=== PATIENT | female | born 1960 | race African-American/Black ===

== ENCOUNTER 2018-08-13 01:58 | Inpatient (IN) | payer MEDICAID ==
[~2018-08-13] VITALS: Ht 177.8 cm; Wt 85.4 kg
[2018-08-13 02:21] VITALS: BP 164/84
[2018-08-13] MEDS ORDERED: Acetaminophen 500mg (ES) tab ORAL ONE (02:30)
[2018-08-13] MEDS ORDERED: Solu-MEDROL 125mg Inj IVP ONE (02:30)
[2018-08-13] MEDS ORDERED: Albuterol ud Inhalation HHN ONE (02:30)
[2018-08-13] MEDS ORDERED: Ipratropium 0.02% Inh Soln 2.5ml UD HHN ONE (02:30)
--- NOTE | 2018-08-13 02:30 | NUR ---
ED Nurse Note: Pt's friend report Pt having bad flu and seems like PNA now. Pt been sick for 1 week, pt took OTC meds but didn't work. Pt temp 101.9F, Pt is coughing with thick mucos. pt presents with unknown rashes on arms. pt states shes incontinent. pt is able to respond to commands. pupiles are round and reactive to light and accomodate. pt is able to ambulate but with assistance.
[2018-08-13] MEDS ORDERED: Levalbuterol Inh UD 1.25mg/0.5ml HHN ONE (02:45)
[2018-08-13] MEDS: Ipratropium 0.02% Inh Soln 2.5ml UD HHN SCH ×4 (03:48→04:25)
[2018-08-13] MEDS: Levalbuterol Inh UD 1.25mg/0.5ml HHN SCH ×4 (03:48→04:25)
[2018-08-13] MEDS ORDERED: Morphine Sulfate 4mg/ml Inj (IV/IM USE ONLY) IVP ONE ×2 (04:00→07:00)
[2018-08-13 04:42] LABS: BASOPHILS % (AUTO) 0.6 % (0.0-2.0); HEMATOCRIT 45.3 % (37.0-47.0); HEMOGLOBIN 14.5 G/DL (12.0-16.0); LYMPHOCYTES % (AUTO) 9.7 % (20.0-45.0); MEAN CORPUSCULAR VOLUME 93 FL (80-99); NEUTROPHILS % (AUTO) 82.7 % (45.0-75.0); PLATELET COUNT 121 K/UL (150-450); RED BLOOD COUNT 4.85 M/UL (4.20-5.40); RED CELL DISTRIBUTION WIDTH 13.1 % (11.6-14.8); WHITE BLOOD COUNT 14.4 K/UL (4.8-10.8)
[2018-08-13 04:44] VITALS: BP 149/82
[2018-08-13 04:57] LABS: ANION GAP 10 mmol/L (5-15); BLOOD UREA NITROGEN 13 mg/dL (7-18); CALCIUM 9.3 MG/DL (8.5-10.1); CARBON DIOXIDE 26 MMOL/L (21-32); CHLORIDE 95 MMOL/L (98-107); CREATININE 0.9 MG/DL (0.55-1.30); POTASSIUM 3.6 MMOL/L (3.5-5.1); SODIUM 131 MMOL/L (136-145)
--- NOTE | 2018-08-13 05:11 | NUR ---
ED Nurse Note: Jacob (family member) [phone]
[2018-08-13 05:12] LABS: ALANINE AMINOTRANSFERASE 53 U/L (12-78); ALBUMIN 2.7 G/DL (3.4-5.0); ALBUMIN/GLOBULIN RATIO 0.4 (1.0-2.7); ALKALINE PHOSPHATASE 102 U/L (46-116); ASPARTATE AMINO TRANSFERASE 95 U/L (15-37); BILIRUBIN,TOTAL 1.8 MG/DL (0.2-1.0)
[2018-08-13 05:18] LABS: BILIRUBIN,DIRECT 0.9 MG/DL (0.0-0.3)
--- NOTE | 2018-08-13 05:41 | Emergency Room Report ---
History of Present Illness General Chief Complaint: Fever Source: Patient Present Illness HPI 58-year-old female presents ED for evaluation. Brought in by friend for evaluation of fever, cough, congestion. History of COPD. Febrile in triage. Notes cough with phlegm. Denies chest pain. Denies recent travel. No other aggravating relieving factors. Denies any other associated symptoms Allergies: Uncoded Allergies: SULFA MEDS (Allergy, Unknown, 08/13/18) Patient History Past Medical History: DM, HTN, COPD Pertinent Family History: none Social History: Denies: smoking, alcohol use, drug use Now: No Immunizations: UTD Reviewed Nursing Documentation: PMH: Agreed; PSxH: Agreed Nursing Documentation-PMH Hx Hypertension: Yes Hx COPD: Yes Hx Diabetes: Yes Review of Systems All Other Systems: negative except mentioned in HPI Physical Exam Vital Signs Date Time Temp Pulse Resp B/P (MAP) Pulse Ox O2 Delivery O2 Flow Rate FiO2 08/13/18 02:13 101.8 125 22 164/84 96 Room Air 08/13/18 02:21 99 Sp02 EP Interpretation: reviewed, normal General Appearance: alert, GCS 15, non-toxic, mild distress Head: normocephalic, atraumatic Eyes: bilateral eye normal inspection, bilateral eye PERRL ENT: hearing grossly normal, normal pharynx, no angioedema, normal voice Neck: full range of motion, supple/symm/no masses Respiratory: chest non-tender, crackles, speaking full sentences, wheezing Cardiovascular #1: no edema, tachycardia Cardiovascular #2: 2+ carotid (R), 2+ carotid (L), 2+ radial (R), 2+ radial (L) , 2+ dorsalis pedis (R), 2+ dorsalis pedis (L) Gastrointestinal: normal bowel sounds, non tender, soft, non-distended, no guarding, no rebound Rectal: deferred Genitourinary: normal inspection, no CVA tenderness Musculoskeletal: back normal, gait/station normal, normal range of motion, non- tender Neurologic: alert, oriented x3, responsive, motor strength/tone normal, sensory intact, speech normal Psychiatric: judgement/insight normal, memory normal, mood/affect normal, no suicidal/homicidal ideation Reflexes: 3+ bicep (R), 3+ bicep (L), 3+ tricep (R), 3+ tricep (L), 3+ knee (R) , 3+ knee (L) Skin: normal color, no rash, warm/dry, well hydrated Lymphatic: no adenopathy Medical Decision Making Diagnostic Impression: Primary Impression: COPD (chronic obstructive pulmonary disease) Qualified Codes: J44.9 - Chronic obstructive pulmonary disease, unspecified Additional Impressions: Pneumonia Qualified Codes: J18.1 - Lobar pneumonia, unspecified organism Sepsis Qualified Codes: A41.9 - Sepsis, unspecified organism Opioid dependence Qualified Codes: F11.29 - Opioid dependence with unspecified opioid-induced disorder ER Course Hospital Course 58-year-old F presenting to ED with SOB. h/o COPD. + fever Differential diagnoses include: Pneumonia, CHF exacerbation, pneumothorax, fluid overload Clinical course Patient placed on stretcher. On alarm security or surveillance monitor with stable vitals. After initial history and physical, I ordered nebulizer treatments, solumedrol. I ordered labs, IV fluids, EKG, chest x-ray, blood cultures, UA. Labs - noted leukocytosis noted, hemoglobin/hematocrit stable, electrolytes okay, lactate 2.9, EKG - sinus tachycardia, no acute ischemic changes interpreted by me CXR - R sided infiltrate Patient given multiple breathing treatments. Given magnesium. Given antibiotics. Given IV fluids 30 mL per KG Patient asking for pain medications for her back pain. Patient later admits to methadone use 80 mg a day Case discussed with Dr. Bella and he agreed to the patient to his service for further care and support I feel this is a highly complex case requiring extensive working including EKG/ Rhythm strip, Xray/CT/US, Blood/urine lab work, repeat exams while in ED, and administration of strong opiates/narcotics for pain control, admission to hospital or close patient follow up. Diagnosis - COPD exacerbation, pneumonia, sepsis, opioid dependence Patient admitted to telemetry in serious condition Labs Test 08/13/18 04:20 White Blood Count 14.4 K/UL (4.8-10.8) Red Blood Count 4.85 M/UL (4.20-5.40) Hemoglobin 14.5 G/DL (12.0-16.0) Hematocrit 45.3 % (37.0-47.0) Mean Corpuscular Volume 93 FL (80-99) Mean Corpuscular Hemoglobin 29.8 PG (27.0-31.0) Mean Corpuscular Hemoglobin Concent 31.9 G/DL (32.0-36.0) Red Cell Distribution Width 13.1 % (11.6-14.8) Platelet Count 121 K/UL (150-450) Mean Platelet Volume 11.7 FL (6.5-10.1) Neutrophils (%) (Auto) 82.7 % (45.0-75.0) Lymphocytes (%) (Auto) 9.7 % (20.0-45.0) Monocytes (%) (Auto) 7.0 % (1.0-10.0) Eosinophils (%) (Auto) 0.0 % (0.0-3.0) Basophils (%) (Auto) 0.6 % (0.0-2.0) Sodium Level 131 MMOL/L (136-145) Potassium Level 3.6 MMOL/L (3.5-5.1) Chloride Level 95 MMOL/L (98-107) Carbon Dioxide Level 26 MMOL/L (21-32) Anion Gap 10 mmol/L (5-15) Blood Urea Nitrogen 13 mg/dL (7-18) Creatinine 0.9 MG/DL (0.55-1.30) Estimat Glomerular Filtration Rate > 60 mL/min (>60) Glucose Level 205 MG/DL (74-106) Lactic Acid Level 2.90 mmol/L (0.4-2.0) Calcium Level 9.3 MG/DL (8.5-10.1) Total Bilirubin 1.8 MG/DL (0.2-1.0) Direct Bilirubin 0.9 MG/DL (0.0-0.3) Aspartate Amino Transf (AST/SGOT) 95 U/L (15-37) Alanine Aminotransferase (ALT/SGPT) 53 U/L (12-78) Alkaline Phosphatase 102 U/L (46-116) Total Protein 9.2 G/DL (6.4-8.2) Albumin 2.7 G/DL (3.4-5.0) Globulin 6.5 g/dL Albumin/Globulin Ratio 0.4 (1.0-2.7) EKG Diagnostic Results Rate: tachycardiac Rhythm: NSR ST Segments: no acute changes ASA given to the pt in ED: No Rhythm Strip Diag. Results EP Interpretation: yes Rhythm: NSR, no PVC's, no ectopy Chest X-Ray Diagnostic Results Chest X-Ray Diagnostic Results : Chest X-Ray Ordered: Yes # of Views/Limited/Complete: 1 View Indication: Shortness of Breath EP Interpretation: Yes Interpretation: no pneumothorax, other - R sided infiltrate Impression: Other - PNA Electronically Signed by: Electronically signed by Tye Greer MD Last Vital Signs Date Time Temp Pulse Resp B/P (MAP) Pulse Ox O2 Delivery O2 Flow Rate FiO2 08/13/18 04:44 101.8 100 20 149/82 96 Room Air 08/13/18 04:25 21 Status: improved Disposition: ADMITTED INPATIENT Condition: Serious Referrals: [facility],REFERRING (PCP) Tye Gerer MD Aug 13, 2018 05:41
[2018-08-13 06:05] LABS: APPEARANCE,URINE CLEAR; BILIRUBIN, URINE 1+ (NEGATIVE); GLUCOSE, URINE (UA) NEGATIVE (NEGATIVE); KETONES,URINE 2+ (NEGATIVE); LEUKOCYTE ESTERASE ,URINE 1+ (NEGATIVE); NITRITE,URINE NEGATIVE (NEGATIVE); PH,URINE 6 (4.5-8.0); PROTEIN,URINE 3+ (NEGATIVE); UROBILINOGEN,URINE 8 MG/DL (0.0-1.0)
[2018-08-13 06:18] LABS: COLOR,URINE YELLOW
--- NOTE | 2018-08-13 06:40 | NUR ---
ED Nurse Note: PT report and all inportant information was reported to AMIE NELSON.
[2018-08-13 06:41] VITALS: BP 132/81
--- NOTE | 2018-08-13 07:28 | NUR ---
ED Nurse Note: pt is transfered to TELE with DANIEL GARCIA. pt status vital signs, status and condition has been reported to ERMD and receving RN. pt is stable for transfer.
--- NOTE | 2018-08-13 07:30 | NUR ---
NURSE NOTES: Received report from DANIEL White. Patient transferred from ER via gurney. Patient was able to roll over to the bed. Endorsed 1 mg of magnesium given at the time of arrival. VS at the time of arrival T 98.7, HR 106, RR 24 O2 sat 95%, BP 151/86. Patient on oxygen 2L via NC. 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 Belonging list checked, no active s/s cardiac, respiratory distress noticed at this time. Patient stated pain 5/10 on her back and legs. Bed in lowest position, side rails up x3, call light within reach, bed side commode at the bed side. Will continue to monitor.
--- NOTE | 2018-08-13 08:00 | NUR ---
NURSE NOTES: Patient verbally gave a list of home medication, methadone 80 mg daily, oxycodone 30mg TID, gabapentin 800 mg q6h, metformin [address] Montero, not going to continue metformin and need clarify with clinic for dosage of methadone. Order noted, entered, carried out. Dr. Montero made aware patient c/o back and legs pain. Per Dr. Montero, will enter order after assessment. Will continue to monitor.
[2018-08-13] MEDS ORDERED: METFORMIN HCL500 M1 ORAL (09:54)
[2018-08-13] MEDS ORDERED: GABAPENTIN800 MG ORAL (09:54)
[2018-08-13] MEDS ORDERED: ROXICODONE15 MG ORAL (09:54)
[2018-08-13] MEDS ORDERED: METHADONE HCL10 MG PO (09:54)
--- NOTE | 2018-08-13 10:00 | NUR ---
NURSE NOTES: Patient gage consent for releasing information about methadone from clinic. Patient stated she has been picking up medication from [facility] which is located at [facility] [place]. Pharmacist made aware. Will continue to monitor.
--- NOTE | 2018-08-13 11:01 | Diagnostic Imaging Report ---
Indication: Cough Comparison: 01/30/2000 A single view chest radiograph was obtained. Findings: Patchy infiltrates are present bilaterally. Correlate clinically for pneumonia. Differential includes a mild CHF. Heart is mildly enlarged. IMPRESSION: Mild patchy infiltrate versus interstitial edema. Correlate clinically
[2018-08-13] MEDS ORDERED: Miralax 17gm pkt ORAL PRN (11:30)
[2018-08-13] MEDS ORDERED: Albuterol/Ipratropium 3ml neb ONE (11:39)
[2018-08-13] MEDS: Albuterol/Ipratropium 3ml neb HHN SCH ×3 (11:46→23:00)
[2018-08-13] MEDS ORDERED: oxyCODONE 15mg IR tab ORAL SCH ×2 (13:00→17:00)
[2018-08-13] MEDS ORDERED: ALBUTEROL SULF8.5 GM INH (13:21)
[2018-08-13] MEDS ORDERED: ASPIRIN81 MG ORAL (13:21)
[2018-08-13] MEDS ORDERED: LEVAQUIN750 MG ORAL (13:21)
[2018-08-13] MEDS ORDERED: NOVOLIN R100 UNIT/1 SUBQ (13:21)
[2018-08-13] MEDS ORDERED: LISINOPRIL20 MG ORAL (13:21)
[2018-08-13] MEDS ORDERED: LANTUS SOL100 UNIT/1 SUBQ (13:21)
[2018-08-13] MEDS ORDERED: PREDNISONE20 MG ORAL (13:21)
[2018-08-13] MEDS: Solu-MEDROL 125mg Inj IVP SCH ×2 (13:37→17:14)
[2018-08-13] MEDS: Azithromycin 500 MG in D5W 275 ML IV SCH (14:36)
--- NOTE | 2018-08-13 14:54 | History and Physical ---
History of Present Illness General Date patient seen: Aug 13, 2018 Time patient seen: 11:45 Reason for Hospitalization: Sepsis Present Illness HPI 58 year old woman with history of COPD, HTN, DM type 2, chronic pain, opiate dependance on methadone who presents with 3 days of cough, chest congestion, fevers and chills. Cough is productive of green sputum. Multiple sick contacts with similar complaints. In ED she was found to have fever 102, leukocytosis and infiltrate on CXR. Treated with Levaquin and referred for admission. Social Hx: Tobacco use Family Hx: No premature CAD Allergies: Coded Allergies: SULFA (SULFONAMIDE ANTIBIOTICS) (Unverified Allergy, Unknown, 08/13/18) Uncoded Allergies: SULFA MEDS (Allergy, Unknown, 08/13/18) Medication History Scheduled Albuterol Sulfate* (Albuterol Sulfate Mdi*), 2 PUFF INH Q6H, (Reported) Aspirin* (Aspirin*), 81 MG ORAL DAILY, (Reported) Gabapentin* (Gabapentin*), 800 MG ORAL FOUR TIMES A DAY, (Reported) Insulin Glargine (Lantus), 0 SUBQ BEDTIME, (Reported) Insulin Regular, Human* (Novolin R*), 0 SUBQ .SLIDING SCALE, (Reported) Levofloxacin* (Levaquin*), 750 MG ORAL DAILY, (Reported) Lisinopril (Lisinopril*), 20 MG ORAL DAILY, (Reported) Metformin Hcl* (Metformin Hcl*), 500 MG ORAL THREE TIMES A DAY, (Reported) Methadone Hcl* (Methadone*), 80 MG PO DAILY, (Reported) OXYCODONE HCl* (Roxicodone*), 30 MG ORAL TID, (Reported) Prednisone* (Prednisone*), 20 MG ORAL DAILY, (Reported) Patient History Healthcare decision maker Yesica Ac Resuscitation status Full Code Advanced Directive on File Review of Systems Constitutional: Reports: chills, fever Eye: Denies: eye pain ENT: Denies: ear pain Respiratory: Reports: cough, shortness of breath, wheezing Cardiovascular: Denies: chest pain, palpitations Gastrointestinal: Denies: abdominal pain, constipation Genitourinary: Denies: dysuria Musculoskeletal: Denies: back pain Skin: Denies: rash Neurological: Denies: headache Endocrine: Denies: excessive sweating Hematologic/Lymphatic: Denies: anemia Physical Exam General Appearance: no apparent distress, alert HEENT: normocephalic, atraumatic Neck: non-tender, normal alignment Respiratory/Chest: chest wall non-tender, rhonchi - bilaterally Cardiovascular/Chest: normal peripheral pulses, normal rate Abdomen: normal bowel sounds, non tender Extremities: normal range of motion, non-tender 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, no motor/sensory deficits, alert, oriented x 3 Last 24 Hour Vital Signs Date Time Temp Pulse Resp B/P (MAP) Pulse Ox O2 Delivery O2 Flow Rate FiO2 08/13/18 11:54 93 20 100 Nasal Cannula 2.0 28 08/13/18 11:54 Nasal Cannula 2.0 28 08/13/18 11:54 99 Nasal Cannula 2.0 08/13/18 11:49 91 20 Nasal Cannula 2.0 08/13/18 11:48 91 20 98 Nasal Cannula 2.0 08/13/18 09:00 Nasal Cannula 2.0 08/13/18 08:59 Nasal Cannula 2.0 08/13/18 07:27 99.5 81 18 132/81 99 Room Air 21 08/13/18 06:41 99.5 81 18 132/81 99 Room Air 08/13/18 04:44 101.8 100 20 149/82 96 Room Air 08/13/18 04:25 121 19 95 Room Air 08/13/18 04:20 121 21 100 Room Air 21 08/13/18 04:15 99.9 08/13/18 04:01 122 21 100 Room Air 08/13/18 03:48 121 18 90 Room Air 08/13/18 02:58 121 21 100 Room Air 21 08/13/18 02:45 118 19 93 Room Air 21 08/13/18 02:21 101.8 100 22 164/84 96 Room Air 08/13/18 02:21 100 19 Room Air 99 08/13/18 02:13 101.8 125 22 164/84 96 Room Air Laboratory Tests Test 08/13/18 04:20 08/13/18 05:41 08/13/18 07:20 White Blood Count 14.4 K/UL (4.8-10.8) H Red Blood Count 4.85 M/UL (4.20-5.40) Hemoglobin 14.5 G/DL (12.0-16.0) Hematocrit 45.3 % (37.0-47.0) Mean Corpuscular Volume 93 FL (80-99) Mean Corpuscular Hemoglobin 29.8 PG (27.0-31.0) Mean Corpuscular Hemoglobin Concent 31.9 G/DL (32.0-36.0) L Red Cell Distribution Width 13.1 % (11.6-14.8) Platelet Count 121 K/UL (150-450) L Mean Platelet Volume 11.7 FL (6.5-10.1) H Neutrophils (%) (Auto) 82.7 % (45.0-75.0) H Lymphocytes (%) (Auto) 9.7 % (20.0-45.0) L Monocytes (%) (Auto) 7.0 % (1.0-10.0) Eosinophils (%) (Auto) 0.0 % (0.0-3.0) Basophils (%) (Auto) 0.6 % (0.0-2.0) Sodium Level 131 MMOL/L (136-145) L Potassium Level 3.6 MMOL/L (3.5-5.1) Chloride Level 95 MMOL/L (98-107) L Carbon Dioxide Level 26 MMOL/L (21-32) Anion Gap 10 mmol/L (5-15) Blood Urea Nitrogen 13 mg/dL (7-18) Creatinine 0.9 MG/DL (0.55-1.30) Estimat Glomerular Filtration Rate > 60 mL/min (>60) Glucose Level 205 MG/DL (74-106) H Lactic Acid Level 2.90 mmol/L (0.4-2.0) H 3.30 mmol/L (0.66-2.22) H Calcium Level 9.3 MG/DL (8.5-10.1) Total Bilirubin 1.8 MG/DL (0.2-1.0) H Direct Bilirubin 0.9 MG/DL (0.0-0.3) H Aspartate Amino Transf (AST/SGOT) 95 U/L (15-37) H Alanine Aminotransferase (ALT/SGPT) 53 U/L (12-78) Alkaline Phosphatase 102 U/L (46-116) Total Protein 9.2 G/DL (6.4-8.2) H Albumin 2.7 G/DL (3.4-5.0) L Globulin 6.5 g/dL Albumin/Globulin Ratio 0.4 (1.0-2.7) L Urine Color Yellow Urine Appearance Clear Urine pH 6 (4.5-8.0) Urine Specific [place] 1.015 (1.005-1.035) Urine Protein 3+ (NEGATIVE) H Urine Glucose (UA) Negative (NEGATIVE) Urine Ketones 2+ (NEGATIVE) H Urine Blood 2+ (NEGATIVE) H Urine Nitrite Negative (NEGATIVE) Urine Bilirubin 1+ (NEGATIVE) H Urine Ictotest Positive (NEGATIVE) Urine Urobilinogen 8 MG/DL (0.0-1.0) H Urine Leukocyte Esterase 1+ (NEGATIVE) H Urine RBC 2-4 /HPF (0 - 2) H Urine WBC 2-4 /HPF (0 - 2) Urine Squamous Epithelial Cells Few /LPF (NONE/OCC) Urine Bacteria Few /HPF (NONE) Microbiology Date/Time Source Procedure Growth Status 08/13/18 04:10 Nasal Nares Influenza Types A,B Antigen (SELENA) - Final Complete Height (Feet): 5 Height (Inches): 10.00 Weight (Pounds): 170 Medications Current Medications Medications (Trade) Dose Ordered Sig/Rogers Route PRN Reason Start Time Stop Time Status Last Admin Dose Admin Albuterol/ Ipratropium (Albuterol/ Ipratropium) 3 ml Q4HRT HHN 08/13/18 15:00 08/18/18 14:59 08/13/18 11:46 Aspirin (ASA) 81 mg DAILY ORAL 08/14/18 09:00 09/13/18 08:59 Azithromycin 500 mg/Dextrose 275 ml @ 275 mls/hr Q24H IV 08/13/18 14:00 08/20/18 13:59 08/13/18 14:36 Ceftriaxone Sodium 1 gm/ Dextrose 55 ml @ 110 mls/hr Q24H IV 08/13/18 15:00 08/20/18 14:59 Diphenhydramine HCl (Benadryl) 25 mg Q6H PRN ORAL Itching/Pruritis 08/13/18 11:30 09/12/18 11:29 Docusate Sodium (Colace) 100 mg EVERY 12 HOURS ORAL 08/13/18 21:00 09/12/18 20:59 Famotidine (Pepcid) 40 mg DAILY ORAL 08/14/18 09:00 09/13/18 08:59 Gabapentin (Neurontin) 800 mg FOUR TIMES A DAY ORAL 08/13/18 13:00 09/12/18 12:59 08/13/18 13:37 Heparin Sodium (Porcine) (Heparin 5000 units/ml) 5,000 units EVERY 12 HOURS SUBQ 08/13/18 21:00 09/12/18 20:59 Insulin Detemir (Levemir) 10 units BEDTIME SUBQ 08/13/18 21:00 09/12/18 20:59 Lisinopril (Prinivil) 20 mg DAILY ORAL 08/14/18 09:00 09/13/18 08:59 Methadone HCl (Methadone HCl) 50 mg DAILY ORAL 08/13/18 15:00 08/20/18 14:59 08/13/18 14:35 Methylprednisolone Sodium Succinate (Solu-MEDROL) 60 mg EVERY 6 HOURS IVP 08/13/18 12:00 09/12/18 11:59 08/13/18 13:37 Ondansetron HCl (Zofran) 4 mg Q6H PRN IVP Nausea & Vomiting 08/13/18 11:30 09/12/18 11:29 Oxycodone HCl (Roxicodone) 30 mg TID ORAL 08/13/18 13:00 08/20/18 12:59 UNV Polyethylene Glycol (Miralax) 17 gm DAILYPRN PRN ORAL Constipation 08/13/18 11:30 09/12/18 11:29 Sodium Chloride 1,000 ml @ 75 mls/hr [id number] IV 08/13/18 12:25 09/12/18 12:24 08/13/18 13:37 Assessment/Plan Assessment/Plan #Sepsis due to #Pneumonia, community acquired -admit to medical service -start IV antibiotic with ceftriaxone and azithromycin -follow up blood cultures and lactate levels -Pulmonology consulted #COPD exacerbation, diffuse rhonchi on exam -start Solu-Medrol, Duoneb -add Mucinex -smoking cessation #Type 2 DM -will lkely become uncontrolled due to steroids -start Levemir + ISS -monitor glucose levels closely #Chronic pain #Neuropathy #opiate dependance -continue outpatient pain regimen -methadone verified to be 50mg VTE PPx Full Code I spent 70 minutes on this patient's case, and 35 minutes was dedicated to counseling and/or care coordination. Raul Giraldo MD Aug 13, 2018 14:54
--- NOTE | 2018-08-13 15:40 | NUR ---
NURSE NOTES: Per Dr. Kylah guerra to continue oxycodone 30mg BID although last picked up for oxycodone from [facility] was 03/2018. Order noted, entered, carried out. Patient requesting upgrade diet from clear liquid diet to solid food. Per Dr. Kylah guerra to upgrade diet. Order noted, entered, carried out. Will continue to monitor.
[2018-08-13] MEDS ORDERED: oxyCODONE 5mg IR tab ONE (16:11)
[2018-08-13] MEDS: NovoLOG Insulin Flexpen SUBQ SCH ×2 (16:25→21:37)
[2018-08-13] MEDS ORDERED: oxyCODONE 5mg IR tab ORAL ONE (17:00)
--- NOTE | 2018-08-13 17:30 | NUR ---
NURSE NOTES: Dr. Montero made aware patient BS at 1630 was 479. 14 units of NovoLog given. At 1700 BS was critically high. Per Dr. Montero administer 6 units of insulin coverage once. Order noted, entered, carried out. CN made aware, BS checked with CN critically high. Patient asymptomatic, AO x4, denies pain at this time. Will continue to monitor.
[2018-08-13] MEDS ORDERED: Guaifenesin/DM 10ml syrup ORAL PRN (17:45)
[2018-08-13] MEDS: cefTRIAXone 1 GM in D5W 55 ML IV SCH (18:11)
[2018-08-13] MEDS: guaiFENesin ER 600mg tab ORAL SCH (18:11)
[2018-08-13] MEDS ORDERED: NovoLOG Insulin Flexpen SUBQ SCH (19:00)
--- NOTE | 2018-08-13 19:23 | NUR ---
HAND-OFF: Report given to DANIEL Cardenas.
--- NOTE | 2018-08-13 19:24 | NUR ---
NURSE NOTES: Received report by Rowena SANCHEZ. Pt in bed asleep with tv on. No distress noted. Bed in lowest position with side rails up x2 and call light in reach. IVF running at prescribed rate. Will continue to monitor.
[2018-08-13 20:00] VITALS: BP 143/71
[2018-08-13] MEDS ORDERED: Levemir Flexpen SUBQ SCH (21:00)
[2018-08-13] MEDS: Oseltamivir 75mg cap ORAL SCH (21:34)
[2018-08-13] MEDS: Docusate 100mg cap ORAL SCH (21:34)
[2018-08-13] MEDS: Heparin 5000 units/ml inj SUBQ SCH (21:40)
[2018-08-14] VITALS: BP 111/75
--- NOTE | 2018-08-14 03:07 | NUR ---
HAND-OFF: Report given to Elva Solares RN. Pt stable.
--- NOTE | 2018-08-14 03:25 | NUR ---
NURSE NOTES: Received patient from DANIEL Cardenas. Patient on bed asleep at this time. Call light within reach. Bed brakes engaged.
[2018-08-14 04:00] VITALS: BP 109/73
[2018-08-14] MEDS ORDERED: oxyCODONE 15mg IR tab ORAL SCH (04:00)
--- NOTE | 2018-08-14 04:00 | NUR ---
NURSE NOTES: Patient very restless and in pain. Notified RN last Oxycodone taken at 4pm. Called in pharmacy to have the medication retimed as it was past 12 hours as ordered routinely. Pharmacy double checked and retimed as requested.
[2018-08-14] MEDS: Albuterol/Ipratropium 3ml neb HHN SCH ×6 (04:30→23:42)
[2018-08-14] MEDS: Solu-MEDROL 125mg Inj IVP SCH ×5 (05:04→23:24)
[2018-08-14] MEDS: NovoLOG Insulin Flexpen SUBQ SCH ×4 (06:13→21:00)
[2018-08-14 06:38] LABS: HEMOGLOBIN 11.5 G/DL (12.0-16.0); MEAN CORPUSCULAR VOLUME 94 FL (80-99); PLATELET COUNT 101 K/UL (150-450); RED BLOOD COUNT 3.85 M/UL (4.20-5.40); RED CELL DISTRIBUTION WIDTH 13.6 % (11.6-14.8); WHITE BLOOD COUNT 7.2 K/UL (4.8-10.8)
--- NOTE | 2018-08-14 06:41 | NUR ---
NURSE NOTES: Seen patient asleep now. No complaints of pain at this time.
[2018-08-14 07:04] LABS: ANION GAP 8 mmol/L (5-15); CARBON DIOXIDE 27 MMOL/L (21-32); CHLORIDE 96 MMOL/L (98-107); POTASSIUM 3.4 MMOL/L (3.5-5.1); SODIUM 131 MMOL/L (136-145)
[2018-08-14 07:24] LABS: BLOOD UREA NITROGEN 31 mg/dL (7-18)
--- NOTE | 2018-08-14 07:46 | NUR ---
HAND-OFF: Report given to DANIEL Guaman. Endorsed plan of care.
[2018-08-14 08:00] VITALS: BP 133/74
--- NOTE | 2018-08-14 08:00 | NUR ---
NURSE NOTES: Received report from DANIEL Stevenson. Patient in bed resting. Patient on 2L oxygen via NC, no active s/s cardiac, respiratory distress noticed at this time. Patient AO x4, SR with HR 82. IV running at prescribed rate, IV site asymptomatic, patent, intact. Bed side commode at bed side, bed in lowest position, side rails up x2, call light within reach. Will continue to monitor.
--- NOTE | 2018-08-14 08:30 | NUR ---
NURSE NOTES: Dr. Montero made aware patient requesting oxycodone TID instead of BID. Per Dr. Montero oxycodone 30mg TID. Order noted, entered, carried out. Dr. Montero made aware patient has lisinopril 20mg and potassium today is 3.4. Per Dr. Montero, okay to administer lisinopril. Will continue to monitor.
[2018-08-14] MEDS: Heparin 5000 units/ml inj SUBQ SCH ×2 (09:00→21:00)
[2018-08-14] MEDS: Docusate 100mg cap ORAL SCH ×2 (09:00→21:00)
--- NOTE | 2018-08-14 09:13 | General Progress Note ---
Assessment/Plan Assessment/Plan #Sepsis due to #Pneumonia, community acquired #Influenza A infection -continue inpatient level of care -continue ceftriaxone and azithromycin -started on Tamiflu -follow up blood cultures -Pulmonology consult #COPD exacerbation, remains very rhonch -continue Solu-Medrol, Duoneb -continue Mucinex -smoking cessation #Type 2 DM, uncontrolled due to steroids -increase Levemir to 12 units qHS -monitor glucose levels closely with ISS #Chronic pain #Neuropathy #opiate dependance -continue outpatient pain regimen -methadone verified to be 50mg VTE PPx Full Code I spent 70 minutes on this patient's case, and 36 minutes was dedicated to counseling and/or care coordination. Subjective Date patient seen: Aug 14, 2018 Time patient seen: 07:30 ROS Limited/Unobtainable: No Constitutional: Denies: fever Cardiovascular: Denies: chest pain Respiratory: Reports: cough, shortness of breath Gastrointestinal/Abdominal: Denies: abdomen distended, abdominal pain Neurologic/Psychiatric: Denies: anxiety Allergies: Coded Allergies: SULFA (SULFONAMIDE ANTIBIOTICS) (Unverified Allergy, Unknown, 08/13/18) Uncoded Allergies: SULFA MEDS (Allergy, Unknown, 08/13/18) Subjective Medicine follow up for sepsis, pneumonia, influenza A infection. Feeling better today. Asking oxycodone to be increased to 30mg tid Objective Last 24 Hour Vital Signs Date Time Temp Pulse Resp B/P (MAP) Pulse Ox O2 Delivery O2 Flow Rate FiO2 08/14/18 07:30 80 20 100 Nasal Cannula 2.0 28 08/14/18 07:23 76 18 100 Nasal Cannula 2.0 28 08/14/18 07:23 Nasal Cannula 2.0 28 08/14/18 07:23 76 18 Nasal Cannula 2.0 28 08/14/18 07:23 100 Nasal Cannula 2.0 28 08/14/18 04:37 82 20 98 Nasal Cannula 2.0 28 08/14/18 04:28 82 20 98 Nasal Cannula 2.0 28 08/14/18 04:00 97.1 75 18 109/73 (85) 94 08/14/18 03:47 77 08/14/18 00:00 97.4 76 19 111/75 (87) 98 08/14/18 00:00 74 08/13/18 23:50 Nasal Cannula 2.0 28 08/13/18 23:50 Nasal Cannula 2.0 08/13/18 21:00 Nasal Cannula 2.0 08/13/18 20:38 79 20 99 Nasal Cannula 2.0 28 08/13/18 20:27 Nasal Cannula 2.0 28 08/13/18 20:27 78 20 98 Nasal Cannula 2.0 28 08/13/18 20:27 98 Nasal Cannula 2.0 28 08/13/18 20:26 78 2 Nasal Cannula 2.0 08/13/18 20:00 93 08/13/18 20:00 97.1 79 18 143/71 (95) 95 08/13/18 16:00 96 08/13/18 15:23 Nasal Cannula 2.0 28 08/13/18 15:23 Nasal Cannula 2.0 08/13/18 12:00 90 08/13/18 11:54 93 20 100 Nasal Cannula 2.0 08/13/18 11:54 Nasal Cannula 2.0 08/13/18 11:54 99 Nasal Cannula 2.0 08/13/18 11:49 91 20 Nasal Cannula 2.0 08/13/18 11:48 91 20 98 Nasal Cannula 2.0 28 Laboratory Tests 08/14/18 05:50: White Blood Count 7.2, Red Blood Count 3.85L, Hemoglobin 11.5L, Hematocrit 36.0L , Mean Corpuscular Volume 94, Mean Corpuscular Hemoglobin 29.7, Mean Corpuscular Hemoglobin Concent 31.8L, Red Cell Distribution Width 13.6, Platelet Count 101L, Mean Platelet Volume 8.1, Neutrophils (%) (Auto) , Lymphocytes (%) (Auto) , Monocytes (%) (Auto) , Eosinophils (%) (Auto) , Basophils (%) (Auto) , Neutrophils % (Manual) [Pending], Lymphocytes % (Manual) [Pending], Platelet Estimate [Pending], Platelet Morphology [Pending], Sodium Level 131L, Potassium Level 3.4L, Chloride Level 96L, Carbon Dioxide Level 27, Anion Gap 8, Blood Urea Nitrogen 31H, Creatinine 1.0, Estimat Glomerular Filtration Rate > 60, Glucose Level 384#H, Calcium Level 9.0 Height (Feet): 5 Height (Inches): 10.00 Weight (Pounds): 170 General Appearance: no apparent distress, alert Neck: non-tender, normal alignment Cardiovascular: normal peripheral pulses, normal rate Respiratory/Chest: rhonchi - bilaterally Abdomen: normal bowel sounds, non tender Extremities: normal range of motion Raul Giraldo MD Aug 14, 2018 09:13
[2018-08-14] MEDS: Oseltamivir 75mg cap ORAL SCH ×2 (09:42→21:00)
[2018-08-14] MEDS: Aspirin Baby 81mg ORAL SCH (09:42)
[2018-08-14] MEDS: guaiFENesin ER 600mg tab ORAL SCH ×2 (09:42→17:47)
[2018-08-14] MEDS: Lisinopril 20mg tab ORAL SCH (09:42)
[2018-08-14] MEDS: oxyCODONE 15mg IR tab ORAL SCH ×3 (09:43→17:47)
[2018-08-14] MEDS ORDERED: 1/2 NS 1000ml IV ONE (10:39)
[2018-08-14] MEDS ORDERED: Tubing IV Secondary IV ONE (10:39)
[2018-08-14 12:00] VITALS: BP 123/73
--- NOTE | 2018-08-14 13:11 | NUR ---
NURSE NOTES: Dr. Montero made aware patient BS at 1130 was 433, 14 units of NovoLog given, BS rechecked at 1230 was 442. No order given at this time. Will continue to monitor. Addendum: 08/14/18 at 1316 by ROSEMARY MCLAIN RN Per Dr. Montero another 6 units of coverage. Order noted, entered, carried out.
[2018-08-14] MEDS: Azithromycin 500 MG in D5W 275 ML IV SCH (14:13)
--- NOTE | 2018-08-14 14:51 | NUR ---
*-* INSURANCE *-* ALL CLINICALS HAVE BEEN FAXED TO: [facility] F:[phone]
[2018-08-14] MEDS ORDERED: NovoLOG Insulin Flexpen SUBQ SCH (15:00)
[2018-08-14 16:00] VITALS: BP 113/74
--- NOTE | 2018-08-14 16:10 | Pulmonology Progress Note ---
Assessment/Plan Assessment/Plan Pulmonary Consultation Note HPI Patient is a 58-year-old female admitted with COPD exaccerbation and bilateral patchy pneumonia. She complains of fever, cough, congestion. Denies chest pain. Denies recent travel. No other aggravating relieving factors. Denies any other associated symptoms Allergies: SULFA MEDS Past Medical History: DM, HTN, COPD Pertinent Family History: none Social History: Denies: smoking, alcohol use, drug use All Other Systems: negative except mentioned in HPI Physical Exam Vital Signs Noted General Appearance: alert, GCS 15, non-toxic, mild distress Head: normocephalic, atraumatic Eyes: bilateral eye normal inspection, bilateral eye PERRL ENT: hearing grossly normal, normal pharynx, no angioedema, normal voice Neck: full range of motion, supple/symm/no masses Respiratory: chest non-tender, crackles, occasional rhonchi, speaking full sentences, wheezing Cardiovascular no edema, tachycardia, Normal HS, RRR Gastrointestinal: normal bowel sounds, non tender, soft, non-distended, no guarding, no rebound Rectal: deferred Genitourinary: normal inspection, no CVA tenderness Musculoskeletal: back normal, gait/station normal, normal range of motion, non- tender Neurologic: alert, oriented x3, responsive, motor strength/tone normal, sensory intact, speech normal Psychiatric: judgement/insight normal, memory normal, mood/affect normal, no suicidal/homicidal ideation Reflexes: 3+ bicep (R), 3+ bicep (L), 3+ tricep (R), 3+ tricep (L), 3+ knee (R) , 3+ knee (L) Skin: normal color, no rash, warm/dry, well hydrated Lymphatic: no adenopathy Impression: COPD (chronic obstructive pulmonary disease) Pneumonia Diabetes Sepsis Opioid dependence Plan: #Pneumonia, community acquired - IV antibiotic with ceftriaxone and azithromycin -follow up blood cultures and lactate levels #COPD exacerbation, diffuse rhonchi on exam -continueSolu-Medrol, Duoneb -add Mucinex -smoking cessation #Type 2 DM -start Levemir + ISS #Chronic pain #Neuropathy #opiate dependance -continue outpatient pain regimen Labs Test 08/13/18 04:20 White Blood Count 14.4 K/UL (4.8-10.8) Red Blood Count 4.85 M/UL (4.20-5.40) Hemoglobin 14.5 G/DL (12.0-16.0) Hematocrit 45.3 % (37.0-47.0) Mean Corpuscular Volume 93 FL (80-99) Mean Corpuscular Hemoglobin 29.8 PG (27.0-31.0) Mean Corpuscular Hemoglobin Concent 31.9 G/DL (32.0-36.0) Red Cell Distribution Width 13.1 % (11.6-14.8) Platelet Count 121 K/UL (150-450) Mean Platelet Volume 11.7 FL (6.5-10.1) Neutrophils (%) (Auto) 82.7 % (45.0-75.0) Lymphocytes (%) (Auto) 9.7 % (20.0-45.0) Monocytes (%) (Auto) 7.0 % (1.0-10.0) Eosinophils (%) (Auto) 0.0 % (0.0-3.0) Basophils (%) (Auto) 0.6 % (0.0-2.0) Sodium Level 131 MMOL/L (136-145) Potassium Level 3.6 MMOL/L (3.5-5.1) Chloride Level 95 MMOL/L (98-107) Carbon Dioxide Level 26 MMOL/L (21-32) Anion Gap 10 mmol/L (5-15) Blood Urea Nitrogen 13 mg/dL (7-18) Creatinine 0.9 MG/DL (0.55-1.30) Estimat Glomerular Filtration Rate > 60 mL/min (>60) Glucose Level 205 MG/DL (74-106) Lactic Acid Level 2.90 mmol/L (0.4-2.0) Calcium Level 9.3 MG/DL (8.5-10.1) Total Bilirubin 1.8 MG/DL (0.2-1.0) Direct Bilirubin 0.9 MG/DL (0.0-0.3) Aspartate Amino Transf (AST/SGOT) 95 U/L (15-37) Alanine Aminotransferase (ALT/SGPT) 53 U/L (12-78) Alkaline Phosphatase 102 U/L (46-116) Total Protein 9.2 G/DL (6.4-8.2) Albumin 2.7 G/DL (3.4-5.0) Globulin 6.5 g/dL Albumin/Globulin Ratio 0.4 (1.0-2.7) EKG Diagnostic Results Rate: tachycardiac Rhythm: NSR ST Segments: no acute changes Rhythm Strip Diag. Results EP Interpretation: yes Rhythm: NSR, no PVC's, no ectopy Chest X-Ray Diagnostic Results Chest X-Ray Diagnostic Results : Chest X-Ray Ordered: Yes # of Views/Limited/Complete: 1 View Indication: Shortness of Breath EP Interpretation: Yes Interpretation: no pneumothorax, other - R sided infiltrate Subjective ROS Limited/Unobtainable: No Allergies: Coded Allergies: SULFA (SULFONAMIDE ANTIBIOTICS) (Unverified Allergy, Unknown, 08/13/18) Uncoded Allergies: SULFA MEDS (Allergy, Unknown, 08/13/18) Objective Last 24 Hour Vital Signs Date Time Temp Pulse Resp B/P (MAP) Pulse Ox O2 Delivery O2 Flow Rate FiO2 08/14/18 15:52 79 18 100 Nasal Cannula 2.0 28 08/14/18 12:00 81 08/14/18 12:00 97.3 80 20 123/73 (90) 100 08/14/18 10:47 Nasal Cannula 2.0 28 08/14/18 10:47 Nasal Cannula 2.0 28 08/14/18 09:42 133/74 08/14/18 09:00 Nasal Cannula 2.0 08/14/18 08:00 97.5 83 20 133/74 (93) 100 08/14/18 08:00 82 08/14/18 07:30 80 20 100 Nasal Cannula 2.0 28 08/14/18 07:23 76 18 100 Nasal Cannula 2.0 28 08/14/18 07:23 Nasal Cannula 2.0 28 08/14/18 07:23 76 18 Nasal Cannula 2.0 28 08/14/18 07:23 100 Nasal Cannula 2.0 28 08/14/18 04:37 82 20 98 Nasal Cannula 2.0 28 08/14/18 04:28 82 20 98 Nasal Cannula 2.0 28 08/14/18 04:00 97.1 75 18 109/73 (85) 94 08/14/18 03:47 77 08/14/18 00:00 97.4 76 19 111/75 (87) 98 08/14/18 00:00 74 08/13/18 23:50 Nasal Cannula 2.0 28 08/13/18 23:50 Nasal Cannula 2.0 28 08/13/18 21:00 Nasal Cannula 2.0 08/13/18 20:38 79 20 99 Nasal Cannula 2.0 28 08/13/18 20:27 Nasal Cannula 2.0 28 08/13/18 20:27 78 20 98 Nasal Cannula 2.0 28 08/13/18 20:27 98 Nasal Cannula 2.0 28 08/13/18 20:26 78 2 Nasal Cannula 2.0 28 08/13/18 20:00 93 08/13/18 20:00 97.1 79 18 143/71 (95) 95 Intake and Output 08/13/18 08/14/18 19:00 07:00 # Voids 3 2 Microbiology Date/Time Source Procedure Growth Status 08/13/18 04:30 Blood Blood Culture - Preliminary NO GROWTH AFTER 24 HOURS Resulted 08/13/18 04:20 Blood Blood Culture - Preliminary NO GROWTH AFTER 24 HOURS Resulted 08/13/18 04:10 Nasal Nares Influenza Types A,B Antigen (SELENA) - Final Complete Laboratory Tests 08/14/18 05:50: White Blood Count 7.2, Red Blood Count 3.85L, Hemoglobin 11.5L, Hematocrit 36.0L , Mean Corpuscular Volume 94, Mean Corpuscular Hemoglobin 29.7, Mean Corpuscular Hemoglobin Concent 31.8L, Red Cell Distribution Width 13.6, Platelet Count 101L, Mean Platelet Volume 8.1, Neutrophils (%) (Auto) , Lymphocytes (%) (Auto) , Monocytes (%) (Auto) , Eosinophils (%) (Auto) , Basophils (%) (Auto) , Differential Total Cells Counted 100, Neutrophils % ( Manual) 82H, Lymphocytes % (Manual) 7L, Monocytes % (Manual) 0L, Eosinophils % ( Manual) 0, Basophils % (Manual) 0, Band Neutrophils 11H, Platelet Estimate DecreasedL, Platelet Morphology Normal, Red Blood Cell Morphology Normal, Sodium Level 131L, Potassium Level 3.4L, Chloride Level 96L, Carbon Dioxide Level 27, Anion Gap 8, Blood Urea Nitrogen 31H, Creatinine 1.0, Estimat Glomerular Filtration Rate > 60, Glucose Level 384#H, Calcium Level 9.0 Current Medications Medications (Trade) Dose Ordered Sig/Rogers Route PRN Reason Start Time Stop Time Status Last Admin Dose Admin Albuterol/ Ipratropium (Albuterol/ Ipratropium) 3 ml Q4HRT HHN 08/13/18 15:00 08/18/18 14:59 08/14/18 15:51 Aspirin (ASA) 81 mg DAILY ORAL 08/14/18 09:00 09/13/18 08:59 08/14/18 09:42 Azithromycin 500 mg/Dextrose 275 ml @ 275 mls/hr Q24H IV 08/13/18 14:00 08/20/18 13:59 08/14/18 14:13 Ceftriaxone Sodium 1 gm/ Dextrose 55 ml @ 110 mls/hr Q24H IV 08/13/18 15:00 08/20/18 14:59 08/13/18 18:11 Dextrose (Dextrose 50%) 25 ml Q30M PRN IV Hypoglycemia 08/13/18 14:45 09/12/18 14:44 Dextrose (Dextrose 50%) 50 ml Q30M PRN IV Hypoglycemia 08/13/18 14:45 09/12/18 14:44 Diphenhydramine HCl (Benadryl) 25 mg Q6H PRN ORAL Itching/Pruritis 08/13/18 11:30 09/12/18 11:29 Docusate Sodium (Colace) 100 mg EVERY 12 HOURS ORAL 08/13/18 21:00 09/12/18 20:59 08/13/18 21:34 Famotidine (Pepcid) 40 mg DAILY ORAL 08/14/18 09:00 09/13/18 08:59 08/14/18 09:42 Gabapentin (Neurontin) 800 mg FOUR TIMES A DAY ORAL 08/13/18 13:00 09/12/18 12:59 08/14/18 12:52 Guaifenesin (Mucinex ER) 600 mg TWICE A DAY ORAL 08/13/18 18:00 09/12/18 17:59 08/14/18 09:42 Guaifenesin/ Dextromethorphan (Robitussin DM Syrup) 10 ml Q4H PRN ORAL For Cough 08/13/18 17:45 09/12/18 17:44 Heparin Sodium (Porcine) (Heparin 5000 units/ml) 5,000 units EVERY 12 HOURS SUBQ 08/13/18 21:00 09/12/18 20:59 08/13/18 21:40 Insulin Aspart (NovoLOG) BEFORE MEALS AND HS SUBQ 08/13/18 16:30 09/12/18 16:29 08/14/18 11:57 Insulin Aspart (NovoLOG) 6 units ONCE SUBQ 08/14/18 15:00 08/14/18 17:00 08/14/18 15:35 Insulin Detemir (Levemir) 12 units BEDTIME SUBQ 08/14/18 21:00 09/12/18 20:59 Lisinopril (Prinivil) 20 mg DAILY ORAL 08/14/18 09:00 09/13/18 08:59 08/14/18 09:42 Methadone HCl (Methadone HCl) 50 mg DAILY ORAL 08/13/18 15:00 08/20/18 14:59 08/14/18 09:42 Methylprednisolone Sodium Succinate (Solu-MEDROL) 60 mg EVERY 6 HOURS IVP 08/13/18 12:00 09/12/18 11:59 08/14/18 12:53 Ondansetron HCl (Zofran) 4 mg Q6H PRN IVP Nausea & Vomiting 08/13/18 11:30 09/12/18 11:29 Oseltamivir Phosphate (Tamiflu) 75 mg Q12HR ORAL 08/13/18 21:00 08/18/18 20:59 08/14/18 09:42 Oxycodone HCl (Roxicodone) 30 mg TID ORAL 08/14/18 09:00 08/21/18 03:59 08/14/18 12:52 Polyethylene Glycol (Miralax) 17 gm DAILYPRN PRN ORAL Constipation 08/13/18 11:30 09/12/18 11:29 Sodium Chloride 1,000 ml @ 75 mls/hr [id number] IV 08/13/18 12:25 09/12/18 12:24 08/13/18 13:37 Nic Daugherty MD Aug 14, 2018 16:10
[2018-08-14] MEDS: cefTRIAXone 1 GM in D5W 55 ML IV SCH (17:41)
[2018-08-14 20:00] VITALS: BP 139/84
--- NOTE | 2018-08-14 20:03 | NUR ---
CASE MANAGEMENT: REVIEW 58/F PRESENTED TO ED FROM HOME CC: FEVER 101.9 SI: COPD EXACERBATION . FEVER . SEPSIS T 101.8 HR 122 RR 22 BP 164/84 SAT 95% NC/2L WBC 14.4 NA 131 IS: SOLU MEDROL IV X1 NS IVF BOLUS X1 ALBUTEROL HHN X1 XOPENEX HHN X1 LEVOFLOXACIN IV X1 MORPHINE IV X1 PATIENT ADMITTED TO TELEMETRY UNIT 08/13/2018 DCP: PATIENT IS FROM HOME
--- NOTE | 2018-08-14 20:24 | NUR ---
HAND-OFF: Report given to DANIEL Gannon.
--- NOTE | 2018-08-14 20:25 | NUR ---
NURSE NOTES: Got report from Rowena SANHCEZ. Pt in stable condition.Denies any pain. no s/s of distress or discomfort noted. pt resting in bed comfortably. Bed in low and locked position,call light within reach, bedside table within reach.continue to monitor.
[2018-08-14] MEDS ORDERED: Levemir Flexpen SUBQ SCH (21:00)
[2018-08-14] MEDS: ALPRAZolam 0.25mg tab ORAL PRN (23:20)
--- NOTE | 2018-08-14 23:35 | Cardiology Report ---
APPROVED REPORT EKG Measurement Heart [id number] MA [id number] Sinus tachycardia Possible Left atrial enlargement Left anterior fascicular block Cannot rule out Anterior infarct, age undetermined Abnormal ECG
[2018-08-15] VITALS: BP 144/85
[2018-08-15] MEDS: Albuterol/Ipratropium 3ml neb HHN SCH ×6 (02:35→23:00)
[2018-08-15 04:33] VITALS: BP 125/72
[2018-08-15] MEDS: Solu-MEDROL 125mg Inj IVP SCH ×3 (06:00→18:22)
[2018-08-15] MEDS: NovoLOG Insulin Flexpen SUBQ SCH ×4 (06:16→20:54)
--- NOTE | 2018-08-15 07:10 | NUR ---
NURSE NOTES: I received the patient resting in bed. Patient awak and alert and oriented x4. Bed in the lowest position and call light within reach. I will continue to monitor the patient and implement care.
--- NOTE | 2018-08-15 07:36 | NUR ---
HAND-OFF: Report given to ekaterina SANCHEZ. endorsed plan of care. Addendum: 08/15/18 at 0738 by Rojelio Lubin RN report given to Reva SANCHEZ not Ekaterina SANCHEZ
[2018-08-15 07:51] VITALS: BP 144/77
--- NOTE | 2018-08-15 08:47 | Pulmonology Progress Note ---
Assessment/Plan Assessment/Plan Pulmonary Progress Note HPI Patient is a 58-year-old female admitted with COPD exaccerbation and bilateral patchy pneumonia. She complains of fever, cough, congestion. Denies chest pain. Denies recent travel. No other aggravating relieving factors. Denies any other associated symptoms Allergies: SULFA MEDS Past Medical History: DM, HTN, COPD Pertinent Family History: none Social History: Denies: smoking, alcohol use, drug use All Other Systems: negative except mentioned in HPI Physical Exam Vital Signs Noted General Appearance: alert, GCS 15, non-toxic, mild distress Head: normocephalic, atraumatic Eyes: bilateral eye normal inspection, bilateral eye PERRL ENT: hearing grossly normal, normal pharynx, no angioedema, normal voice Neck: full range of motion, supple/symm/no masses Respiratory: chest non-tender, crackles, occasional rhonchi, speaking full sentences, wheezing Cardiovascular no edema, tachycardia, Normal HS, RRR Gastrointestinal: normal bowel sounds, non tender, soft, non-distended, no guarding, no rebound Rectal: deferred Genitourinary: normal inspection, no CVA tenderness Musculoskeletal: back normal, gait/station normal, normal range of motion, non- tender Neurologic: alert, oriented x3, responsive, motor strength/tone normal, sensory intact, speech normal Psychiatric: judgement/insight normal, memory normal, mood/affect normal, no suicidal/homicidal ideation Reflexes: 3+ bicep (R), 3+ bicep (L), 3+ tricep (R), 3+ tricep (L), 3+ knee (R) , 3+ knee (L) Skin: normal color, no rash, warm/dry, well hydrated Lymphatic: no adenopathy Impression: COPD (chronic obstructive pulmonary disease) Pneumonia Diabetes Sepsis Opioid dependence Plan: #Pneumonia, community acquired - IV antibiotic with ceftriaxone and azithromycin -follow up blood cultures and lactate levels #COPD exacerbation, diffuse rhonchi on exam -continueSolu-Medrol, Duoneb -add Mucinex -smoking cessation #Type 2 DM -start Levemir + ISS #Chronic pain #Neuropathy #opiate dependance -continue outpatient pain regimen Labs Test 08/13/18 04:20 White Blood Count 14.4 K/UL (4.8-10.8) Red Blood Count 4.85 M/UL (4.20-5.40) Hemoglobin 14.5 G/DL (12.0-16.0) Hematocrit 45.3 % (37.0-47.0) Mean Corpuscular Volume 93 FL (80-99) Mean Corpuscular Hemoglobin 29.8 PG (27.0-31.0) Mean Corpuscular Hemoglobin Concent 31.9 G/DL (32.0-36.0) Red Cell Distribution Width 13.1 % (11.6-14.8) Platelet Count 121 K/UL (150-450) Mean Platelet Volume 11.7 FL (6.5-10.1) Neutrophils (%) (Auto) 82.7 % (45.0-75.0) Lymphocytes (%) (Auto) 9.7 % (20.0-45.0) Monocytes (%) (Auto) 7.0 % (1.0-10.0) Eosinophils (%) (Auto) 0.0 % (0.0-3.0) Basophils (%) (Auto) 0.6 % (0.0-2.0) Sodium Level 131 MMOL/L (136-145) Potassium Level 3.6 MMOL/L (3.5-5.1) Chloride Level 95 MMOL/L (98-107) Carbon Dioxide Level 26 MMOL/L (21-32) Anion Gap 10 mmol/L (5-15) Blood Urea Nitrogen 13 mg/dL (7-18) Creatinine 0.9 MG/DL (0.55-1.30) Estimat Glomerular Filtration Rate > 60 mL/min (>60) Glucose Level 205 MG/DL (74-106) Lactic Acid Level 2.90 mmol/L (0.4-2.0) Calcium Level 9.3 MG/DL (8.5-10.1) Total Bilirubin 1.8 MG/DL (0.2-1.0) Direct Bilirubin 0.9 MG/DL (0.0-0.3) Aspartate Amino Transf (AST/SGOT) 95 U/L (15-37) Alanine Aminotransferase (ALT/SGPT) 53 U/L (12-78) Alkaline Phosphatase 102 U/L (46-116) Total Protein 9.2 G/DL (6.4-8.2) Albumin 2.7 G/DL (3.4-5.0) Globulin 6.5 g/dL Albumin/Globulin Ratio 0.4 (1.0-2.7) EKG Diagnostic Results Rate: tachycardiac Rhythm: NSR ST Segments: no acute changes Rhythm Strip Diag. Results EP Interpretation: yes Rhythm: NSR, no PVC's, no ectopy Chest X-Ray Diagnostic Results Chest X-Ray Diagnostic Results : Chest X-Ray Ordered: Yes # of Views/Limited/Complete: 1 View Indication: Shortness of Breath EP Interpretation: Yes Interpretation: no pneumothorax, other - R sided infiltrate Subjective ROS Limited/Unobtainable: No Allergies: Coded Allergies: SULFA (SULFONAMIDE ANTIBIOTICS) (Unverified Allergy, Unknown, 08/13/18) Uncoded Allergies: SULFA MEDS (Allergy, Unknown, 08/13/18) Objective Last 24 Hour Vital Signs Date Time Temp Pulse Resp B/P (MAP) Pulse Ox O2 Delivery O2 Flow Rate FiO2 08/15/18 07:51 97.8 76 20 144/77 (99) 97 08/15/18 07:47 89 18 99 Nasal Cannula 2.0 28 08/15/18 07:36 86 22 98 Nasal Cannula 2.0 28 08/15/18 07:36 98 Nasal Cannula 2.0 28 08/15/18 07:36 Nasal Cannula 2.0 28 08/15/18 04:51 86 08/15/18 04:33 97.4 87 18 125/72 (89) 99 08/15/18 02:44 92 18 98 Nasal Cannula 2.0 28 08/15/18 02:36 96 22 96 Nasal Cannula 2.0 28 08/15/18 00:00 80 08/15/18 00:00 98.0 91 18 144/85 (104) 99 08/14/18 23:55 95 20 98 Nasal Cannula 2.0 28 08/14/18 23:44 94 22 97 Nasal Cannula 2.0 28 08/14/18 21:00 Nasal Cannula 2.0 08/14/18 20:00 97.2 92 18 139/84 (102) 99 08/14/18 20:00 94 08/14/18 19:49 Nasal Cannula 08/14/18 19:48 90 18 98 Nasal Cannula 2.0 28 08/14/18 19:47 Nasal Cannula 2.0 28 08/14/18 19:47 98 Nasal Cannula 2.0 28 08/14/18 16:00 94 08/14/18 16:00 81 18 99 Nasal Cannula 2.0 28 08/14/18 16:00 97.3 97 18 113/74 (87) 99 08/14/18 15:52 79 18 100 Nasal Cannula 2.0 28 08/14/18 12:00 81 08/14/18 12:00 97.3 80 20 123/73 (90) 100 08/14/18 10:47 Nasal Cannula 2.0 28 08/14/18 10:47 Nasal Cannula 2.0 28 08/14/18 09:42 133/74 08/14/18 09:00 Nasal Cannula 2.0 Intake and Output 08/14/18 08/15/18 19:00 07:00 Intake Total 600 ml 800 ml Balance 600 ml 800 ml Intake Oral 600 ml 800 ml # Voids 3 4 Microbiology Date/Time Source Procedure Growth Status 08/13/18 04:30 Blood Blood Culture - Preliminary NO GROWTH AFTER 24 HOURS Resulted 08/13/18 04:20 Blood Blood Culture - Preliminary NO GROWTH AFTER 24 HOURS Resulted 08/13/18 04:10 Nasal Nares Influenza Types A,B Antigen (SELENA) - Final Complete Current Medications Medications (Trade) Dose Ordered Sig/Rogers Route PRN Reason Start Time Stop Time Status Last Admin Dose Admin Albuterol/ Ipratropium (Albuterol/ Ipratropium) 3 ml Q4HRT HHN 08/13/18 15:00 08/18/18 14:59 08/15/18 07:36 Alprazolam (Xanax) 0.25 mg TID PRN ORAL For Anxiety 08/14/18 23:00 08/21/18 22:59 08/14/18 23:20 Aspirin (ASA) 81 mg DAILY ORAL 08/14/18 09:00 09/13/18 08:59 08/14/18 09:42 Azithromycin 500 mg/Dextrose 275 ml @ 275 mls/hr Q24H IV 08/13/18 14:00 08/20/18 13:59 08/14/18 14:13 Ceftriaxone Sodium 1 gm/ Dextrose 55 ml @ 110 mls/hr Q24H IV 08/13/18 15:00 08/20/18 14:59 08/14/18 17:41 Dextrose (Dextrose 50%) 25 ml Q30M PRN IV Hypoglycemia 08/13/18 14:45 09/12/18 14:44 Dextrose (Dextrose 50%) 50 ml Q30M PRN IV Hypoglycemia 08/13/18 14:45 09/12/18 14:44 Diphenhydramine HCl (Benadryl) 25 mg Q6H PRN ORAL Itching/Pruritis 08/13/18 11:30 09/12/18 11:29 Docusate Sodium (Colace) 100 mg EVERY 12 HOURS ORAL 08/13/18 21:00 09/12/18 20:59 08/13/18 21:34 Famotidine (Pepcid) 40 mg DAILY ORAL 08/14/18 09:00 09/13/18 08:59 08/14/18 09:42 Gabapentin (Neurontin) 800 mg FOUR TIMES A DAY ORAL 08/13/18 13:00 09/12/18 12:59 08/14/18 21:00 Guaifenesin (Mucinex ER) 600 mg TWICE A DAY ORAL 08/13/18 18:00 09/12/18 17:59 08/14/18 17:47 Guaifenesin/ Dextromethorphan (Robitussin DM Syrup) 10 ml Q4H PRN ORAL For Cough 08/13/18 17:45 09/12/18 17:44 Heparin Sodium (Porcine) (Heparin 5000 units/ml) 5,000 units EVERY 12 HOURS SUBQ 08/13/18 21:00 09/12/18 20:59 08/13/18 21:40 Insulin Aspart (NovoLOG) BEFORE MEALS AND HS SUBQ 08/13/18 16:30 09/12/18 16:29 08/14/18 21:00 Insulin Detemir (Levemir) 12 units BEDTIME SUBQ 08/14/18 21:00 09/12/18 20:59 08/14/18 21:00 Lisinopril (Prinivil) 20 mg DAILY ORAL 08/14/18 09:00 09/13/18 08:59 08/14/18 09:42 Methadone HCl (Methadone HCl) 50 mg DAILY ORAL 08/13/18 15:00 08/20/18 14:59 08/14/18 09:42 Methylprednisolone Sodium Succinate (Solu-MEDROL) 60 mg EVERY 6 HOURS IVP 08/13/18 12:00 09/12/18 11:59 08/14/18 23:24 Ondansetron HCl (Zofran) 4 mg Q6H PRN IVP Nausea & Vomiting 08/13/18 11:30 09/12/18 11:29 Oseltamivir Phosphate (Tamiflu) 75 mg Q12HR ORAL 08/13/18 21:00 08/18/18 20:59 08/14/18 21:00 Oxycodone HCl (Roxicodone) 30 mg TID ORAL 08/14/18 09:00 08/21/18 03:59 08/14/18 17:47 Polyethylene Glycol (Miralax) 17 gm DAILYPRN PRN ORAL Constipation 08/13/18 11:30 09/12/18 11:29 Sodium Chloride 1,000 ml @ 75 mls/hr [id number] IV 08/13/18 12:25 09/12/18 12:24 08/15/18 04:26 Nic Daugherty MD Aug 15, 2018 08:46
[2018-08-15] MEDS: Aspirin Baby 81mg ORAL SCH (08:54)
[2018-08-15] MEDS: guaiFENesin ER 600mg tab ORAL SCH ×2 (08:55→18:21)
[2018-08-15] MEDS: oxyCODONE 15mg IR tab ORAL SCH ×3 (08:55→18:22)
[2018-08-15] MEDS: Oseltamivir 75mg cap ORAL SCH ×2 (08:55→20:51)
[2018-08-15] MEDS: Lisinopril 20mg tab ORAL SCH (08:55)
[2018-08-15] MEDS: Docusate 100mg cap ORAL SCH ×2 (08:56→09:07)
[2018-08-15] MEDS: Heparin 5000 units/ml inj SUBQ SCH ×2 (09:00→20:52)
[2018-08-15] MEDS: ALPRAZolam 0.25mg tab ORAL PRN ×2 (09:14→18:44)
[2018-08-15 10:15] LABS: HEMATOCRIT 36.8 % (37.0-47.0); HEMOGLOBIN 11.4 G/DL (12.0-16.0); MEAN CORPUSCULAR VOLUME 96 FL (80-99); PLATELET COUNT 105 K/UL (150-450); RED BLOOD COUNT 3.83 M/UL (4.20-5.40); RED CELL DISTRIBUTION WIDTH 13.7 % (11.6-14.8); WHITE BLOOD COUNT 5.3 K/UL (4.8-10.8)
[2018-08-15 10:23] LABS: ANION GAP 6 mmol/L (5-15); BLOOD UREA NITROGEN 40 mg/dL (7-18); CALCIUM 9.7 MG/DL (8.5-10.1); CARBON DIOXIDE 29 MMOL/L (21-32); CHLORIDE 95 MMOL/L (98-107); CREATININE 1.3 MG/DL (0.55-1.30); POTASSIUM 3.8 MMOL/L (3.5-5.1); SODIUM 130 MMOL/L (136-145)
--- NOTE | 2018-08-15 10:26 | General Progress Note ---
Assessment/Plan Assessment/Plan #Sepsis due to #Pneumonia, community acquired #Influenza A infection -continue inpatient level of care -continue ceftriaxone and azithromycin -continueTamiflu -blooc cultures negative so far -Pulmonology following #COPD exacerbation, remains very rhoncherous -continue Solu-Medrol, Duoneb -continue Mucinex -smoking cessation #Type 2 DM, uncontrolled due to steroids -increase Levemir to 14 units qHS -monitor glucose levels closely with ISS #Chronic pain #Neuropathy #opiate dependance -continue outpatient pain regimen -methadone verified to be 50mg VTE PPx Full Code I spent 70 minutes on this patient's case, and 36 minutes was dedicated to counseling and/or care coordination. Subjective Date patient seen: Aug 15, 2018 Time patient seen: 09:45 Cardiovascular: Denies: chest pain, edema Respiratory: Reports: cough, shortness of breath, wheezing Gastrointestinal/Abdominal: Denies: abdomen distended, abdominal pain Genitourinary: Denies: burning, discharge Allergies: Coded Allergies: SULFA (SULFONAMIDE ANTIBIOTICS) (Unverified Allergy, Unknown, 08/13/18) Uncoded Allergies: SULFA MEDS (Allergy, Unknown, 08/13/18) Subjective Medicine follow up for sepsis, pneumonia, influenza A infection, COPD exacerbation. Persistent cough, sputum and wheeze. Objective Last 24 Hour Vital Signs Date Time Temp Pulse Resp B/P (MAP) Pulse Ox O2 Delivery O2 Flow Rate FiO2 08/15/18 09:00 Nasal Cannula 2.0 08/15/18 08:55 144/77 08/15/18 08:04 89 08/15/18 07:51 97.8 76 20 144/77 (99) 97 08/15/18 07:47 89 18 99 Nasal Cannula 2.0 28 08/15/18 07:36 86 22 98 Nasal Cannula 2.0 28 08/15/18 07:36 98 Nasal Cannula 2.0 28 08/15/18 07:36 Nasal Cannula 2.0 28 08/15/18 04:51 86 08/15/18 04:33 97.4 87 18 125/72 (89) 99 08/15/18 02:44 92 18 98 Nasal Cannula 2.0 28 08/15/18 02:36 96 22 96 Nasal Cannula 2.0 28 08/15/18 00:00 80 08/15/18 00:00 98.0 91 18 144/85 (104) 99 08/14/18 23:55 95 20 98 Nasal Cannula 2.0 28 08/14/18 23:44 94 22 97 Nasal Cannula 2.0 28 08/14/18 21:00 Nasal Cannula 2.0 08/14/18 20:00 97.2 92 18 139/84 (102) 99 08/14/18 20:00 94 08/14/18 19:49 Nasal Cannula 08/14/18 19:48 90 18 98 Nasal Cannula 2.0 28 08/14/18 19:47 Nasal Cannula 2.0 28 08/14/18 19:47 98 Nasal Cannula 2.0 28 08/14/18 16:00 94 08/14/18 16:00 81 18 99 Nasal Cannula 2.0 28 08/14/18 16:00 97.3 97 18 113/74 (87) 99 08/14/18 15:52 79 18 100 Nasal Cannula 2.0 28 08/14/18 12:00 81 08/14/18 12:00 97.3 80 20 123/73 (90) 100 08/14/18 10:47 Nasal Cannula 2.0 28 08/14/18 10:47 Nasal Cannula 2.0 28 Intake and Output 08/14/18 08/15/18 19:00 07:00 Intake Total 600 ml 800 ml Balance 600 ml 800 ml Intake Oral 600 ml 800 ml # Voids 3 4 Laboratory Tests 08/15/18 09:50: White Blood Count [Pending], Red Blood Count [Pending], Hemoglobin [Pending], Hematocrit [Pending], Mean Corpuscular Volume [Pending], Mean Corpuscular Hemoglobin [Pending], Mean Corpuscular Hemoglobin Concent [Pending], Red Cell Distribution Width [Pending], Platelet Count [Pending], Mean Platelet Volume [ Pending], Neutrophils (%) (Auto) [Pending], Lymphocytes (%) (Auto) [Pending], Monocytes (%) (Auto) [Pending], Eosinophils (%) (Auto) [Pending], Basophils (%) (Auto) [Pending], Sodium Level [Pending], Potassium Level [Pending], Chloride Level [Pending], Carbon Dioxide Level [Pending], Blood Urea Nitrogen [Pending], Creatinine [Pending], Estimat Glomerular Filtration Rate [Pending], Glucose Level [Pending], Lactic Acid Level [Pending], Calcium Level [Pending] Height (Feet): 5 Height (Inches): 10.00 Weight (Pounds): 170 General Appearance: no apparent distress, alert Neck: supple Cardiovascular: normal rate, regular rhythm Respiratory/Chest: rhonchi - bilaterally Abdomen: non tender, soft Extremities: normal range of motion, non-tender Raul Giraldo MD Aug 15, 2018 10:26
[2018-08-15] MEDS ORDERED: Insulin Human Regular 100units/ml 3ml SUBQ ONE (10:45)
[2018-08-15 11:50] VITALS: BP 100/78
[2018-08-15] MEDS ORDERED: NovoLOG Insulin Flexpen SUBQ ONE (11:50)
[2018-08-15] MEDS: Azithromycin 500 MG in D5W 275 ML IV SCH (13:17)
--- NOTE | 2018-08-15 14:24 | NUR ---
NURSE NOTES: made aware of patient 's lactic acid of 4.70. I will wait his response. Patient resting in bed. Bed in the lowest position and call light within reach. Addendum: 08/15/18 at 1534 by JASWINDER FLYNN RN returned call about lactic acid. He did not give any new orders at this time.
[2018-08-15] MEDS: cefTRIAXone 1 GM in D5W 55 ML IV SCH (14:33)
[2018-08-15 15:42] VITALS: BP 146/87
--- NOTE | 2018-08-15 19:32 | NUR ---
HAND-OFF: Report given to DANIEL Arora.
--- NOTE | 2018-08-15 19:35 | NUR ---
NURSE NOTES: Received report from DANIEL Ardon. Patient awake, alert and verbally responsive. No SOB, no acute distress, denies any pain nor nay discomfort at this time. IV site on R FA #[id number], patent and intact. bed at lowest position, call light within reach. Will continue plan of care.
[2018-08-15 20:00] VITALS: BP 144/80
[2018-08-15] MEDS ORDERED: Levemir Flexpen SUBQ SCH (21:00)
[2018-08-16] VITALS: BP 139/80
--- NOTE | 2018-08-16 03:15 | NUR ---
NURSE NOTES: Patient awake, alert and verbally responsive. Eating snacks, no SOB, denies any pain nor nay discomfort at this time. Needs attended and will continue to monitor.
[2018-08-16] MEDS: Albuterol/Ipratropium 3ml neb HHN SCH ×5 (03:19→19:24)
[2018-08-16 04:00] VITALS: BP 149/89
[2018-08-16] MEDS: Solu-MEDROL 125mg Inj IVP SCH ×5 (05:33→23:37)
[2018-08-16] MEDS: oxyCODONE 15mg IR tab ORAL SCH ×3 (05:34→21:35)
[2018-08-16] MEDS: NovoLOG Insulin Flexpen SUBQ SCH ×4 (06:16→20:36)
--- NOTE | 2018-08-16 07:15 | NUR ---
NURSE NOTES: I received the patient sitting at the side of her bed and eating breakfast. Patient alert and oriented x4. Bed in the lowest position and call light within reach. Patient does not display any signs of distress or SOB.
--- NOTE | 2018-08-16 07:21 | NUR ---
HAND-OFF: Report given to DANIEL Ardon. Endorsed plan of care.
[2018-08-16 07:43] LABS: HEMATOCRIT 35.5 % (37.0-47.0); HEMOGLOBIN 10.9 G/DL (12.0-16.0); MEAN CORPUSCULAR VOLUME 96 FL (80-99); PLATELET COUNT 114 K/UL (150-450); RED CELL DISTRIBUTION WIDTH 13.7 % (11.6-14.8); WHITE BLOOD COUNT 3.5 K/UL (4.8-10.8)
[2018-08-16 07:55] LABS: ANION GAP 4 mmol/L (5-15); BLOOD UREA NITROGEN 32 mg/dL (7-18); CALCIUM 9.3 MG/DL (8.5-10.1); CARBON DIOXIDE 32 MMOL/L (21-32); CHLORIDE 98 MMOL/L (98-107); CREATININE 1.1 MG/DL (0.55-1.30); POTASSIUM 4.1 MMOL/L (3.5-5.1); SODIUM 134 MMOL/L (136-145)
[2018-08-16] MEDS: Oseltamivir 75mg cap ORAL SCH ×2 (08:15→20:33)
[2018-08-16] MEDS ORDERED: Albuterol 90mcg Inhaler 8gm INH PRN (08:15)
--- NOTE | 2018-08-16 08:15 | NUR ---
CASE MANAGEMENT: REVIEW 08/16/2018 SI: COPD EXACERBATION . FEVER . SEPSIS T 98.2 HR 96 RR 20 B/P 149/89 SATS 100% ON 2L/NC WBC 3.5 NA 134 BUN 32 GLU 488 IS:IVF @ 75 mL/HR SOLU MEDROL IV Q6H MUCINEX PO BID LEVEMIR SUBQ QHS METHADONE PO QD PEPCID PO QD ASA PO QD LISINOPRIL PO QD INSULIN ASPART SUBQ AC/HS AZITHROMYCIN IV Q24H CEFTRIAXONE IV Q24H OXYCODONE PO Q8H GABAPENTIN PO QID TELE STATUS DCP: PATIENT IS FROM HOME
[2018-08-16] MEDS: guaiFENesin ER 600mg tab ORAL SCH ×2 (08:16→17:13)
[2018-08-16] MEDS: Docusate 100mg cap ORAL SCH ×2 (08:16→20:33)
[2018-08-16] MEDS: Aspirin Baby 81mg ORAL SCH (08:16)
[2018-08-16] MEDS: Heparin 5000 units/ml inj SUBQ SCH ×2 (08:21→20:34)
[2018-08-16 09:01] VITALS: BP 160/87
[2018-08-16] MEDS: Lisinopril 20mg tab ORAL SCH (10:07)
--- NOTE | 2018-08-16 11:36 | NUR ---
NURSE NOTES: Lactic elevated, per Dr. Montero, no new orders. Lactic elevated due to albuterol, no need to keep checking. Endorsed to bedside nurse Reva SANCHEZ.
--- NOTE | 2018-08-16 11:41 | NUR ---
NURSE NOTES: Dr. becky palomino of patient's blood sugar level and the insulin to be administered per the sliding scale. He said that is fine and there are no new orders at this time. Patient resting in bed; alert and oriented x4 and able to make her needs known. I will continue to monitor the patient and implement care.
--- NOTE | 2018-08-16 11:53 | General Progress Note ---
Assessment/Plan Assessment/Plan #Sepsis due to #Pneumonia, community acquired #Influenza A infection -continue inpatient level of care -continue ceftriaxone and azithromycin -continue Tamiflu -blooc cultures negative so far -Pulmonology following #COPD exacerbation, severe -continue Solu-Medrol, Duoneb -continue Mucinex -smoking cessation #Type 2 DM, uncontrolled due to steroids -increase Levemir to 16 units qHS -monitor glucose levels closely with ISS #Chronic pain #Neuropathy #opiate dependance -continue outpatient pain regimen -methadone verified to be 50mg VTE PPx Full Code I spent 70 minutes on this patient's case, and 36 minutes was dedicated to counseling and/or care coordination. Subjective Date patient seen: Aug 16, 2018 Time patient seen: 12:10 ROS Limited/Unobtainable: No Cardiovascular: Denies: chest pain, palpitations Respiratory: Reports: cough, wheezing Gastrointestinal/Abdominal: Denies: abdomen distended, abdominal pain Allergies: Coded Allergies: SULFA (SULFONAMIDE ANTIBIOTICS) (Unverified Allergy, Unknown, 08/13/18) Uncoded Allergies: SULFA MEDS (Allergy, Unknown, 08/13/18) Subjective Medicine follow up for sepsis, pneumonia, influenza A infection, COPD exacerbation. Still with severe cough, wheeze. Uncontrolled diabetic control due to systemic steroids. Objective Last 24 Hour Vital Signs Date Time Temp Pulse Resp B/P (MAP) Pulse Ox O2 Delivery O2 Flow Rate FiO2 08/16/18 10:07 160/87 08/16/18 09:01 97.4 20 160/87 (111) 95 08/16/18 09:00 Nasal Cannula 2.0 08/16/18 07:46 98 08/16/18 07:38 86 20 96 Nasal Cannula 2.0 28 08/16/18 07:28 76 18 95 Nasal Cannula 2.0 28 08/16/18 07:27 95 Nasal Cannula 2.0 28 08/16/18 07:26 Nasal Cannula 2.0 28 08/16/18 04:00 98.2 96 20 149/89 (109) 100 08/16/18 04:00 84 08/16/18 03:31 89 18 99 Nasal Cannula 2.0 28 08/16/18 03:19 81 20 94 Nasal Cannula 2.0 28 08/16/18 00:00 98.1 90 20 139/80 (99) 100 08/16/18 00:00 87 08/15/18 23:28 Nasal Cannula 08/15/18 23:28 Nasal Cannula 08/15/18 21:00 Nasal Cannula 2.0 08/15/18 20:00 97.4 80 20 144/80 (101) 96 08/15/18 20:00 80 08/15/18 19:41 91 18 99 Nasal Cannula 2.0 28 08/15/18 19:37 96 Nasal Cannula 2.0 28 08/15/18 19:37 Nasal Cannula 2.0 28 08/15/18 19:33 91 20 93 Nasal Cannula 2.0 28 08/15/18 16:38 81 18 98 Nasal Cannula 2.0 28 08/15/18 16:28 85 18 98 Nasal Cannula 2.0 28 08/15/18 15:42 98.0 82 20 146/87 (106) 100 08/15/18 15:24 80 Intake and Output 08/15/18 08/16/18 19:00 07:00 Intake Total 1235 ml 480 ml Balance 1235 ml 480 ml Intake Oral 960 ml 480 ml IV Total 275 ml # Voids 3 # Bowel Movements 1 Laboratory Tests 08/15/18 13:17: Lactic Acid Level 4.70H 08/16/18 05:35: White Blood Count 3.5L, Red Blood Count 3.70L, Hemoglobin 10.9L, Hematocrit 35.5L, Mean Corpuscular Volume 96, Mean Corpuscular Hemoglobin 29.6, Mean Corpuscular Hemoglobin Concent 30.8L, Red Cell Distribution Width 13.7, Platelet Count 114L, Mean Platelet Volume 7.3, Neutrophils (%) (Auto) , Lymphocytes (%) (Auto) , Monocytes (%) (Auto) , Eosinophils (%) (Auto) , Basophils (%) (Auto) , Differential Total Cells Counted 100, Neutrophils % ( Manual) 95H, Lymphocytes % (Manual) 3L, Monocytes % (Manual) 2, Eosinophils % ( Manual) 0, Basophils % (Manual) 0, Band Neutrophils 0, Platelet Estimate DecreasedL, Platelet Morphology Normal, Hypochromasia 1+, Sodium Level 134L, Potassium Level 4.1, Chloride Level 98, Carbon Dioxide Level 32, Anion Gap 4L, Blood Urea Nitrogen 32H, Creatinine 1.1, Estimat Glomerular Filtration Rate > 60 , Glucose Level 488#H, Calcium Level 9.3 Height (Feet): 5 Height (Inches): 10.00 Weight (Pounds): 170 General Appearance: no apparent distress, alert EENT: PERRL/EOMI Neck: non-tender, normal alignment Cardiovascular: normal rate, regular rhythm Respiratory/Chest: no respiratory distress, no accessory muscle use, rhonchi - bilaterally Abdomen: non tender, soft, no organomegaly Raul Giraldo MD Aug 16, 2018 11:53
[2018-08-16 12:05] VITALS: BP 164/103
--- NOTE | 2018-08-16 12:40 | NUR ---
NURSE NOTES: Dr. Tate made aware of patient's blood pressure. Patient resting in bed; does not display any signs of distress or SOB. Bed in lowest position and call light within reach. I will continue to monitor the patient and implement care. Addendum: 08/16/18 at 1325 by JASWINDER FLYNN RN Dr. Tate said just to monitor the patient. No new orders at this time.
[2018-08-16] MEDS: Azithromycin 500 MG in D5W 275 ML IV SCH (14:02)
[2018-08-16] MEDS: cefTRIAXone 1 GM in D5W 55 ML IV SCH (15:41)
--- NOTE | 2018-08-16 15:46 | Pulmonology Progress Note ---
Assessment/Plan Assessment/Plan Pulmonary Progress Note HPI Patient is a 58-year-old female admitted with COPD exaccerbation and bilateral patchy pneumonia. She complains of fever, cough, congestion. Denies chest pain. Denies recent travel. No other aggravating relieving factors. Denies any other associated symptoms Allergies: SULFA MEDS Past Medical History: DM, HTN, COPD Pertinent Family History: none Social History: Denies: smoking, alcohol use, drug use All Other Systems: negative except mentioned in HPI Physical Exam Vital Signs Noted General Appearance: alert, GCS 15, non-toxic, mild distress Head: normocephalic, atraumatic Eyes: bilateral eye normal inspection, bilateral eye PERRL ENT: hearing grossly normal, normal pharynx, no angioedema, normal voice Neck: full range of motion, supple/symm/no masses Respiratory: chest non-tender, crackles, occasional rhonchi, speaking full sentences, wheezing Cardiovascular no edema, tachycardia, Normal HS, RRR Gastrointestinal: normal bowel sounds, non tender, soft, non-distended, no guarding, no rebound Rectal: deferred Genitourinary: normal inspection, no CVA tenderness Musculoskeletal: back normal, gait/station normal, normal range of motion, non- tender Neurologic: alert, oriented x3, responsive, motor strength/tone normal, sensory intact, speech normal Psychiatric: judgement/insight normal, memory normal, mood/affect normal, no suicidal/homicidal ideation Reflexes: 3+ bicep (R), 3+ bicep (L), 3+ tricep (R), 3+ tricep (L), 3+ knee (R) , 3+ knee (L) Skin: normal color, no rash, warm/dry, well hydrated Lymphatic: no adenopathy Impression: COPD (chronic obstructive pulmonary disease) Pneumonia Diabetes Sepsis Opioid dependence Plan: #Pneumonia, community acquired - IV antibiotic with ceftriaxone and azithromycin -follow up blood cultures and lactate levels #COPD exacerbation, diffuse rhonchi on exam -continueSolu-Medrol, Duoneb -add Mucinex -smoking cessation #Type 2 DM -start Levemir + ISS #Chronic pain #Neuropathy #opiate dependance -continue outpatient pain regimen Labs Test 08/13/18 04:20 White Blood Count 14.4 K/UL (4.8-10.8) Red Blood Count 4.85 M/UL (4.20-5.40) Hemoglobin 14.5 G/DL (12.0-16.0) Hematocrit 45.3 % (37.0-47.0) Mean Corpuscular Volume 93 FL (80-99) Mean Corpuscular Hemoglobin 29.8 PG (27.0-31.0) Mean Corpuscular Hemoglobin Concent 31.9 G/DL (32.0-36.0) Red Cell Distribution Width 13.1 % (11.6-14.8) Platelet Count 121 K/UL (150-450) Mean Platelet Volume 11.7 FL (6.5-10.1) Neutrophils (%) (Auto) 82.7 % (45.0-75.0) Lymphocytes (%) (Auto) 9.7 % (20.0-45.0) Monocytes (%) (Auto) 7.0 % (1.0-10.0) Eosinophils (%) (Auto) 0.0 % (0.0-3.0) Basophils (%) (Auto) 0.6 % (0.0-2.0) Sodium Level 131 MMOL/L (136-145) Potassium Level 3.6 MMOL/L (3.5-5.1) Chloride Level 95 MMOL/L (98-107) Carbon Dioxide Level 26 MMOL/L (21-32) Anion Gap 10 mmol/L (5-15) Blood Urea Nitrogen 13 mg/dL (7-18) Creatinine 0.9 MG/DL (0.55-1.30) Estimat Glomerular Filtration Rate > 60 mL/min (>60) Glucose Level 205 MG/DL (74-106) Lactic Acid Level 2.90 mmol/L (0.4-2.0) Calcium Level 9.3 MG/DL (8.5-10.1) Total Bilirubin 1.8 MG/DL (0.2-1.0) Direct Bilirubin 0.9 MG/DL (0.0-0.3) Aspartate Amino Transf (AST/SGOT) 95 U/L (15-37) Alanine Aminotransferase (ALT/SGPT) 53 U/L (12-78) Alkaline Phosphatase 102 U/L (46-116) Total Protein 9.2 G/DL (6.4-8.2) Albumin 2.7 G/DL (3.4-5.0) Globulin 6.5 g/dL Albumin/Globulin Ratio 0.4 (1.0-2.7) EKG Diagnostic Results Rate: tachycardiac Rhythm: NSR ST Segments: no acute changes Rhythm Strip Diag. Results EP Interpretation: yes Rhythm: NSR, no PVC's, no ectopy Chest X-Ray Diagnostic Results Chest X-Ray Diagnostic Results : Chest X-Ray Ordered: Yes # of Views/Limited/Complete: 1 View Indication: Shortness of Breath EP Interpretation: Yes Interpretation: no pneumothorax, other - R sided infiltrate Subjective ROS Limited/Unobtainable: No Allergies: Coded Allergies: SULFA (SULFONAMIDE ANTIBIOTICS) (Unverified Allergy, Unknown, 08/13/18) Uncoded Allergies: SULFA MEDS (Allergy, Unknown, 08/13/18) Objective Last 24 Hour Vital Signs Date Time Temp Pulse Resp B/P (MAP) Pulse Ox O2 Delivery O2 Flow Rate FiO2 08/16/18 14:32 84 18 100 Nasal Cannula 2.0 28 08/16/18 14:22 89 18 100 Nasal Cannula 2.0 08/16/18 12:05 97.7 101 19 164/103 (123) 94 08/16/18 11:56 88 20 100 Nasal Cannula 2.0 28 08/16/18 11:49 74 18 100 Nasal Cannula 2.0 28 08/16/18 11:46 88 08/16/18 10:07 160/87 08/16/18 09:01 97.4 20 160/87 (111) 95 08/16/18 09:00 Nasal Cannula 2.0 08/16/18 07:46 98 08/16/18 07:38 86 20 96 Nasal Cannula 2.0 28 08/16/18 07:28 76 18 95 Nasal Cannula 2.0 28 08/16/18 07:27 95 Nasal Cannula 2.0 28 08/16/18 07:26 Nasal Cannula 2.0 28 08/16/18 04:00 98.2 96 20 149/89 (109) 100 08/16/18 04:00 84 08/16/18 03:31 89 18 99 Nasal Cannula 2.0 28 08/16/18 03:19 81 20 94 Nasal Cannula 2.0 28 08/16/18 00:00 98.1 90 20 139/80 (99) 100 08/16/18 00:00 87 08/15/18 23:28 Nasal Cannula 08/15/18 23:28 Nasal Cannula 08/15/18 21:00 Nasal Cannula 2.0 08/15/18 20:00 97.4 80 20 144/80 (101) 96 08/15/18 20:00 80 08/15/18 19:41 91 18 99 Nasal Cannula 2.0 28 08/15/18 19:37 96 Nasal Cannula 2.0 28 08/15/18 19:37 Nasal Cannula 2.0 28 08/15/18 19:33 91 20 93 Nasal Cannula 2.0 28 08/15/18 16:38 81 18 98 Nasal Cannula 2.0 28 08/15/18 16:28 85 18 98 Nasal Cannula 2.0 28 Intake and Output 08/15/18 08/16/18 19:00 07:00 Intake Total 1235 ml 480 ml Balance 1235 ml 480 ml Intake Oral 960 ml 480 ml IV Total 275 ml # Voids 3 # Bowel Movements 1 Laboratory Tests 08/16/18 05:35: White Blood Count 3.5L, Red Blood Count 3.70L, Hemoglobin 10.9L, Hematocrit 35.5L, Mean Corpuscular Volume 96, Mean Corpuscular Hemoglobin 29.6, Mean Corpuscular Hemoglobin Concent 30.8L, Red Cell Distribution Width 13.7, Platelet Count 114L, Mean Platelet Volume 7.3, Neutrophils (%) (Auto) , Lymphocytes (%) (Auto) , Monocytes (%) (Auto) , Eosinophils (%) (Auto) , Basophils (%) (Auto) , Differential Total Cells Counted 100, Neutrophils % ( Manual) 95H, Lymphocytes % (Manual) 3L, Monocytes % (Manual) 2, Eosinophils % ( Manual) 0, Basophils % (Manual) 0, Band Neutrophils 0, Platelet Estimate DecreasedL, Platelet Morphology Normal, Hypochromasia 1+, Sodium Level 134L, Potassium Level 4.1, Chloride Level 98, Carbon Dioxide Level 32, Anion Gap 4L, Blood Urea Nitrogen 32H, Creatinine 1.1, Estimat Glomerular Filtration Rate > 60 , Glucose Level 488#H, Calcium Level 9.3 Current Medications Medications (Trade) Dose Ordered Sig/Rogers Route PRN Reason Start Time Stop Time Status Last Admin Dose Admin Albuterol Sulfate (Proventil MDI) 2 puff Q2H PRN INH Shortness of Breath 08/16/18 08:15 09/15/18 08:14 08/16/18 09:09 Albuterol/ Ipratropium (Albuterol/ Ipratropium) 3 ml Q4HRT HHN 08/13/18 15:00 08/18/18 14:59 08/16/18 14:22 Alprazolam (Xanax) 0.25 mg TID PRN ORAL For Anxiety 08/14/18 23:00 08/21/18 22:59 08/15/18 18:44 Aspirin (ASA) 81 mg DAILY ORAL 08/14/18 09:00 09/13/18 08:59 08/16/18 08:16 Azithromycin 500 mg/Dextrose 275 ml @ 275 mls/hr Q24H IV 08/13/18 14:00 08/20/18 13:59 08/16/18 14:02 Ceftriaxone Sodium 1 gm/ Dextrose 55 ml @ 110 mls/hr Q24H IV 08/13/18 15:00 08/20/18 14:59 08/16/18 15:41 Dextrose (Dextrose 50%) 25 ml Q30M PRN IV Hypoglycemia 08/15/18 11:00 09/14/18 10:59 Dextrose (Dextrose 50%) 50 ml Q30M PRN IV Hypoglycemia 08/15/18 11:00 09/14/18 10:59 Diphenhydramine HCl (Benadryl) 25 mg Q6H PRN ORAL Itching/Pruritis 08/13/18 11:30 09/12/18 11:29 Docusate Sodium (Colace) 100 mg EVERY 12 HOURS ORAL 08/13/18 21:00 09/12/18 20:59 08/13/18 21:34 Famotidine (Pepcid) 40 mg DAILY ORAL 08/14/18 09:00 09/13/18 08:59 08/16/18 08:15 Gabapentin (Neurontin) 800 mg FOUR TIMES A DAY ORAL 08/13/18 13:00 09/12/18 12:59 08/16/18 14:01 Guaifenesin (Mucinex ER) 600 mg TWICE A DAY ORAL 08/13/18 18:00 09/12/18 17:59 08/16/18 08:16 Guaifenesin/ Dextromethorphan (Robitussin DM Syrup) 10 ml Q4H PRN ORAL For Cough 08/13/18 17:45 09/12/18 17:44 Heparin Sodium (Porcine) (Heparin 5000 units/ml) 5,000 units EVERY 12 HOURS SUBQ 08/13/18 21:00 09/12/18 20:59 08/13/18 21:40 Insulin Aspart (NovoLOG) BEFORE MEALS AND HS SUBQ 08/15/18 11:30 09/14/18 11:29 08/16/18 11:47 Insulin Detemir (Levemir) 16 units BEDTIME SUBQ 08/16/18 21:00 09/12/18 20:59 Lisinopril (Prinivil) 20 mg DAILY ORAL 08/14/18 09:00 09/13/18 08:59 08/16/18 10:07 Methadone HCl (Methadone HCl) 50 mg DAILY ORAL 08/13/18 15:00 08/20/18 14:59 08/16/18 08:15 Methylprednisolone Sodium Succinate (Solu-MEDROL) 60 mg EVERY 6 HOURS IVP 08/13/18 12:00 09/12/18 11:59 08/16/18 11:45 Ondansetron HCl (Zofran) 4 mg Q6H PRN IVP Nausea & Vomiting 08/13/18 11:30 09/12/18 11:29 Oseltamivir Phosphate (Tamiflu) 75 mg Q12HR ORAL 08/13/18 21:00 08/18/18 20:59 08/16/18 08:15 Oxycodone HCl (Roxicodone) 30 mg Q8H ORAL 08/16/18 06:00 08/23/18 05:59 08/16/18 14:02 Polyethylene Glycol (Miralax) 17 gm DAILYPRN PRN ORAL Constipation 08/13/18 11:30 09/12/18 11:29 Sodium Chloride 1,000 ml @ 75 mls/hr [id number] IV 08/13/18 12:25 09/12/18 12:24 08/16/18 06:19 Nic Daugherty MD Aug 16, 2018 15:46
[2018-08-16 16:00] VITALS: BP 166/99
--- NOTE | 2018-08-16 19:02 | NUR ---
HAND-OFF: Report given to DANIEL Arora.
--- NOTE | 2018-08-16 19:10 | NUR ---
NURSE NOTES: Received report from DANIEL Ardon. Patient awake, alert and verbally responsive. No SOB, no acute distress at this time. IV site on R FA #22, patent and intact. bed at lowest position, call light within reach. Will continue plan of care.
[2018-08-16 20:00] VITALS: BP 153/100
[2018-08-16] MEDS: ALPRAZolam 0.25mg tab ORAL PRN (20:43)
[2018-08-16] MEDS ORDERED: Levemir Flexpen SUBQ SCH (21:00)
[2018-08-17] VITALS (7 sets, daily range): BP systolic 152–184; BP diastolic 89–100
[2018-08-17] MEDS: Albuterol/Ipratropium 3ml neb HHN SCH ×7 (00:18→23:30)
--- NOTE | 2018-08-17 03:20 | NUR ---
NURSE NOTES: Patient asleep, breathing even and unlabored, no s/sx of pain nor any discomfort at this time. Bed at lowest position, call light within reach. Will continue to monitor.
[2018-08-17] MEDS: oxyCODONE 15mg IR tab ORAL SCH ×3 (05:29→22:16)
[2018-08-17] MEDS: Solu-MEDROL 125mg Inj IVP SCH ×3 (05:33→17:23)
[2018-08-17] MEDS: NovoLOG Insulin Flexpen SUBQ SCH ×4 (06:08→22:39)
[2018-08-17 06:55] LABS: ANION GAP 7 mmol/L (5-15); BLOOD UREA NITROGEN 28 mg/dL (7-18); CALCIUM 9.4 MG/DL (8.5-10.1); CARBON DIOXIDE 29 MMOL/L (21-32); CHLORIDE 98 MMOL/L (98-107); CREATININE 1.1 MG/DL (0.55-1.30); POTASSIUM 4.3 MMOL/L (3.5-5.1); SODIUM 134 MMOL/L (136-145)
--- NOTE | 2018-08-17 07:29 | NUR ---
HAND-OFF: Report given to DANIEL Jha. Endorsed plan of care.
--- NOTE | 2018-08-17 07:30 | NUR ---
NURSE NOTES: Received report from DANIEL Ascencio. Patient is resting in bed, sleeping. No SOB with nasal cannula. No signs and symptoms of acute distress at this time. IV site , patent and intact. Bed at lowest position, with two side rails up. call light and bed side table within reach. Will continue to monitor and follow plan of care.
[2018-08-17] MEDS: Oseltamivir 75mg cap ORAL SCH ×2 (08:25→22:16)
[2018-08-17] MEDS: Aspirin Baby 81mg ORAL SCH (08:25)
[2018-08-17] MEDS: Lisinopril 20mg tab ORAL SCH (08:28)
[2018-08-17] MEDS: guaiFENesin ER 600mg tab ORAL SCH ×2 (08:30→17:23)
[2018-08-17] MEDS: Docusate 100mg cap ORAL SCH ×2 (08:31→21:00)
[2018-08-17] MEDS: Heparin 5000 units/ml inj SUBQ SCH ×2 (08:31→21:00)
[2018-08-17] MEDS: ALPRAZolam 0.25mg tab ORAL PRN ×2 (08:36→17:30)
[2018-08-17 10:50] LABS: HEMATOCRIT 38.7 % (37.0-47.0); MEAN CORPUSCULAR VOLUME 96 FL (80-99); PLATELET COUNT 125 K/UL (150-450); RED BLOOD COUNT 4.03 M/UL (4.20-5.40); RED CELL DISTRIBUTION WIDTH 13.6 % (11.6-14.8); WHITE BLOOD COUNT 3.8 K/UL (4.8-10.8)
--- NOTE | 2018-08-17 11:40 | NUR ---
NURSE NOTES: Per RT, patient refused her breathing treatment this morning and now.
--- NOTE | 2018-08-17 11:50 | NUR ---
TRANSFER TO FLOOR: Patient transferred to Med-surg, per Dr. Montero's order. Report given to DANIEL Mandujano. Belongings and medications given to DANIEL Mandujano. Patient transfered in stable condition.
--- NOTE | 2018-08-17 11:57 | NUR ---
nurse notes received patient from tele via bed, patient awake, alert, oriented x4, ambulatory on RA, No sign of respiratory distress, denies pain or discomfort, HL patent, on fall precaution observed and maintained, oriented to the Unit, plan of care was discussed verbalized understanding, eunice shah
[2018-08-17] MEDS ORDERED: Albuterol 90mcg Inhaler 8gm INH PRN (12:15)
--- NOTE | 2018-08-17 12:22 | General Progress Note ---
Assessment/Plan Assessment/Plan #Sepsis due to #Pneumonia, community acquired #Influenza A infection -continue inpatient level of care -continue ceftriaxone and azithromycin -continue Tamiflu -blood cultures negative so far -Pulmonology following #COPD exacerbation, severe -continue Solu-Medrol, Duoneb -continue Mucinex -smoking cessation #Type 2 DM, uncontrolled due to steroids -continue Levemir 16 units qHS -monitor glucose levels closely with ISS #Chronic pain #Neuropathy #opiate dependance -continue outpatient pain regimen -methadone verified to be 50mg #Hyponatremia -likely due to hyperglycemia -continue to monitor BMP VTE PPx Full Code I spent 70 minutes on this patient's case, and 35 minutes was dedicated to counseling and/or care coordination. Subjective Date patient seen: Aug 17, 2018 Time patient seen: 08:00 Constitutional: Denies: chills, fever Cardiovascular: Denies: chest pain Respiratory: Reports: cough, shortness of breath, wheezing Gastrointestinal/Abdominal: Denies: abdomen distended, abdominal pain Allergies: Coded Allergies: SULFA (SULFONAMIDE ANTIBIOTICS) (Unverified Allergy, Unknown, 08/13/18) Subjective Medicine follow up for sepsis, pneumonia, influenza A infection, COPD exacerbation. Still having severe shortness of breath, cough, wheeze. Objective Last 24 Hour Vital Signs Date Time Temp Pulse Resp B/P (MAP) Pulse Ox O2 Delivery O2 Flow Rate FiO2 08/17/18 11:00 Nasal Cannula 2.0 28 08/17/18 11:00 Nasal Cannula 2.0 28 08/17/18 09:00 Nasal Cannula 2.0 08/17/18 08:28 184/98 08/17/18 08:00 78 08/17/18 08:00 97.5 85 20 184/98 (126) 100 08/17/18 07:13 96 Nasal Cannula 2.0 28 08/17/18 07:13 Nasal Cannula 2.0 28 08/17/18 07:13 Nasal Cannula 2.0 28 08/17/18 07:13 82 14 96 Nasal Cannula 2.0 28 08/17/18 04:00 86 08/17/18 04:00 97.8 86 20 158/99 (118) 100 08/17/18 02:54 Nasal Cannula 08/17/18 02:54 Nasal Cannula 08/17/18 00:24 83 20 99 Nasal Cannula 2.0 28 08/17/18 00:16 88 20 99 Nasal Cannula 2.0 28 08/17/18 00:00 92 08/17/18 00:00 97.2 92 20 159/95 (116) 97 08/16/18 21:00 Nasal Cannula 2.0 08/16/18 20:00 97.3 85 20 153/100 (117) 95 08/16/18 20:00 85 08/16/18 19:28 86 20 98 Nasal Cannula 2.0 28 08/16/18 19:21 85 20 98 Nasal Cannula 2.0 28 08/16/18 19:20 Nasal Cannula 2.0 28 08/16/18 19:19 96 Nasal Cannula 2.0 28 08/16/18 16:00 97.8 89 17 166/99 (121) 100 08/16/18 15:42 87 08/16/18 14:32 84 18 100 Nasal Cannula 2.0 28 08/16/18 14:22 89 18 100 Nasal Cannula 2.0 Intake and Output 08/16/18 08/17/18 18:59 06:59 Intake Total 480 ml 480 ml Balance 480 ml 480 ml Intake Oral 480 ml 480 ml # Voids 2 4 Laboratory Tests 08/17/18 05:50: Sodium Level 134L, Potassium Level 4.3, Chloride Level 98, Carbon Dioxide Level 29, Anion Gap 7, Blood Urea Nitrogen 28H, Creatinine 1.1, Estimat Glomerular Filtration Rate > 60, Glucose Level 463H, Calcium Level 9.4 08/17/18 10:10: White Blood Count 3.8L, Red Blood Count 4.03L, Hemoglobin 12.0, Hematocrit 38.7 , Mean Corpuscular Volume 96, Mean Corpuscular Hemoglobin 29.8, Mean Corpuscular Hemoglobin Concent 31.0L, Red Cell Distribution Width 13.6, Platelet Count 125L, Mean Platelet Volume 8.1, Neutrophils (%) (Auto) , Lymphocytes (%) (Auto) , Monocytes (%) (Auto) , Eosinophils (%) (Auto) , Basophils (%) (Auto) , Differential Total Cells Counted 100, Neutrophils % ( Manual) 80H, Lymphocytes % (Manual) 18L, Monocytes % (Manual) 2, Eosinophils % ( Manual) 0, Basophils % (Manual) 0, Band Neutrophils 0, Platelet Estimate DecreasedL, Platelet Morphology Normal Height (Feet): 5 Height (Inches): 10.00 Weight (Pounds): 170 General Appearance: no apparent distress, alert, lethargic Cardiovascular: normal rate, regular rhythm Respiratory/Chest: no respiratory distress, no accessory muscle use, rhonchi - bilaterally Abdomen: non tender, soft Neurologic: alert, oriented x 3 Raul Giraldo MD Aug 17, 2018 12:22
[2018-08-17] MEDS ORDERED: Guaifenesin/DM 10ml syrup ORAL PRN (12:30)
[2018-08-17] MEDS: Azithromycin 500 MG in D5W 275 ML IV SCH (13:46)
[2018-08-17] MEDS: cefTRIAXone 1 GM in D5W 55 ML IV SCH (15:21)
--- NOTE | 2018-08-17 18:35 | Consultation ---
History of Present Illness General Chief Complaint: Fever Present Illness Allergies: Coded Allergies: SULFA (SULFONAMIDE ANTIBIOTICS) (Unverified Allergy, Unknown, 08/13/18) Medication History Scheduled Albuterol Sulfate* (Albuterol Sulfate Mdi*), 2 PUFF INH Q6H, (Reported) Aspirin* (Aspirin*), 81 MG ORAL DAILY, (Reported) Gabapentin* (Gabapentin*), 800 MG ORAL FOUR TIMES A DAY, (Reported) Insulin Glargine (Lantus), 0 SUBQ BEDTIME, (Reported) Insulin Regular, Human* (Novolin R*), 0 SUBQ .SLIDING SCALE, (Reported) Levofloxacin* (Levaquin*), 750 MG ORAL DAILY, (Reported) Lisinopril (Lisinopril*), 20 MG ORAL DAILY, (Reported) Metformin Hcl* (Metformin Hcl*), 500 MG ORAL THREE TIMES A DAY, (Reported) Methadone Hcl* (Methadone*), 80 MG PO DAILY, (Reported) OXYCODONE HCl* (Roxicodone*), 30 MG ORAL TID, (Reported) Prednisone* (Prednisone*), 20 MG ORAL DAILY, (Reported) Patient History Healthcare decision maker Yesica Ac Resuscitation status Full Code Advanced Directive on File Physical Exam Last 24 Hour Vital Signs Date Time Temp Pulse Resp B/P (MAP) Pulse Ox O2 Delivery O2 Flow Rate FiO2 08/17/18 16:18 98.3 86 18 152/89 (110) 98 08/17/18 15:30 95 20 98 Nasal Cannula 2.0 28 08/17/18 15:17 90 16 97 Nasal Cannula 2.0 28 08/17/18 12:44 91 18 159/89 (112) 100 08/17/18 12:30 97.1 98 18 180/100 (126) 100 08/17/18 11:00 Nasal Cannula 2.0 28 08/17/18 11:00 Nasal Cannula 2.0 28 08/17/18 09:00 Nasal Cannula 2.0 08/17/18 08:28 184/98 08/17/18 08:00 78 08/17/18 08:00 97.5 85 20 184/98 (126) 100 08/17/18 07:13 96 Nasal Cannula 2.0 28 08/17/18 07:13 Nasal Cannula 2.0 28 08/17/18 07:13 Nasal Cannula 2.0 28 08/17/18 07:13 82 14 96 Nasal Cannula 2.0 28 08/17/18 04:00 86 08/17/18 04:00 97.8 86 20 158/99 (118) 100 08/17/18 02:54 Nasal Cannula 08/17/18 02:54 Nasal Cannula 08/17/18 00:24 83 20 99 Nasal Cannula 2.0 28 08/17/18 00:16 88 20 99 Nasal Cannula 2.0 28 08/17/18 00:00 92 08/17/18 00:00 97.2 92 20 159/95 (116) 97 08/16/18 21:00 Nasal Cannula 2.0 08/16/18 20:00 97.3 85 20 153/100 (117) 95 08/16/18 20:00 85 08/16/18 19:28 86 20 98 Nasal Cannula 2.0 28 08/16/18 19:21 85 20 98 Nasal Cannula 2.0 28 08/16/18 19:20 Nasal Cannula 2.0 28 08/16/18 19:19 96 Nasal Cannula 2.0 28 Intake and Output 08/16/18 08/17/18 19:00 07:00 Intake Total 480 ml 480 ml Balance 480 ml 480 ml Intake Oral 480 ml 480 ml # Voids 2 4 Laboratory Tests Test 08/17/18 05:50 08/17/18 10:10 Sodium Level 134 MMOL/L (136-145) L Potassium Level 4.3 MMOL/L (3.5-5.1) Chloride Level 98 MMOL/L (98-107) Carbon Dioxide Level 29 MMOL/L (21-32) Anion Gap 7 mmol/L (5-15) Blood Urea Nitrogen 28 mg/dL (7-18) H Creatinine 1.1 MG/DL (0.55-1.30) Estimat Glomerular Filtration Rate > 60 mL/min (>60) Glucose Level 463 MG/DL (74-106) H Calcium Level 9.4 MG/DL (8.5-10.1) White Blood Count 3.8 K/UL (4.8-10.8) L Red Blood Count 4.03 M/UL (4.20-5.40) L Hemoglobin 12.0 G/DL (12.0-16.0) Hematocrit 38.7 % (37.0-47.0) Mean Corpuscular Volume 96 FL (80-99) Mean Corpuscular Hemoglobin 29.8 PG (27.0-31.0) Mean Corpuscular Hemoglobin Concent 31.0 G/DL (32.0-36.0) L Red Cell Distribution Width 13.6 % (11.6-14.8) Platelet Count 125 K/UL (150-450) L Mean Platelet Volume 8.1 FL (6.5-10.1) Neutrophils (%) (Auto) % (45.0-75.0) Lymphocytes (%) (Auto) % (20.0-45.0) Monocytes (%) (Auto) % (1.0-10.0) Eosinophils (%) (Auto) % (0.0-3.0) Basophils (%) (Auto) % (0.0-2.0) Differential Total Cells Counted 100 Neutrophils % (Manual) 80 % (45-75) H Lymphocytes % (Manual) 18 % (20-45) L Monocytes % (Manual) 2 % (1-10) Eosinophils % (Manual) 0 % (0-3) Basophils % (Manual) 0 % (0-2) Band Neutrophils 0 % (0-8) Platelet Estimate Decreased L Platelet Morphology Normal Height (Feet): 5 Height (Inches): 10.00 Weight (Pounds): 170 Medications Current Medications Medications (Trade) Dose Ordered Sig/Rogers Route PRN Reason Start Time Stop Time Status Last Admin Dose Admin Albuterol Sulfate (Proventil MDI) 2 puff Q2H PRN INH Shortness of Breath 08/17/18 12:15 09/15/18 08:14 Albuterol/ Ipratropium (Albuterol/ Ipratropium) 3 ml Q4HRT HHN 08/17/18 15:00 08/18/18 14:59 08/17/18 15:15 Alprazolam (Xanax) 0.25 mg TIDPRN PRN ORAL For Anxiety 08/17/18 13:00 08/24/18 12:59 08/17/18 17:30 Aspirin (ASA) 81 mg DAILY ORAL 08/18/18 09:00 09/13/18 08:59 Azithromycin 500 mg/Dextrose 275 ml @ 275 mls/hr Q24H IV 08/17/18 14:00 08/20/18 13:59 08/17/18 13:46 Ceftriaxone Sodium 1 gm/ Dextrose 55 ml @ 110 mls/hr Q24H IV 08/17/18 15:00 08/20/18 14:59 08/17/18 15:21 Dextrose (Dextrose 50%) 25 ml Q30M PRN IV Hypoglycemia 08/17/18 12:00 09/14/18 10:59 Dextrose (Dextrose 50%) 50 ml Q30M PRN IV Hypoglycemia 08/17/18 12:00 09/14/18 10:59 Diphenhydramine HCl (Benadryl) 25 mg Q6H PRN ORAL Itching/Pruritis 08/17/18 12:30 09/12/18 12:29 Docusate Sodium (Colace) 100 mg EVERY 12 HOURS ORAL 08/17/18 21:00 09/12/18 20:59 Famotidine (Pepcid) 40 mg DAILY ORAL 08/18/18 09:00 09/13/18 08:59 Gabapentin (Neurontin) 800 mg FOUR TIMES A DAY ORAL 08/17/18 13:00 09/12/18 12:59 08/17/18 17:23 Guaifenesin (Mucinex ER) 600 mg TWICE A DAY ORAL 08/17/18 18:00 09/12/18 17:59 08/17/18 17:23 Guaifenesin/ Dextromethorphan (Robitussin DM Syrup) 10 ml Q4H PRN ORAL For Cough 08/17/18 12:30 09/12/18 12:29 Heparin Sodium (Porcine) (Heparin 5000 units/ml) 5,000 units EVERY 12 HOURS SUBQ 08/17/18 21:00 09/12/18 20:59 Insulin Aspart (NovoLOG) BEFORE MEALS AND HS SUBQ 08/17/18 16:30 09/14/18 11:29 08/17/18 17:24 Insulin Detemir (Levemir) 16 units BEDTIME SUBQ 08/17/18 21:00 09/12/18 20:59 Lisinopril (Prinivil) 20 mg DAILY ORAL 08/18/18 09:00 09/13/18 08:59 Methadone HCl (Methadone HCl) 50 mg DAILY ORAL 08/18/18 09:00 08/20/18 14:59 Methylprednisolone Sodium Succinate (Solu-MEDROL) 60 mg EVERY 6 HOURS IVP 08/17/18 12:00 09/12/18 11:59 08/17/18 17:23 Ondansetron HCl (Zofran) 4 mg Q6H PRN IVP Nausea & Vomiting 08/17/18 12:30 09/12/18 12:29 Oseltamivir Phosphate (Tamiflu) 75 mg Q12HR ORAL 08/17/18 21:00 08/18/18 20:59 Oxycodone HCl (Roxicodone) 30 mg Q8H ORAL 08/17/18 14:00 08/23/18 05:59 08/17/18 13:45 Polyethylene Glycol (Miralax) 17 gm DAILYPRN PRN ORAL Constipation 08/18/18 11:30 09/12/18 11:29 Sodium Chloride 1,000 ml @ 75 mls/hr [id number] IV 08/17/18 12:00 09/12/18 12:24 08/17/18 12:53 Assessment/Plan Assessment/Plan Hematology Consultation DOS: 08/17/18 REQ MD: Kristal Lassiter Reason for Hospitalization: Sepsis RFC: Pancytopenia HPI 58 year old woman with history of COPD, HTN, DM type 2, chronic pain, opiate dependance on methadone who presents with 3 days of cough, chest congestion, fevers and chills. Cough is productive of green sputum. Multiple sick contacts with similar complaints. In ED she was found to have fever 102, leukocytosis and infiltrate on CXR. Treated with Levaquin and referred for admission. At this time, she does have a panctyopenia and heme consulted. Social Hx: Tobacco use Family Hx: No premature CAD Coded Allergies: SULFA (SULFONAMIDE ANTIBIOTICS) (Unverified Allergy, Unknown, 08/13/18) Uncoded Allergies: SULFA MEDS (Allergy, Unknown, 08/13/18) Scheduled Albuterol Sulfate* (Albuterol Sulfate Mdi*), 2 PUFF INH Q6H, (Reported) Aspirin* (Aspirin*), 81 MG ORAL DAILY, (Reported) Gabapentin* (Gabapentin*), 800 MG ORAL FOUR TIMES A DAY, (Reported) Insulin Glargine (Lantus), 0 SUBQ BEDTIME, (Reported) Insulin Regular, Human* (Novolin R*), 0 SUBQ .SLIDING SCALE, (Reported) Levofloxacin* (Levaquin*), 750 MG ORAL DAILY, (Reported) Lisinopril (Lisinopril*), 20 MG ORAL DAILY, (Reported) Metformin Hcl* (Metformin Hcl*), 500 MG ORAL THREE TIMES A DAY, (Reported) Methadone Hcl* (Methadone*), 80 MG PO DAILY, (Reported) OXYCODONE HCl* (Roxicodone*), 30 MG ORAL TID, (Reported) Prednisone* (Prednisone*), 20 MG ORAL DAILY, (Reported) Healthcare decision maker Yesica Ac Resuscitation status Full Code Advanced Directive on File ROS Constitutional: Reports: chills, fever Eye: Denies: eye pain ENT: Denies: ear pain Respiratory: Reports: cough, shortness of breath, wheezing Cardiovascular: Denies: chest pain, palpitations Gastrointestinal: Denies: abdominal pain, constipation Genitourinary: Denies: dysuria Musculoskeletal: Denies: back pain Skin: Denies: rash Neurological: Denies: headache Endocrine: Denies: excessive sweating Hematologic/Lymphatic: Denies: anemia PE General Appearance: no apparent distress, alert HEENT: normocephalic, atraumatic Neck: non-tender, normal alignment Respiratory/Chest: chest wall non-tender, rhonchi - bilaterally Cardiovascular/Chest: normal peripheral pulses, normal rate Abdomen: normal bowel sounds, non tender Extremities: normal range of motion, non-tender 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, no motor/sensory deficits, alert, oriented x 3 Laboratory Tests Test 08/17/18 05:50 08/17/18 10:10 Sodium Level 134 MMOL/L (136-145) L Potassium Level 4.3 MMOL/L (3.5-5.1) Chloride Level 98 MMOL/L (98-107) Carbon Dioxide Level 29 MMOL/L (21-32) Anion Gap 7 mmol/L (5-15) Blood Urea Nitrogen 28 mg/dL (7-18) H Creatinine 1.1 MG/DL (0.55-1.30) Estimat Glomerular Filtration Rate > 60 mL/min (>60) Glucose Level 463 MG/DL (74-106) H Calcium Level 9.4 MG/DL (8.5-10.1) White Blood Count 3.8 K/UL (4.8-10.8) L Red Blood Count 4.03 M/UL (4.20-5.40) L Hemoglobin 12.0 G/DL (12.0-16.0) Hematocrit 38.7 % (37.0-47.0) Mean Corpuscular Volume 96 FL (80-99) Mean Corpuscular Hemoglobin 29.8 PG (27.0-31.0) Mean Corpuscular Hemoglobin Concent 31.0 G/DL (32.0-36.0) L Red Cell Distribution Width 13.6 % (11.6-14.8) Platelet Count 125 K/UL (150-450) L Mean Platelet Volume 8.1 FL (6.5-10.1) Neutrophils (%) (Auto) % (45.0-75.0) Lymphocytes (%) (Auto) % (20.0-45.0) Monocytes (%) (Auto) % (1.0-10.0) Eosinophils (%) (Auto) % (0.0-3.0) Basophils (%) (Auto) % (0.0-2.0) Differential Total Cells Counted 100 Neutrophils % (Manual) 80 % (45-75) H Lymphocytes % (Manual) 18 % (20-45) L Monocytes % (Manual) 2 % (1-10) Eosinophils % (Manual) 0 % (0-3) Basophils % (Manual) 0 % (0-2) Band Neutrophils 0 % (0-8) Platelet Estimate Decreased L Platelet Morphology Normal Assessment and Recs: # Pancytopenia -- multiple etiologies possible, reviewed patient's prior labs --> obtain imaging of the abdomen --> hepatitis and hiv have not been ordered before, order at this time --> neupogen as needed, prbc and plt transfusion --> anemia panel has been ordered # Sepsis due to PNA/influenza --> on abx, seen by pulm --> steriods as needed # Pneumonia, community acquired --> continue ceftriaxone and azithromycin # Influenza A infection --> continue inpatient level of care --> continue ceftriaxone and azithromycin # COPD exacerbation, severe --> continue Solu-Medrol, Duoneb # Type 2 DM, uncontrolled due to steroids ==> on insulin, qac/qhs accuchecks # Chronic pain # Neuropathy # Opiate dependance Greatly appreciate consultation! Saul Marcos MD Aug 17, 2018 18:35
--- NOTE | 2018-08-17 19:00 | NUR ---
NURSE NOTES: Received a report from Mona Orta RN. Pt is in stable condition. at the bedside. AAOX4. Able to make needs known. No respiratory distress noted. Uses nasal cannula 2L/min. No c/o pain/discomfort. IV site is patent and intact. Bed in lowest position. Call light within reach. Will continue to monitor.
--- NOTE | 2018-08-17 19:14 | NUR ---
HAND-OFF: Report given to DANIEL ORMERO. Patient calm and quiet,free from injury, no sign of distress daniel shah
--- NOTE | 2018-08-17 20:42 | Pulmonology Progress Note ---
Assessment/Plan Assessment/Plan Problem List: 1. Community-acquired pneumonia 2. Influenza A 3. Acute exacerbation of COPD 4. uncontrolled DM 5. Opioid dependence 6. Pancytopenia 7. Hyponatremia Plan: -solumedrol 60 mg IV q6, taper as tolerated -ceftriaxone/azithro -f/u cultures -tamiflu x 5 days -duonebs q4 -mucinex bid -wean oxygen as tolerated Subjective ROS Limited/Unobtainable: No Interval Events: Wheezing. Feels short of breath. Coughing up mucous Respiratory: Reports: productive cough, shortness of breath, dyspnea at rest, wheezing Allergies: Coded Allergies: SULFA (SULFONAMIDE ANTIBIOTICS) (Unverified Allergy, Unknown, 08/13/18) Objective Last 24 Hour Vital Signs Date Time Temp Pulse Resp B/P (MAP) Pulse Ox O2 Delivery O2 Flow Rate FiO2 08/17/18 16:18 98.3 86 18 152/89 (110) 98 08/17/18 15:30 95 20 98 Nasal Cannula 2.0 28 08/17/18 15:17 90 16 97 Nasal Cannula 2.0 28 08/17/18 12:44 91 18 159/89 (112) 100 08/17/18 12:30 97.1 98 18 180/100 (126) 100 08/17/18 11:00 Nasal Cannula 2.0 28 08/17/18 11:00 Nasal Cannula 2.0 28 08/17/18 09:00 Nasal Cannula 2.0 08/17/18 08:28 184/98 08/17/18 08:00 78 08/17/18 08:00 97.5 85 20 184/98 (126) 100 08/17/18 07:13 96 Nasal Cannula 2.0 28 08/17/18 07:13 Nasal Cannula 2.0 28 08/17/18 07:13 Nasal Cannula 2.0 28 08/17/18 07:13 82 14 96 Nasal Cannula 2.0 28 08/17/18 04:00 86 08/17/18 04:00 97.8 86 20 158/99 (118) 100 08/17/18 02:54 Nasal Cannula 08/17/18 02:54 Nasal Cannula 08/17/18 00:24 83 20 99 Nasal Cannula 2.0 28 08/17/18 00:16 88 20 99 Nasal Cannula 2.0 28 08/17/18 00:00 92 08/17/18 00:00 97.2 92 20 159/95 (116) 97 08/16/18 21:00 Nasal Cannula 2.0 Intake and Output 08/16/18 08/17/18 19:00 07:00 Intake Total 480 ml 480 ml Balance 480 ml 480 ml Intake Oral 480 ml 480 ml # Voids 2 4 General Appearance: no acute distress HEENT: atraumatic, anicteric, mucous membranes moist Respiratory/Chest: expiratory wheezing Cardiovascular: normal rate, regular rhythm Abdomen: soft, non tender Extremities: no edema Laboratory Tests 08/17/18 05:50: Sodium Level 134L, Potassium Level 4.3, Chloride Level 98, Carbon Dioxide Level 29, Anion Gap 7, Blood Urea Nitrogen 28H, Creatinine 1.1, Estimat Glomerular Filtration Rate > 60, Glucose Level 463H, Calcium Level 9.4 08/17/18 06:00: Hepatitis A IgM Antibody [Pending], Hepatitis B Surface Antigen [Pending], Hepatitis B Core IgM Antibody [Pending], Hepatitis C Antibody [Pending], HIV (1& 2) Antibody Rapid Negative 08/17/18 10:10: White Blood Count 3.8L, Red Blood Count 4.03L, Hemoglobin 12.0, Hematocrit 38.7 , Mean Corpuscular Volume 96, Mean Corpuscular Hemoglobin 29.8, Mean Corpuscular Hemoglobin Concent 31.0L, Red Cell Distribution Width 13.6, Platelet Count 125L, Mean Platelet Volume 8.1, Neutrophils (%) (Auto) , Lymphocytes (%) (Auto) , Monocytes (%) (Auto) , Eosinophils (%) (Auto) , Basophils (%) (Auto) , Differential Total Cells Counted 100, Neutrophils % ( Manual) 80H, Lymphocytes % (Manual) 18L, Monocytes % (Manual) 2, Eosinophils % ( Manual) 0, Basophils % (Manual) 0, Band Neutrophils 0, Platelet Estimate DecreasedL, Platelet Morphology Normal Current Medications Medications (Trade) Dose Ordered Sig/Rogers Route PRN Reason Start Time Stop Time Status Last Admin Dose Admin Albuterol Sulfate (Proventil MDI) 2 puff Q2H PRN INH Shortness of Breath 08/17/18 12:15 09/15/18 08:14 Albuterol/ Ipratropium (Albuterol/ Ipratropium) 3 ml Q4HRT HHN 08/17/18 15:00 08/18/18 14:59 08/17/18 15:15 Alprazolam (Xanax) 0.25 mg TIDPRN PRN ORAL For Anxiety 08/17/18 13:00 08/24/18 12:59 08/17/18 17:30 Aspirin (ASA) 81 mg DAILY ORAL 08/18/18 09:00 09/13/18 08:59 Azithromycin 500 mg/Dextrose 275 ml @ 275 mls/hr Q24H IV 08/17/18 14:00 08/20/18 13:59 08/17/18 13:46 Ceftriaxone Sodium 1 gm/ Dextrose 55 ml @ 110 mls/hr Q24H IV 08/17/18 15:00 08/20/18 14:59 08/17/18 15:21 Dextrose (Dextrose 50%) 25 ml Q30M PRN IV Hypoglycemia 08/17/18 12:00 09/14/18 10:59 Dextrose (Dextrose 50%) 50 ml Q30M PRN IV Hypoglycemia 08/17/18 12:00 09/14/18 10:59 Diphenhydramine HCl (Benadryl) 25 mg Q6H PRN ORAL Itching/Pruritis 08/17/18 12:30 09/12/18 12:29 Docusate Sodium (Colace) 100 mg EVERY 12 HOURS ORAL 08/17/18 21:00 09/12/18 20:59 Famotidine (Pepcid) 40 mg DAILY ORAL 08/18/18 09:00 09/13/18 08:59 Gabapentin (Neurontin) 800 mg FOUR TIMES A DAY ORAL 08/17/18 13:00 09/12/18 12:59 08/17/18 17:23 Guaifenesin (Mucinex ER) 600 mg TWICE A DAY ORAL 08/17/18 18:00 09/12/18 17:59 08/17/18 17:23 Guaifenesin/ Dextromethorphan (Robitussin DM Syrup) 10 ml Q4H PRN ORAL For Cough 08/17/18 12:30 09/12/18 12:29 Heparin Sodium (Porcine) (Heparin 5000 units/ml) 5,000 units EVERY 12 HOURS SUBQ 08/17/18 21:00 09/12/18 20:59 Insulin Aspart (NovoLOG) BEFORE MEALS AND HS SUBQ 08/17/18 16:30 09/14/18 11:29 08/17/18 17:24 Insulin Detemir (Levemir) 16 units BEDTIME SUBQ 08/17/18 21:00 09/12/18 20:59 Lisinopril (Prinivil) 20 mg DAILY ORAL 08/18/18 09:00 09/13/18 08:59 Methadone HCl (Methadone HCl) 50 mg DAILY ORAL 08/18/18 09:00 08/20/18 14:59 Methylprednisolone Sodium Succinate (Solu-MEDROL) 60 mg EVERY 6 HOURS IVP 08/17/18 12:00 09/12/18 11:59 08/17/18 17:23 Ondansetron HCl (Zofran) 4 mg Q6H PRN IVP Nausea & Vomiting 08/17/18 12:30 09/12/18 12:29 Oseltamivir Phosphate (Tamiflu) 75 mg Q12HR ORAL 08/17/18 21:00 08/18/18 20:59 Oxycodone HCl (Roxicodone) 30 mg Q8H ORAL 08/17/18 14:00 08/23/18 05:59 08/17/18 13:45 Polyethylene Glycol (Miralax) 17 gm DAILYPRN PRN ORAL Constipation 08/18/18 11:30 09/12/18 11:29 Sodium Chloride 1,000 ml @ 75 mls/hr [id number] IV 08/17/18 12:00 09/12/18 12:24 08/17/18 12:53 Richard Mejia MD Aug 17, 2018 20:42
--- NOTE | 2018-08-17 21:30 | NUR ---
NURSE NOTES: Informed Dr. Giraldo about the pt's blood sugar: 484. No new orders given, just administer Levemir and Novolog. Charge Nurse Jen is aware.
--- NOTE | 2018-08-17 22:00 | NUR ---
NURSE NOTES: Pt refused the IV fluids.
[2018-08-17] MEDS: Levemir Flexpen SUBQ SCH (22:38)
[2018-08-18] VITALS: BP 155/95
--- NOTE | 2018-08-18 | NUR ---
NURSE NOTES: Pt is aware that the she's gonna be NPO starting now. Verbalized understanding.
[2018-08-18] MEDS: Solu-MEDROL 125mg Inj IVP SCH ×5 (00:11→23:16)
[2018-08-18] MEDS: Albuterol/Ipratropium 3ml neb HHN SCH ×4 (03:44→16:03)
[2018-08-18 04:00] VITALS: BP 155/90
[2018-08-18] MEDS: oxyCODONE 15mg IR tab ORAL SCH ×3 (06:19→21:08)
[2018-08-18] MEDS: NovoLOG Insulin Flexpen SUBQ SCH ×4 (06:20→21:12)
--- NOTE | 2018-08-18 07:37 | NUR ---
HAND-OFF: Report given to DANIEL Menon.
[2018-08-18 08:00] VITALS: BP 148/102
--- NOTE | 2018-08-18 08:00 | NUR ---
NURSE NOTES: Patient is awake and alert,02 on at 2L,respirations unlabored at this time,patient receiving test that was ordered,Abdominal Ultrasound,will give patient breakfast after test.Call light within reach,
[2018-08-18] MEDS: Docusate 100mg cap ORAL SCH ×2 (09:00→21:00)
[2018-08-18] MEDS: Heparin 5000 units/ml inj SUBQ SCH ×2 (09:00→21:00)
[2018-08-18] MEDS: Aspirin Baby 81mg ORAL SCH (09:20)
[2018-08-18] MEDS: guaiFENesin ER 600mg tab ORAL SCH ×2 (09:21→18:19)
[2018-08-18] MEDS: Oseltamivir 75mg cap ORAL SCH (09:22)
[2018-08-18] MEDS: Lisinopril 20mg tab ORAL SCH (09:24)
[2018-08-18] MEDS: ALPRAZolam 0.25mg tab ORAL PRN ×3 (09:43→23:16)
[2018-08-18] MEDS ORDERED: Miralax 17gm pkt ORAL PRN (11:30)
[2018-08-18 11:32] VITALS: BP_SYST 148; BP_SYST 152; BP_DIAS 102; BP_DIAS 93
--- NOTE | 2018-08-18 11:45 | Pulmonology Progress Note ---
Assessment/Plan Assessment/Plan Problem List: 1. Community-acquired pneumonia 2. Influenza A 3. Acute exacerbation of COPD 4. uncontrolled DM 5. Opioid dependence 6. Pancytopenia 7. Hyponatremia Plan: -solumedrol 60 mg IV q6, taper as tolerated -ceftriaxone/azithro -f/u cultures -tamiflu x 5 days -duonebs q4; add chest PT -mucinex bid -repeat CXR -wean oxygen as tolerated Subjective ROS Limited/Unobtainable: No Interval Events: coughing, thick mucous. No fevers. still wheezing Constitutional: Reports: no symptoms HEENT: Repors: no symptoms Respiratory: Reports: productive cough, sputum, shortness of breath, wheezing Cardiovascular: Reports: no symptoms Gastrointestinal/Abdominal: Reports: no symptoms Allergies: Coded Allergies: SULFA (SULFONAMIDE ANTIBIOTICS) (Unverified Allergy, Unknown, 08/13/18) Objective Last 24 Hour Vital Signs Date Time Temp Pulse Resp B/P (MAP) Pulse Ox O2 Delivery O2 Flow Rate FiO2 08/18/18 11:32 97.9 86 20 148/102 (117) 100 08/18/18 10:35 76 20 98 Nasal Cannula 2.0 28 08/18/18 10:30 78 20 97 Nasal Cannula 2.0 28 08/18/18 09:24 150/97 08/18/18 09:00 Nasal Cannula 2.0 08/18/18 07:41 Room Air 21 08/18/18 07:41 97 Room Air 21 08/18/18 07:29 Nasal Cannula 2.0 28 08/18/18 07:29 Nasal Cannula 2.0 28 08/18/18 04:00 97.8 85 17 155/90 (111) 99 08/18/18 03:54 70 18 98 Nasal Cannula 2.0 28 08/18/18 03:44 70 18 99 Nasal Cannula 2.0 28 08/18/18 00:00 96.3 78 19 155/95 (115) 100 08/17/18 23:30 Nasal Cannula 2.0 28 08/17/18 23:30 Nasal Cannula 2.0 28 08/17/18 21:54 Room Air 21 08/17/18 21:54 79 18 98 Room Air 21 08/17/18 21:54 78 18 100 Nasal Cannula 2.0 28 08/17/18 21:54 98 Room Air 21 08/17/18 21:00 Nasal Cannula 2.0 08/17/18 20:00 98.1 92 17 162/89 (113) 95 08/17/18 16:18 98.3 86 18 152/89 (110) 98 08/17/18 15:30 95 20 98 Nasal Cannula 2.0 28 08/17/18 15:17 90 16 97 Nasal Cannula 2.0 28 08/17/18 12:44 91 18 159/89 (112) 100 08/17/18 12:30 97.1 98 18 180/100 (126) 100 Intake and Output 08/17/18 08/18/18 18:59 06:59 Intake Total 1305 ml 450 ml Balance 1305 ml 450 ml Intake Oral 750 ml IV Total 555 ml 450 ml # Voids 4 4 General Appearance: no acute distress HEENT: atraumatic Respiratory/Chest: rhonchi, expiratory wheezing Cardiovascular: normal rate, regular rhythm Abdomen: soft, non tender Extremities: no edema Neurologic/Psychiatric: oriented x 3 Current Medications Medications (Trade) Dose Ordered Sig/Rogers Route PRN Reason Start Time Stop Time Status Last Admin Dose Admin Albuterol Sulfate (Proventil MDI) 2 puff Q2H PRN INH Shortness of Breath 08/17/18 12:15 09/15/18 08:14 Albuterol/ Ipratropium (Albuterol/ Ipratropium) 3 ml Q4HRT HHN 08/17/18 15:00 08/18/18 14:59 08/18/18 10:35 Alprazolam (Xanax) 0.25 mg TIDPRN PRN ORAL For Anxiety 08/17/18 13:00 08/24/18 12:59 08/18/18 09:43 Aspirin (ASA) 81 mg DAILY ORAL 08/18/18 09:00 09/13/18 08:59 08/18/18 09:20 Azithromycin 500 mg/Dextrose 275 ml @ 275 mls/hr Q24H IV 08/17/18 14:00 08/20/18 13:59 08/17/18 13:46 Ceftriaxone Sodium 1 gm/ Dextrose 55 ml @ 110 mls/hr Q24H IV 08/17/18 15:00 08/20/18 14:59 08/17/18 15:21 Dextrose (Dextrose 50%) 25 ml Q30M PRN IV Hypoglycemia 08/17/18 12:00 09/14/18 10:59 Dextrose (Dextrose 50%) 50 ml Q30M PRN IV Hypoglycemia 08/17/18 12:00 09/14/18 10:59 Diphenhydramine HCl (Benadryl) 25 mg Q6H PRN ORAL Itching/Pruritis 08/17/18 12:30 09/12/18 12:29 Docusate Sodium (Colace) 100 mg EVERY 12 HOURS ORAL 08/17/18 21:00 09/12/18 20:59 Famotidine (Pepcid) 40 mg DAILY ORAL 08/18/18 09:00 09/13/18 08:59 08/18/18 09:22 Gabapentin (Neurontin) 800 mg FOUR TIMES A DAY ORAL 08/17/18 13:00 09/12/18 12:59 08/18/18 09:21 Guaifenesin (Mucinex ER) 600 mg TWICE A DAY ORAL 08/17/18 18:00 09/12/18 17:59 08/18/18 09:21 Guaifenesin/ Dextromethorphan (Robitussin DM Syrup) 10 ml Q4H PRN ORAL For Cough 08/17/18 12:30 09/12/18 12:29 Heparin Sodium (Porcine) (Heparin 5000 units/ml) 5,000 units EVERY 12 HOURS SUBQ 08/17/18 21:00 09/12/18 20:59 Insulin Aspart (NovoLOG) BEFORE MEALS AND HS SUBQ 08/17/18 16:30 09/14/18 11:29 08/18/18 06:20 Insulin Detemir (Levemir) 16 units BEDTIME SUBQ 08/17/18 21:00 09/12/18 20:59 08/17/18 22:38 Lisinopril (Prinivil) 20 mg DAILY ORAL 08/18/18 09:00 09/13/18 08:59 08/18/18 09:24 Methadone HCl (Methadone HCl) 50 mg DAILY ORAL 08/18/18 09:00 08/20/18 14:59 08/18/18 09:43 Methylprednisolone Sodium Succinate (Solu-MEDROL) 60 mg EVERY 6 HOURS IVP 08/17/18 12:00 09/12/18 11:59 08/18/18 06:19 Ondansetron HCl (Zofran) 4 mg Q6H PRN IVP Nausea & Vomiting 08/17/18 12:30 09/12/18 12:29 Oseltamivir Phosphate (Tamiflu) 75 mg Q12HR ORAL 08/17/18 21:00 08/18/18 20:59 08/18/18 09:22 Oxycodone HCl (Roxicodone) 30 mg Q8H ORAL 08/17/18 14:00 08/23/18 05:59 08/18/18 06:19 Polyethylene Glycol (Miralax) 17 gm DAILYPRN PRN ORAL Constipation 08/18/18 11:30 09/12/18 11:29 Sodium Chloride 1,000 ml @ 75 mls/hr [id number] IV 08/17/18 12:00 09/12/18 12:24 08/17/18 22:46 Richard Mejia MD Aug 18, 2018 11:45
--- NOTE | 2018-08-18 12:01 | General Progress Note ---
Assessment/Plan Assessment/Plan #Sepsis due to #Pneumonia, community acquired #Influenza A infection -continue inpatient level of care -continue ceftriaxone and azithromycin -continue Tamiflu -blood cultures negative -Pulmonology following -repeat CXR pending today #COPD exacerbation, severe -continue Solu-Medrol, Duoneb -continue Mucinex -add Tessalon -smoking cessation #Type 2 DM, uncontrolled due to steroids -increase Levemir to18 units qHS -monitor glucose levels closely with ISS #Chronic pain #Neuropathy #opiate dependance -continue outpatient pain regimen -methadone verified to be 50mg #Hyponatremia -likely due to hyperglycemia -continue to monitor BMP VTE PPx Full Code Subjective Date patient seen: Aug 18, 2018 Time patient seen: 11:50 ROS Limited/Unobtainable: No Constitutional: Denies: fever Cardiovascular: Denies: chest pain, edema Respiratory: Reports: cough, wheezing Gastrointestinal/Abdominal: Reports: abdomen distended, abdominal pain Allergies: Coded Allergies: SULFA (SULFONAMIDE ANTIBIOTICS) (Unverified Allergy, Unknown, 08/13/18) Subjective Medicine follow up for sepsis, pneumonia, influenza A infection, COPD exacerbation. Persistent symptoms of dyspnea, cough and wheeze Objective Last 24 Hour Vital Signs Date Time Temp Pulse Resp B/P (MAP) Pulse Ox O2 Delivery O2 Flow Rate FiO2 08/18/18 11:32 97.9 86 20 148/102 (117) 100 08/18/18 10:35 76 20 98 Nasal Cannula 2.0 28 08/18/18 10:30 78 20 97 Nasal Cannula 2.0 28 08/18/18 09:24 150/97 08/18/18 09:00 Nasal Cannula 2.0 08/18/18 08:00 97.9 86 20 148/102 (117) 100 08/18/18 07:41 Room Air 21 08/18/18 07:41 97 Room Air 21 08/18/18 07:29 Nasal Cannula 2.0 28 08/18/18 07:29 Nasal Cannula 2.0 28 08/18/18 04:00 97.8 85 17 155/90 (111) 99 08/18/18 03:54 70 18 98 Nasal Cannula 2.0 28 08/18/18 03:44 70 18 99 Nasal Cannula 2.0 28 08/18/18 00:00 96.3 78 19 155/95 (115) 100 08/17/18 23:30 Nasal Cannula 2.0 28 08/17/18 23:30 Nasal Cannula 2.0 28 08/17/18 21:54 Room Air 21 08/17/18 21:54 79 18 98 Room Air 21 08/17/18 21:54 78 18 100 Nasal Cannula 2.0 28 08/17/18 21:54 98 Room Air 21 08/17/18 21:00 Nasal Cannula 2.0 08/17/18 20:00 98.1 92 17 162/89 (113) 95 08/17/18 16:18 98.3 86 18 152/89 (110) 98 08/17/18 15:30 95 20 98 Nasal Cannula 2.0 28 08/17/18 15:17 90 16 97 Nasal Cannula 2.0 28 08/17/18 12:44 91 18 159/89 (112) 100 08/17/18 12:30 97.1 98 18 180/100 (126) 100 Intake and Output 08/17/18 08/18/18 18:59 06:59 Intake Total 1305 ml 450 ml Balance 1305 ml 450 ml Intake Oral 750 ml IV Total 555 ml 450 ml # Voids 4 4 Height (Feet): 5 Height (Inches): 10.00 Weight (Pounds): 170 General Appearance: no apparent distress, alert Neck: normal alignment, supple Cardiovascular: normal rate, regular rhythm Respiratory/Chest: no accessory muscle use, rhonchi - bilaterally Raul Giraldo MD Aug 18, 2018 12:01
--- NOTE | 2018-08-18 12:20 | Diagnostic Imaging Report ---
Indication: Abdominal pain, abnormal renal function tests, abnormal glucose Technique: Martin-scale and duplex images of the upper abdomen were obtained. Doppler interrogation of the hepatic and pancreatic vessels Comparison: none Findings: Gallbladder is surgically absent. Common bile duct measures for mm in diameter. No intrahepatic biliary ductal dilatation. Liver demonstrates diffusely increased echogenicity, consistent with diffuse hepatocellular disease, most likely fatty change. No focal abnormality Portal vein and hepatic veins are patent. Pancreas demonstrates a 15 mm cyst in the tail. The spleen is enlarged, measuring 14.2 cm long axis dimension Left kidney measures 12.8 cm in length. Right kidney measures 12.4 cm length. Both kidneys demonstrate normal echogenicity. There is no hydronephrosis. No focal abnormality . Non-aneurysmal abdominal aorta . Unremarkable inferior vena cava Impression: 15 mm cystic lesion in the tail of the pancreas. Recommend further evaluation with pancreatic protocol CT or MRI Liver demonstrates diffusely increased echogenicity, consistent with diffuse hepatocellular disease, most likely fatty change. Splenomegaly Surgically absent gallbladder. Negative for dilated ducts
--- NOTE | 2018-08-18 13:21 | NUR ---
RADIOLOGY DEPT CHEST X-RAY DONE.-P.DYE
[2018-08-18 13:26] LABS: ANION GAP 4 mmol/L (5-15); BLOOD UREA NITROGEN 20 mg/dL (7-18); CALCIUM 9.3 MG/DL (8.5-10.1); CARBON DIOXIDE 33 MMOL/L (21-32); CHLORIDE 96 MMOL/L (98-107); CREATININE 0.9 MG/DL (0.55-1.30); POTASSIUM 4.2 MMOL/L (3.5-5.1); SODIUM 133 MMOL/L (136-145)
[2018-08-18] MEDS: Benzonatate 100mg Perles ORAL SCH ×2 (13:43→18:19)
[2018-08-18] MEDS: Azithromycin 500 MG in D5W 275 ML IV SCH (15:02)
--- NOTE | 2018-08-18 15:38 | NUR ---
*-* INSURANCE *-* UPDATED CLINICALS AND REVIEWS FAXED TO: [facility] AUTH#:[id number] PROGRAMMING COORDINATOR: PND F#: [phone] PLEASE FAX CLINICALS TO ABOVE #
--- NOTE | 2018-08-18 16:05 | Diagnostic Imaging Report ---
Indication: Cough Technique: One view of the chest Comparison: 08/13/2018 Findings: The heart remains enlarged. There is decreased interstitial congestion, with some residual. There are small bilateral pleural effusions again demonstrated Impression: Somewhat improved interstitial congestion, over 5 days Persistent cardiomegaly and small bilateral pleural effusions
[2018-08-18] MEDS: cefTRIAXone 1 GM in D5W 55 ML IV SCH (16:42)
[2018-08-18 17:07] VITALS: BP 146/97
--- NOTE | 2018-08-18 19:00 | NUR ---
NURSE NOTES: Patient resting,respirations are unlabored,patient able to do ADLs today,no distress noted.Call light within reach.
--- NOTE | 2018-08-18 19:25 | NUR ---
HAND-OFF: Report given to LIZANDRO SANCHEZ..
--- NOTE | 2018-08-18 19:26 | General Progress Note ---
Assessment/Plan Assessment/Plan Assessment and Recs: # Pancytopenia -- multiple etiologies possible, reviewed patient's prior labs --> obtain imaging of the abdomen --> hepatitis and hiv have not been ordered before, order at this time --> neupogen as needed, prbc and plt transfusion --> anemia panel has been ordered # Sepsis due to PNA/influenza --> on abx, seen by pulm --> steriods as needed # Pneumonia, community acquired --> continue ceftriaxone and azithromycin # Influenza A infection --> continue inpatient level of care --> continue ceftriaxone and azithromycin # COPD exacerbation, severe --> continue Solu-Medrol, Duoneb # Type 2 DM, uncontrolled due to steroids ==> on insulin, qac/qhs accuchecks # Chronic pain # Neuropathy # Opiate dependance Greatly appreciate consultation! Subjective Constitutional: Denies: no symptoms, chills, diaphoresis, fever, malaise, weakness, other HEENT: Denies: no symptoms, eye pain, blurred vision, tearing, double vision, ear pain, ear discharge, nose pain, nose congestion, throat pain, throat swelling, mouth pain, mouth swelling, other Cardiovascular: Denies: no symptoms, chest pain, edema, irregular heart rate, lightheadedness, palpitations, syncope, other Gastrointestinal/Abdominal: Denies: no symptoms, abdomen distended, abdominal pain, black stools, tarry stools, blood in stool, constipated, diarrhea, difficulty swallowing, nausea, poor appetite, poor fluid intake, rectal bleeding , vomiting, other Genitourinary: Denies: no symptoms, burning, discharge, frequency, flank pain, hematuria, incontinence, pain, urgency, other Neurologic/Psychiatric: Denies: no symptoms, anxiety, depressed, emotional problems, headache, numbness, paresthesia, pre-existing deficit, seizure, tingling, tremors, weakness, other Endocrine: Denies: no symptoms, excessive sweating, flushing, intolerance to cold, intolerance to heat, increased hunger, increased thirst, increased urine, unexplained weight gain, unexplained weight loss, other Hematologic/Lymphatic: Denies: no symptoms, anemia, easy bleeding, easy bruising, other Allergies: Coded Allergies: SULFA (SULFONAMIDE ANTIBIOTICS) (Unverified Allergy, Unknown, 08/13/18) Subjective 08/18: Pt is comfortable, denies acute distress, persistent symptoms of dyspnea, cough and wheezing, no events Objective Last 24 Hour Vital Signs Date Time Temp Pulse Resp B/P (MAP) Pulse Ox O2 Delivery O2 Flow Rate FiO2 08/18/18 17:07 98.1 83 20 146/97 (113) 99 08/18/18 15:00 81 22 99 Nasal Cannula 2.0 28 08/18/18 14:50 87 22 96 Nasal Cannula 2.0 28 08/18/18 11:32 97.9 79 20 152/93 (112) 100 08/18/18 10:35 76 20 98 Nasal Cannula 2.0 28 08/18/18 10:30 78 20 97 Nasal Cannula 2.0 28 08/18/18 09:24 150/97 08/18/18 09:00 Nasal Cannula 2.0 08/18/18 08:00 97.9 86 20 148/102 (117) 100 08/18/18 07:41 Room Air 21 08/18/18 07:41 97 Room Air 21 08/18/18 07:29 Nasal Cannula 2.0 28 08/18/18 07:29 Nasal Cannula 2.0 28 08/18/18 04:00 97.8 85 17 155/90 (111) 99 08/18/18 03:54 70 18 98 Nasal Cannula 2.0 28 08/18/18 03:44 70 18 99 Nasal Cannula 2.0 28 08/18/18 00:00 96.3 78 19 155/95 (115) 100 08/17/18 23:30 Nasal Cannula 2.0 28 08/17/18 23:30 Nasal Cannula 2.0 28 08/17/18 21:54 Room Air 21 08/17/18 21:54 79 18 98 Room Air 21 08/17/18 21:54 78 18 100 Nasal Cannula 2.0 28 08/17/18 21:54 98 Room Air 21 08/17/18 21:00 Nasal Cannula 2.0 08/17/18 20:00 98.1 92 17 162/89 (113) 95 Intake and Output 08/17/18 08/18/18 19:00 07:00 Intake Total 1380 ml 375 ml Balance 1380 ml 375 ml Intake Oral 750 ml IV Total 630 ml 375 ml # Voids 4 4 Laboratory Tests 08/18/18 13:05: Sodium Level 133L, Potassium Level 4.2, Chloride Level 96L, Carbon Dioxide Level 33H, Anion Gap 4L, Blood Urea Nitrogen 20H, Creatinine 0.9, Estimat Glomerular Filtration Rate > 60, Glucose Level 350#H, Calcium Level 9.3 Height (Feet): 5 Height (Inches): 10.00 Weight (Pounds): 170 Objective PE General Appearance: no apparent distress, alert HEENT: normocephalic, atraumatic Neck: non-tender, normal alignment Respiratory/Chest: chest wall non-tender, rhonchi - bilaterally Cardiovascular/Chest: normal peripheral pulses, normal rate Abdomen: normal bowel sounds, non tender Extremities: normal range of motion, non-tender 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
--- NOTE | 2018-08-18 19:30 | NUR ---
NURSE NOTES: Received patient sitting in bed awake. A&O x4. No signs of respiratory distress noted. On oxygen 2L via NC. IV line intact and patent fluids running at 75 cc/hr. Bed in lowest position and locked. Call light within reach. Will continue to monitor.
--- NOTE | 2018-08-18 19:56 | NUR ---
CASE MANAGEMENT: REVIEW SI: COPD EXACERBATION . SEPSIS T 98.1 HR 79 RR 20 BP 152/93 SAT 100% NC/2L NA 133 CO2 33 GLUCOSE 350 IS: ASA PO QD GUAIFENESIN PO BID AZITHROMYCIN IV Q24HR SOLU MEDROL IV Q6HR NS IVF @ 75ML/HR MED/SURG STATUS DCP: PATIENT IS FROM HOME
[2018-08-18 20:00] VITALS: BP 150/95
[2018-08-18] MEDS: Levemir Flexpen SUBQ SCH (21:10)
[2018-08-19] VITALS: BP 144/90
[2018-08-19 04:00] VITALS: BP 158/90
[2018-08-19] MEDS: oxyCODONE 15mg IR tab ORAL SCH ×3 (05:58→23:18)
[2018-08-19] MEDS: Solu-MEDROL 125mg Inj IVP SCH ×3 (05:58→23:19)
[2018-08-19] MEDS: NovoLOG Insulin Flexpen SUBQ SCH ×4 (05:59→20:47)
--- NOTE | 2018-08-19 07:21 | NUR ---
HAND-OFF: Report given to DANIEL Menon.
--- NOTE | 2018-08-19 07:42 | NUR ---
NURSE NOTES: Patient is alert and oriented,respirations are unlabored,IV fluids off,patient does not want on at this time.Will discuss with Doctor regarding IV fluids.Patient ate 100% of breakfast.No complaints at this time,call light within reach.
[2018-08-19 08:45] LABS: HEMATOCRIT 38.9 % (37.0-47.0); MEAN CORPUSCULAR VOLUME 95 FL (80-99); PLATELET COUNT 143 K/UL (150-450); RED BLOOD COUNT 4.07 M/UL (4.20-5.40); RED CELL DISTRIBUTION WIDTH 13.5 % (11.6-14.8); WHITE BLOOD COUNT 3.8 K/UL (4.8-10.8)
[2018-08-19] MEDS: Heparin 5000 units/ml inj SUBQ SCH ×2 (09:00→20:54)
[2018-08-19] MEDS: Docusate 100mg cap ORAL SCH ×3 (09:00→20:57)
[2018-08-19] MEDS: Aspirin Baby 81mg ORAL SCH (09:30)
[2018-08-19] MEDS: Benzonatate 100mg Perles ORAL SCH ×3 (09:31→18:45)
[2018-08-19] MEDS: guaiFENesin ER 600mg tab ORAL SCH ×2 (09:31→18:45)
[2018-08-19] MEDS: Lisinopril 20mg tab ORAL SCH (09:36)
[2018-08-19] MEDS: ALPRAZolam 0.25mg tab ORAL PRN ×2 (09:48→18:45)
--- NOTE | 2018-08-19 11:56 | NUR ---
*-* INSURANCE *-* UPDATED CLINICALS AND REVIEWS FAXED TO: [facility] AUTH#:[id number] PHARMACEUTICAL ASSISTANT: PND F#: [phone] PLEASE FAX CLINICALS TO ABOVE #
[2018-08-19 12:00] VITALS: BP_SYST 170; BP_DIAS 3; BP_DIAS 93
--- NOTE | 2018-08-19 12:25 | General Progress Note ---
Assessment/Plan Assessment/Plan #Sepsis due to #Pneumonia, community acquired #Influenza A infection -continue inpatient level of care -continue ceftriaxone and azithromycin -continue Tamiflu -blood cultures negative -Pulmonology following -repeat CXR pending today #COPD exacerbation, severe -continue Solu-Medrol, Duoneb -continue Mucinex -continue Tessalon -smoking cessation -repeat CXR shows improved congestion with small bilateral pleural effusions -Pulm following #Type 2 DM, uncontrolled due to steroids -continue Levemir 18 units qHS -monitor glucose levels closely with ISS #Chronic pain #Neuropathy #opiate dependance -continue outpatient pain regimen -methadone verified to be 50mg #Hyponatremia -likely due to hyperglycemia -continue to monitor BMP VTE PPx Full Code Subjective Date patient seen: Aug 19, 2018 Time patient seen: 12:12 Constitutional: Denies: chills, fever HEENT: Denies: eye pain Cardiovascular: Denies: chest pain, edema, irregular heart rate Respiratory: Reports: cough, shortness of breath, wheezing Gastrointestinal/Abdominal: Denies: abdomen distended, abdominal pain Allergies: Coded Allergies: SULFA (SULFONAMIDE ANTIBIOTICS) (Unverified Allergy, Unknown, 08/13/18) Subjective Medicine follow up for sepsis, pneumonia, influenza A infection, COPD exacerbation. Still with significant cough and wheeze Objective Last 24 Hour Vital Signs Date Time Temp Pulse Resp B/P (MAP) Pulse Ox O2 Delivery O2 Flow Rate FiO2 08/19/18 09:36 174/97 08/19/18 09:00 Nasal Cannula 2.0 08/19/18 07:49 86 18 96 Room Air 21 08/19/18 07:48 86 18 96 Room Air 21 08/19/18 07:47 81 18 Room Air 21 08/19/18 07:47 Room Air 21 08/19/18 07:47 96 Room Air 21 08/19/18 04:00 98.1 82 18 158/90 (112) 97 08/19/18 00:00 98.4 94 18 144/90 (108) 99 08/18/18 21:00 Nasal Cannula 2.0 08/18/18 20:00 98.2 89 17 150/95 (113) 99 08/18/18 19:31 95 Room Air 21 08/18/18 19:31 Room Air 21 08/18/18 17:07 98.1 83 20 146/97 (113) 99 08/18/18 15:00 81 22 99 Nasal Cannula 2.0 28 08/18/18 14:50 87 22 96 Nasal Cannula 2.0 28 Intake and Output 08/18/18 08/19/18 19:00 07:00 Intake Total 1167.5 ml 1350 ml Balance 1167.5 ml 1350 ml Intake Oral 980 ml 1200 ml IV Total 187.5 ml 150 ml # Voids 6 Laboratory Tests 08/18/18 13:05: Sodium Level 133L, Potassium Level 4.2, Chloride Level 96L, Carbon Dioxide Level 33H, Anion Gap 4L, Blood Urea Nitrogen 20H, Creatinine 0.9, Estimat Glomerular Filtration Rate > 60, Glucose Level 350#H, Calcium Level 9.3 08/19/18 08:15: White Blood Count 3.8L, Red Blood Count 4.07L, Hemoglobin 12.0, Hematocrit 38.9 , Mean Corpuscular Volume 95, Mean Corpuscular Hemoglobin 29.4, Mean Corpuscular Hemoglobin Concent 30.8L, Red Cell Distribution Width 13.5, Platelet Count 143L, Mean Platelet Volume 8.0, Neutrophils (%) (Auto) , Lymphocytes (%) (Auto) , Monocytes (%) (Auto) , Eosinophils (%) (Auto) , Basophils (%) (Auto) , Differential Total Cells Counted 100, Neutrophils % ( Manual) 91H, Lymphocytes % (Manual) 6L, Monocytes % (Manual) 3, Eosinophils % ( Manual) 0, Basophils % (Manual) 0, Band Neutrophils 0, Platelet Estimate DecreasedL, Platelet Morphology Normal, Hypochromasia 1+ Height (Feet): 5 Height (Inches): 10.00 Weight (Pounds): 188 General Appearance: no apparent distress, alert Cardiovascular: normal rate, regular rhythm Respiratory/Chest: no respiratory distress, no accessory muscle use, rhonchi - bilaterally Abdomen: non tender, soft Raul Giraldo MD Aug 19, 2018 12:25
[2018-08-19] MEDS: Azithromycin 500 MG in D5W 275 ML IV SCH (14:18)
[2018-08-19] MEDS: Albuterol/Ipratropium 3ml neb HHN SCH ×3 (15:00→23:43)
--- NOTE | 2018-08-19 15:11 | Pulmonology Progress Note ---
Assessment/Plan Assessment/Plan Problem List: 1. Community-acquired pneumonia 2. Influenza A 3. Acute exacerbation of COPD 4. uncontrolled DM 5. Opioid dependence 6. Pancytopenia 7. Hyponatremia Plan: -solumedrol 60 mg IV q8, taper as tolerated -ceftriaxone/azithro -f/u cultures -tamiflu x 5 days -duonebs q4; add chest PT -mucinex bid -CT chest -wean oxygen as tolerated Subjective ROS Limited/Unobtainable: No Interval Events: feels poorly, coughing, wheezing. Allergies: Coded Allergies: SULFA (SULFONAMIDE ANTIBIOTICS) (Unverified Allergy, Unknown, 08/13/18) Objective Last 24 Hour Vital Signs Date Time Temp Pulse Resp B/P (MAP) Pulse Ox O2 Delivery O2 Flow Rate FiO2 08/19/18 15:08 Nasal Cannula 2.0 28 08/19/18 15:08 Nasal Cannula 2.0 28 08/19/18 12:00 98.0 66 20 170/3 (58) 100 08/19/18 11:30 Nasal Cannula 2.0 28 08/19/18 11:30 Nasal Cannula 2.0 28 08/19/18 09:36 174/97 08/19/18 09:00 Nasal Cannula 2.0 08/19/18 07:49 86 18 96 Room Air 21 08/19/18 07:48 86 18 96 Room Air 21 08/19/18 07:47 81 18 Room Air 21 08/19/18 07:47 Room Air 21 08/19/18 07:47 96 Room Air 21 08/19/18 04:00 98.1 82 18 158/90 (112) 97 08/19/18 00:00 98.4 94 18 144/90 (108) 99 08/18/18 21:00 Nasal Cannula 2.0 08/18/18 20:00 98.2 89 17 150/95 (113) 99 08/18/18 19:31 95 Room Air 21 08/18/18 19:31 Room Air 21 08/18/18 17:07 98.1 83 20 146/97 (113) 99 Intake and Output 08/18/18 08/19/18 18:59 06:59 Intake Total 1092.5 ml 1425 ml Balance 1092.5 ml 1425 ml Intake Oral 980 ml 1200 ml IV Total 112.5 ml 225 ml # Voids 6 General Appearance: WD/WN HEENT: mucous membranes moist Respiratory/Chest: crackles/rales, expiratory wheezing Cardiovascular: normal rate Abdomen: soft, non tender Extremities: no edema Neurologic/Psychiatric: oriented x 3 Laboratory Tests 08/19/18 08:15: White Blood Count 3.8L, Red Blood Count 4.07L, Hemoglobin 12.0, Hematocrit 38.9 , Mean Corpuscular Volume 95, Mean Corpuscular Hemoglobin 29.4, Mean Corpuscular Hemoglobin Concent 30.8L, Red Cell Distribution Width 13.5, Platelet Count 143L, Mean Platelet Volume 8.0, Neutrophils (%) (Auto) , Lymphocytes (%) (Auto) , Monocytes (%) (Auto) , Eosinophils (%) (Auto) , Basophils (%) (Auto) , Differential Total Cells Counted 100, Neutrophils % ( Manual) 91H, Lymphocytes % (Manual) 6L, Monocytes % (Manual) 3, Eosinophils % ( Manual) 0, Basophils % (Manual) 0, Band Neutrophils 0, Platelet Estimate DecreasedL, Platelet Morphology Normal, Hypochromasia 1+ Current Medications Medications (Trade) Dose Ordered Sig/Rogers Route PRN Reason Start Time Stop Time Status Last Admin Dose Admin Albuterol Sulfate (Proventil MDI) 2 puff Q2H PRN INH Shortness of Breath 08/17/18 12:15 09/15/18 08:14 Albuterol/ Ipratropium (Albuterol/ Ipratropium) 3 ml Q4HRT HHN 08/19/18 15:00 08/24/18 14:59 Alprazolam (Xanax) 0.25 mg TIDPRN PRN ORAL For Anxiety 08/17/18 13:00 08/24/18 12:59 08/19/18 09:48 Aspirin (ASA) 81 mg DAILY ORAL 08/18/18 09:00 09/13/18 08:59 08/19/18 09:30 Azithromycin 500 mg/Dextrose 275 ml @ 275 mls/hr Q24H IV 08/17/18 14:00 08/20/18 13:59 08/19/18 14:18 Benzonatate (Tessalon Perles) 200 mg THREE TIMES A DAY ORAL 08/18/18 13:00 09/17/18 12:59 08/19/18 14:18 Ceftriaxone Sodium 1 gm/ Dextrose 55 ml @ 110 mls/hr Q24H IV 08/17/18 15:00 08/20/18 14:59 08/18/18 16:42 Dextrose (Dextrose 50%) 25 ml Q30M PRN IV Hypoglycemia 08/17/18 12:00 09/14/18 10:59 Dextrose (Dextrose 50%) 50 ml Q30M PRN IV Hypoglycemia 08/17/18 12:00 09/14/18 10:59 Diphenhydramine HCl (Benadryl) 25 mg Q6H PRN ORAL Itching/Pruritis 08/17/18 12:30 09/12/18 12:29 Docusate Sodium (Colace) 100 mg EVERY 12 HOURS ORAL 08/17/18 21:00 09/12/18 20:59 Famotidine (Pepcid) 40 mg DAILY ORAL 08/18/18 09:00 09/13/18 08:59 08/19/18 09:48 Gabapentin (Neurontin) 800 mg FOUR TIMES A DAY ORAL 08/17/18 13:00 09/12/18 12:59 08/19/18 14:19 Guaifenesin (Mucinex ER) 600 mg TWICE A DAY ORAL 08/17/18 18:00 09/12/18 17:59 08/19/18 09:31 Guaifenesin/ Dextromethorphan (Robitussin DM Syrup) 10 ml Q4H PRN ORAL For Cough 08/17/18 12:30 09/12/18 12:29 Heparin Sodium (Porcine) (Heparin 5000 units/ml) 5,000 units EVERY 12 HOURS SUBQ 08/17/18 21:00 09/12/18 20:59 Insulin Aspart (NovoLOG) BEFORE MEALS AND HS SUBQ 08/17/18 16:30 09/14/18 11:29 08/19/18 11:40 Insulin Detemir (Levemir) 16 units BEDTIME SUBQ 08/17/18 21:00 09/12/18 20:59 08/18/18 21:10 Lisinopril (Prinivil) 20 mg DAILY ORAL 08/18/18 09:00 09/13/18 08:59 08/19/18 09:36 Methadone HCl (Methadone HCl) 50 mg DAILY ORAL 08/18/18 09:00 08/20/18 14:59 08/19/18 09:31 Methylprednisolone Sodium Succinate (Solu-MEDROL) 60 mg EVERY 6 HOURS IVP 08/17/18 12:00 09/12/18 11:59 08/19/18 12:34 Ondansetron HCl (Zofran) 4 mg Q6H PRN IVP Nausea & Vomiting 08/17/18 12:30 09/12/18 12:29 Oxycodone HCl (Roxicodone) 30 mg Q8H ORAL 08/17/18 14:00 08/23/18 05:59 08/19/18 05:58 Polyethylene Glycol (Miralax) 17 gm DAILYPRN PRN ORAL Constipation 08/18/18 11:30 09/12/18 11:29 Sodium Chloride 1,000 ml @ 75 mls/hr [id number] IV 08/17/18 12:00 09/12/18 12:24 08/18/18 14:55 Richard Mejia MD Aug 19, 2018 15:11
[2018-08-19 16:00] VITALS: BP 163/93
[2018-08-19] MEDS: cefTRIAXone 1 GM in D5W 55 ML IV SCH (17:22)
--- NOTE | 2018-08-19 17:39 | General Progress Note ---
Assessment/Plan Assessment/Plan Assessment and Recs: # Pancytopenia -- multiple etiologies possible, reviewed patient's prior labs --> obtain imaging of the abdomen --> hepatitis and hiv have not been ordered before, order at this time --> neupogen as needed, prbc and plt transfusion --> anemia panel has been ordered # Sepsis due to PNA/influenza --> on abx, seen by pulm --> steriods as needed # Pneumonia, community acquired --> continue ceftriaxone and azithromycin # Influenza A infection --> continue inpatient level of care --> continue ceftriaxone and azithromycin # COPD exacerbation, severe --> continue Solu-Medrol, Duoneb # Type 2 DM, uncontrolled due to steroids ==> on insulin, qac/qhs accuchecks # Chronic pain # Neuropathy # Opiate dependance Greatly appreciate consultation! Subjective Constitutional: Denies: no symptoms, chills, diaphoresis, fever, malaise, weakness, other HEENT: Denies: no symptoms, eye pain, blurred vision, tearing, double vision, ear pain, ear discharge, nose pain, nose congestion, throat pain, throat swelling, mouth pain, mouth swelling, other Cardiovascular: Denies: no symptoms, chest pain, edema, irregular heart rate, lightheadedness, palpitations, syncope, other Gastrointestinal/Abdominal: Denies: no symptoms, abdomen distended, abdominal pain, black stools, tarry stools, blood in stool, constipated, diarrhea, difficulty swallowing, nausea, poor appetite, poor fluid intake, rectal bleeding , vomiting, other Genitourinary: Denies: no symptoms, burning, discharge, frequency, flank pain, hematuria, incontinence, pain, urgency, other Neurologic/Psychiatric: Denies: no symptoms, anxiety, depressed, emotional problems, headache, numbness, paresthesia, pre-existing deficit, seizure, tingling, tremors, weakness, other Endocrine: Denies: no symptoms, excessive sweating, flushing, intolerance to cold, intolerance to heat, increased hunger, increased thirst, increased urine, unexplained weight gain, unexplained weight loss, other Hematologic/Lymphatic: Denies: no symptoms, anemia, easy bleeding, easy bruising, other Allergies: Coded Allergies: SULFA (SULFONAMIDE ANTIBIOTICS) (Unverified Allergy, Unknown, 08/13/18) Subjective 08/18: Pt is comfortable, denies acute distress, persistent symptoms of dyspnea, cough and wheezing, no events 08/19: Pt is awake, comfortable. no acute events, remains stale, wean oxygen as tolerated Objective Last 24 Hour Vital Signs Date Time Temp Pulse Resp B/P (MAP) Pulse Ox O2 Delivery O2 Flow Rate FiO2 08/19/18 16:00 98.7 70 19 163/93 (116) 99 08/19/18 15:08 Nasal Cannula 2.0 28 08/19/18 15:08 Nasal Cannula 2.0 28 08/19/18 15:00 Nasal Cannula 28 08/19/18 15:00 Nasal Cannula 2.0 28 08/19/18 12:00 98.0 66 20 170/93 (118) 100 08/19/18 11:30 Nasal Cannula 2.0 28 08/19/18 11:30 Nasal Cannula 2.0 28 08/19/18 09:36 174/97 08/19/18 09:00 Nasal Cannula 2.0 08/19/18 07:49 86 18 96 Room Air 21 08/19/18 07:48 86 18 96 Room Air 21 08/19/18 07:47 81 18 Room Air 21 08/19/18 07:47 Room Air 21 08/19/18 07:47 96 Room Air 21 08/19/18 04:00 98.1 82 18 158/90 (112) 97 08/19/18 00:00 98.4 94 18 144/90 (108) 99 08/18/18 21:00 Nasal Cannula 2.0 08/18/18 20:00 98.2 89 17 150/95 (113) 99 08/18/18 19:31 95 Room Air 21 08/18/18 19:31 Room Air 21 Intake and Output 08/18/18 08/19/18 18:59 06:59 Intake Total 1092.5 ml 1425 ml Balance 1092.5 ml 1425 ml Intake Oral 980 ml 1200 ml IV Total 112.5 ml 225 ml # Voids 6 Laboratory Tests 08/19/18 08:15: White Blood Count 3.8L, Red Blood Count 4.07L, Hemoglobin 12.0, Hematocrit 38.9 , Mean Corpuscular Volume 95, Mean Corpuscular Hemoglobin 29.4, Mean Corpuscular Hemoglobin Concent 30.8L, Red Cell Distribution Width 13.5, Platelet Count 143L, Mean Platelet Volume 8.0, Neutrophils (%) (Auto) , Lymphocytes (%) (Auto) , Monocytes (%) (Auto) , Eosinophils (%) (Auto) , Basophils (%) (Auto) , Differential Total Cells Counted 100, Neutrophils % ( Manual) 91H, Lymphocytes % (Manual) 6L, Monocytes % (Manual) 3, Eosinophils % ( Manual) 0, Basophils % (Manual) 0, Band Neutrophils 0, Platelet Estimate DecreasedL, Platelet Morphology Normal, Hypochromasia 1+ Height (Feet): 5 Height (Inches): 10.00 Weight (Pounds): 188 Objective PE General Appearance: no apparent distress, alert HEENT: normocephalic, atraumatic Neck: non-tender, normal alignment Respiratory/Chest: chest wall non-tender, rhonchi - bilaterally Cardiovascular/Chest: normal peripheral pulses, normal rate Abdomen: normal bowel sounds, non tender Extremities: normal range of motion, non-tender 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
--- NOTE | 2018-08-19 19:00 | NUR ---
NURSE NOTES: Per social work case manager,patient will be discharge to [facility] today,patient getting belongings together.
--- NOTE | 2018-08-19 19:30 | NUR ---
NURSE NOTES: Patient ambulating on the hallway connected to IVF , steady, asking for snack. Will give based on diet. For transfer to another facility. Will follow up accordingly. Instructed pt the use of call light. Call light and needs in reach. Bed in lowest position and lock engaged. Will continue to monitor.
--- NOTE | 2018-08-19 19:35 | NUR ---
HAND-OFF: Report given to AGAPITO SANCHEZ.
[2018-08-19 20:00] VITALS: BP 171/96
[2018-08-19] MEDS: Levemir Flexpen SUBQ SCH (20:46)
--- NOTE | 2018-08-19 21:30 | NUR ---
NURSE NOTES: Called [facility] to follow up pt's transfer due to insurance issue. Spoke to thickener operator and she said will inform supervisor yard and will have him/her to call me back. Waiting for call back.
[2018-08-20] VITALS (7 sets, daily range): BP systolic 132–166; BP diastolic 75–96
--- NOTE | 2018-08-20 01:56 | NUR ---
NURSE NOTES: Called [facility] to follow up patient's transfer. Spoke to Alin SANCHEZ of ER but he wasn't sure of the transfer situation so he transferred me to Mr. Murphy, (hung up when asked what's his position). He asked the banana ripening room supervisor about the status of transfer. According to him, patient case coordinator will be the one to deal with it in the morning. Charge nurse made aware.
[2018-08-20] MEDS: Albuterol/Ipratropium 3ml neb HHN SCH ×6 (03:00→19:17)
[2018-08-20] MEDS: ALPRAZolam 0.25mg tab ORAL PRN ×3 (04:08→16:05)
[2018-08-20] MEDS: Solu-MEDROL 125mg Inj IVP SCH ×2 (06:58→14:09)
[2018-08-20] MEDS: NovoLOG Insulin Flexpen SUBQ SCH ×4 (06:59→21:05)
[2018-08-20] MEDS: oxyCODONE 15mg IR tab ORAL SCH ×3 (07:20→22:04)
--- NOTE | 2018-08-20 07:25 | NUR ---
HAND-OFF: Report given to DANIEL Alexander.
[2018-08-20] MEDS: guaiFENesin ER 600mg tab ORAL SCH ×2 (08:57→17:53)
[2018-08-20] MEDS: Lisinopril 20mg tab ORAL SCH (08:57)
[2018-08-20] MEDS: Aspirin Baby 81mg ORAL SCH (08:58)
[2018-08-20] MEDS: Benzonatate 100mg Perles ORAL SCH ×3 (08:58→17:54)
[2018-08-20] MEDS: Docusate 100mg cap ORAL SCH ×3 (09:00→21:07)
[2018-08-20] MEDS: Heparin 5000 units/ml inj SUBQ SCH ×2 (09:00→21:00)
--- NOTE | 2018-08-20 11:26 | NUR ---
NURSE NOTES: RN LEFT MESSAGE FOR JORDAN CASTANEDA, REGARDING PT'S TRANSFER/DISCHARGE TO [facility].
--- NOTE | 2018-08-20 11:43 | Diagnostic Imaging Report ---
Clinical Indication: Dyspnea, history of community-acquired pneumonia and influenza, COPD Technique: Spiral acquisitions obtained through the chest. No IV contrast utilized, per referring physician request. Multiplanar reconstructions generated. Total dose length product 673.73 mGycm. CTDIvol(s) 19.71 mGy. Dose reduction achieved using automated exposure control Comparison: none Findings: Fairly extensive atelectatic changes are seen scattered throughout both lungs. There is likely a significant component of chronic scarring as well, as bronchiectasis is seen and both lung bases. No definite consolidation. No definite masses, nodules, or effusions demonstrated. No definite congestion. The heart is enlarged. No pericardial effusion. Prominent lymph nodes with calcifications are seen in the subcarinal region. No definite adenopathy elsewhere. The included portion of the thyroid is unremarkable. Prominent but not frankly enlarged bilateral axillary nodes are noted. The esophagus is unremarkable. There is ankylosis of the T9/T10 disc. There is slight wedging of the combined T9 and T10 with focal kyphotic deformity at this level. There are degenerative changes of the thoracic and upper lumbar spine Included upper abdominal anatomy demonstrates hepatic surface nodularity. There are cholecystectomy clips. The pancreas is unremarkable. The spleen is likely enlarged, although this cannot be stated for certain as it is incompletely included. Impression: Numerous areas of pulmonary parenchymal atelectasis and/or scarring bilaterally; suspect significant component of chronic scarring given presence of basilar bronchiectasis. Correlate with clinical findings No definite infiltrates or effusions Cardiomegaly Nonspecific prominent subcarinal lymph nodes with calcification, significance/etiology uncertain Evidence of hepatic cirrhosis Suspect splenomegaly Wedge deformity of T9 and/or T10 with focal kyphosis. Acuity indeterminate but suspect old. MRI may be useful for further evaluation if this is clinically relevant The CT scanner at [facility] is accredited by the [employer] and the scans are performed using protocols designed to limit radiation exposure to as low as reasonably achievable to attain images of sufficient resolution adequate for diagnostic evaluation.
[2018-08-20] MEDS ORDERED: NovoLOG Insulin Flexpen SUBQ ONE (12:45)
--- NOTE | 2018-08-20 13:01 | NUR ---
NURSE NOTES: PT WITH CRITICALLY HIGH BLOOD SUGAR. RN ADMINISTERED 16 UNITS NOVOLOG PER PROTOCOL. UPON REASSESMENT, BLOOD SUGAR REMAINS CRITICALLY HIGH. RN RECEIVED ORDER FROM DR. PALMER FOR 4 UNITS NOVOLOG ONE TIME. RN EDUCATED PT NOT TO EAT LUNCH DUE TO CRITICALLY HIGH BLOOD SUGAR. PT STATES" HONEY, I HAVE TO EAT IN ORDER FOR MY BLOOD SUGAR TO GO DOWN. TRUST ME, I KNOW MY BODY". RN EDUCATED PT BLOOD SUGAR WILL GO UP AND EXPLAINED RISKS. PT ATE ALL OF LUNCH. RN ADMINISTERED 4 UNITS OF NOVOLOG. IN NO APPARENT DISTRESS AT THIS TIME. PT IS ANXIOUS AND REQUESTING FOR ROXICODONE. RN EDUCATED PT ON SCHEDULE OF ROXICODONE. WILL CONTINUE TO MONITOR.
--- NOTE | 2018-08-20 13:59 | NUR ---
NURSE NOTES: PT'S BLOOD SUGAR REMAINS CRITICALLY HIGH. RN RE-EDUCATED PT SHE MUST NOT DRINK OR EAT FOOD TO BRING BLOOD SUGAR DOWN. PT WILL NOT LET RN REMOVE CRANBERRY JUICE AT BEDSIDE. RN MADE DR PALMER AWARE OF PT'S CRITICALLY HIGH BLOOD SUGAR AND PT'S NONCOMPLIANCE. NO NEW ORDERS GIVEN.
--- NOTE | 2018-08-20 14:00 | NUR ---
NURSE NOTES: DANELLE GONZALEZ DEBORAH (CM), MADE AWARE OF DISCHARGE ORDER FOR PT.
--- NOTE | 2018-08-20 14:47 | General Progress Note ---
Assessment/Plan Assessment/Plan #Sepsis due to #Pneumonia, community acquired #Influenza A infection -continue inpatient level of care -continue ceftriaxone and azithromycin -continue Tamiflu -blood cultures negative -Pulmonology following -repeat CXR pending today #COPD exacerbation, severe -taper SoluMedrol -continue Duoneb -continue Mucinex -continue Tessalon -smoking cessation -repeat CXR shows improved congestion with small bilateral pleural effusions -Pulm following #Type 2 DM, uncontrolled due to steroids -continue Levemir 18 units qHS -monitor glucose levels closely with ISS #Chronic pain #Neuropathy #opiate dependance -continue outpatient pain regimen -methadone verified to be 50mg #Hyponatremia -likely due to hyperglycemia -continue to monitor BMP VTE PPx Full Code Subjective Date patient seen: Aug 20, 2018 Time patient seen: 12:00 ROS Limited/Unobtainable: No Constitutional: Reports: chills Cardiovascular: Reports: chest pain, edema, irregular heart rate Respiratory: Reports: cough, shortness of breath Gastrointestinal/Abdominal: Reports: abdomen distended, abdominal pain Allergies: Coded Allergies: SULFA (SULFONAMIDE ANTIBIOTICS) (Unverified Allergy, Unknown, 08/13/18) Subjective Medicine follow up for sepsis, pneumonia, influenza A infection, COPD exacerbation. Cough and wheeze improving. Objective Last 24 Hour Vital Signs Date Time Temp Pulse Resp B/P (MAP) Pulse Ox O2 Delivery O2 Flow Rate FiO2 08/20/18 12:00 98.0 92 17 166/96 (119) 98 08/20/18 11:25 76 18 99 Nasal Cannula 2.0 08/20/18 11:14 74 21 99 Nasal Cannula 2.0 08/20/18 09:00 Nasal Cannula 2.0 08/20/18 09:00 Nasal Cannula 2.0 08/20/18 08:57 141/78 08/20/18 08:00 98.4 86 17 141/78 (99) 99 08/20/18 07:48 80 19 99 Nasal Cannula 2.0 08/20/18 07:36 99 Nasal Cannula 2.0 08/20/18 07:36 75 17 99 Nasal Cannula 2.0 28 08/20/18 07:36 Nasal Cannula 2.0 28 08/20/18 04:17 Nasal Cannula 2.0 08/20/18 04:17 Nasal Cannula 2.0 28 08/20/18 04:13 70 20 99 Nasal Cannula 28 08/20/18 04:12 70 20 99 Nasal Cannula 2.0 28 08/20/18 04:00 98.1 80 18 161/94 (116) 100 08/20/18 00:00 98.1 81 19 147/89 (108) 100 08/19/18 23:50 78 20 99 Nasal Cannula 2.0 28 08/19/18 23:49 78 20 99 Nasal Cannula 2.0 28 08/19/18 23:40 77 20 99 Nasal Cannula 28 08/19/18 23:39 77 20 99 Nasal Cannula 2.0 28 08/19/18 21:00 Nasal Cannula 2.0 08/19/18 20:42 88 20 98 Nasal Cannula 2.0 28 08/19/18 20:41 88 20 98 Nasal Cannula 2.0 28 08/19/18 20:28 97 20 97 Nasal Cannula 28 08/19/18 20:28 97 20 97 Nasal Cannula 2.0 28 08/19/18 20:27 Nasal Cannula 2.0 28 08/19/18 20:26 97 Nasal Cannula 2.0 28 08/19/18 20:23 20 20 Nasal Cannula 2.0 28 08/19/18 20:00 98.1 79 19 171/96 (121) 99 08/19/18 16:00 98.7 70 19 163/93 (116) 99 08/19/18 15:08 Nasal Cannula 2.0 28 08/19/18 15:08 Nasal Cannula 2.0 28 08/19/18 15:00 Nasal Cannula 28 08/19/18 15:00 Nasal Cannula 2.0 28 Intake and Output 08/19/18 08/20/18 19:00 07:00 Intake Total 1185 ml 300 ml Balance 1185 ml 300 ml Intake Oral 960 ml IV Total 225 ml 300 ml # Voids 2 2 Height (Feet): 5 Height (Inches): 10.00 Weight (Pounds): 188 General Appearance: no apparent distress, alert Cardiovascular: normal peripheral pulses, normal rate Respiratory/Chest: chest wall non-tender, rhonchi - bilaterally Neurologic: oiler helper II-XII grossly normal, no motor/sensory deficits, abnormal gait Raul Giraldo MD Aug 20, 2018 14:47
--- NOTE | 2018-08-20 16:24 | Pulmonology Progress Note ---
Assessment/Plan Assessment/Plan Problem List: 1. Community-acquired pneumonia 2. Influenza A 3. Acute exacerbation of COPD 4. uncontrolled DM 5. Opioid dependence 6. Pancytopenia 7. Hyponatremia Plan: -solumedrol 60 mg IV q12, taper as tolerated, will start to lower more quickly now than breathing turning the corner -ceftriaxone/azithro -f/u cultures -tamiflu x 5 days -duonebs q4; chest PT -mucinex bid -advair 250/50 -wean oxygen as tolerated Subjective ROS Limited/Unobtainable: No Interval Events: Wheezing louder, feels more open. CT no acute findings. BS high Allergies: Coded Allergies: SULFA (SULFONAMIDE ANTIBIOTICS) (Unverified Allergy, Unknown, 08/13/18) Objective Last 24 Hour Vital Signs Date Time Temp Pulse Resp B/P (MAP) Pulse Ox O2 Delivery O2 Flow Rate FiO2 08/20/18 14:59 78 16 100 Nasal Cannula 2.0 28 08/20/18 14:49 79 16 99 Nasal Cannula 2.0 28 08/20/18 12:00 98.0 92 17 166/96 (119) 98 08/20/18 11:25 76 18 99 Nasal Cannula 2.0 28 08/20/18 11:14 74 21 99 Nasal Cannula 2.0 28 08/20/18 09:00 Nasal Cannula 2.0 08/20/18 09:00 Nasal Cannula 2.0 08/20/18 08:57 141/78 08/20/18 08:00 98.4 86 17 141/78 (99) 99 08/20/18 07:48 80 19 99 Nasal Cannula 2.0 28 08/20/18 07:36 99 Nasal Cannula 2.0 28 08/20/18 07:36 75 17 99 Nasal Cannula 2.0 28 08/20/18 07:36 Nasal Cannula 2.0 28 08/20/18 04:17 Nasal Cannula 2.0 28 08/20/18 04:17 Nasal Cannula 2.0 28 08/20/18 04:13 70 20 99 Nasal Cannula 28 08/20/18 04:12 70 20 99 Nasal Cannula 2.0 28 08/20/18 04:00 98.1 80 18 161/94 (116) 100 08/20/18 00:00 98.1 81 19 147/89 (108) 100 08/19/18 23:50 78 20 99 Nasal Cannula 2.0 28 08/19/18 23:49 78 20 99 Nasal Cannula 2.0 28 08/19/18 23:40 77 20 99 Nasal Cannula 28 08/19/18 23:39 77 20 99 Nasal Cannula 2.0 28 08/19/18 21:00 Nasal Cannula 2.0 08/19/18 20:42 88 20 98 Nasal Cannula 2.0 28 08/19/18 20:41 88 20 98 Nasal Cannula 2.0 28 08/19/18 20:28 97 20 97 Nasal Cannula 28 08/19/18 20:28 97 20 97 Nasal Cannula 2.0 28 08/19/18 20:27 Nasal Cannula 2.0 28 08/19/18 20:26 97 Nasal Cannula 2.0 28 08/19/18 20:23 20 20 Nasal Cannula 2.0 28 08/19/18 20:00 98.1 79 19 171/96 (121) 99 Intake and Output 08/19/18 08/20/18 19:00 07:00 Intake Total 1185 ml 300 ml Balance 1185 ml 300 ml Intake Oral 960 ml IV Total 225 ml 300 ml # Voids 2 2 General Appearance: no acute distress HEENT: atraumatic, mucous membranes moist Respiratory/Chest: expiratory wheezing Cardiovascular: normal rate, regular rhythm Abdomen: soft, non tender, non distended Extremities: no edema Neurologic/Psychiatric: oriented x 3 Current Medications Medications (Trade) Dose Ordered Sig/Rogers Route PRN Reason Start Time Stop Time Status Last Admin Dose Admin Albuterol Sulfate (Proventil MDI) 2 puff Q2H PRN INH Shortness of Breath 08/17/18 12:15 09/15/18 08:14 Albuterol/ Ipratropium (Albuterol/ Ipratropium) 3 ml Q4HRT HHN 08/19/18 15:00 08/24/18 14:59 08/20/18 14:48 Alprazolam (Xanax) 0.25 mg TIDPRN PRN ORAL For Anxiety 08/17/18 13:00 08/24/18 12:59 08/20/18 16:05 Aspirin (ASA) 81 mg DAILY ORAL 08/18/18 09:00 09/13/18 08:59 08/20/18 08:58 Benzonatate (Tessalon Perles) 200 mg THREE TIMES A DAY ORAL 08/18/18 13:00 09/17/18 12:59 08/20/18 13:00 Dextrose (Dextrose 50%) 25 ml Q30M PRN IV Hypoglycemia 08/17/18 12:00 09/14/18 10:59 Dextrose (Dextrose 50%) 50 ml Q30M PRN IV Hypoglycemia 08/17/18 12:00 09/14/18 10:59 Diphenhydramine HCl (Benadryl) 25 mg Q6H PRN ORAL Itching/Pruritis 08/17/18 12:30 09/12/18 12:29 08/20/18 01:23 Docusate Sodium (Colace) 100 mg EVERY 12 HOURS ORAL 08/17/18 21:00 09/12/18 20:59 Famotidine (Pepcid) 40 mg DAILY ORAL 08/18/18 09:00 09/13/18 08:59 08/19/18 09:48 Gabapentin (Neurontin) 800 mg FOUR TIMES A DAY ORAL 08/17/18 13:00 09/12/18 12:59 08/20/18 13:00 Guaifenesin (Mucinex ER) 600 mg TWICE A DAY ORAL 08/17/18 18:00 09/12/18 17:59 08/20/18 08:57 Guaifenesin/ Dextromethorphan (Robitussin DM Syrup) 10 ml Q4H PRN ORAL For Cough 08/17/18 12:30 09/12/18 12:29 Heparin Sodium (Porcine) (Heparin 5000 units/ml) 5,000 units EVERY 12 HOURS SUBQ 08/17/18 21:00 09/12/18 20:59 Insulin Aspart (NovoLOG) BEFORE MEALS AND HS SUBQ 08/17/18 16:30 09/14/18 11:29 08/20/18 11:59 Insulin Detemir (Levemir) 16 units BEDTIME SUBQ 08/17/18 21:00 09/12/18 20:59 08/19/18 20:46 Lisinopril (Prinivil) 20 mg DAILY ORAL 08/18/18 09:00 09/13/18 08:59 08/20/18 08:57 Methylprednisolone Sodium Succinate (Solu-MEDROL) 60 mg BID IVP 08/21/18 09:00 09/20/18 08:59 Ondansetron HCl (Zofran) 4 mg Q6H PRN IVP Nausea & Vomiting 08/17/18 12:30 09/12/18 12:29 Oxycodone HCl (Roxicodone) 30 mg Q8H ORAL 08/17/18 14:00 08/23/18 05:59 08/20/18 14:09 Polyethylene Glycol (Miralax) 17 gm DAILYPRN PRN ORAL Constipation 08/18/18 11:30 09/12/18 11:29 Richard Mejia MD Aug 20, 2018 16:24
--- NOTE | 2018-08-20 16:30 | General Progress Note ---
Assessment/Plan Assessment/Plan Assessment and Recs: # Pancytopenia -- multiple etiologies possible, reviewed patient's prior labs --> obtain imaging of the abdomen -->08/18: Imaging reveals, 15 mm cystic lesion in the tail of the pancreas. Recommend further evaluation with pancreatic protocol CT or MRI Liver demonstrates diffusely increased echogenicity, consistent with diffuse hepatocellular disease, most likely fatty change, Splenomegaly, Surgically absent gallbladder. Negative for dilated ducts --> hepatitis and hiv have not been ordered before, order at this time --> neupogen as needed, prbc and plt transfusion --> anemia panel has been reviewed # Sepsis due to PNA/influenza --> on abx, seen by pulm --> steriods as needed # Pneumonia, community acquired --> continue ceftriaxone and azithromycin # Influenza A infection --> continue inpatient level of care --> continue ceftriaxone and azithromycin # COPD exacerbation, severe --> continue Solu-Medrol, Duoneb # Type 2 DM, uncontrolled due to steroids --> on insulin, qac/qhs accuchecks # Chronic pain # Neuropathy # Opiate dependance Greatly appreciate consultation! Subjective Allergies: Coded Allergies: SULFA (SULFONAMIDE ANTIBIOTICS) (Unverified Allergy, Unknown, 08/13/18) Subjective 08/18: Pt is comfortable, denies acute distress, persistent symptoms of dyspnea, cough and wheezing, no events 08/19: Pt is awake, comfortable. no acute events, remains stale, wean oxygen as tolerated 08/20: seen by bedside, awake, comfortable, blood sugar was elevated today. Objective Last 24 Hour Vital Signs Date Time Temp Pulse Resp B/P (MAP) Pulse Ox O2 Delivery O2 Flow Rate FiO2 08/20/18 14:59 78 16 100 Nasal Cannula 2.0 28 08/20/18 14:49 79 16 99 Nasal Cannula 2.0 28 08/20/18 12:00 98.0 92 17 166/96 (119) 98 08/20/18 11:25 76 18 99 Nasal Cannula 2.0 28 08/20/18 11:14 74 21 99 Nasal Cannula 2.0 28 08/20/18 09:00 Nasal Cannula 2.0 08/20/18 09:00 Nasal Cannula 2.0 08/20/18 08:57 141/78 08/20/18 08:00 98.4 86 17 141/78 (99) 99 08/20/18 07:48 80 19 99 Nasal Cannula 2.0 28 08/20/18 07:36 99 Nasal Cannula 2.0 28 08/20/18 07:36 75 17 99 Nasal Cannula 2.0 28 08/20/18 07:36 Nasal Cannula 2.0 28 08/20/18 04:17 Nasal Cannula 2.0 28 08/20/18 04:17 Nasal Cannula 2.0 28 08/20/18 04:13 70 20 99 Nasal Cannula 28 08/20/18 04:12 70 20 99 Nasal Cannula 2.0 28 08/20/18 04:00 98.1 80 18 161/94 (116) 100 08/20/18 00:00 98.1 81 19 147/89 (108) 100 08/19/18 23:50 78 20 99 Nasal Cannula 2.0 28 08/19/18 23:49 78 20 99 Nasal Cannula 2.0 28 08/19/18 23:40 77 20 99 Nasal Cannula 28 08/19/18 23:39 77 20 99 Nasal Cannula 2.0 28 08/19/18 21:00 Nasal Cannula 2.0 08/19/18 20:42 88 20 98 Nasal Cannula 2.0 28 08/19/18 20:41 88 20 98 Nasal Cannula 2.0 28 08/19/18 20:28 97 20 97 Nasal Cannula 28 08/19/18 20:28 97 20 97 Nasal Cannula 2.0 08/19/18 20:27 Nasal Cannula 2.0 28 08/19/18 20:26 97 Nasal Cannula 2.0 28 08/19/18 20:23 20 20 Nasal Cannula 2.0 28 08/19/18 20:00 98.1 79 19 171/96 (121) 99 Intake and Output 08/19/18 08/20/18 19:00 07:00 Intake Total 1185 ml 300 ml Balance 1185 ml 300 ml Intake Oral 960 ml IV Total 225 ml 300 ml # Voids 2 2 Height (Feet): 5 Height (Inches): 10.00 Weight (Pounds): 188 Objective PE General Appearance: no apparent distress, alert HEENT: normocephalic, atraumatic Neck: non-tender, normal alignment Respiratory/Chest: chest wall non-tender, rhonchi - bilaterally Cardiovascular/Chest: normal peripheral pulses, normal rate Abdomen: normal bowel sounds, non tender Extremities: normal range of motion, non-tender Neurologic: vaccine key customer leader II-XII grossly normal, no motor/sensory deficits, alert, oriented x 3 Saul Marcos MD Aug 20, 2018 16:29
[2018-08-20] MEDS ORDERED: Advair 250/50 Inhaler - 14 dose INH SCH (18:00)
--- NOTE | 2018-08-20 19:32 | NUR ---
NURSE NOTES: DR. ABEL COVERING FOR DR. PALMER AND MADE AWARE OF BLOOD GLUCOSE LAB LEVEL 429. PER DR ABEL, RE-CHECK BLOOD GLUCOSE AT 2100HRS AND REPORT BACK TO MD IF STILL CRITICALLY HIGH. DANIEL ZHONG MADE AWARE.
--- NOTE | 2018-08-20 19:34 | NUR ---
HAND-OFF: Report given to Nieves BOLDEN RN.
--- NOTE | 2018-08-20 19:35 | NUR ---
NURSE NOTES: Received patient in no apparent distress. A&OX4. IV site patent and intact. Afebrile. NC 2L is on. Bed in lowest position. Call light within reach. Will continue to monitor.
--- NOTE | 2018-08-20 21:04 | NUR ---
CASE MANAGEMENT: REVIEW 08/20/2018 SI: COPD EXACERBATION . FEVER . SEPSIS T 97 HR 76 RR 17 B/P 154/83 SATS 100% ON 2L/NC GLU 429 IS:IVF @ 75 mL/HR SOLU MEDROL IV Q6H MUCINEX PO BID LEVEMIR SUBQ QHS METHADONE PO QD PEPCID PO QD ASA PO QD LISINOPRIL PO QD INSULIN ASPART SUBQ AC/HS AZITHROMYCIN IV Q24H CEFTRIAXONE IV Q24H OXYCODONE PO Q8H GABAPENTIN PO QID MED/SURG STATUS DCP: PATIENT IS FROM HOME
[2018-08-20] MEDS: Levemir Flexpen SUBQ SCH (21:05)
--- NOTE | 2018-08-20 22:33 | NUR ---
NURSE NOTES: Received phone call from [facility]. Room is ready for patient which will be room 856-2. Will arrange the transport.
[2018-08-20] MEDS ORDERED: [UNRECOGNIZED DRUG - OTHER] IV (23:47)
[2018-08-20] MEDS ORDERED: PROVENTIL HFA6.7 G1 IH (23:48)
[2018-08-21] MEDS ORDERED: XANAX0.25 MG ORAL (00:15)
[2018-08-21] MEDS ORDERED: TESSALON PERLE100 MG ORAL (00:16)
[2018-08-21] MEDS ORDERED: DEXTROSE 50%-WA50 M1 IV (00:17)
[2018-08-21] MEDS ORDERED: ZITHROMAX500 M1 IVPB (00:17)
[2018-08-21] MEDS ORDERED: BENADRYL25 MG ORAL (00:18)
[2018-08-21] MEDS ORDERED: CEFTRIAXON1 GM/50 ML IV (00:18)
[2018-08-21] MEDS ORDERED: DOCUSATE SODIU100 MG ORAL (00:18)
[2018-08-21] MEDS ORDERED: DUONEB 0.5-3(2.53 ML HHN (00:18)
[2018-08-21] MEDS ORDERED: FAMOTIDINE40 MG ORAL (00:19)
[2018-08-21] MEDS ORDERED: GUAIFENESIN DM118 M1 ORAL (00:20)
[2018-08-21] MEDS ORDERED: NOVOLOG100 UNIT/5 (00:21)
[2018-08-21] MEDS ORDERED: LEVEMIR100 UNIT/1 SUBQ (00:21)
[2018-08-21] MEDS ORDERED: HEPARIN SO5000 UNIT2 SUBQ (00:21)
[2018-08-21] MEDS ORDERED: METHADONE HCL10 MG PO (00:22)
[2018-08-21] MEDS ORDERED: SOLU-MEDRO125 MG/21 IV (00:22)
[2018-08-21] MEDS ORDERED: ZOFRAN 4 MG4 MG/2 ML IV (00:23)
[2018-08-21] MEDS ORDERED: MIRALAX17 G2 ORAL (00:23)
[2018-08-21] MEDS ORDERED: GUAIFENESIN600 MG ORAL (00:25)
[2018-08-21] MEDS: ALPRAZolam 0.25mg tab ORAL PRN (00:33)
--- NOTE | 2018-08-21 00:39 | NUR ---
NURSE NOTES: Patient discharged to [facility]([phone]). Picked up by ambulance staff. ID band removed. Belonging were sent with patient. VS stable. Report to given to Tracy SANCHEZ.
[2018-08-21] MEDS ORDERED: Solu-MEDROL 40mg Inj IVP SCH (09:00)
--- NOTE | 2018-08-24 11:54 | Discharge Summary ---
Discharge Summary Hospital Course Date of Admission Aug 13, 2018 at 03:44 Date of Discharge Aug 21, 2018 at 00:40 Admitting Diagnosis fever, COPD HPI Elham Levin is a 58 year old female who was admitted on Aug 13, 2018 at 03:44 for Fever,Chronic Obstructive Pulmonary Disease Hospital Course #Sepsis due to #Pneumonia, community acquired #Influenza A infection -continue inpatient level of care, patient to be transferred to [facility] in [place] per insurance requirements - signout given to accepting MD -continue ceftriaxone and azithromycin -continue Tamiflu -blood cultures negative -Pulmonology following #COPD exacerbation, severe -continue SoluMedrol -continue Duoneb -continue Mucinex -continue Tessalon -smoking cessation -repeat CXR shows improved congestion with small bilateral pleural effusions -Pulm following #Type 2 DM, uncontrolled due to steroids -continue Levemir 18 units qHS -monitor glucose levels closely with ISS #Chronic pain #Neuropathy #opiate dependance -continue outpatient pain regimen -methadone verified to be 50mg #Hyponatremia -likely due to hyperglycemia -continue to monitor BMP VTE PPx Full Code Discharge Discharge Disposition Patient was discharged to outside hospital Discharge Diagnoses: (1) Influenza Raul Giraldo MD Aug 24, 2018 11:54
== END 2018-08-21 00:40 | disposition short-term general hospital (02) | DRG 720 ==
LOC: EMR 02:30 → 2E 03:44 → EDBEDREQSVC 04:25 → EDBEDREQ 04:25 → 4E 08-17 11:45
DX: A41.89 Other specified sepsis (principal); J09.X1 Influenza due to identified novel influenza A virus with pneumonia; D61.818 Other pancytopenia; F11.29 Opioid dependence with unspecified opioid-induced disorder; E11.40 Type 2 diabetes mellitus with diabetic neuropathy, unspecified; E11.65 Type 2 diabetes mellitus with hyperglycemia; E87.1 Hypo-osmolality and hyponatremia; J44.0 Chronic obstructive pulmonary disease with (acute) lower respiratory infection; J44.1 Chronic obstructive pulmonary disease with (acute) exacerbation; I10 Essential (primary) hypertension; G89.29 Other chronic pain
CPT/HCPCS: 36415; 71045; 71250; 76700; 80048; 80053; 81003; 82248; 82947; 82962; 83605; 85007; 85025; 86703; 86705; 86709; 86710; 86803; 87040; 87340; 93005; 94640; 94664; 94760; 96361; 96365; 96375; 99285; J1815; J7620; S5561

== ENCOUNTER 2019-09-23 01:44 | Emergency (ER) | payer MEDICAID ==
[~2019-09-23] VITALS: Ht 167.6 cm; Wt 61.2 kg
[~2019-09-23 01:44] MED LIST: ALBUTEROL SULF8.5 GM INH; ASPIRIN81 MG ORAL; BENADRYL25 MG ORAL; CEFTRIAXON1 GM/50 ML IV; DEXTROSE 50%-WA50 M1 IV; DOCUSATE SODIU100 MG ORAL; DUONEB 0.5-3(2.53 ML HHN; FAMOTIDINE40 MG ORAL; GABAPENTIN800 MG ORAL; GUAIFENESIN DM118 M1 ORAL; GUAIFENESIN600 MG ORAL; HEPARIN SO5000 UNIT2 SUBQ; LANTUS SOL100 UNIT/1 SUBQ; LEVAQUIN750 MG ORAL; LEVEMIR100 UNIT/1 SUBQ; LISINOPRIL20 MG ORAL; METFORMIN HCL500 M1 ORAL; METHADONE HCL10 MG PO; MIRALAX17 G2 ORAL; NOVOLIN R100 UNIT/1 SUBQ; NOVOLOG100 UNIT/5; PREDNISONE20 MG ORAL; PROVENTIL HFA6.7 G1 IH; ROXICODONE15 MG ORAL; SOLU-MEDRO125 MG/21 IV; TESSALON PERLE100 MG ORAL; XANAX0.25 MG ORAL; ZITHROMAX500 M1 IVPB; ZOFRAN 4 MG4 MG/2 ML IV; [UNRECOGNIZED DRUG - OTHER] IV
[2019-09-23 02:00] VITALS: BP 98/64
[2019-09-23] MEDS ORDERED: LEVEMIR100 UNIT/1 SUBQ (02:06)
--- NOTE | 2019-09-23 02:07 | Emergency Room Report ---
History of Present Illness General Chief Complaint: General Complaint Source: Patient Present Illness HPI Patient presents with request of refill of insulin Reports that she lost her medications while [place] here from [place] denies any chest pain or shortness of breath denies any vomiting or diarrhea Denies any polyuria Patient has not had her medications for several days Denies any dysuria denies any rash COVID-19 risk:Contact w/high r: No COVID-19 risk:Travel to affect: No Has patient experienced silveira: No Allergies: Coded Allergies: SULFA (SULFONAMIDE ANTIBIOTICS) (Unverified Allergy, Unknown, 08/13/18) Patient History Past Medical History: see triage record Last Menstrual Period: na Now: No : 1 Para: 1 Reviewed Nursing Documentation: PMH: Agreed; PSxH: Agreed Nursing Documentation-PMH Hx Cardiac Problems: No Hx Hypertension: Yes Hx Pacemaker: No Hx Asthma: Yes Hx COPD: Yes Hx Diabetes: Yes Hx Cancer: No Hx Gastrointestinal Problems: No Hx Dialysis: No History Of Psychiatric Problem: No Hx Neurological Problems: No Hx Cerebrovascular Accident: No Hx Seizures: No Review of Systems All Other Systems: negative except mentioned in HPI Physical Exam Vital Signs Date Time Temp Pulse Resp B/P (MAP) Pulse Ox O2 Delivery O2 Flow Rate FiO2 09/23/19 01:50 97.9 119 18 98/64 (75) 95 Room Air Sp02 EP Interpretation: reviewed, normal General Appearance: well appearing, no apparent distress Head: normocephalic, atraumatic Eyes: bilateral eye PERRL, bilateral eye EOMI ENT: hearing grossly normal, normal pharynx, TMs + canals normal, uvula midline Neck: full range of motion, supple, no meningismus, no bony tend Respiratory: lungs clear, normal breath sounds, no rhonchi, no respiratory distress, no retraction, no accessory muscle use Cardiovascular #1: normal peripheral pulses, regular rate, rhythm, no edema, no gallop, no JVD, no murmur Gastrointestinal: normal bowel sounds, non tender, soft, no mass, no organomegaly, non-distended, no guarding, no hernia, no pulsatile mass, no rebound Genitourinary: no CVA tenderness Musculoskeletal: normal inspection Neurologic: motor strength/tone normal, sales appointment coordinator III-XII nml as tested, oriented x3 , sensory intact, responsive Psychiatric: mood/affect normal Skin: no rash Lymphatic: normal inspection, no adenopathy Medical Decision Making Diagnostic Impression: Primary Impression: diabetes Additional Impression: hyperglycemia ER Course Patient presents for a refill of her medication Accu-Chek was performed and shows over 400 Glucose level I felt the patient could benefit from further IV hydration and checking chemistry for acidosis levels however patient is In significant hurry refusing further intervention She was agreeable to getting subcutaneous insulin injection And is provided prescription for home Last Vital Signs Date Time Temp Pulse Resp B/P (MAP) Pulse Ox O2 Delivery O2 Flow Rate FiO2 09/23/19 01:50 97.9 119 18 98/64 (75) 95 Room Air Status: improved Disposition: HOME, SELF-CARE Condition: Improved Scripts Insulin Detemir (LEVEMIR) 100 Unit/1 Ml Vial 16 UNITS SUBQ BEDTIME for 30 Days, VIAL Prov: Matt Ash DO 09/23/19 Referrals: NOT CHOSEN IPA/MD,REFERRING (PCP) Patient Instructions: Insulin Treatment for Diabetes, Hyperglycemia, Easy-to- Read Additional Instructions: Patient is provided with the discharge instructions notified to follow up with primary doctor in the next 2-3 days otherwise return to the er with any worsening symptoms. Please note that this report is being documented using [employer] technology. This can lead to erroneous entry secondary to incorrect interpretation by the dictating instrument. Matt Ash DO Sep 23, 2019 02:07
[2019-09-23] MEDS ORDERED: Insulin Human Regular 100units/ml 3ml SUBQ ONE (02:15)
[2019-09-23 02:39] VITALS: BP 98/64
== END 2019-09-23 02:39 | disposition home or self-care (01) ==
LOC: EMR 02:00
DX: E11.65 Type 2 diabetes mellitus with hyperglycemia (principal); Z76.0 Encounter for issue of repeat prescription; I10 Essential (primary) hypertension; J44.9 Chronic obstructive pulmonary disease, unspecified; Z88.2 Allergy status to sulfonamides; Z79.4 Long term (current) use of insulin
CPT/HCPCS: 82962; 96372; 99283; J1815

== ENCOUNTER 2020-07-12 08:29 | Inpatient (IN) | payer OTHER ==
[~2020-07-12] VITALS: Ht 167.6 cm; Wt 80.7 kg
[2020-07-12 09:15] VITALS: BP 186/94
[2020-07-12 09:48] LABS: HEMATOCRIT 35.5 % (37.0-47.0); HEMOGLOBIN 10.9 G/DL (12.0-16.0); MEAN CORPUSCULAR VOLUME 96 FL (80-99); PLATELET COUNT 113 K/UL (150-450); RED BLOOD COUNT 3.68 M/UL (4.20-5.40); RED CELL DISTRIBUTION WIDTH 14.5 % (11.6-14.8)
[2020-07-12 10:02] LABS: ANION GAP 1 mmol/L (5-15); BLOOD UREA NITROGEN 14 mg/dL (7-18); CALCIUM 9.2 MG/DL (8.5-10.1); CARBON DIOXIDE 32 MMOL/L (21-32); CHLORIDE 100 MMOL/L (98-107); CREATININE 0.8 MG/DL (0.55-1.30); INR 1.1 (0.9-1.1); SODIUM 133 MMOL/L (136-145)
[2020-07-12 10:12] LABS: ALANINE AMINOTRANSFERASE 13 U/L (12-78); ALBUMIN 2.4 G/DL (3.4-5.0); ALBUMIN/GLOBULIN RATIO 0.4 (1.0-2.7); ALKALINE PHOSPHATASE 91 U/L (46-116); ASPARTATE AMINO TRANSFERASE 26 U/L (15-37); BILIRUBIN,TOTAL 0.4 MG/DL (0.2-1.0)
[2020-07-12 10:17] LABS: APPEARANCE,URINE CLEAR; BILIRUBIN, URINE NEGATIVE (NEGATIVE); GLUCOSE, URINE (UA) NEGATIVE (NEGATIVE); KETONES,URINE NEGATIVE (NEGATIVE); LEUKOCYTE ESTERASE ,URINE 1+ (NEGATIVE); NITRITE,URINE NEGATIVE (NEGATIVE); PH,URINE 7 (4.5-8.0); PROTEIN,URINE NEGATIVE (NEGATIVE); UROBILINOGEN,URINE 8 MG/DL (0.0-1.0)
[2020-07-12 10:21] LABS: COLOR,URINE PALE YELLOW
--- NOTE | 2020-07-12 12:17 | Emergency Room Report ---
History of Present Illness General Chief Complaint: Chest Pain Source: Patient Present Illness HPI 60-year-old -Chinese female with past medical history of insulin- dependent diabetes, hypertension, dyslipidemia, COPD presents to the emergency department with substernal crushing chest pressure intermittently since yesterday. Chest pressure became constant this morning. She did not take aspirin prior to arrival. Also endorses nausea and dyspnea on exertion Denies recent cardiac evaluation, echocardiogram, angiogram, hemoptysis, history of blood clot, leg swelling, vomiting, diarrhea, melena, hematochezia, rash, headache or any other symptoms The patient's symptoms were gradual onset, severity was moderate, duration since 1 day. Quality: Pressure Past medical history: Diabetes, hypertension, dyslipidemia, COPD Past surgical history: Denies Smoking: Heavy tobacco use Alcohol use: Denies Drug use: Denies Review of systems: CONST: No fevers or chills, No night sweats PULMONARY: No productive cough, positive shortness of breath CARDIAC: Positive chest pain, No palpitations GI: No vomiting, No diarrhea , No melena_or_BRBPR : No dysuria, No hematuria, No discharge NEURO: No new_focal_weakness_or_numbness, No confusion, No vision changes 14 point Review of Systems is otherwise negative except per HPI Physical Exam: GENERAL: Awake_alert_ nontoxic, no acute distress Spo2 100% on RA -normal. Diaphoretic EYES: Extraocular muscles are intact. Conjunctivae clear. Lids without swelling ENT: External nose and ear normal_in_appearance. Oropharynx clear. Head_atraumatic, Moist_oral_mucosa NECK: No JVD. No meningismus. No thyromegaly. Supple. Trachea midline RESP: Normal respiratory effort. Symmetric rise. No stridor. Wheezes bilaterally. No subcostal retractions. CARDIAC: Regular rate and regular rhytm. No_significant pedal edema. ABDOMEN: Soft. Nondistended. Nontender_No_rebound_or_guarding. MSK: Normal muscle tone, without rigidity. Extremities without asymmetric deformity or swelling. SKIN: Warm and dry. No visible cyanosis or pallor NEUROLOGIC: Alert, oriented x3. Motor_and_sensation_grossly_intact. No truncal ataxia. Gait_normal Psych: Normal mood and affect, normal judgment and insight - COORDINATION OF CARE Case was discussed with: Patient , Patient's Physician Any labs and imaging that were ordered were interpreted as part of the medical decision making: Medical Decision Making/Plan: Differential diagnosis includes acute myocardial infarction, acute coronary syndrome and unstable angina, pulmonary embolism, pneumothorax, pneumonia, and aortic dissection, among others. Patient is currently well appearing with stable vitals. EKG shows no acute ischemia.. No evidence of STEMI, and initial troponin is negative. Chest xray shows borderline cardiomegaly. Left lower lobe atelectasis. Interstitial edema without pleural effusions. Labs show troponin negative x1. BNP is mildly elevated at 149. Baseline pancytopenia. Aspirin given. However, given that chest pain is currently resolved, risks likely outweigh benefits of IV heparin at this time, so deferred. The pain is not classic for pericarditis or myocarditis, and the patient has no significant risk factors for a pericardial effusion and has stable vitals signs, unlikely to have tamponade. Pain is not likely to be pulmonary embolism, patient has no significant PE risk factors. The presentation is not consist ent with dissection, pain is not severe, radiating to back, or tearing in nature. Has normal bilateral radial and pedal pulses. However given patients presentation and risk factors, patient will be admitted for serial troponins and risk stratification and evaluation for likely stress testing. This patient appears to be a suitable candidate for transfer to telemetry floor at this time with orders from the admitting physician who is aware of the patient's evaluation, ancillary test findings, and current condition, and agrees with treatment and disposition. I spoke with Dr. Armas, and reviewed the patients presentation, workup, results, and treatment. They will admit the patient for further care and evaluation, and assume care of the patient at this time. 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 COVID-19 Screening: Negative COVID-19 COVID-19 Testing Source: [facility] Nursing Documentation-PMH Hx Cardiac Problems: No Hx Hypertension: Yes Hx Pacemaker: No Hx Asthma: Yes Hx COPD: Yes Hx Diabetes: Yes Hx Cancer: No Hx Gastrointestinal Problems: No Hx Dialysis: No Hx Neurological Problems: No Hx Cerebrovascular Accident: No Hx Seizures: No Physical Exam Vital Signs Date Time Temp Pulse Resp B/P (MAP) Pulse Ox O2 Delivery O2 Flow Rate FiO2 07/12/20 08:40 97.5 89 17 186/94 (124) 100 Room Air Sp02 EP Interpretation: reviewed, normal Medical Decision Making Diagnostic Impression: Primary Impression: Chest pain Additional Impressions: HTN (hypertension) Diabetes Smoker EKG Diagnostic Results TONIE Scribjus Text 12-lead EKG (interpreted by me) Time: 927 Indication: Rhythm analysis Tracing visualized and Interpreted by me. Rhythm: Normal sinus rhythm Rate: 75 bpm QTc: 502 Morphology: No_significant_ST_elevations_or_depressions, No STEMI Impression: Normal_sinus_rhythm_without_significant_abnormality Q waves anterior leads Rhythm Strip Diag. Results Rhythm Strip Time: 12:31 EP Interpretation: yes Rate: 100 Rhythm: NSR, no PVC's, no ectopy Chest X-Ray Diagnostic Results Chest X-Ray Diagnostic Results : TONIE Ricardoibjus Text Chest X-Ray: Views: 1 view(s) Indication: Chest pain Findings: Cardiomegaly Left lower lobe atelectasis Impression: Left lower lobe atelectasis. Cardiomegaly. The X-ray(s) were independently viewed and interpreted contemporaneously Electronically signed by Love thrasher DO Reevaluation Time: 12:32 Last Vital Signs Date Time Temp Pulse Resp B/P (MAP) Pulse Ox O2 Delivery O2 Flow Rate FiO2 07/12/20 09:15 89 17 Room Air 07/12/20 09:15 97.5 186/94 100 Status: improved Disposition: ADMITTED INPATIENT Admit Decision Time: 12:32 Condition: Stable Referrals: NON PHYSICIAN (PCP) Love Kang D.O. Jul 12, 2020 12:17
[2020-07-12] MEDS ORDERED: Morphine Sulfate 4mg/ml Inj (IV USE ONLY) IVP ONE (12:45)
[2020-07-12 13:00] VITALS: BP 150/70
--- NOTE | 2020-07-12 13:40 | Diagnostic Imaging Report ---
Indication: Chest pain Technique: One view of the chest Comparison: 08/18/2018 Findings: The heart is mildly enlarged. There is equivocal mild interstitial congestion and central bronchial wall thickening, appearing similar to the previous exam. No airspace consolidation. Pleural spaces are grossly clear Impression: Cardiomegaly. Equivocal mild interstitial congestion. Correlate with clinical findings
[2020-07-12] MEDS ORDERED: Nitroglycerin 2% oint pkt TOPIC ONE (13:45)
--- NOTE | 2020-07-12 16:00 | Consultation ---
DATE OF CONSULTATION: 07/12/2020 PULMONARY CONSULTATION HISTORY OF PRESENT ILLNESS: This is a 60-year-old female with a history of diabetes mellitus, hypertension, hyperlipidemia, as well as COPD. She came to the hospital with chest pain. This started yesterday and became worse. She also reported nausea. The patient was seen and evaluated, admitted to the hospital for subsequent management and care. The concern was notably about possible acute coronary syndrome. PAST HISTORY: Diabetes mellitus, hypertension, hyperlipidemia, COPD. SOCIAL HISTORY: Admits to chronic tobacco usage. Alcohol use denies. Drug use denies. REVIEW OF SYSTEMS: Denies any headaches, hematemesis, melena, or hematochezia. HOME MEDICATIONS: Reviewed and reconciled in the chart. At this point, she is also noted to be on aspirin, morphine, and Zofran. PHYSICAL EXAMINATION: GENERAL: A 60-year-old female. HEENT: Unremarkable. LUNGS: Clear breath sounds bilaterally. ABDOMEN: Soft. EXTREMITIES: There is no edema. NEUROLOGIC: Nonfocal. VITAL SIGNS: Blood pressure 150/70, heart rate 84, respirations 18, O2 sat 100% on room air. LABORATORY DATA: COVID testing was obtained, which is negative for SARS COVID-19. The patient underwent imaging studies, which showed clear chest x-ray with mild cardiomegaly. IMPRESSION: 1. Chest pain. 2. COPD. 3. Hypertension. 4. Diabetes mellitus. DISCUSSION: Agree with admission and care. The patient will need cardiac evaluation and stress test. Agree with continuing present medications and care. We will order oxygen and pulmonary hygiene. We will follow. Anam Ahuja M.D. DR: SHANNON JOB#: [id number] CC:
--- NOTE | 2020-07-12 16:38 | Cardiac Electrophysiology PN ---
Subjective Subjective [id number] Objective Last 24 Hour Vital Signs Date Time Temp Pulse Resp B/P (MAP) Pulse Ox O2 Delivery O2 Flow Rate FiO2 07/12/20 16:30 Nasal Cannula 2.0 07/12/20 16:05 97.5 82 15 148/78 100 Room Air 07/12/20 14:35 150/80 07/12/20 13:17 97.5 07/12/20 13:00 97.5 84 16 150/70 100 Room Air 07/12/20 09:15 89 17 Room Air 07/12/20 09:15 97.5 17 186/94 100 Room Air 07/12/20 08:40 97.5 89 17 186/94 (124) 100 Room Air Laboratory Tests Test 07/12/20 09:20 07/12/20 09:45 White Blood Count 3.0 K/UL (4.8-10.8) L Red Blood Count 3.68 M/UL (4.20-5.40) L Hemoglobin 10.9 G/DL (12.0-16.0) L Hematocrit 35.5 % (37.0-47.0) L Mean Corpuscular Volume 96 FL (80-99) Mean Corpuscular Hemoglobin 29.7 PG (27.0-31.0) Mean Corpuscular Hemoglobin Concent 30.8 G/DL (32.0-36.0) L Red Cell Distribution Width 14.5 % (11.6-14.8) Platelet Count 113 K/UL (150-450) L Mean Platelet Volume 7.1 FL (6.5-10.1) Neutrophils (%) (Auto) % (45.0-75.0) Lymphocytes (%) (Auto) % (20.0-45.0) Monocytes (%) (Auto) % (1.0-10.0) Eosinophils (%) (Auto) % (0.0-3.0) Basophils (%) (Auto) % (0.0-2.0) Differential Total Cells Counted 100 Neutrophils % (Manual) 68 % (45-75) Lymphocytes % (Manual) 23 % (20-45) Monocytes % (Manual) 9 % (1-10) Eosinophils % (Manual) 0 % (0-3) Basophils % (Manual) 0 % (0-2) Band Neutrophils 0 % (0-8) Platelet Estimate Decreased L Platelet Morphology Normal Hypochromasia 1+ Anisocytosis Macrocytosis 1+ Prothrombin Time 11.7 SEC (9.30-11.50) H Prothromb Time International Ratio 1.1 (0.9-1.1) Activated Partial Thromboplast Time 25 SEC (23-33) Sodium Level 133 MMOL/L (136-145) L Potassium Level 4.0 MMOL/L (3.5-5.1) Chloride Level 100 MMOL/L (98-107) Carbon Dioxide Level 32 MMOL/L (21-32) Anion Gap 1 mmol/L (5-15) L Blood Urea Nitrogen 14 mg/dL (7-18) Creatinine 0.8 MG/DL (0.55-1.30) Estimat Glomerular Filtration Rate > 60 mL/min (>60) Glucose Level 157 MG/DL (74-106) H Calcium Level 9.2 MG/DL (8.5-10.1) Total Bilirubin 0.4 MG/DL (0.2-1.0) Aspartate Amino Transf (AST/SGOT) 26 U/L (15-37) Alanine Aminotransferase (ALT/SGPT) 13 U/L (12-78) Alkaline Phosphatase 91 U/L (46-116) Troponin I 0.006 ng/mL (0.000-0.056) Pro-B-Type Natriuretic Peptide 179 pg/mL (0-125) H Total Protein 7.9 G/DL (6.4-8.2) Albumin 2.4 G/DL (3.4-5.0) L Globulin 5.5 g/dL Albumin/Globulin Ratio 0.4 (1.0-2.7) L Lipase 125 U/L (73-393) Urine Color Pale yellow Urine Appearance Clear Urine pH 7 (4.5-8.0) Urine Specific [place] 1.010 (1.005-1.035) Urine Protein Negative (NEGATIVE) Urine Glucose (UA) Negative (NEGATIVE) Urine Ketones Negative (NEGATIVE) Urine Blood Negative (NEGATIVE) Urine Nitrite Negative (NEGATIVE) Urine Bilirubin Negative (NEGATIVE) Urine Urobilinogen 8 MG/DL (0.0-1.0) H Urine Leukocyte Esterase 1+ (NEGATIVE) H Urine RBC 0-2 /HPF (0 - 2) Urine WBC 0-2 /HPF (0 - 2) Urine Squamous Epithelial Cells Occasional /LPF Urine Bacteria Occasional /HPF (NONE) Microbiology Date/Time Source Procedure Growth Status 07/12/20 00:00 Nasopharynx SARS-CoV-2 RdRp Gene Assay - Final Complete Ganesh Gutiérrez MD Jul 12, 2020 16:38
[2020-07-12] MEDS ORDERED: Lexiscan 0.4mg/5ml syringe IV PRN (16:45)
--- NOTE | 2020-07-12 17:16 | History & Physical ---
History of Present Illness General Reason for Hospitalization: Chest Pain Present Illness HPI 60-year-old -Lao female with past medical history of insulin- dependent diabetes, hypertension, dyslipidemia, COPD presents to the emergency department with substernal crushing chest pressure intermittently since yesterday. Chest pressure became constant this morning. She did not take aspirin prior to arrival. Also endorses nausea and dyspnea on exertion Denies recent cardiac evaluation, echocardiogram, angiogram, hemoptysis, history of blood clot, leg swelling, vomiting, diarrhea, melena, hematochezia, rash, headache or any other symptoms The patient's symptoms were gradual onset, severity was moderate, duration since 1 day. Quality: Pressure Past medical history: Diabetes, hypertension, dyslipidemia, COPD Past surgical history: Denies Allergies: Coded Allergies: SULFA (SULFONAMIDE ANTIBIOTICS) (Unverified Allergy, Unknown, 08/13/18) COVID-19 Screening Contact w/high risk pt: No Recent Travel to affected area: No Experienced COVID-19 symptoms?: No Coronavirus symptoms experienc: Shortness of Breath Medication History Scheduled Aspirin* (Aspirin*), 81 MG ORAL DAILY, (Reported) Azithromycin (Zithromax), 500 MG IVPB DAILY, (Reported) Benzonatate* (Tessalon Perle*), 200 MG ORAL THREE TIMES A DAY, (Reported) Ceftriaxone Na/Dextrose,Iso (Ceftriaxone 1 Gm Piggyback), 1 GM IV DAILY, (Reported) Docusate Sodium* (Docusate Sodium*), 100 MG ORAL TWICE A DAY, (Reported) Famotidine (Famotidine), 40 MG ORAL DAILY, (Reported) Gabapentin* (Gabapentin*), 800 MG ORAL FOUR TIMES A DAY, (Reported) Guaifenesin (Guaifenesin ER), 600 MG ORAL BID, (Reported) Heparin Sod (Porcine) (Heparin Sodium*), 5,000 UNITS SUBQ EVERY 12 HOURS, (Reported) Insulin Detemir (Levemir), 16 UNITS SUBQ BEDTIME, (Reported) Insulin Detemir (Levemir), 16 UNITS SUBQ BEDTIME Ipratropium/Albuterol Sulfate (DuoNeb 0.5-3(2.5)mg/3ml), 3 ML HHN Q4HR, (Reported) Lisinopril (Lisinopril*), 40 MG ORAL DAILY, (Reported) Methadone Hcl* (Methadone*), 80 MG PO DAILY, (Reported) Methylprednisolone Sod Succ/Pf (Solu-Medrol 125 Mg Vial), 60 MG IV Q8HR, (Reported) OXYCODONE HCl* (Roxicodone*), 30 MG ORAL TID, (Reported) [1/2NS], 75 ML IV Q1HR, (Reported) Scheduled PRN Albuterol Sulfate (Proventil Hfa), 2 PUFFS IH q2hr PRN for Shortness of Breath, (Reported) Alprazolam* (Xanax*), 0.25 MG ORAL THREE TIMES A DAY PRN for For Anxiety, (Reported) Dextrose 50 % In Water (Dextrose 50%-Water Vial), 50 ML IV Q30MIN PRN for hypoglycemia, (Reported) Diphenhydramine Hcl* (Benadryl*), 25 MG ORAL Q6H PRN for Itching, (Reported) Guaifenesin/Dextromethorphan* (Guaifenesin Dm Syrup*), 10 ML ORAL Q4HR PRN for For Cough, (Reported) Ondansetron* (Zofran*), 4 MG IV Q6H PRN for Nausea & Vomiting, (Reported) Polyethylene Glycol 3350* (Miralax*), 17 GM ORAL DAILY PRN for Constipation, (Reported) Miscellaneous Medications Insulin Aspart (Novolog), (Reported) Patient History Healthcare decision maker N Resuscitation status Advanced Directive on File Review of Systems Review of Symptoms General ROS: no weight loss or fever Psychological ROS: no depression or mood changes, no memory loss Ophthalmic ROS: no visual changes or eye irritation ENT ROS: no nasal congestion, hearing loss, dizziness Allergy and Immunology ROS: no allergic symptoms or urticaria Hematological and Lymphatic ROS: no swollen glands, unusual bleeding or bruising Endocrine ROS: no polyuria, polydipsia, weight changes, temperature intolerance Respiratory ROS: no cough, shortness of breath, or wheezing Cardiovascular ROS: + chest pain Gastrointestinal ROS: denies abdominal pain, bright red blood in stool. Musculoskeletal ROS: no myalgias or arthralgias Neurological ROS: no TIA or stroke symptoms Dermatological ROS: no new or changing skin lesions, rashes or pruritis Physical Exam Physical Exam General appearance: alert, cooperative, no distress, appears stated age Head: Normocephalic, without obvious abnormality, atraumatic Eyes: conjunctivae/corneas clear. PERRL, EOM's intact. Fundi benign Throat: Lips, mucosa, and tongue normal. Teeth and gums normal Neck: supple, symmetrical, trachea midline, no adenopathy, thyroid: not enlarged, symmetric, no tenderness/mass/nodules, no carotid bruit and no JVD Lungs: clear to auscultation bilaterally Heart: regular rate and rhythm, S1, S2 normal, no murmur, click, rub or gallop Abdomen: soft, non-tender. Bowel sounds normal. No masses, no organomegaly Extremities: extremities normal, atraumatic, no cyanosis or edema Pulses: 2+ and symmetric Skin: Skin color, texture, turgor normal. No rashes or lesions Neurologic: Grossly normal Last 24 Hour Vital Signs Date Time Temp Pulse Resp B/P (MAP) Pulse Ox O2 Delivery O2 Flow Rate FiO2 07/12/20 16:30 Nasal Cannula 2.0 07/12/20 16:25 71 07/12/20 16:05 97.5 82 15 148/78 100 Room Air 07/12/20 14:35 150/80 07/12/20 13:17 97.5 07/12/20 13:00 97.5 84 16 150/70 100 Room Air 07/12/20 09:15 89 17 Room Air 07/12/20 09:15 97.5 17 186/94 100 Room Air 07/12/20 08:40 97.5 89 17 186/94 (124) 100 Room Air Laboratory Tests Test 07/12/20 09:20 07/12/20 09:45 White Blood Count 3.0 K/UL (4.8-10.8) L Red Blood Count 3.68 M/UL (4.20-5.40) L Hemoglobin 10.9 G/DL (12.0-16.0) L Hematocrit 35.5 % (37.0-47.0) L Mean Corpuscular Volume 96 FL (80-99) Mean Corpuscular Hemoglobin 29.7 PG (27.0-31.0) Mean Corpuscular Hemoglobin Concent 30.8 G/DL (32.0-36.0) L Red Cell Distribution Width 14.5 % (11.6-14.8) Platelet Count 113 K/UL (150-450) L Mean Platelet Volume 7.1 FL (6.5-10.1) Neutrophils (%) (Auto) % (45.0-75.0) Lymphocytes (%) (Auto) % (20.0-45.0) Monocytes (%) (Auto) % (1.0-10.0) Eosinophils (%) (Auto) % (0.0-3.0) Basophils (%) (Auto) % (0.0-2.0) Differential Total Cells Counted 100 Neutrophils % (Manual) 68 % (45-75) Lymphocytes % (Manual) 23 % (20-45) Monocytes % (Manual) 9 % (1-10) Eosinophils % (Manual) 0 % (0-3) Basophils % (Manual) 0 % (0-2) Band Neutrophils 0 % (0-8) Platelet Estimate Decreased L Platelet Morphology Normal Hypochromasia 1+ Anisocytosis Macrocytosis 1+ Prothrombin Time 11.7 SEC (9.30-11.50) H Prothromb Time International Ratio 1.1 (0.9-1.1) Activated Partial Thromboplast Time 25 SEC (23-33) Sodium Level 133 MMOL/L (136-145) L Potassium Level 4.0 MMOL/L (3.5-5.1) Chloride Level 100 MMOL/L (98-107) Carbon Dioxide Level 32 MMOL/L (21-32) Anion Gap 1 mmol/L (5-15) L Blood Urea Nitrogen 14 mg/dL (7-18) Creatinine 0.8 MG/DL (0.55-1.30) Estimat Glomerular Filtration Rate > 60 mL/min (>60) Glucose Level 157 MG/DL (74-106) H Calcium Level 9.2 MG/DL (8.5-10.1) Total Bilirubin 0.4 MG/DL (0.2-1.0) Aspartate Amino Transf (AST/SGOT) 26 U/L (15-37) Alanine Aminotransferase (ALT/SGPT) 13 U/L (12-78) Alkaline Phosphatase 91 U/L (46-116) Troponin I 0.006 ng/mL (0.000-0.056) Pro-B-Type Natriuretic Peptide 179 pg/mL (0-125) H Total Protein 7.9 G/DL (6.4-8.2) Albumin 2.4 G/DL (3.4-5.0) L Globulin 5.5 g/dL Albumin/Globulin Ratio 0.4 (1.0-2.7) L Lipase 125 U/L (73-393) Urine Color Pale yellow Urine Appearance Clear Urine pH 7 (4.5-8.0) Urine Specific [place] 1.010 (1.005-1.035) Urine Protein Negative (NEGATIVE) Urine Glucose (UA) Negative (NEGATIVE) Urine Ketones Negative (NEGATIVE) Urine Blood Negative (NEGATIVE) Urine Nitrite Negative (NEGATIVE) Urine Bilirubin Negative (NEGATIVE) Urine Urobilinogen 8 MG/DL (0.0-1.0) H Urine Leukocyte Esterase 1+ (NEGATIVE) H Urine RBC 0-2 /HPF (0 - 2) Urine WBC 0-2 /HPF (0 - 2) Urine Squamous Epithelial Cells Occasional /LPF Urine Bacteria Occasional /HPF (NONE) Microbiology Date/Time Source Procedure Growth Status 07/12/20 00:00 Nasopharynx SARS-CoV-2 RdRp Gene Assay - Final Complete Height (Feet): 5 Height (Inches): 6.00 Weight (Pounds): 178 Medications Current Medications Medications (Trade) Dose Ordered Sig/Rogers Route PRN Reason Start Time Stop Time Status Last Admin Dose Admin Acetaminophen (Tylenol) 650 mg Q4H PRN ORAL Mild Pain (Pain Scale 1-3) 07/12/20 17:00 08/11/20 16:59 Amlodipine Besylate (Norvasc) 10 mg DAILY ORAL 07/13/20 09:00 08/12/20 08:59 Aspirin (ASA) 81 mg DAILY ORAL 07/13/20 09:00 08/27/20 08:59 Atorvastatin Calcium (Lipitor) 80 mg BEDTIME ORAL 07/12/20 21:00 10/10/20 20:59 Clonidine HCl (Catapres Tab) 0.1 mg Q4H PRN ORAL sbp>170 07/12/20 16:45 10/10/20 16:44 Morphine Sulfate (Morphine Sulfate) 2 mg Q4H PRN IVP For Pain 4-10 07/12/20 17:00 07/19/20 16:59 Regadenoson (Lexiscan) 0.4 mg ONCE PRN IV mining professionals to cardiology 07/12/20 16:45 07/14/20 16:44 Assessment/Plan Diagnosis [place] I: #Chest pain #r/o ACS #HLD #HTN #Coccaine use - tele - cardiology eval - asa 81 - lipitor 80 - 2d echo - stress test - amlodipine 10mg daily - encourage cessation of coccaine use [facility] Hospital declaration INPATIENT level of care is warranted for this patient because patient is a 89 year old with who presents with suspicion of . I have a high level of concern because . Patient is at high risk for . Plan of care/treatment include . Patient care is expected to be greater than 2 midnights. OBSERVATION level of care is warranted for this patient. Patient is a 89 year old with who presents with . Patient will be admitted for 1 midnight, but if additional night(s) is/are necessary, patient will be converted to inpatient status for the entire hospitalization Disposition: Once the patient is stable to leave the hospital, I anticipate the patient will likely be discharged to the following environment: Estimated discharge date: I spent 70 minutes on this patient's case, and minutes was dedicated to counseling and/or care coordination. MIPS (Merit-based Incentive Payment System) Applicable CPT: 17177, 84711 CHECK ALL THAT ARE MET: Measure #5 (CHF): All ages. Prescribe ROSA/ARB upon discharge for patients with left ventricular systolic dysfunction. If not, the reason is clearly documented in the medical chart. Measure #8 (CHF): All ages. Prescribe a beta behzad upon discharge for patients with left ventricular systolic dysfunction. If not, the reason is clearly documented in the medical chart. Measure #47 Advance care plan or surrogate decision maker documented in the medical record. Measure #130 The provider has documented, updated, or reviewed the patients current medication list and has documented it in the patients note. Measure #374 (All): Send report to referring provider. Measure #407(Sepsis due to MSSA bacteremia): Age 18+ Patient treated with a beta-lactam antibiotic (Nafcillin, Oxacillin or Cefazolin) as definitive therapy. MEDICAL COMPLEXITY High complexity medical decision making (need 2/3 categories) Problem - need 4 points Acute/new problem with new plan for workup (4 points, 1 max) Acute/new problem without additional workup (3 points, 1 max) Unstable chronic problem actively being managed (2 point each, 2 max) Stable chronic problem actively being managed (1 point each, 2 max) Self-limited/transient process (constipation, muscle ache, etc) (1 point each, 2 max) Data - need 4 points Reviewed labs/imaging studies (1 points, 2 max) Independent review of imaging (EKG, xrays, etc) (2 points, 2 max) Discussed case with consult/other MD/RN (2 points, 2 max) High Risk - qualify if have one of the following: Severe exacerbation of acute problem, acute mental status change, IV narcotics, monitoring drug levels (vancomycin, INR, tacrolimus etc) Savana Armas M.D. Jul 12, 2020 17:16
[2020-07-12] MEDS: Morphine Sulfate 2mg/ml Inj(IV/IM USE ONLY) IVP PRN ×2 (17:26→22:51)
[2020-07-12 20:00] VITALS: BP 122/78
--- NOTE | 2020-07-12 20:30 | Consultation ---
DATE OF CONSULTATION: 07/12/2020 CARDIOLOGY CONSULTATION CONSULTING PHYSICIAN: Ganesh Gutiérrez MD REFERRING PHYSICIAN: Savana Armas MD REASON FOR CONSULTATION: Chest pain in the patient with history of hypertension. HISTORY OF PRESENT ILLNESS: The patient is a 60-year-old lady with history of hypertension, diabetes, hyperlipidemia, and COPD, who presented to emergency room with substernal crushing chest pain that started yesterday. The patient admitted that the pain started after she did cocaine. The patient also stated that she occasionally drinks alcohol. The patient was admitted and Cardiology consultation was obtained for further evaluation and management. The first troponin was negative. EKG did not show any ST elevation and just sinus rhythm with incomplete right bundle-branch block. REVIEW OF SYSTEMS: Negative other than what is mentioned in the history of present illness. PAST MEDICAL HISTORY: As mentioned above. FAMILY HISTORY: Noncontributory. SOCIAL HISTORY: She does cocaine and also drinks alcohol. PHYSICAL EXAMINATION: VITAL SIGNS: Show blood pressure of 148/78 and was initially 186/94, pulse is 82, respirations 15, and temperature 97.5. HEAD AND NECK: Showed no JVD. LUNGS: Clear. CARDIOVASCULAR: Shows regular S1 and S2 with no gallop or murmur. ABDOMEN: Soft. EXTREMITIES: No pitting edema. LABORATORY AND DIAGNOSTIC DATA: Her EKG shows sinus rhythm with incomplete right bundle-branch block and secondary ST-T wave abnormalities. Labs show sodium 132, potassium 4.0, BUN of 14, creatinine 0.8, and glucose 157. First troponin is negative. White count is 3, hemoglobin 11, hematocrit 35.5, and platelet count 113,000. ASSESSMENT AND PLAN: 1. Chest pain in the patient with multiple risk factors for coronary artery disease including hypertension, diabetes, and hyperlipidemia as well as cocaine use. I will check urine-tox screen. We will need to avoid beta-blockers. We will completely rule out AK protocol. Repeat EKG and echocardiogram and schedule the patient for a stress test if troponins are negative. 2. Hypertension. Avoid beta-blockers. The patient is on amlodipine 5 mg b.i.d. and p.r.n. clonidine. 3. History of cocaine use. We will check urine-tox screen again for confirmation. 4. COPD. Thank you very much for allowing me to participate in the care of this patient. Please do not hesitate to contact me for any questions regarding my evaluation. Ganesh Gutiérrez M.D. DR: Marga JOB#: [id number] CC:
[2020-07-12] MEDS: Atorvastatin 80mg tab ORAL SCH (21:22)
[2020-07-12] MEDS: NovoLOG Insulin Flexpen SUBQ SCH (21:26)
[2020-07-13] VITALS: BP 138/81
[2020-07-13] MEDS: Morphine Sulfate 2mg/ml Inj(IV/IM USE ONLY) IVP PRN ×4 (03:19→20:15)
[2020-07-13 03:52] LABS: ANION GAP -3 mmol/L (5-15); BLOOD UREA NITROGEN 14 mg/dL (7-18); CALCIUM 9.5 MG/DL (8.5-10.1); CARBON DIOXIDE 38 MMOL/L (21-32); CHLORIDE 102 MMOL/L (98-107); CHOLESTEROL 112 MG/DL (< 200); CREATININE 0.8 MG/DL (0.55-1.30); HDL CHOLESTEROL 43 MG/DL (40-60); PHOSPHORUS 2.9 MG/DL (2.5-4.9); POTASSIUM 4.1 MMOL/L (3.5-5.1); SODIUM 137 MMOL/L (136-145); TRIGLYCERIDES 41 MG/DL (30-150)
[2020-07-13 04:00] VITALS: BP 128/79
[2020-07-13] MEDS: NovoLOG Insulin Flexpen SUBQ SCH ×4 (06:30→21:00)
[2020-07-13 08:00] VITALS: BP 144/90
[2020-07-13] MEDS: Aspirin Baby 81mg ORAL SCH (09:29)
[2020-07-13 12:00] VITALS: BP 141/83
--- NOTE | 2020-07-13 12:01 | Pulmonology Progress Note ---
Subjective ROS Limited/Unobtainable: No Interval Events: None new Constitutional: Reports: no symptoms HEENT: Repors: other Respiratory: Reports: no symptoms Cardiovascular: Reports: no symptoms Gastrointestinal/Abdominal: Reports: no symptoms Allergies: Coded Allergies: SULFA (SULFONAMIDE ANTIBIOTICS) (Unverified Allergy, Unknown, 08/13/18) Objective Last 24 Hour Vital Signs Date Time Temp Pulse Resp B/P (MAP) Pulse Ox O2 Delivery O2 Flow Rate FiO2 07/13/20 09:29 75 144/90 07/13/20 08:46 97.6 07/13/20 04:00 83 07/13/20 04:00 97.6 74 18 128/79 (95) 99 07/13/20 00:00 97.5 79 19 138/81 (100) 100 07/13/20 00:00 79 07/12/20 23:52 97.5 07/12/20 21:00 Room Air 07/12/20 20:00 97.8 72 18 122/78 (93) 94 07/12/20 20:00 75 07/12/20 16:30 Nasal Cannula 2.0 07/12/20 16:25 71 07/12/20 16:05 97.5 82 15 148/78 100 Room Air 07/12/20 14:35 150/80 07/12/20 13:17 97.5 07/12/20 13:00 97.5 84 16 150/70 100 Room Air Objective 07/13 saturating at 100% on RA, normal work of breathing General Appearance: no acute distress HEENT: atraumatic Respiratory: lungs clear Cardiovascular: normal rate, regular rhythm Abdomen: soft, non tender Microbiology Date/Time Source Procedure Growth Status 07/12/20 00:00 Nasopharynx SARS-CoV-2 RdRp Gene Assay - Final Complete Laboratory Tests 07/12/20 17:30: Urine Opiates Screen PositiveH, Urine Barbiturates Screen Negative, Phencyclidine (PCP) Screen Negative, Urine Amphetamines Screen Negative, Urine Benzodiazepines Screen Negative, Urine Cocaine Screen PositiveH, Urine Marijuana (THC) Screen Negative 07/12/20 19:11: Troponin I 0.009 07/13/20 03:00: Troponin I 0.008, Sodium Level 137, Potassium Level 4.1, Chloride Level 102, Carbon Dioxide Level 38H, Anion Gap -3L, Blood Urea Nitrogen 14, Creatinine 0.8, Estimat Glomerular Filtration Rate > 60, Glucose Level 150H, Hemoglobin A1c 8.1H , Calcium Level 9.5, Phosphorus Level 2.9, Magnesium Level 1.8, Triglycerides Level 41, Cholesterol Level 112, LDL Cholesterol 53, HDL Cholesterol 43, Cholesterol/HDL Ratio 2.6L 07/13/20 06:33: POC Whole Blood Glucose 124H Current Medications Medications (Trade) Dose Ordered Sig/Roegrs Route PRN Reason Start Time Stop Time Status Last Admin Dose Admin Acetaminophen (Tylenol) 650 mg Q4H PRN ORAL Mild Pain (Pain Scale 1-3) 07/12/20 17:00 08/11/20 16:59 Amlodipine Besylate (Norvasc) 10 mg DAILY ORAL 07/13/20 09:00 08/12/20 08:59 07/13/20 09:29 Aspirin (ASA) 81 mg DAILY ORAL 07/13/20 09:00 08/27/20 08:59 07/13/20 09:29 Atorvastatin Calcium (Lipitor) 80 mg BEDTIME ORAL 07/12/20 21:00 10/10/20 20:59 07/12/20 21:22 Clonidine HCl (Catapres Tab) 0.1 mg Q4H PRN ORAL sbp>170 07/12/20 16:45 10/10/20 16:44 Dextrose (Dextrose 50%) 25 ml Q30M PRN IV Hypoglycemia 07/12/20 18:30 10/10/20 18:29 Dextrose (Dextrose 50%) 50 ml Q30M PRN IV Hypoglycemia 07/12/20 18:30 10/10/20 18:29 Insulin Aspart (NovoLOG) BEFORE MEALS AND HS SUBQ 07/12/20 21:00 10/10/20 20:59 07/12/20 21:26 Morphine Sulfate (Morphine Sulfate) 2 mg Q4H PRN IVP For Pain 4-10 07/12/20 17:00 07/19/20 16:59 07/13/20 08:16 Regadenoson (Lexiscan) 0.4 mg ONCE PRN IV manager of transportation to cardiology 07/12/20 16:45 07/14/20 16:44 Assessment/Plan Assessment/Plan 1. Chest pain. - stress test canceled due to positive toxicology screening: opiate and cocaine - scheduled for 2D echo today 2. COPD. - currently saturating at 100% on RA - provide supplemental oxygen as needed 3. Hypertension. 4. Diabetes mellitus. Continue oxygen and pulmonary hygiene. We will follow. The care for this patient was discussed with my supervising physician Time spent for this case was approximately 31 minutes Asad Jaime Jul 13, 2020 12:01 Anam Ahuja MD Jul 13, 2020 14:21
--- NOTE | 2020-07-13 15:56 | Cardiac Electrophysiology PN ---
Assessment/Plan Assessment/Plan 1. Chest pain in a pt with hypertension, diabetes, and hyperlipidemia as well as cocaine use. We will need to avoid beta-blockers. Ruled out for OH and stress test cancelled by Dr Hill 2. Hypertension. Avoid beta-blockers. The patient is on amlodipine 5 mg b.i.d. and p.r.n. clonidine. 3. Active cocaine user. 4. COPD. Subjective Subjective Stress test was not done by Dr Hill as patient is cocaine user and asking for morphine and Methadone Objective Last 24 Hour Vital Signs Date Time Temp Pulse Resp B/P (MAP) Pulse Ox O2 Delivery O2 Flow Rate FiO2 07/13/20 14:35 97.6 07/13/20 12:00 98.5 72 20 141/83 (102) 100 07/13/20 12:00 78 07/13/20 09:29 75 144/90 07/13/20 09:00 Room Air 07/13/20 08:46 97.6 07/13/20 08:00 98.1 75 20 144/90 (108) 100 07/13/20 08:00 84 07/13/20 04:00 83 07/13/20 04:00 97.6 74 18 128/79 (95) 99 07/13/20 00:00 97.5 79 19 138/81 (100) 100 07/13/20 00:00 79 07/12/20 23:52 97.5 07/12/20 21:00 Room Air 07/12/20 20:00 97.8 72 18 122/78 (93) 94 07/12/20 20:00 75 07/12/20 16:30 Nasal Cannula 2.0 07/12/20 16:25 71 07/12/20 16:05 97.5 82 15 148/78 100 Room Air Laboratory Tests Test 07/12/20 17:30 07/12/20 19:11 07/13/20 03:00 07/13/20 06:33 Urine Opiates Screen Positive (NEGATIVE) H Urine Barbiturates Screen Negative (NEGATIVE) Phencyclidine (PCP) Screen Negative (NEGATIVE) Urine Amphetamines Screen Negative (NEGATIVE) Urine Benzodiazepines Screen Negative (NEGATIVE) Urine Cocaine Screen Positive (NEGATIVE) H Urine Marijuana (THC) Screen Negative (NEGATIVE) Troponin I 0.009 ng/mL (0.000-0.056) 0.008 ng/mL (0.000-0.056) Sodium Level 137 MMOL/L (136-145) Potassium Level 4.1 MMOL/L (3.5-5.1) Chloride Level 102 MMOL/L (98-107) Carbon Dioxide Level 38 MMOL/L (21-32) H Anion Gap -3 mmol/L (5-15) L Blood Urea Nitrogen 14 mg/dL (7-18) Creatinine 0.8 MG/DL (0.55-1.30) Estimat Glomerular Filtration Rate > 60 mL/min (>60) Glucose Level 150 MG/DL (74-106) H Hemoglobin A1c 8.1 % (4.3-6.0) H Calcium Level 9.5 MG/DL (8.5-10.1) Phosphorus Level 2.9 MG/DL (2.5-4.9) Magnesium Level 1.8 MG/DL (1.8-2.4) Triglycerides Level 41 MG/DL (30-150) Cholesterol Level 112 MG/DL (< 200) LDL Cholesterol 53 mg/dL (<100) HDL Cholesterol 43 MG/DL (40-60) Cholesterol/HDL Ratio 2.6 (3.3-4.4) L POC Whole Blood Glucose 124 MG/DL (74-106) H Test 07/13/20 12:06 POC Whole Blood Glucose 121 MG/DL (74-106) H Microbiology Date/Time Source Procedure Growth Status 07/12/20 00:00 Nasopharynx SARS-CoV-2 RdRp Gene Assay - Final Complete Objective HEAD AND NECK: Showed no JVD. LUNGS: Clear. CARDIOVASCULAR: Shows regular S1 and S2 with no gallop or murmur. ABDOMEN: Soft. EXTREMITIES: No pitting edema. Ganesh Gutiérrez MD Jul 13, 2020 15:56
[2020-07-13 16:00] VITALS: BP 145/86
--- NOTE | 2020-07-13 16:58 | Internal Med Progress Note ---
Subjective Physician Name Savana Armas Attending Physician Savana Armas M.D. Current Medications Medications (Trade) Dose Ordered Sig/Rogers Route PRN Reason Start Time Stop Time Status Last Admin Dose Admin Acetaminophen (Tylenol) 650 mg Q4H PRN ORAL Mild Pain (Pain Scale 1-3) 07/12/20 17:00 08/11/20 16:59 Amlodipine Besylate (Norvasc) 10 mg DAILY ORAL 07/13/20 09:00 08/12/20 08:59 07/13/20 09:29 Aspirin (ASA) 81 mg DAILY ORAL 07/13/20 09:00 08/27/20 08:59 07/13/20 09:29 Atorvastatin Calcium (Lipitor) 80 mg BEDTIME ORAL 07/12/20 21:00 10/10/20 20:59 07/12/20 21:22 Clonidine HCl (Catapres Tab) 0.1 mg Q4H PRN ORAL sbp>170 07/12/20 16:45 10/10/20 16:44 Dextrose (Dextrose 50%) 25 ml Q30M PRN IV Hypoglycemia 07/12/20 18:30 10/10/20 18:29 Dextrose (Dextrose 50%) 50 ml Q30M PRN IV Hypoglycemia 07/12/20 18:30 10/10/20 18:29 Insulin Aspart (NovoLOG) BEFORE MEALS AND HS SUBQ 07/12/20 21:00 10/10/20 20:59 07/12/20 21:26 Methadone HCl (Methadone HCl) 80 mg DAILY ORAL 07/13/20 16:41 07/20/20 16:40 Morphine Sulfate (Morphine Sulfate) 2 mg Q4H PRN IVP For Pain 4-10 07/12/20 17:00 07/19/20 16:59 07/13/20 14:05 Regadenoson (Lexiscan) 0.4 mg ONCE PRN IV business education instructor to cardiology 07/12/20 16:45 07/14/20 16:44 Allergies: Coded Allergies: SULFA (SULFONAMIDE ANTIBIOTICS) (Unverified Allergy, Unknown, 08/13/18) ROS Limited/Unobtainable: No Constitutional: Reports: weakness HEENT: Denies: no symptoms, eye pain, blurred vision, tearing, double vision, ear pain, ear discharge, nose pain, nose congestion, throat pain, throat swelling, mouth pain, mouth swelling, other Respiratory: Denies: no symptoms, cough, orthopnea, shortness of breath, SOB with excertion, SOB at rest, sputum, stridor, wheezing, other Gastrointestinal/Abdominal: Denies: no symptoms, abdomen distended, abdominal pain, black stools, tarry stools, blood in stool, constipated, diarrhea, difficulty swallowing, nausea, poor appetite, poor fluid intake, rectal bleeding, vomiting, other Genitourinary: Denies: no symptoms, burning, discharge, frequency, flank pain, hematuria, incontinence, pain, urgency, other Neurologic/Psychiatric: Denies: no symptoms, anxiety, depressed, emotional problems, headache, numbness, paresthesia, pre-existing deficit, seizure, tingling, tremors, weakness, other Objective Last Vital Signs Date Time Temp Pulse Resp B/P (MAP) Pulse Ox O2 Delivery O2 Flow Rate FiO2 07/13/20 16:00 98.5 84 20 145/86 (105) 100 07/13/20 09:00 Room Air 07/12/20 16:30 2.0 General Appearance: no apparent distress, alert, mild distress EENT: PERRL/EOMI, normal ENT inspection Neck: non-tender, normal alignment Cardiovascular: normal peripheral pulses Respiratory/Chest: chest wall non-tender, lungs clear Abdomen: normal bowel sounds, non tender, soft, no organomegaly Laboratory Tests Test 07/12/20 17:30 07/12/20 19:11 07/13/20 03:00 07/13/20 06:33 Urine Opiates Screen Positive (NEGATIVE) H Urine Barbiturates Screen Negative (NEGATIVE) Phencyclidine (PCP) Screen Negative (NEGATIVE) Urine Amphetamines Screen Negative (NEGATIVE) Urine Benzodiazepines Screen Negative (NEGATIVE) Urine Cocaine Screen Positive (NEGATIVE) H Urine Marijuana (THC) Screen Negative (NEGATIVE) Troponin I 0.009 ng/mL (0.000-0.056) 0.008 ng/mL (0.000-0.056) Sodium Level 137 MMOL/L (136-145) Potassium Level 4.1 MMOL/L (3.5-5.1) Chloride Level 102 MMOL/L (98-107) Carbon Dioxide Level 38 MMOL/L (21-32) H Anion Gap -3 mmol/L (5-15) L Blood Urea Nitrogen 14 mg/dL (7-18) Creatinine 0.8 MG/DL (0.55-1.30) Estimat Glomerular Filtration Rate > 60 mL/min (>60) Glucose Level 150 MG/DL (74-106) H Hemoglobin A1c 8.1 % (4.3-6.0) H Calcium Level 9.5 MG/DL (8.5-10.1) Phosphorus Level 2.9 MG/DL (2.5-4.9) Magnesium Level 1.8 MG/DL (1.8-2.4) Triglycerides Level 41 MG/DL (30-150) Cholesterol Level 112 MG/DL (< 200) LDL Cholesterol 53 mg/dL (<100) HDL Cholesterol 43 MG/DL (40-60) Cholesterol/HDL Ratio 2.6 (3.3-4.4) L POC Whole Blood Glucose 124 MG/DL (74-106) H Test 07/13/20 12:06 POC Whole Blood Glucose 121 MG/DL (74-106) H Microbiology Date/Time Source Procedure Growth Status 07/12/20 00:00 Nasopharynx SARS-CoV-2 RdRp Gene Assay - Final Complete Assessment/Plan Assessment/Plan #Chest pain #r/o ACS #HLD #HTN #Coccaine use - tele - cardiology eval - asa 81 - lipitor 80 - 2d echo - stress test - amlodipine 10mg daily - encourage cessation of coccaine use Savana Armas M.D. Jul 13, 2020 16:58
--- NOTE | 2020-07-13 18:00 | Neurology Progress Note ---
Interim History Interim History ROS Limited/Unobtainable: No Interim History 60-year-old -[place] female with past medical history of insulin- dependent diabetes, hypertension, dyslipidemia, COPD presents to the emergency department with substernal crushing chest pressure intermittently since yesterday. Chest pressure became constant this morning. She did not take aspirin prior to arrival. Also endorses nausea and dyspnea on exertion Pt has pain in arms and legs, chest pain ongoing Past medical history: Diabetes, hypertension, dyslipidemia, COPD Past surgical history: Denies Objective Physical Exam Last Vital Signs Date Time Temp Pulse Resp B/P (MAP) Pulse Ox O2 Delivery O2 Flow Rate FiO2 07/13/20 16:00 98.5 84 20 145/86 (105) 100 07/13/20 09:00 Room Air 07/12/20 16:30 2.0 Laboratory Tests Test 07/12/20 19:11 07/13/20 03:00 07/13/20 06:33 07/13/20 12:06 Troponin I 0.009 ng/mL (0.000-0.056) 0.008 ng/mL (0.000-0.056) Sodium Level 137 MMOL/L (136-145) Potassium Level 4.1 MMOL/L (3.5-5.1) Chloride Level 102 MMOL/L (98-107) Carbon Dioxide Level 38 MMOL/L (21-32) H Anion Gap -3 mmol/L (5-15) L Blood Urea Nitrogen 14 mg/dL (7-18) Creatinine 0.8 MG/DL (0.55-1.30) Estimat Glomerular Filtration Rate > 60 mL/min (>60) Glucose Level 150 MG/DL (74-106) H Hemoglobin A1c 8.1 % (4.3-6.0) H Calcium Level 9.5 MG/DL (8.5-10.1) Phosphorus Level 2.9 MG/DL (2.5-4.9) Magnesium Level 1.8 MG/DL (1.8-2.4) Triglycerides Level 41 MG/DL (30-150) Cholesterol Level 112 MG/DL (< 200) LDL Cholesterol 53 mg/dL (<100) HDL Cholesterol 43 MG/DL (40-60) Cholesterol/HDL Ratio 2.6 (3.3-4.4) L POC Whole Blood Glucose 124 MG/DL (74-106) H 121 MG/DL (74-106) H General: well developed Head: normocophalic Neck: no rigidity EENT: benign Neurologic Exam Mental Status: awake, oriented x4 Speech: normal speech Objective neuropathy in all 4 limbs, low reflexes Impression/Recommendations Problems: (1) Influenza (2) Smoker (3) Diabetes (4) HTN (hypertension) (5) Chest pain Status: stable Diagnostic Impression Chest pain work up for ACS Neuropathic pain likely 2/2 diabetes on methadone PT OT Current Medications Medications (Trade) Dose Ordered Sig/Rogers Route PRN Reason Start Time Stop Time Status Last Admin Dose Admin Acetaminophen (Tylenol) 650 mg Q4H PRN ORAL Mild Pain (Pain Scale 1-3) 07/12/20 17:00 08/11/20 16:59 Amlodipine Besylate (Norvasc) 10 mg DAILY ORAL 07/13/20 09:00 08/12/20 08:59 07/13/20 09:29 Aspirin (ASA) 81 mg DAILY ORAL 07/13/20 09:00 08/27/20 08:59 07/13/20 09:29 Atorvastatin Calcium (Lipitor) 80 mg BEDTIME ORAL 07/12/20 21:00 10/10/20 20:59 07/12/20 21:22 Clonidine HCl (Catapres Tab) 0.1 mg Q4H PRN ORAL sbp>170 07/12/20 16:45 10/10/20 16:44 Dextrose (Dextrose 50%) 25 ml Q30M PRN IV Hypoglycemia 07/12/20 18:30 10/10/20 18:29 Dextrose (Dextrose 50%) 50 ml Q30M PRN IV Hypoglycemia 07/12/20 18:30 10/10/20 18:29 Insulin Aspart (NovoLOG) BEFORE MEALS AND HS SUBQ 07/12/20 21:00 10/10/20 20:59 07/13/20 17:43 Methadone HCl (Methadone HCl) 80 mg DAILY ORAL 07/13/20 16:41 07/20/20 16:40 07/13/20 17:40 Morphine Sulfate (Morphine Sulfate) 2 mg Q4H PRN IVP For Pain 4-10 07/12/20 17:00 07/19/20 16:59 07/13/20 14:05 Regadenoson (Lexiscan) 0.4 mg ONCE PRN IV garden consultant to cardiology 07/12/20 16:45 07/14/20 16:44 Tomi Beaulieu MD Jul 13, 2020 18:00
--- NOTE | 2020-07-13 18:23 | Consultation ---
History of Present Illness General Date patient seen: Jul 13, 2020 Reason for Hospitalization: Chest Pain Present Illness HPI This is a pleasant 60-year-old -[place] female with past medical history of insulin-dependent diabetes, hypertension, dyslipidemia, COPD who presented to the emergency department at [facility] c/o substernal crushing chest pressure and was admitted for eval, work up, care and management. cardio acs eval noted. on exam noted to have some abdominal discomfort on palpation. surgery called to evaluate and assist with care. patient seen, chat reviewed, patient examined. Allergies: Coded Allergies: SULFA (SULFONAMIDE ANTIBIOTICS) (Unverified Allergy, Unknown, 08/13/18) COVID-19 Screening Contact w/high risk pt: No Recent Travel to affected area: No Experienced COVID-19 symptoms?: No Coronavirus symptoms experienc: Shortness of Breath Medication History Scheduled Aspirin* (Aspirin*), 81 MG ORAL DAILY, (Reported) Azithromycin (Zithromax), 500 MG IVPB DAILY, (Reported) Benzonatate* (Tessalon Perle*), 200 MG ORAL THREE TIMES A DAY, (Reported) Ceftriaxone Na/Dextrose,Iso (Ceftriaxone 1 Gm Piggyback), 1 GM IV DAILY, (Report ed) Docusate Sodium* (Docusate Sodium*), 100 MG ORAL TWICE A DAY, (Reported) Famotidine (Famotidine), 40 MG ORAL DAILY, (Reported) Gabapentin* (Gabapentin*), 800 MG ORAL FOUR TIMES A DAY, (Reported) Guaifenesin (Guaifenesin ER), 600 MG ORAL BID, (Reported) Heparin Sod (Porcine) (Heparin Sodium*), 5,000 UNITS SUBQ EVERY 12 HOURS, (Reported) Insulin Detemir (Levemir), 16 UNITS SUBQ BEDTIME, (Reported) Insulin Detemir (Levemir), 16 UNITS SUBQ BEDTIME Ipratropium/Albuterol Sulfate (DuoNeb 0.5-3(2.5)mg/3ml), 3 ML HHN Q4HR, (Reported) Lisinopril (Lisinopril*), 40 MG ORAL DAILY, (Reported) Methadone Hcl* (Methadone*), 80 MG PO DAILY, (Reported) Methylprednisolone Sod Succ/Pf (Solu-Medrol 125 Mg Vial), 60 MG IV Q8HR, (Reported) OXYCODONE HCl* (Roxicodone*), 30 MG ORAL TID, (Reported) [1/2NS], 75 ML IV Q1HR, (Reported) Scheduled PRN Albuterol Sulfate (Proventil Hfa), 2 PUFFS IH q2hr PRN for Shortness of Breath, (Reported) Alprazolam* (Xanax*), 0.25 MG ORAL THREE TIMES A DAY PRN for For Anxiety, (Reported) Dextrose 50 % In Water (Dextrose 50%-Water Vial), 50 ML IV Q30MIN PRN for hypoglycemia, (Reported) Diphenhydramine Hcl* (Benadryl*), 25 MG ORAL Q6H PRN for Itching, (Reported) Guaifenesin/Dextromethorphan* (Guaifenesin Dm Syrup*), 10 ML ORAL Q4HR PRN for For Cough, (Reported) Ondansetron* (Zofran*), 4 MG IV Q6H PRN for Nausea & Vomiting, (Reported) Polyethylene Glycol 3350* (Miralax*), 17 GM ORAL DAILY PRN for Constipation, (Reported) Miscellaneous Medications Insulin Aspart (Novolog), (Reported) Patient History History Provided By: Patient, Medical Record, PMD Healthcare decision maker N Resuscitation status Advanced Directive on File Past Medical/Surgical History Past Medical/Surgical History: (1) Smoker (2) Diabetes (3) HTN (hypertension) (4) Chest pain (5) Influenza Review of Systems Review of Symptoms General ROS: no weight loss or fever Psychological ROS: no depression or mood changes, no memory loss Ophthalmic ROS: no visual changes or eye irritation ENT ROS: no nasal congestion, hearing loss, dizziness Allergy and Immunology ROS: no allergic symptoms or urticaria Hematological and Lymphatic ROS: no swollen glands, unusual bleeding or bruising Endocrine ROS: no polyuria, polydipsia, weight changes, temperature intolerance Respiratory ROS: no cough, shortness of breath, or wheezing Cardiovascular ROS: no chest pain or dyspnea on exertion Gastrointestinal ROS: denies abdominal pain, bright red blood in stool. Musculoskeletal ROS: no myalgias or arthralgias Neurological ROS: no TIA or stroke symptoms Dermatological ROS: no new or changing skin lesions, rashes or pruritis Physical Exam Physical Exam General appearance: alert, cooperative, no distress, appears stated age Head: Normocephalic, without obvious abnormality, atraumatic Eyes: conjunctivae/corneas clear. PERRL, EOM's intact. Fundi benign Throat: Lips, mucosa, and tongue normal. Teeth and gums normal Neck: supple, symmetrical, trachea midline, no adenopathy, thyroid: not enlarged, symmetric, no tenderness/mass/nodules, no carotid bruit and no JVD Lungs: clear to auscultation bilaterally Heart: regular rate and rhythm, S1, S2 normal, no murmur, click, rub or gallop Abdomen: soft, non-tender, mild discomfort on deep palpation but not severe. Bowel sounds normal. No masses, no organomegaly Extremities: extremities normal, atraumatic, no cyanosis or edema Pulses: 2+ and symmetric Skin: Skin color, texture, turgor normal. No rashes or lesions Neurologic: Grossly normal Last 24 Hour Vital Signs Date Time Temp Pulse Resp B/P (MAP) Pulse Ox O2 Delivery O2 Flow Rate FiO2 07/13/20 16:00 98.5 84 20 145/86 (105) 100 07/13/20 16:00 75 07/13/20 14:35 97.6 07/13/20 12:00 98.5 72 20 141/83 (102) 100 07/13/20 12:00 78 07/13/20 09:29 75 144/90 07/13/20 09:00 Room Air 07/13/20 08:46 97.6 07/13/20 08:00 98.1 75 20 144/90 (108) 100 07/13/20 08:00 84 07/13/20 04:00 83 07/13/20 04:00 97.6 74 18 128/79 (95) 99 07/13/20 00:00 97.5 79 19 138/81 (100) 100 07/13/20 00:00 79 07/12/20 23:52 97.5 07/12/20 21:00 Room Air 07/12/20 20:00 97.8 72 18 122/78 (93) 94 07/12/20 20:00 75 Laboratory Tests Test 07/12/20 19:11 07/13/20 03:00 07/13/20 06:33 07/13/20 12:06 Troponin I 0.009 ng/mL (0.000-0.056) 0.008 ng/mL (0.000-0.056) Sodium Level 137 MMOL/L (136-145) Potassium Level 4.1 MMOL/L (3.5-5.1) Chloride Level 102 MMOL/L (98-107) Carbon Dioxide Level 38 MMOL/L (21-32) H Anion Gap -3 mmol/L (5-15) L Blood Urea Nitrogen 14 mg/dL (7-18) Creatinine 0.8 MG/DL (0.55-1.30) Estimat Glomerular Filtration Rate > 60 mL/min (>60) Glucose Level 150 MG/DL (74-106) H Hemoglobin A1c 8.1 % (4.3-6.0) H Calcium Level 9.5 MG/DL (8.5-10.1) Phosphorus Level 2.9 MG/DL (2.5-4.9) Magnesium Level 1.8 MG/DL (1.8-2.4) Triglycerides Level 41 MG/DL (30-150) Cholesterol Level 112 MG/DL (< 200) LDL Cholesterol 53 mg/dL (<100) HDL Cholesterol 43 MG/DL (40-60) Cholesterol/HDL Ratio 2.6 (3.3-4.4) L POC Whole Blood Glucose 124 MG/DL (74-106) H 121 MG/DL (74-106) H Height (Feet): 5 Height (Inches): 6.00 Weight (Pounds): 178 Medications Current Medications Medications (Trade) Dose Ordered Sig/Rogers Route PRN Reason Start Time Stop Time Status Last Admin Dose Admin Acetaminophen (Tylenol) 650 mg Q4H PRN ORAL Mild Pain (Pain Scale 1-3) 07/12/20 17:00 08/11/20 16:59 Amlodipine Besylate (Norvasc) 10 mg DAILY ORAL 07/13/20 09:00 08/12/20 08:59 07/13/20 09:29 Aspirin (ASA) 81 mg DAILY ORAL 07/13/20 09:00 08/27/20 08:59 07/13/20 09:29 Atorvastatin Calcium (Lipitor) 80 mg BEDTIME ORAL 07/12/20 21:00 10/10/20 20:59 07/12/20 21:22 Clonidine HCl (Catapres Tab) 0.1 mg Q4H PRN ORAL sbp>170 07/12/20 16:45 10/10/20 16:44 Dextrose (Dextrose 50%) 25 ml Q30M PRN IV Hypoglycemia 07/12/20 18:30 10/10/20 18:29 Dextrose (Dextrose 50%) 50 ml Q30M PRN IV Hypoglycemia 07/12/20 18:30 10/10/20 18:29 Insulin Aspart (NovoLOG) BEFORE MEALS AND HS SUBQ 07/12/20 21:00 10/10/20 20:59 07/13/20 17:43 Methadone HCl (Methadone HCl) 80 mg DAILY ORAL 07/13/20 16:41 07/20/20 16:40 07/13/20 17:40 Morphine Sulfate (Morphine Sulfate) 2 mg Q4H PRN IVP For Pain 4-10 07/12/20 17:00 07/19/20 16:59 07/13/20 14:05 Regadenoson (Lexiscan) 0.4 mg ONCE PRN IV fabrication department supervisor to cardiology 07/12/20 16:45 07/14/20 16:44 Assessment/Plan Status Narrative Abdominal discomfort noted on exam ACS work up by cardiology lactic acidosis noted given ivf labs noted exam fairly benign. patient without acute abdomen non tender and discomfort likely sensitivity KUB ordered okay for diet will follow with exam trend labs thank you Rich Robbins Jul 13, 2020 18:23
[2020-07-13 20:00] VITALS: BP 152/88
[2020-07-13] MEDS: Atorvastatin 80mg tab ORAL SCH (20:15)
[2020-07-14] VITALS: BP 158/81
[2020-07-14] MEDS: Morphine Sulfate 2mg/ml Inj(IV/IM USE ONLY) IVP PRN ×3 (02:12→11:49)
[2020-07-14 04:00] VITALS: BP 152/80
[2020-07-14] MEDS: NovoLOG Insulin Flexpen SUBQ SCH ×3 (05:59→16:30)
[2020-07-14 08:00] VITALS: BP 145/88
[2020-07-14] MEDS: Aspirin Baby 81mg ORAL SCH (08:56)
--- NOTE | 2020-07-14 10:53 | Surgery Progress Note ---
Surgery Progress Note Subjective Additional Comments Patient seen and examined bedside. No acute events. Resting comfortably. Labs reviewed micro reviewed imaging reviewed. Afebrile hemodynamically stable at this time Objective Last 24 Hour Vital Signs Date Time Temp Pulse Resp B/P (MAP) Pulse Ox O2 Delivery O2 Flow Rate FiO2 07/14/20 09:00 Room Air 07/14/20 09:00 75 07/14/20 08:55 79 145/86 07/14/20 08:00 98.3 77 21 145/88 (107) 100 07/14/20 04:00 78 07/14/20 04:00 97.3 78 16 152/80 (104) 94 07/14/20 00:00 83 07/14/20 00:00 98.5 85 16 158/81 (106) 94 07/13/20 21:00 Room Air 07/13/20 20:00 98.3 79 18 152/88 (109) 94 07/13/20 20:00 75 07/13/20 16:00 98.5 84 20 145/86 (105) 100 07/13/20 16:00 75 07/13/20 14:35 97.6 07/13/20 12:00 98.5 72 20 141/83 (102) 100 07/13/20 12:00 78 I&O Intake and Output 07/13/20 07/14/20 19:00 07:00 Intake Total 720 ml Balance 720 ml Intake Oral 720 ml # Voids 7 Dressing: dry Wound: clean Cardiovascular: RSR Respiratory: clear Abdomen: soft, non-tender, present bowel sounds Extremities: no edema, no tenderness, no cyanosis, other Laboratory Tests Test 07/13/20 12:06 07/13/20 20:21 POC Whole Blood Glucose 121 MG/DL (74-106) H 119 MG/DL (74-106) H Assessment Post-op Diagnosis Abdominal discomfort noted on exam ACS work up by cardiology lactic acidosis noted given ivf labs noted exam fairly benign. patient without acute abdomen non tender and discomfort likely sensitivity KUB ordered okay for diet will follow with exam trend labs thank you Rich Robbins Jul 14, 2020 10:53
[2020-07-14 12:00] VITALS: BP 143/85
--- NOTE | 2020-07-14 12:15 | Pulmonology Progress Note ---
Subjective ROS Limited/Unobtainable: No Interval Events: v tach 5 beats overnight; Dr. Juardo aware per nursing Constitutional: Reports: no symptoms Respiratory: Reports: no symptoms Cardiovascular: Reports: no symptoms Gastrointestinal/Abdominal: Reports: no symptoms Allergies: Coded Allergies: SULFA (SULFONAMIDE ANTIBIOTICS) (Unverified Allergy, Unknown, 08/13/18) Objective Last 24 Hour Vital Signs Date Time Temp Pulse Resp B/P (MAP) Pulse Ox O2 Delivery O2 Flow Rate FiO2 07/14/20 12:00 98.5 74 18 143/85 (104) 100 07/14/20 09:00 Room Air 07/14/20 09:00 75 07/14/20 08:55 79 145/86 07/14/20 08:00 98.3 77 21 145/88 (107) 100 07/14/20 04:00 78 07/14/20 04:00 97.3 78 16 152/80 (104) 94 07/14/20 00:00 83 07/14/20 00:00 98.5 85 16 158/81 (106) 94 07/13/20 21:00 Room Air 07/13/20 20:00 98.3 79 18 152/88 (109) 94 07/13/20 20:00 75 07/13/20 16:00 98.5 84 20 145/86 (105) 100 07/13/20 16:00 75 07/13/20 14:35 97.6 Intake and Output 07/13/20 07/14/20 19:00 07:00 Intake Total 720 ml Balance 720 ml Intake Oral 720 ml # Voids 7 Objective 07/14 saturating well on RA, stable respiration 07/13 saturating at 100% on RA, normal work of breathing General Appearance: no acute distress HEENT: atraumatic Respiratory: lungs clear Cardiovascular: normal rate, regular rhythm Abdomen: soft, non tender Microbiology Date/Time Source Procedure Growth Status 07/12/20 00:00 Nasopharynx SARS-CoV-2 RdRp Gene Assay - Final Complete Laboratory Tests 07/13/20 20:21: POC Whole Blood Glucose 119H Current Medications Medications (Trade) Dose Ordered Sig/Rogers Route PRN Reason Start Time Stop Time Status Last Admin Dose Admin Acetaminophen (Tylenol) 650 mg Q4H PRN ORAL Mild Pain (Pain Scale 1-3) 07/12/20 17:00 08/11/20 16:59 Amlodipine Besylate (Norvasc) 10 mg DAILY ORAL 07/13/20 09:00 08/12/20 08:59 07/14/20 08:55 Aspirin (ASA) 81 mg DAILY ORAL 07/13/20 09:00 08/27/20 08:59 07/14/20 08:56 Atorvastatin Calcium (Lipitor) 80 mg BEDTIME ORAL 07/12/20 21:00 10/10/20 20:59 07/13/20 20:15 Clonidine HCl (Catapres Tab) 0.1 mg Q4H PRN ORAL sbp>170 07/12/20 16:45 10/10/20 16:44 Dextrose (Dextrose 50%) 25 ml Q30M PRN IV Hypoglycemia 07/12/20 18:30 10/10/20 18:29 Dextrose (Dextrose 50%) 50 ml Q30M PRN IV Hypoglycemia 07/12/20 18:30 10/10/20 18:29 Insulin Aspart (NovoLOG) BEFORE MEALS AND HS SUBQ 07/12/20 21:00 10/10/20 20:59 07/14/20 05:59 Methadone HCl (Methadone HCl) 80 mg DAILY ORAL 07/13/20 16:41 07/20/20 16:40 07/14/20 08:56 Morphine Sulfate (Morphine Sulfate) 2 mg Q4H PRN IVP For Pain 4-10 07/12/20 17:00 07/19/20 16:59 07/14/20 11:49 Regadenoson (Lexiscan) 0.4 mg ONCE PRN IV missing persons investigator to cardiology 07/12/20 16:45 07/14/20 16:44 Assessment/Plan Assessment/Plan 1. Chest pain. - stress test canceled due to positive toxicology screening: opiate and cocaine -2D echo LV EF 60% 2. COPD. - currently saturating at 100% on RA - provide supplemental oxygen as needed 3. Hypertension. - needs better control 4. Diabetes mellitus. - BGs slightly elevated Continue oxygen and pulmonary hygiene. We will follow. The care for this patient was discussed with my supervising physician Time spent for this case was approximately 31 minutes Asad Jaime Jul 14, 2020 12:15
--- NOTE | 2020-07-14 12:59 | Cardiology Report ---
APPROVED REPORT EKG Measurement Heart [id number] <Conclusion> Normal sinus rhythm Incomplete right bundle branch block Cannot rule out Anterior infarct, age undetermined Abnormal ECG
--- NOTE | 2020-07-14 14:56 | Cardiac Electrophysiology PN ---
Assessment/Plan Assessment/Plan 1. Chest pain in a pt with hypertension, diabetes, and hyperlipidemia as well as cocaine use. Avoid beta-blockers. Ruled out for PA and stress test cancelled by Dr Hill 2. Hypertension. Avoid beta-blockers. On amlodipine 5 mg b.i.d. and p.r.n. clonidine. 3. Active cocaine user. 4. COPD. Subjective Subjective Had 4 beats of NSVT. DC home pending Objective Last 24 Hour Vital Signs Date Time Temp Pulse Resp B/P (MAP) Pulse Ox O2 Delivery O2 Flow Rate FiO2 07/14/20 12:00 92 07/14/20 12:00 98.5 74 18 143/85 (104) 100 07/14/20 09:00 Room Air 07/14/20 09:00 75 07/14/20 08:55 79 145/86 07/14/20 08:00 98.3 77 21 145/88 (107) 100 07/14/20 04:00 78 07/14/20 04:00 97.3 78 16 152/80 (104) 94 07/14/20 00:00 83 07/14/20 00:00 98.5 85 16 158/81 (106) 94 07/13/20 21:00 Room Air 07/13/20 20:00 98.3 79 18 152/88 (109) 94 07/13/20 20:00 75 07/13/20 16:00 98.5 84 20 145/86 (105) 100 07/13/20 16:00 75 Intake and Output 07/13/20 07/14/20 19:00 07:00 Intake Total 720 ml Balance 720 ml Intake Oral 720 ml # Voids 7 Laboratory Tests Test 07/13/20 20:21 POC Whole Blood Glucose 119 MG/DL (74-106) H Microbiology Date/Time Source Procedure Growth Status 07/12/20 00:00 Nasopharynx SARS-CoV-2 RdRp Gene Assay - Final Complete Objective HEAD AND NECK: Showed no JVD. LUNGS: Clear. CARDIOVASCULAR: Shows regular S1 and S2 with no gallop or murmur. ABDOMEN: Soft. EXTREMITIES: No pitting edema. Ganesh Gutiérrez MD Jul 14, 2020 14:56
[2020-07-14 16:00] VITALS: BP 140/86
--- NOTE | 2020-07-17 13:29 | Discharge Summary ---
Discharge Summary Discharge Summary _ DATE OF ADMISSION: 07/12/2020 DATE OF DISCHARGE: 07/14/2020 DISCHARGED BY: REASON FOR ADMISSION: 60 years old female with past medical history of insulin-dependent diabetes mellitus, hypertension, dyslipidemia, COPD, presented to emergency department with substernal crushing chest pressure , which was intermittent and started the day prior to presentation. In the morning chest pressure became constant. Patient also endorsed nausea and dyspnea on exertion. She denied recent cardiac evaluation . No hemoptysis. No history of blood clots. No leg swelling. She denied melena , hematochezia . Rapid COVID-19 was negative. Chest x-ray demonstrated cardiomegaly mild interstitial congestion. Laboratory work-up revealed WBC 3.0, hemoglobin 10.9 ,hematocrit 35.5 ,platelet count 113. Troponin negative, pro BNP 179. EKG revealed normal sinus rhythm with incomplete right bundle branch block. Sodium 133 , stable other electrolytes and renal parameters. Glucose 157. Stable LFT and lipase. Urine toxicology screen was positive for opiates and cocaine. Urinalysis revealed +1 leukocyte esterase, but no pyuria and only occasional bacteria . Patient admitted for further work-up for chest pain CONSULTANTS: air conditioning installer supervisor Dr. Jurado pulmonary Dr. Ahuja surgery Dr. Robbins [facility] COURSE: Patient admitted to telemetry floor. Serial troponin were negative . EKG revealed no acute ischemic changes . patient was ruled out for acute myocardial infarction. Patient started on aspirin and statin. Lipid panel was stable Echocardiogram demonstrated preserved ejection fraction 60%. No evidence of left ventricular hypertrophy. No evidence of wall motion abnormalities. Right ventricular systolic pressure 61 consistent with severe pulmonary hypertension. Laser Engineer recommended to avoid beta-behzad given active cocaine use. Blood pressure was managed with amlodipine. Clonidine was on board as needed for blood pressure spikes. Patient was counseled to avoid illicit street drugs and tobacco cessation. Supplemental oxygen was on board as needed ; pulse oximetry remained stable on room air. Blood sugar was closely monitored, remained stable. Hemoglobin A1c 8.2. Diabetic diet and diabetic teaching provided. Chest pain resolved. Outpatient stress test was recommended as per patient's insurance. Patient clinically stabilized and was ready for discharge home. FINAL DIAGNOSES: Chest pain r/o acute coronary syndrome Hyperlipidemia Hypertension Active cocaine user COPD Smoker Diabetes melitus DISCHARGE MEDICATIONS: See Medication Reconciliation list. DISCHARGE INSTRUCTIONS: Patient was discharged home. Follow-up with a primary care provider in 1 week. Patient was counseled on abstinence from illicit street drugs and smoking cessation. Recommended outpatient stress test as per patient's insurance. I have been assigned to dictate discharge summary for this account. I was not involved in the patient's management. Michelle Reis NP Jul 17, 2020 13:29
== END 2020-07-14 16:50 | disposition home or self-care (01) | DRG 198 ==
LOC: EMR 10:01 → 2E 13:21 → EDBEDREQ 14:41
DX: I24.9 Acute ischemic heart disease, unspecified (principal); R07.9 Chest pain, unspecified; J44.9 Chronic obstructive pulmonary disease, unspecified; J11.1 Influenza due to unidentified influenza virus with other respiratory manifestations; E87.2 Acidosis; E11.9 Type 2 diabetes mellitus without complications; Z79.4 Long term (current) use of insulin; I10 Essential (primary) hypertension; E78.5 Hyperlipidemia, unspecified; Z88.2 Allergy status to sulfonamides; F14.10 Cocaine abuse, uncomplicated; F17.200 Nicotine dependence, unspecified, uncomplicated; I27.20 Pulmonary hypertension, unspecified
CPT/HCPCS: 36415; 71045; 80048; 80053; 80061; 80307; 81003; 82962; 83036; 83690; 83735; 83880; 84100; 84484; 85007; 85025; 85610; 85730; 93005; 93306; 96374; 96375; 99285; J1815; J2405; U0002

== ENCOUNTER 2020-08-25 18:54 | Inpatient (IN) | payer OTHER ==
[~2020-08-25] VITALS: Ht 167.6 cm; Wt 75.7 kg
--- NOTE | 2020-08-25 01:50 | NUR ---
NURSE NOTES: Refused to check her bag to verify her belongings. charge nurse is aware. will endorse to morning nurse
--- NOTE | 2020-08-25 19:06 | Emergency Room Report ---
History of Present Illness General Chief Complaint: shortness of breath Source: Patient Present Illness HPI Patient is a 60-year-old female presents for increased shortness of breath. Prior history of COPD. She states that she normally is on home oxygen approximately 4 L. Reports having prior history of substance abuse with both heroin and cocaine. States that she had been more short of breath over the past few days. Denies any leg swelling.patient has prior history of neuropathy. Become short of breath with minimal exertion. Denies any prior cardiac history. Allergies: Coded Allergies: SULFA (SULFONAMIDE ANTIBIOTICS) (Unverified Allergy, Unknown, 08/13/18) COVID-19 Screening Contact w/high risk pt: No Recent Travel to affected area: No Experienced COVID-19 symptoms?: No Patient History Past Medical History: see triage record Reviewed Nursing Documentation: PMH: Agreed; PSxH: Agreed Nursing Documentation-PMH Hx Cardiac Problems: No Hx Hypertension: Yes Hx Pacemaker: No Hx Asthma: Yes Hx COPD: Yes Hx Diabetes: Yes Hx Cancer: No Hx Gastrointestinal Problems: No Hx Dialysis: No Hx Neurological Problems: No Hx Cerebrovascular Accident: No Hx Seizures: No Review of Systems All Other Systems: negative except mentioned in HPI Physical Exam Sp02 EP Interpretation: reviewed, normal General Appearance: alert, GCS 15, Chronically Ill Head: atraumatic ENT: normal ENT inspection, hearing grossly normal, normal voice Neck: normal inspection, full range of motion, supple, no bony tend Respiratory: normal inspection, no respiratory distress, no retraction, wheezing Cardiovascular #1: regular rate, rhythm, edema - trace edema Gastrointestinal: normal inspection, normal bowel sounds, non tender, soft, no guarding, no hernia Genitourinary: no CVA tenderness Musculoskeletal: normal inspection, back normal, normal range of motion Neurologic: alert, motor strength/tone normal, scrub nurse III-XII nml as tested, oriented x3, responsive, speech normal, normal inspection Psychiatric: normal inspection, judgement/insight normal, mood/affect normal Skin: other - multiple sclerotic nodules to extremities Medical Decision Making Diagnostic Impression: Primary Impression: COPD exacerbation Additional Impressions: Pneumonitis Opiate dependence Diabetes ER Course Patient presents with shortness of breath. Differential diagnosis include was not limited to COPD exacerbation, pneumonia, CHF, coronavirus infection among others. Because of complexity of patient's case laboratory tests and imaging studies were ordered.Patient laboratory testing showed evidence of elevated BNP. Patient does not appear to be in any acute respiratory distress. Chest x-ray read by radiology showed cardiomegaly as well as right-sided infiltrate with possible small effusions bilaterally. Patient was given IV antibiotics as well as breathing treatments and steroids. Dr. Christian Thomas was contacted for inpatient management due to panel physician. This medical record is generated with [employer] in home caregiver software. There may be some in home caregiver discrepancies related to use of this software. Labs Test 08/25/20 19:15 08/25/20 19:34 Urine Color Pale yellow Urine Appearance Clear Urine pH 8 (4.5-8.0) Urine Specific Hudson 1.010 (1.005-1.035) Urine Protein Negative (NEGATIVE) Urine Glucose (UA) Negative (NEGATIVE) Urine Ketones Negative (NEGATIVE) Urine Blood Negative (NEGATIVE) Urine Nitrite Negative (NEGATIVE) Urine Bilirubin Negative (NEGATIVE) Urine Urobilinogen 1 MG/DL (0.0-1.0) Urine Leukocyte Esterase Negative (NEGATIVE) POC Whole Blood Glucose 115 MG/DL (74-106) EKG Diagnostic Results Rate: normal Rhythm: NSR ST Segments: no acute changes Rhythm Strip Diag. Results EP Interpretation: yes Rhythm: NSR, no PVC's, no ectopy Status: unchanged Disposition: ADMITTED INPATIENT Condition: Stable Tristen Falcon MD Aug 25, 2020 19:06
[2020-08-25] MEDS ORDERED: Albuterol/Ipratropium 3ml neb HHN ONE (19:15)
--- NOTE | 2020-08-25 19:15 | NUR ---
ED Nurse Note: Patient came in the ED complaining of shortness of breath at rest and wheezing. Denies chest pain. Patient uses a walker.
--- NOTE | 2020-08-25 19:30 | NUR ---
ED Nurse Note: Unable to place a peripheral line. several failed attempts by couple nurses. ER provider made aware.
--- NOTE | 2020-08-25 20:09 | Diagnostic Imaging Report ---
EXAM: XR Chest, 1 View CLINICAL HISTORY: SOB TECHNIQUE: Frontal view of the chest. COMPARISON: No relevant prior studies available. FINDINGS: Lungs: Mild patchy pulmonary opacities. Reduced lung volumes. Pleural space: Blunting of the costophrenic angles that may be from pleural effusions or pleural thickening. No pneumothorax. Heart: Large cardiac silhouette. Mediastinum: Unremarkable. Bones/joints: No acute fracture. IMPRESSION: Mild patchy pulmonary opacities. Could be from pneumonia and/or edema.
[2020-08-25 20:22] VITALS: BP 140/87
[2020-08-25 20:45] LABS: APPEARANCE,URINE CLEAR; BILIRUBIN, URINE NEGATIVE (NEGATIVE); COLOR,URINE PALE YELLOW; GLUCOSE, URINE (UA) NEGATIVE (NEGATIVE); KETONES,URINE NEGATIVE (NEGATIVE); LEUKOCYTE ESTERASE ,URINE NEGATIVE (NEGATIVE); NITRITE,URINE NEGATIVE (NEGATIVE); PH,URINE 8 (4.5-8.0); PROTEIN,URINE NEGATIVE (NEGATIVE); UROBILINOGEN,URINE 1 MG/DL (0.0-1.0)
--- NOTE | 2020-08-25 21:30 | NUR ---
ED Nurse Note: right forearm 20 peripheral line placed by dr. Clarke.
[2020-08-25 22:35] LABS: ANION GAP -2 mmol/L (5-15); BLOOD UREA NITROGEN 11 mg/dL (7-18); CALCIUM 9.3 MG/DL (8.5-10.1); CARBON DIOXIDE 35 MMOL/L (21-32); CHLORIDE 100 MMOL/L (98-107); CREATININE 0.7 MG/DL (0.55-1.30); POTASSIUM 4.1 MMOL/L (3.5-5.1); SODIUM 133 MMOL/L (136-145)
[2020-08-25 22:44] LABS: HEMATOCRIT 36.3 % (37.0-47.0); HEMOGLOBIN 10.9 G/DL (12.0-16.0); MEAN CORPUSCULAR VOLUME 94 FL (80-99); PLATELET COUNT 115 K/UL (150-450); RED BLOOD COUNT 3.87 M/UL (4.20-5.40); WHITE BLOOD COUNT 3.4 K/UL (4.8-10.8)
[2020-08-25 22:51] LABS: ALANINE AMINOTRANSFERASE 15 U/L (12-78); ALBUMIN 2.9 G/DL (3.4-5.0); ALBUMIN/GLOBULIN RATIO 0.5 (1.0-2.7); ALKALINE PHOSPHATASE 112 U/L (46-116); ASPARTATE AMINO TRANSFERASE 42 U/L (15-37); BILIRUBIN,TOTAL 0.7 MG/DL (0.2-1.0); CREATINE KINASE 108 U/L (26-308); FERRITIN 44 NG/ML (8-388); LACTATE DEHYDROGENASE 384 U/L (81-234)
[2020-08-25] MEDS ORDERED: cefTRIAXone 1 GM in D5W 55 ML IVPB ONE (23:00)
[2020-08-25] MEDS ORDERED: Nitroglycerin Subl 0.4mg tab SL PRN (23:00)
--- NOTE | 2020-08-25 23:55 | NUR ---
ED Nurse Note: Patient unable to receive IV antibiotic due to IV line malfunction. ER Dr. Clarke made aware.
[2020-08-26] MEDS ORDERED: Lidocaine 1% MPF 10mg/ml 5ml INJ ONE (00:15)
[2020-08-26] MEDS ORDERED: Albuterol ud Inhalation HHN ONE (00:45)
--- NOTE | 2020-08-26 01:05 | NUR ---
Report given to DANIEL Kraft in tele.
--- NOTE | 2020-08-26 01:46 | NUR ---
NURSE NOTES: Received patient per natalie accompanied by ER staffs. alert and oriented. verbally responsive. ambulatory. on room air of 88%; episode of sob with minimal exertion. NO IV access. denies any pain at the moment. no skin issues. wheezing noted upon assessment. offered to have bedside commode for safety;patient refused and prefers to go the restroom. oriented to room set-up. history provided by the patient. all belongings on the bedside with a walker. reiterated to call and ask for assistance to prevent fall or injury. bed locked and in lowest position. call light and light button within easy reach. Addendum: 08/26/20 at 0341 by Henrietta Fox RN noted with dry skin and multiple scabs on bilateral arms
--- NOTE | 2020-08-26 01:47 | NUR ---
TRANSFER TO FLOOR: Patient transferred to [facility] as ordered, per Tricia. Report given to DANIEL Kraft. Belongings are with patient. Belonging list completed and signed by patient.
--- NOTE | 2020-08-26 02:00 | NUR ---
NURSE NOTES: patient refused iv re-insertion. charge nurse made aware
--- NOTE | 2020-08-26 02:20 | NUR ---
NURSE NOTES: paged dr. boone for admission orders. awaiting for call back. charge nurse made aware
[2020-08-26 04:00] VITALS: BP 143/90
--- NOTE | 2020-08-26 05:00 | NUR ---
NURSE NOTES: paged dr. boone for admission orders. awaiting for call back
[2020-08-26] MEDS ORDERED: guaiFENesin /DM 10ml syrup ORAL PRN (06:45)
[2020-08-26] MEDS ORDERED: Miralax 17gm pkt ORAL PRN (06:45)
[2020-08-26] MEDS ORDERED: ALPRAZolam 0.25mg tab ORAL PRN (06:45)
--- NOTE | 2020-08-26 06:45 | NUR ---
NURSE NOTES: received orders from dr. boone. noted and carried out. charge nurse made aware
--- NOTE | 2020-08-26 06:47 | NUR ---
NURSE HAND-OFF REPORT: Important Events on Shift: admission: refused to check her bag upon verifying her belongings Patient Status: stable Diet: ccho m Pending Orders: Pending Results/Labs: Pending MD notification: Latest Vital Signs: Temperature 98.5 , Pulse 88 , B/P 143 /90 , Respiratory Rate 18 , O2 SAT 99 , Room Air, O2 Flow Rate . Vital Sign Comment: EKG Rhythm: NSR Rhythm change?: N MD Notified?: - MD Response: Latest Mcdonald Fall Score: 30 Fall Risk: Medium Risk Safety Measures: Call light Within Reach, Bed Alarm Zone 1, Side Rails Side Rails x2, Bed position Low and Locked. Fall Precautions: Patient Fall Education Addendum: 08/26/20 at 0736 by Henrietta Fox RN report given to eunice corbin
[2020-08-26] MEDS: Albuterol/Ipratropium 3ml neb HHN SCH ×5 (07:00→22:47)
[2020-08-26 08:00] VITALS: BP 163/83
--- NOTE | 2020-08-26 08:18 | NUR ---
CASE MANAGEMENT:REVIEW 60 YR OLD FEMALE WALKED INTO ER CC: SOB AND WHEEZING SI:COPD EXACERBATION. PNEUMONITIS OPIATE DEPENDENCE. DM 98.4 78 22 172/92 100% ON RA H/H-10.9/36.3 PLT-115 CO2+35 IS: DUONEB HHN ALBUTEROL HHN X1 IV ROCEPHIN X1 CXR BLOOD CX : TO TELEMETRY UNIT DCP: FROM HOME
--- NOTE | 2020-08-26 08:23 | NUR ---
NURSE NOTES: Received patient report from DANIEL Kraft. patient is AO x4 awake and able to make needs known. Patient is on room air and shows no signs of respiratory distress at the time. There is no IV access. Per farmworker pullet farm nurse patient refused. Dr. Thomas aware. Bed is in the lowest position, call light within reach, side rails up x3. Will continue to monitor.
[2020-08-26] MEDS ORDERED: Albuterol 90mcg Inhaler 8gm INH PRN (09:15)
[2020-08-26] MEDS: Levofloxacin 500mg tab ORAL SCH (09:21)
[2020-08-26] MEDS: guaiFENesin ER 600mg tab ORAL SCH ×2 (09:22→21:07)
[2020-08-26] MEDS: Docusate 100mg cap ORAL SCH ×2 (09:22→17:58)
[2020-08-26] MEDS: Lisinopril 20mg tab ORAL SCH (09:22)
[2020-08-26] MEDS: Aspirin Baby 81mg ORAL SCH (09:22)
[2020-08-26] MEDS: Benzonatate 100mg Perles ORAL SCH ×3 (10:00→17:58)
[2020-08-26] MEDS: NovoLOG Insulin Flexpen SUBQ SCH ×3 (11:45→21:17)
[2020-08-26 12:00] VITALS: BP 174/99
--- NOTE | 2020-08-26 13:23 | NUR ---
NURSE NOTES: BP was 174/99, reached Dr. Thomas and he gave orders for Clonidine 0.1mg Asked patient if I could start an IV on her and she declined. Said maybe later.
--- NOTE | 2020-08-26 14:40 | History and Physical ---
History of Present Illness General Reason for Hospitalization: Dyspnea/Respdistress Present Illness HPI 60 years old female c/o sob with cough 1 wk associated cough , no fever no chills hdx drug abused , no ggod veins rec chest pain with uncntrolled htn. Allergies: Coded Allergies: SULFA (SULFONAMIDE ANTIBIOTICS) (Unverified Allergy, Unknown, 08/13/18) COVID-19 Screening Contact w/high risk pt: No Recent Travel to affected area: No Experienced COVID-19 symptoms?: No Medication History Scheduled Aspirin* (Aspirin*), 81 MG ORAL DAILY, (Reported) Benzonatate* (Tessalon Perle*), 200 MG ORAL THREE TIMES A DAY, (Reported) Docusate Sodium* (Docusate Sodium*), 100 MG ORAL TWICE A DAY, (Reported) Famotidine (Famotidine), 40 MG ORAL DAILY, (Reported) Gabapentin* (Gabapentin*), 800 MG ORAL FOUR TIMES A DAY, (Reported) Guaifenesin (Guaifenesin ER), 600 MG ORAL BID, (Reported) Heparin Sod (Porcine) (Heparin Sodium*), 5,000 UNITS SUBQ EVERY 12 HOURS, (Reported) Insulin Detemir (Levemir), 16 UNITS SUBQ BEDTIME, (Reported) Insulin Detemir (Levemir), 16 UNITS SUBQ BEDTIME Ipratropium/Albuterol Sulfate (DuoNeb 0.5-3(2.5)mg/3ml), 3 ML HHN Q4HR, ( Reported) Lisinopril (Lisinopril*), 40 MG ORAL DAILY, (Reported) Methadone Hcl* (Methadone*), 80 MG PO DAILY, (Reported) Scheduled PRN Albuterol Sulfate (Proventil Hfa), 2 PUFFS IH q2hr PRN for Shortness of Breath, (Reported) Alprazolam* (Xanax*), 0.25 MG ORAL THREE TIMES A DAY PRN for For Anxiety, (Reported) Diphenhydramine Hcl* (Benadryl*), 25 MG ORAL Q6H PRN for Itching, (Reported) Guaifenesin/Dextromethorphan* (Guaifenesin Dm Syrup*), 10 ML ORAL Q4HR PRN for For Cough, (Reported) Ondansetron* (Zofran*), 4 MG IV Q6H PRN for Nausea & Vomiting, (Reported) Polyethylene Glycol 3350* (Miralax*), 17 GM ORAL DAILY PRN for Constipation, (Reported) Miscellaneous Medications Insulin Aspart (Novolog), (Reported) Patient History Healthcare decision maker Resuscitation status Advanced Directive on File Review of Systems Constitutional: Reports: sweats, fever, malaise, weakness Eye: Reports: no symptoms ENT: Reports: no symptoms Respiratory: Reports: orthopnea, shortness of breath, stridor Cardiovascular: Reports: chest pain Gastrointestinal: Reports: no symptoms Genitourinary: Reports: no symptoms Musculoskeletal: Reports: muscle pain, muscle stiffness Skin: Reports: no symptoms Psychiatric: Reports: no symptoms Physical Exam General Appearance: alert HEENT: normocephalic Neck: non-tender Cardiovascular/Chest: regular rhythm Extremities: non-tender, other - scars both ue due to iv drugs Last 24 Hour Vital Signs Date Time Temp Pulse Resp B/P (MAP) Pulse Ox O2 Delivery O2 Flow Rate FiO2 08/26/20 13:05 174/99 08/26/20 12:00 83 08/26/20 12:00 98.1 82 20 174/99 (124) 95 08/26/20 11:29 86 18 95 Room Air 21 82 16 93 08/26/20 09:22 163/83 08/26/20 09:00 Room Air 08/26/20 08:00 97.8 80 20 163/83 (109) 99 08/26/20 08:00 83 08/26/20 04:00 98.5 88 18 143/90 (107) 99 08/26/20 04:00 85 08/26/20 02:43 Room Air 08/26/20 00:52 84 20 100 Room Air 21 81 20 96 08/25/20 20:24 81 18 Room Air 08/25/20 20:22 98.4 81 18 140/87 100 Room Air 21 08/25/20 19:45 88 20 100 Room Air 21 85 22 98 08/25/20 19:08 78 22 172/92 (118) 100 Room Air Intake and Output 08/25/20 08/26/20 19:00 07:00 Intake Total 1400 ml Balance 1400 ml Intake Oral 1400 ml # Voids 9 Laboratory Tests Test 08/25/20 19:15 08/25/20 19:34 08/25/20 21:50 08/25/20 22:30 Urine Color Pale yellow Urine Appearance Clear Urine pH 8 (4.5-8.0) Urine Specific [place] 1.010 (1.005-1.035) Urine Protein Negative (NEGATIVE) Urine Glucose (UA) Negative (NEGATIVE) Urine Ketones Negative (NEGATIVE) Urine Blood Negative (NEGATIVE) Urine Nitrite Negative (NEGATIVE) Urine Bilirubin Negative (NEGATIVE) Urine Urobilinogen 1 MG/DL (0.0-1.0) H Urine Leukocyte Esterase Negative (NEGATIVE) POC Whole Blood Glucose 115 MG/DL (74-106) H Sodium Level 133 MMOL/L (136-145) L Potassium Level 4.1 MMOL/L (3.5-5.1) Chloride Level 100 MMOL/L (98-107) Carbon Dioxide Level 35 MMOL/L (21-32) H Anion Gap -2 mmol/L (5-15) L Blood Urea Nitrogen 11 mg/dL (7-18) Creatinine 0.7 MG/DL (0.55-1.30) Estimat Glomerular Filtration Rate > 60 mL/min (>60) Glucose Level 96 MG/DL (74-106) Lactic Acid Level 1.20 mmol/L (0.4-2.0) Calcium Level 9.3 MG/DL (8.5-10.1) Ferritin 44 NG/ML (8-388) Total Bilirubin 0.7 MG/DL (0.2-1.0) Aspartate Amino Transf (AST/SGOT) 42 U/L (15-37) H Alanine Aminotransferase (ALT/SGPT) 15 U/L (12-78) Alkaline Phosphatase 112 U/L (46-116) Lactate Dehydrogenase 384 U/L (81-234) H Total Creatine Kinase 108 U/L (26-308) Creatine Kinase MB 2.0 NG/ML (0.0-3.6) Creatine Kinase MB Relative Index 1.8 Troponin I 0.018 ng/mL (0.000-0.056) C-Reactive Protein, Quantitative 2.2 mg/dL (0.00-0.90) H Pro-B-Type Natriuretic Peptide 470 pg/mL (0-125) H Total Protein 9.0 G/DL (6.4-8.2) H Albumin 2.9 G/DL (3.4-5.0) L Globulin 6.1 g/dL Albumin/Globulin Ratio 0.5 (1.0-2.7) L Lipase 122 U/L (73-393) White Blood Count 3.4 K/UL (4.8-10.8) L Red Blood Count 3.87 M/UL (4.20-5.40) L Hemoglobin 10.9 G/DL (12.0-16.0) L Hematocrit 36.3 % (37.0-47.0) L Mean Corpuscular Volume 94 FL (80-99) Mean Corpuscular Hemoglobin 28.2 PG (27.0-31.0) Mean Corpuscular Hemoglobin Concent 30.1 G/DL (32.0-36.0) L Red Cell Distribution Width 15.0 % (11.6-14.8) H Platelet Count 115 K/UL (150-450) L Mean Platelet Volume 7.4 FL (6.5-10.1) Neutrophils (%) (Auto) % (45.0-75.0) Lymphocytes (%) (Auto) % (20.0-45.0) Monocytes (%) (Auto) % (1.0-10.0) Eosinophils (%) (Auto) % (0.0-3.0) Basophils (%) (Auto) % (0.0-2.0) Differential Total Cells Counted 100 Neutrophils % (Manual) 64 % (45-75) Lymphocytes % (Manual) 28 % (20-45) Monocytes % (Manual) 8 % (1-10) Eosinophils % (Manual) 0 % (0-3) Basophils % (Manual) 0 % (0-2) Band Neutrophils 0 % (0-8) Platelet Estimate Decreased L Platelet Morphology Normal Polychromasia Hypochromasia 1+ Anisocytosis 1+ Test 08/26/20 11:39 POC Whole Blood Glucose 248 MG/DL (74-106) H Height (Feet): 5 Height (Inches): 6.00 Weight (Pounds): 167 Medications Current Medications Medications (Trade) Dose Ordered Sig/Rogers Route PRN Reason Start Time Stop Time Status Last Admin Dose Admin Acetaminophen (Tylenol) 650 mg Q4H PRN ORAL Mild Pain (Pain Scale 1-3) 08/26/20 06:45 09/25/20 06:44 Acetaminophen (Tylenol) 650 mg Q4H PRN ORAL Temp >100.5 08/26/20 06:45 09/25/20 06:44 Acetaminophen/ Hydrocodone Bitart ([place] 5/325) 1 tab Q4H PRN ORAL Moderate Pain (Pain Scale 4-6) 08/26/20 09:15 09/02/20 09:14 Albuterol Sulfate (Proventil MDI) 2 puff Q4H PRN INH Shortness of Breath 08/26/20 09:15 11/24/20 09:14 Albuterol/ Ipratropium (Albuterol/ Ipratropium) 3 ml Q4HRT HHN 08/26/20 07:00 08/31/20 06:59 08/26/20 11:18 Alprazolam (Xanax) 0.25 mg TIDPRN PRN ORAL For Anxiety 08/26/20 06:45 09/02/20 06:44 Aspirin (ASA) 81 mg DAILY ORAL 08/26/20 09:00 10/10/20 08:59 08/26/20 09:22 Benzonatate (Tessalon Perles) 200 mg THREE TIMES A DAY ORAL 08/26/20 09:00 09/25/20 08:59 08/26/20 12:43 Clonidine HCl (Catapres Tab) 0.1 mg EVERY 6 HOURS PRN ORAL For High Blood Pressure 08/26/20 12:00 11/24/20 11:59 08/26/20 13:05 Dextrose (Dextrose 50%) 25 ml Q30M PRN IV Hypoglycemia 08/26/20 06:45 11/24/20 06:44 Dextrose (Dextrose 50%) 50 ml Q30M PRN IV Hypoglycemia 08/26/20 06:45 11/24/20 06:44 Diphenhydramine HCl (Benadryl) 25 mg Q6H PRN ORAL Itching 08/26/20 06:45 09/25/20 06:44 Docusate Sodium (Colace) 100 mg TWICE A DAY ORAL 08/26/20 09:00 09/25/20 08:59 08/26/20 09:22 Gabapentin (Neurontin) 800 mg FOUR TIMES A DAY ORAL 08/26/20 09:00 09/25/20 08:59 08/26/20 12:43 Guaifenesin (Mucinex ER) 600 mg Q12HR ORAL 08/26/20 09:00 11/24/20 08:59 08/26/20 09:22 Guaifenesin/ Dextromethorphan (Robitussin DM Syrup) 10 ml Q4H PRN ORAL For Cough 08/26/20 06:45 11/24/20 06:44 Insulin Aspart (NovoLOG) BEFORE MEALS AND HS SUBQ 08/26/20 11:30 11/24/20 11:29 08/26/20 11:45 Levofloxacin (Levaquin) 500 mg DAILY ORAL 08/26/20 09:00 09/02/20 08:59 08/26/20 09:21 Lisinopril (PriniviL) 40 mg DAILY ORAL 08/26/20 09:00 09/25/20 08:59 08/26/20 09:22 Methadone HCl (Methadone HCl) 80 mg DAILY ORAL 08/26/20 09:00 09/02/20 08:59 08/26/20 09:24 Metoprolol Tartrate (Lopressor) 25 mg Q12HR ORAL 08/26/20 21:00 11/24/20 20:59 Nitroglycerin (Ntg) 0.4 mg Q5M PRN SL Prn Chest Pain 08/25/20 23:00 09/24/20 22:59 Ondansetron HCl (Zofran) 4 mg Q6H PRN IV Nausea & Vomiting 08/26/20 06:45 09/25/20 06:44 Polyethylene Glycol (Miralax) 17 gm DAILYPRN PRN ORAL Constipation 08/26/20 06:45 09/25/20 06:44 Prednisone (predniSONE) 40 mg DAILY ORAL 08/26/20 09:00 09/25/20 08:59 08/26/20 09:22 Assessment/Plan Diagnosis [place] I: ac copd acs htn uncontrolled hx iv drug abused abx steroids duoneb metaprolol picc line Olegario Thomas MD Aug 26, 2020 14:40
[2020-08-26] MEDS ORDERED: Lidocaine 1% Plain 30 ml INJ PRN (15:00)
[2020-08-26] MEDS ORDERED: Heparin1,000 units/500ml Premix(Conc:2 units/ml) IV PRN (15:00)
--- NOTE | 2020-08-26 15:00 | NUR ---
NURSE NOTES: IV placed on left hand, 24 Gauge. Saline lock
[2020-08-26 16:00] VITALS: BP 164/88
--- NOTE | 2020-08-26 19:18 | NUR ---
NURSE HAND-OFF REPORT: Important Events on Shift:[Patient got IV placed on Left hand 24 G. ] Patient Status: [Full code] Diet: [CCHO] Pending Orders: [] Pending Results/Labs:[] Pending MD notification:[] Latest Vital Signs: Temperature 97.9 , Pulse 84 , B/P 164 /88 , Respiratory Rate 20 , O2 SAT 98 , Room Air, O2 Flow Rate . Vital Sign Comment: [] EKG Rhythm: Sinus Rhythm Rhythm change?: N MD Notified?: - MD Response: Latest Mcdonald Fall Score: 30 Fall Risk: Medium Risk Safety Measures: Call light Within Reach, Bed Alarm Zone 2, Side Rails Side Rails x3, Bed position Low and Locked. Fall Precautions: Yellow Socks Yellow Gown Patient Fall Education Report given to [DANIEL Rodriguez].
--- NOTE | 2020-08-26 19:56 | NUR ---
NURSE NOTES: Received patient in bed, awake, alert oriented x4, on room air, IV site is clean dry and intact, patient can ambulate with a walker. Call light is within reach, bed is lowered, locked, alarm is on, will continue to monitor for comfort and safety.
[2020-08-26 20:00] VITALS: BP 162/77
[2020-08-26] MEDS: Dyna-Hex 2% Top Sol 2oz TOPIC SCH (21:06)
--- NOTE | 2020-08-26 21:10 | NUR ---
NURSE NOTES: Receive a report from Jennifer. Pt is awake and alert, sitting in bed waiting for bed time snack. Denies pain. No SOB noted but wheezing noted upon auscultation. On prn O2 2L NC. Will provide inhalator as ordered. Feeling sleepy. Provide fall precautions. Pt has her own FWW @ bedside. Skin intact. Left hand H/L intact. Call light within reach. Will continue to monitor.
[2020-08-27] VITALS: BP 146/90
[2020-08-27] MEDS: HYDROcodone/Acetamin 5/325 tab ORAL PRN ×3 (00:35→17:40)
[2020-08-27] MEDS: Albuterol/Ipratropium 3ml neb HHN SCH ×6 (02:58→22:50)
[2020-08-27 04:00] VITALS: BP 163/83
[2020-08-27] MEDS: NovoLOG Insulin Flexpen SUBQ SCH ×4 (06:18→20:51)
--- NOTE | 2020-08-27 06:44 | NUR ---
NURSE HAND-OFF REPORT: Important Events on Shift: No SOB but mild wheezing--> Ventolin puff on schedule. Pain control x2. Noted appetite. Patient Status: [stable] Diet: [CCHO medium] Pending Orders: [] Pending Results/Labs:[] Pending MD notification:[] Latest Vital Signs: Temperature 97.9 , Pulse 73 , B/P 163 /83 , Respiratory Rate 20 , O2 SAT 91 , Room Air, O2 Flow Rate . Vital Sign Comment: [] EKG Rhythm: Sinus Rhythm Rhythm change?: N MD Notified?: - MD Response: Latest Mcdonald Fall Score: 30 Fall Risk: Medium Risk Safety Measures: Call light Within Reach, Bed Alarm Zone 1, Side Rails Side Rails x3, Bed position Low and Locked. Fall Precautions: Yellow Socks Yellow Gown Patient Fall Education
[2020-08-27 08:00] VITALS: BP 128/70
--- NOTE | 2020-08-27 09:00 | NUR ---
NURSE NOTES: RECIEVED PT.IN BED ON RESPIRATORY TX @THIS TIME NO S/S OF DISTRESS NOTED,CALL LIGHT WITHIN REACH ,INSTRUCTED TO CALL FOR ANY ASSISTANCE VERBALIZES UNDERSTANDING.ALL MORNING MEDS TAKEN .ALL NEEDS ATTENDED.WILL CONTINUE W/ PLAN OF CARE.
[2020-08-27] MEDS: Docusate 100mg cap ORAL SCH ×2 (10:26→17:37)
[2020-08-27] MEDS: Aspirin Baby 81mg ORAL SCH (10:26)
[2020-08-27] MEDS: Levofloxacin 500mg tab ORAL SCH (10:27)
[2020-08-27] MEDS: guaiFENesin ER 600mg tab ORAL SCH ×2 (10:30→20:49)
[2020-08-27] MEDS: Benzonatate 100mg Perles ORAL SCH ×3 (10:30→17:37)
[2020-08-27] MEDS: Lisinopril 20mg tab ORAL SCH (10:31)
[2020-08-27 12:00] VITALS: BP 113/75
[2020-08-27 16:00] VITALS: BP 139/86
--- NOTE | 2020-08-27 19:06 | General Progress Note ---
Subjective Allergies: Coded Allergies: SULFA (SULFONAMIDE ANTIBIOTICS) (Unverified Allergy, Unknown, 08/13/18) Subjective c/o pain no iv access Objective Last 24 Hour Vital Signs Date Time Temp Pulse Resp B/P (MAP) Pulse Ox O2 Delivery O2 Flow Rate FiO2 08/27/20 16:00 93 08/27/20 16:00 98.1 95 20 139/86 (103) 100 08/27/20 14:45 77 18 94 Room Air 21 80 18 91 08/27/20 12:00 98.2 99 20 113/75 (88) 100 08/27/20 12:00 102 08/27/20 10:31 128/70 08/27/20 10:30 80 20 95 Room Air 21 78 16 93 08/27/20 10:28 86 128/70 08/27/20 09:00 Room Air 08/27/20 08:00 98.1 86 20 128/70 (89) 100 08/27/20 08:00 92 08/27/20 06:49 75 16 93 Room Air 21 73 16 91 08/27/20 04:43 163/83 08/27/20 04:00 73 08/27/20 04:00 97.9 84 20 163/83 (109) 91 08/27/20 00:00 85 08/27/20 00:00 97.5 77 20 146/90 (108) 91 08/26/20 22:47 86 18 96 Room Air 21 82 16 94 08/26/20 21:07 80 162/77 08/26/20 21:00 Room Air 08/26/20 20:00 97.8 80 20 162/77 (105) 100 08/26/20 20:00 89 Intake and Output 08/26/20 08/27/20 19:00 07:00 Intake Total 550 ml 750 ml Balance 550 ml 750 ml Intake Oral 550 ml 750 ml # Voids 5 5 Laboratory Tests 08/26/20 21:10: POC Whole Blood Glucose 385H Height (Feet): 5 Height (Inches): 6.00 Weight (Pounds): 167 General Appearance: alert EENT: PERRL/EOMI Neck: supple Cardiovascular: regular rhythm Respiratory/Chest: crackles/rales Abdomen: non tender, soft Extremities: non-tender Assessment/Plan Assessment/Plan: ac copd acs htn ch pain synd hx iv drug abused cont po abx, po steroids pain meds picc line tomorrow Olegario Thomas MD Aug 27, 2020 19:06
--- NOTE | 2020-08-27 19:47 | NUR ---
NURSE HAND-OFF REPORT: Important Events on Shift:[]FOR PICC LINE PLACEMENT Patient Status: []STABLE Diet: []CARDIAC DIET Pending Orders: [] Pending Results/Labs:[] Pending MD notification:[] Latest Vital Signs: Temperature 98.1 , Pulse 93 , B/P 139 /86 , Respiratory Rate 20 , O2 SAT 100 , Room Air, O2 Flow Rate . Vital Sign Comment: [] EKG Rhythm: Sinus Rhythm Rhythm change?: N MD Notified?: - MD Response: Latest Mcdonald Fall Score: 30 Fall Risk: Medium Risk Safety Measures: Call light Within Reach, Bed Alarm Zone 1, Side Rails Side Rails x2, Bed position Low and Locked. Fall Precautions: Yellow Socks Report given to [].TRINITY HILLMAN RN
[2020-08-27 20:00] VITALS: BP 96/65
[2020-08-27] MEDS: Dyna-Hex 2% Top Sol 2oz TOPIC SCH (20:49)
[2020-08-28] VITALS: BP 117/74
[2020-08-28] MEDS: Albuterol/Ipratropium 3ml neb HHN SCH ×6 (03:00→23:08)
[2020-08-28 04:00] VITALS: BP 105/63
[2020-08-28] MEDS: NovoLOG Insulin Flexpen SUBQ SCH ×4 (06:29→20:37)
--- NOTE | 2020-08-28 07:16 | NUR ---
NURSE HAND-OFF REPORT: Report given to DANIEL Sandoval
--- NOTE | 2020-08-28 07:52 | NUR ---
NURSE NOTES: Received patient from Josie, RN. Patient is asleep at the time. She shows no signs of distress or pain at the time. Patient is on room air and shows no signs of respiratory distress. Patient has no IV access but waiting for PICC Line to be placed today. Bed is in the lowest position, call light is within reach, side rails up x3. Will continue plan of care.
[2020-08-28 08:00] VITALS: BP 115/64
[2020-08-28] MEDS: Docusate 100mg cap ORAL SCH ×2 (09:00→18:20)
[2020-08-28] MEDS: guaiFENesin ER 600mg tab ORAL SCH ×2 (09:18→20:25)
[2020-08-28] MEDS: Levofloxacin 500mg tab ORAL SCH (09:21)
[2020-08-28] MEDS: Aspirin Baby 81mg ORAL SCH (09:21)
[2020-08-28] MEDS: Benzonatate 100mg Perles ORAL SCH ×3 (09:21→18:19)
[2020-08-28] MEDS: Lisinopril 20mg tab ORAL SCH (09:22)
--- NOTE | 2020-08-28 10:00 | NUR ---
NURSE NOTES: Patient took belongings out from her purse. Took methadone and insulin needles and sent them to pharmacy. 2 lighters placed in her chart to take home when discharged
--- NOTE | 2020-08-28 10:50 | Consultation ---
History of Present Illness General Date patient seen: Aug 28, 2020 Reason for Hospitalization: Dyspnea/Respdistress Present Illness HPI This is a 60-year-old female with history of substance abuse who presented to [facility] with shortness of breath respiratory insufficiency admitted for the care and management. Given patient's current condition labs history imaging recommendations for IV medications fluids antibiotics. Surgery called to evaluate for line placement as patient has very poor peripheral access given her history. Patient seen patient by chart reviewed. Patient has very poor peripheral stick and very difficult stick. Patient will likely need central venous access for medications labs and the continuity of her care until ready for transitions. Allergies: Coded Allergies: SULFA (SULFONAMIDE ANTIBIOTICS) (Unverified Allergy, Unknown, 08/13/18) COVID-19 Screening Contact w/high risk pt: No Recent Travel to affected area: No Experienced COVID-19 symptoms?: No Medication History Scheduled Aspirin* (Aspirin*), 81 MG ORAL DAILY, (Reported) Benzonatate* (Tessalon Perle*), 200 MG ORAL THREE TIMES A DAY, (Reported) Docusate Sodium* (Docusate Sodium*), 100 MG ORAL TWICE A DAY, (Reported) Famotidine (Famotidine), 40 MG ORAL DAILY, (Reported) Gabapentin* (Gabapentin*), 800 MG ORAL FOUR TIMES A DAY, (Reported) Guaifenesin (Guaifenesin ER), 600 MG ORAL BID, (Reported) Heparin Sod (Porcine) (Heparin Sodium*), 5,000 UNITS SUBQ EVERY 12 HOURS, (Reported) Insulin Detemir (Levemir), 16 UNITS SUBQ BEDTIME, (Reported) Insulin Detemir (Levemir), 16 UNITS SUBQ BEDTIME Ipratropium/Albuterol Sulfate (DuoNeb 0.5-3(2.5)mg/3ml), 3 ML HHN Q4HR, (Reported) Lisinopril (Lisinopril*), 40 MG ORAL DAILY, (Reported) Methadone Hcl* (Methadone*), 80 MG PO DAILY, (Reported) Scheduled PRN Albuterol Sulfate (Proventil Hfa), 2 PUFFS IH q2hr PRN for Shortness of Breath, (Reported) Alprazolam* (Xanax*), 0.25 MG ORAL THREE TIMES A DAY PRN for For Anxiety, (Reported) Diphenhydramine Hcl* (Benadryl*), 25 MG ORAL Q6H PRN for Itching, (Reported) Guaifenesin/Dextromethorphan* (Guaifenesin Dm Syrup*), 10 ML ORAL Q4HR PRN for For Cough, (Reported) Ondansetron* (Zofran*), 4 MG IV Q6H PRN for Nausea & Vomiting, (Reported) Polyethylene Glycol 3350* (Miralax*), 17 GM ORAL DAILY PRN for Constipation, (Reported) Miscellaneous Medications Insulin Aspart (Novolog), (Reported) Patient History History Provided By: Patient, Medical Record, PMD Healthcare decision maker Resuscitation status Advanced Directive on File Past Medical/Surgical History Past Medical/Surgical History: (1) Smoker (2) HTN (hypertension) (3) Chest pain (4) Influenza (5) Opiate dependence (6) Diabetes (7) Pneumonitis (8) COPD exacerbation Review of Systems Review of Symptoms General ROS: no weight loss or fever Psychological ROS: no depression or mood changes, no memory loss Ophthalmic ROS: no visual changes or eye irritation ENT ROS: no nasal congestion, hearing loss, dizziness Allergy and Immunology ROS: no allergic symptoms or urticaria Hematological and Lymphatic ROS: no swollen glands, unusual bleeding or bruising Endocrine ROS: no polyuria, polydipsia, weight changes, temperature intolerance Respiratory ROS: no cough, shortness of breath, or wheezing Cardiovascular ROS: no chest pain or dyspnea on exertion Gastrointestinal ROS: denies abdominal pain, bright red blood in stool. Musculoskeletal ROS: no myalgias or arthralgias Neurological ROS: no TIA or stroke symptoms Dermatological ROS: no new or changing skin lesions, rashes or pruritis Physical Exam Physical Exam General appearance: alert, cooperative, no distress, appears stated age Head: Normocephalic, without obvious abnormality, atraumatic Eyes: conjunctivae/corneas clear. PERRL, EOM's intact. Fundi benign Throat: Lips, mucosa, and tongue normal. Teeth and gums normal Neck: supple, symmetrical, trachea midline, no adenopathy, thyroid: not enlarged, symmetric, no tenderness/mass/nodules, no carotid bruit and no JVD Lungs: clear to auscultation bilaterally Heart: regular rate and rhythm, S1, S2 normal, no murmur, click, rub or gallop Abdomen: soft, non-tender. Bowel sounds normal. No masses, no organomegaly Extremities: extremities normal, atraumatic, no cyanosis or edema Pulses: 2+ and symmetric Skin: Skin color, texture, turgor normal. No rashes or lesions Neurologic: Grossly normal Last 24 Hour Vital Signs Date Time Temp Pulse Resp B/P (MAP) Pulse Ox O2 Delivery O2 Flow Rate FiO2 08/28/20 09:22 115/64 08/28/20 09:21 71 115/64 08/28/20 09:00 Room Air 08/28/20 08:00 71 08/28/20 08:00 98.2 71 20 115/64 (81) 100 08/28/20 04:00 71 08/28/20 04:00 97.7 81 18 105/63 (77) 100 08/28/20 00:00 72 08/28/20 00:00 98.9 97 22 117/74 (88) 100 08/27/20 22:51 78 18 99 Room Air 21 74 18 94 08/27/20 22:30 99.9 08/27/20 21:00 Room Air 08/27/20 20:50 86 145/76 08/27/20 20:00 76 08/27/20 20:00 100.7 54 18 96/65 (75) 96 08/27/20 19:39 82 18 100 Room Air 21 77 18 96 08/27/20 16:00 93 08/27/20 16:00 98.1 95 20 139/86 (103) 100 08/27/20 14:45 77 18 94 Room Air 21 80 18 91 08/27/20 12:00 98.2 99 20 113/75 (88) 100 08/27/20 12:00 102 Intake and Output 08/27/20 08/28/20 19:00 07:00 Intake Total 400 ml 400 ml Balance 400 ml 400 ml Intake Oral 400 ml 400 ml # Voids 3 2 Height (Feet): 5 Height (Inches): 6.00 Weight (Pounds): 167 Medications Current Medications Medications (Trade) Dose Ordered Sig/Rogers Route PRN Reason Start Time Stop Time Status Last Admin Dose Admin Acetaminophen (Tylenol) 650 mg Q4H PRN ORAL Mild Pain (Pain Scale 1-3) 08/26/20 06:45 09/25/20 06:44 Acetaminophen (Tylenol) 650 mg Q4H PRN ORAL Temp >100.5 08/26/20 06:45 09/25/20 06:44 Acetaminophen/ Hydrocodone Bitart ([place] 5/325) 1 tab Q4H PRN ORAL Moderate Pain (Pain Scale 4-6) 08/26/20 09:15 09/02/20 09:14 08/27/20 17:40 Albuterol Sulfate (Proventil MDI) 2 puff Q4H PRN INH Shortness of Breath 08/26/20 09:15 11/24/20 09:14 Albuterol/ Ipratropium (Albuterol/ Ipratropium) 3 ml Q4HRT HHN 08/26/20 07:00 08/31/20 06:59 08/28/20 10:02 Alprazolam (Xanax) 0.25 mg TIDPRN PRN ORAL For Anxiety 08/26/20 06:45 09/02/20 06:44 Aspirin (ASA) 81 mg DAILY ORAL 08/26/20 09:00 10/10/20 08:59 08/28/20 09:21 Benzonatate (Tessalon Perles) 200 mg THREE TIMES A DAY ORAL 08/26/20 09:00 09/25/20 08:59 08/28/20 09:21 Chlorhexidine Gluconate (Elinor-Hex 2%) 1 applic DAILY@2000 TOPIC 08/26/20 20:00 11/24/20 19:59 08/27/20 20:49 Clonidine HCl (Catapres Tab) 0.1 mg EVERY 6 HOURS PRN ORAL For High Blood Pressure 08/26/20 12:00 11/24/20 11:59 08/27/20 04:43 Dextrose (Dextrose 50%) 25 ml Q30M PRN IV Hypoglycemia 08/26/20 06:45 11/24/20 06:44 Dextrose (Dextrose 50%) 50 ml Q30M PRN IV Hypoglycemia 08/26/20 06:45 11/24/20 06:44 Diphenhydramine HCl (Benadryl) 25 mg Q6H PRN ORAL Itching 08/26/20 06:45 09/25/20 06:44 Docusate Sodium (Colace) 100 mg TWICE A DAY ORAL 08/26/20 09:00 09/25/20 08:59 08/27/20 17:37 Gabapentin (Neurontin) 200 mg FOUR TIMES A DAY ORAL 08/28/20 18:00 09/25/20 17:59 Gabapentin (Neurontin) 600 mg FOUR TIMES A DAY ORAL 08/28/20 18:00 09/25/20 17:59 Gabapentin (Neurontin) 800 mg FOUR TIMES A DAY ORAL 08/26/20 09:00 08/28/20 14:00 08/28/20 09:22 Guaifenesin (Mucinex ER) 600 mg Q12HR ORAL 08/26/20 09:00 11/24/20 08:59 08/28/20 09:18 Guaifenesin/ Dextromethorphan (Robitussin DM Syrup) 10 ml Q4H PRN ORAL For Cough 08/26/20 06:45 11/24/20 06:44 08/27/20 04:53 Heparin Sodium/ Sodium Chloride (Heparin 1000 units/500ml Premix) 1,000 unit ONCE PRN IV PICC LINE 08/26/20 15:00 08/28/20 23:59 Insulin Aspart (NovoLOG) BEFORE MEALS AND HS SUBQ 08/26/20 11:30 11/24/20 11:29 08/28/20 06:29 Levofloxacin (Levaquin) 500 mg DAILY ORAL 08/26/20 09:00 09/02/20 08:59 08/28/20 09:21 Lidocaine HCl (Xylocaine 1% 30ml) 30 ml ONCE PRN INJ PICC LINE 08/26/20 15:00 08/28/20 23:59 Lisinopril (PriniviL) 40 mg DAILY ORAL 08/26/20 09:00 09/25/20 08:59 08/28/20 09:22 Methadone HCl (Methadone HCl) 80 mg DAILY ORAL 08/26/20 09:00 09/02/20 08:59 08/28/20 09:23 Metoprolol Tartrate (Lopressor) 25 mg Q12HR ORAL 08/26/20 21:00 11/24/20 20:59 08/28/20 09:21 Nitroglycerin (Ntg) 0.4 mg Q5M PRN SL Prn Chest Pain 08/25/20 23:00 09/24/20 22:59 Ondansetron HCl (Zofran) 4 mg Q6H PRN IV Nausea & Vomiting 08/26/20 06:45 09/25/20 06:44 Polyethylene Glycol (Miralax) 17 gm DAILYPRN PRN ORAL Constipation 08/26/20 06:45 09/25/20 06:44 Prednisone (predniSONE) 40 mg DAILY ORAL 08/26/20 09:00 09/25/20 08:59 08/28/20 09:22 Assessment/Plan Problem List: (1) Opiate dependence ICD Codes: F11.20 - Opioid dependence, uncomplicated SNOMED: 05927034 (2) Diabetes ICD Codes: E11.9 - Type 2 diabetes mellitus without complications SNOMED: 92466841 (3) Pneumonitis Assessment & Plan: Six 1-year-old female admitted for respiratory insufficiency plan for medications poor peripheral access given history of drug abuse. Patient was evaluated. Given her history and current condition patient is fairly stable will recommend PICC line placement over central venous access. PICC line placement can be done by radiology which has since been ordered. Hold on central venous access as peripheral inserted central access is strongly recommended inpatient her current condition specially potential need for long- term access as well. Continue with oral medications and tolerance in the meantime patient is stable in the event patient becomes unstable or deteriorates will consider in place central venous access in the meantime. Given current condition recommended for PICC. Thank you for letting participate patient's care will follow with recommendations ICD Codes: J18.9 - Pneumonia, unspecified organism SNOMED: 941539781 (4) COPD exacerbation ICD Codes: J44.1 - Chronic obstructive pulmonary disease with (acute) exacerbation SNOMED: 870976532 (5) Chest pain ICD Codes: R07.9 - Chest pain, unspecified SNOMED: 27692307 (6) Influenza ICD Codes: J11.1 - Influenza due to unidentified influenza virus with other respiratory manifestations SNOMED: 8941816 (7) HTN (hypertension) ICD Codes: I10 - Essential (primary) hypertension SNOMED: 86726377 (8) Smoker ICD Codes: F17.200 - Nicotine dependence, unspecified, uncomplicated SNOMED: 20890112 Rich Robbins Aug 28, 2020 10:50
[2020-08-28 12:00] VITALS: BP 122/65
--- NOTE | 2020-08-28 13:01 | NUR ---
NURSE NOTES: Patient taken down for PICC Line insertion. There are no signs of distress or pain noted at the time.
--- NOTE | 2020-08-28 13:07 | Pre-Procedure Note/Attestation ---
Pre-Procedure Note/Attestation Complete Prior to Procedure Planned Procedure: not applicable Procedure Narrative: picc insertion Indications for Procedure Pre-Operative Diagnosis: need intermediate iv access Attestation informed consent obtained from patient, verified prior to procedure Kd Brand M.D. Aug 28, 2020 13:07
--- NOTE | 2020-08-28 13:35 | Diagnostic Imaging Report ---
Indications: Needs long-term IV access Technique: Ultrasound confirms patent compressible left brachial vein. Total sterile technique, including sterile probe cover and sterile gel, hat, mask,, sterile gown, large sterile drape, and preparation with 2% chlorhexidine utilized. Local anesthesia with 1% lidocaine. Under real-time ultrasound guidance, puncture left brachial vein using 21-gauge needle, documented and archived, passage 0.018 guidewire under direct fluoroscopy, which was used to determine appropriate catheter length, exchange for 4.5 Ecuadorean peel-away sheath. 4 Ecuadorean dual-lumen power PICC cut to 40 cm. It was inserted through the peel-away sheath. Peel-away sheath and guidewire removed. Catheter fixed to the skin. Both catheter ports aspirated and flushed. Patient tolerated procedure well, without immediate complication. Digital radiograph documents satisfactory catheter tip position, at the cavoatrial junction. Total fluoroscopy time 25.4 seconds. Total fluoroscopy dose 2.89 mGy. Number fluoroscopic images obtained: 1. IMPRESSION: Successful placement of left arm PICC under sonographic and fluoroscopic guidance, as described above. Catheter cleared for immediate use.
--- NOTE | 2020-08-28 15:17 | NUR ---
RADIOLOGY NOTE: LEFT UPPER EXTREMITY PICC LINE PLACEMENT BY DR. HAMPTON AT 1300 HRS. FA
[2020-08-28 16:00] VITALS: BP 126/70
--- NOTE | 2020-08-28 16:29 | General Progress Note ---
Subjective Allergies: Coded Allergies: SULFA (SULFONAMIDE ANTIBIOTICS) (Unverified Allergy, Unknown, 08/13/18) Subjective c/o pain picc line was placed Objective Last 24 Hour Vital Signs Date Time Temp Pulse Resp B/P (MAP) Pulse Ox O2 Delivery O2 Flow Rate FiO2 08/28/20 12:00 98.2 78 20 122/65 (84) 100 08/28/20 12:00 78 08/28/20 10:12 78 18 100 Room Air 21 75 18 94 08/28/20 09:22 115/64 08/28/20 09:21 71 115/64 08/28/20 09:00 Room Air 08/28/20 08:00 71 08/28/20 08:00 98.2 71 20 115/64 (81) 100 08/28/20 04:00 71 08/28/20 04:00 97.7 81 18 105/63 (77) 100 08/28/20 00:00 72 08/28/20 00:00 98.9 97 22 117/74 (88) 100 08/27/20 22:51 78 18 99 Room Air 21 74 18 94 08/27/20 22:30 99.9 08/27/20 21:00 Room Air 08/27/20 20:50 86 145/76 08/27/20 20:00 76 08/27/20 20:00 100.7 54 18 96/65 (75) 96 08/27/20 19:39 82 18 100 Room Air 21 77 18 96 Intake and Output 08/27/20 08/28/20 19:00 07:00 Intake Total 400 ml 400 ml Balance 400 ml 400 ml Intake Oral 400 ml 400 ml # Voids 3 2 Height (Feet): 5 Height (Inches): 6.00 Weight (Pounds): 167 General Appearance: alert EENT: PERRL/EOMI Neck: supple Cardiovascular: regular rhythm Respiratory/Chest: crackles/rales Abdomen: non tender, soft Assessment/Plan Assessment/Plan: ac copd acs htn ch pain synd hx iv drug abused cont iv sterids and abx pain Olegario Hubbard MD Aug 28, 2020 16:29
[2020-08-28] MEDS: cefTRIAXone 1 GM in D5W 55 ML IVPB SCH (18:20)
--- NOTE | 2020-08-28 19:14 | NUR ---
NURSE HAND-OFF REPORT: Important Events on Shift:[PICC line inserted, patent and flushed] Patient Status: [Full code] Diet: [CCHO med] Pending Orders: [] Pending Results/Labs:[] Pending MD notification:[] Latest Vital Signs: Temperature 98.1 , Pulse 72 , B/P 126 /70 , Respiratory Rate 20 , O2 SAT 98 , Room Air, O2 Flow Rate . Vital Sign Comment: [] EKG Rhythm: Sinus Rhythm Rhythm change?: N MD Notified?: - MD Response: Latest Mcdonald Fall Score: 30 Fall Risk: Medium Risk Safety Measures: Call light Within Reach, Bed Alarm Zone 1, Side Rails Side Rails x2, Bed position Low and Locked. Fall Precautions: Yellow Socks Report given to [DANIEL Rashid].
--- NOTE | 2020-08-28 19:16 | NUR ---
NURSE NOTES: Received pt and report from DANIEL Sandoval. Observed pt resting in bed with both eyes open and watching television. Pt is A/Ox4. electronic device monitor is in placed; pt is NSR. IV site intact, asymptomatic, and patent. Bed is in the lowest position and locked. Call light and bedside table is within reach. No signs/symptoms of acute distress noted. Will continue plan of care.
[2020-08-28 20:00] VITALS: BP 136/77
[2020-08-28] MEDS: Dyna-Hex 2% Top Sol 2oz TOPIC SCH (20:24)
[2020-08-28] MEDS: Morphine Sulfate 2mg/ml Inj(IV/IM USE ONLY) IVP PRN (20:25)
[2020-08-28] MEDS: Solu-MEDROL 125mg Inj IVP SCH (21:17)
[2020-08-29] VITALS: BP 128/67
--- NOTE | 2020-08-29 01:23 | NUR ---
NURSE NOTES: Observed pt resting in bed with both eyes open and watching television. Pt asked for ice water. Refilled ice water for pt. No signs/symptoms of acute distress noted. Will continue plan of care.
[2020-08-29] MEDS: Morphine Sulfate 2mg/ml Inj(IV/IM USE ONLY) IVP PRN ×3 (02:59→21:08)
[2020-08-29] MEDS: Albuterol/Ipratropium 3ml neb HHN SCH ×5 (03:03→19:33)
[2020-08-29 04:00] VITALS: BP 138/83
[2020-08-29] MEDS: Solu-MEDROL 125mg Inj IVP SCH ×3 (05:37→21:04)
[2020-08-29] MEDS: NovoLOG Insulin Flexpen SUBQ SCH ×4 (05:38→21:17)
--- NOTE | 2020-08-29 06:23 | NUR ---
NURSE NOTES: Notified Dr. Thomas that pt's BS this morning was 527. Pt is asymptomatic. Pt has history of DM, non-compliant with nutrition, and currently receiving Solu-Medrol IVP Q8H. Educated pt on the importance of low sugar/carb diet. Reinforcement needed.
[2020-08-29 06:59] LABS: HEMATOCRIT 37.5 % (37.0-47.0); HEMOGLOBIN 10.7 G/DL (12.0-16.0); MEAN CORPUSCULAR VOLUME 96 FL (80-99); PLATELET COUNT 117 K/UL (150-450); RED CELL DISTRIBUTION WIDTH 14.6 % (11.6-14.8); WHITE BLOOD COUNT 2.5 K/UL (4.8-10.8)
[2020-08-29 07:05] LABS: CALCIUM 9.6 MG/DL (8.5-10.1); CREATININE 1.4 MG/DL (0.55-1.30); POTASSIUM 4.5 MMOL/L (3.5-5.1)
--- NOTE | 2020-08-29 07:09 | NUR ---
NURSE HAND-OFF REPORT: Important Events on Shift: Dr. Thomas made aware pt's BS this morning was 527. Pt is asymptomatic. Insulin given per sliding scale. Awaiting call back. Dayshift RN made aware. Patient Status: Stable Diet: CCHO (M) Pending Orders: N Pending Results/Labs: AM Labs Pending MD notification: N Latest Vital Signs: Temperature 98.1 , Pulse 93 , B/P 138 /83 , Respiratory Rate 20 , O2 SAT 96 , Room Air, O2 Flow Rate . EKG Rhythm: Sinus Rhythm Rhythm change?: N Latest Mcdonald Fall Score: 30 Fall Risk: Medium Risk Safety Measures: Call light Within Reach, Bed Alarm Zone 1, Side Rails Side Rails x2, Bed position Low and Locked. Fall Precautions: Yellow Socks Patient Fall Education Report given to DANIEL Sandoval.
--- NOTE | 2020-08-29 07:26 | NUR ---
NURSE NOTES: Received patient from DANIEL Rashid. Patient is asleep at the time with breakfast at bedside. She shows no signs of distress or pain at the time. Patient is on room air and shows no signs of respiratory distress. Patient has PICC line placed on left upper arm, flushed and patent. Bed is in the lowest position, call light is within reach, side rails up x3. Will continue plan of care.
[2020-08-29 08:00] VITALS: BP 161/85
[2020-08-29] MEDS: guaiFENesin ER 600mg tab ORAL SCH ×2 (09:25→21:08)
[2020-08-29] MEDS: Lisinopril 20mg tab ORAL SCH (09:25)
[2020-08-29] MEDS: Docusate 100mg cap ORAL SCH ×2 (09:26→17:57)
[2020-08-29] MEDS: Aspirin Baby 81mg ORAL SCH (09:26)
[2020-08-29] MEDS: Benzonatate 100mg Perles ORAL SCH ×3 (09:26→17:57)
--- NOTE | 2020-08-29 11:12 | General Progress Note ---
Subjective Allergies: Coded Allergies: SULFA (SULFONAMIDE ANTIBIOTICS) (Unverified Allergy, Unknown, 08/13/18) Subjective c/o pain picc line was placed blood sugar is high Objective Last 24 Hour Vital Signs Date Time Temp Pulse Resp B/P (MAP) Pulse Ox O2 Delivery O2 Flow Rate FiO2 08/29/20 09:25 70 161/85 08/29/20 09:25 161/85 08/29/20 09:00 Room Air 08/29/20 08:00 97.5 70 18 161/85 (110) 99 08/29/20 08:00 69 08/29/20 04:00 93 08/29/20 04:00 98.1 92 20 138/83 (101) 96 08/29/20 03:03 84 18 99 Room Air 21 86 18 93 08/29/20 00:00 75 08/29/20 00:00 98.0 78 19 128/67 (87) 96 08/28/20 23:08 82 18 98 Room Air 21 78 18 97 08/28/20 21:00 Room Air 08/28/20 20:26 74 136/77 08/28/20 20:00 98.6 72 19 136/77 (96) 96 08/28/20 20:00 71 08/28/20 16:00 98.1 72 20 126/70 (88) 98 08/28/20 16:00 72 08/28/20 15:47 77 18 100 Room Air 21 77 18 99 08/28/20 12:00 98.2 78 20 122/65 (84) 100 08/28/20 12:00 78 Intake and Output 08/28/20 08/29/20 19:00 07:00 Output Total 800 ml Balance -800 ml Output Other 800 ml # Voids 5 Laboratory Tests 08/29/20 06:10: White Blood Count 2.5L, Red Blood Count 3.90L, Hemoglobin 10.7L, Hematocrit 37.5, Mean Corpuscular Volume 96, Mean Corpuscular Hemoglobin 27.3, Mean Corpuscular Hemoglobin Concent 28.5L, Red Cell Distribution Width 14.6, Platelet Count 117L, Mean Platelet Volume 7.7, Neutrophils (%) (Auto) , Lymphocytes (%) (Auto) , Monocytes (%) (Auto) , Eosinophils (%) (Auto) , Basophils (%) (Auto) , Differential Total Cells Counted 100, Neutrophils % (Manual) 92H, Lymphocytes % (Manual) 7L, Monocytes % (Manual) 1, Eosinophils % (Manual) 0, Basophils % (Manual) 0, Band Neutrophils 0, Platelet Estimate DecreasedL, Platelet Morphology Normal, Hypochromasia 1+, Anisocytosis 1+, Sodium Level 135L, Potassium Level 4.5, Chloride Level 100, Carbon Dioxide Level 32, Anion Gap 3L, Blood Urea Nitrogen 45H, Creatinine 1.4H, Estimat Glomerular Filtration Rate 46.2, Glucose Level 553*H, Calcium Level 9.6 Height (Feet): 5 Height (Inches): 6.00 Weight (Pounds): 167 General Appearance: alert EENT: PERRL/EOMI Neck: supple Cardiovascular: tachycardia Respiratory/Chest: crackles/rales Abdomen: non tender, soft Extremities: non-tender Assessment/Plan Assessment/Plan: ac copd acs htn ch pain synd dm poorly controlled add levamier and high dose of ss hx iv drug abused decrease iv sterids and abx pain meds transfer to med surg Olegario Thomas MD Aug 29, 2020 11:12
[2020-08-29 12:00] VITALS: BP 151/87
--- NOTE | 2020-08-29 14:58 | NUR ---
NURSE NOTES: Blood glucose in the 500s, Dr. Thomas aware. Changed novolog sliding scale and added Levemir. Will continue to monitor.
--- NOTE | 2020-08-29 14:59 | NUR ---
NURSE NOTE: Dr. Thomas ordered patient to be transferred to med surg, no beds available.
[2020-08-29 16:00] VITALS: BP 153/80
--- NOTE | 2020-08-29 16:16 | NUR ---
[employer] FAXED TO [employer] #[phone] fax# [phone]
[2020-08-29] MEDS ORDERED: NovoLOG Insulin Flexpen SUBQ SCH (16:30)
--- NOTE | 2020-08-29 17:45 | Cardiology Report ---
APPROVED REPORT EKG Measurement Heart [id number] [place] [id number] [id number] <Conclusion> Normal sinus rhythm Right atrial enlargement Cannot rule out Anterior infarct, age undetermined Prolonged QT Abnormal ECG
[2020-08-29] MEDS: cefTRIAXone 1 GM in D5W 55 ML IVPB SCH (17:57)
--- NOTE | 2020-08-29 18:55 | Surgery Progress Note ---
Surgery Progress Note Subjective Additional Comments picc line placed today okay to use labs and meds glu noted Objective Last 24 Hour Vital Signs Date Time Temp Pulse Resp B/P (MAP) Pulse Ox O2 Delivery O2 Flow Rate FiO2 08/29/20 16:00 93 08/29/20 16:00 96.5 71 18 153/80 (104) 99 08/29/20 15:10 74 18 99 Room Air 21 69 18 91 08/29/20 12:00 97.5 68 18 151/87 (108) 99 08/29/20 12:00 67 08/29/20 11:58 67 18 99 Room Air 21 66 18 90 08/29/20 11:36 97.5 08/29/20 09:25 70 161/85 08/29/20 09:25 161/85 08/29/20 09:00 Room Air 08/29/20 08:00 97.5 70 18 161/85 (110) 99 08/29/20 08:00 69 08/29/20 04:00 93 08/29/20 04:00 98.1 92 20 138/83 (101) 96 08/29/20 03:03 84 18 99 Room Air 86 18 93 08/29/20 00:00 75 08/29/20 00:00 98.0 78 19 128/67 (87) 96 08/28/20 23:08 82 18 98 Room Air 78 18 97 08/28/20 21:00 Room Air 08/28/20 20:26 74 136/77 08/28/20 20:00 98.6 72 19 136/77 (96) 96 08/28/20 20:00 71 I&O Intake and Output 08/28/20 08/29/20 19:00 07:00 Output Total 800 ml Balance -800 ml Output Other 800 ml # Voids 5 Cardiovascular: RSR Respiratory: clear, decreased breath sounds Abdomen: soft, flat, non-tender, present bowel sounds Extremities: no edema, no tenderness, no cyanosis Laboratory Tests Test 08/29/20 06:10 White Blood Count 2.5 K/UL (4.8-10.8) L Red Blood Count 3.90 M/UL (4.20-5.40) L Hemoglobin 10.7 G/DL (12.0-16.0) L Hematocrit 37.5 % (37.0-47.0) Mean Corpuscular Volume 96 FL (80-99) Mean Corpuscular Hemoglobin 27.3 PG (27.0-31.0) Mean Corpuscular Hemoglobin Concent 28.5 G/DL (32.0-36.0) L Red Cell Distribution Width 14.6 % (11.6-14.8) Platelet Count 117 K/UL (150-450) L Mean Platelet Volume 7.7 FL (6.5-10.1) Neutrophils (%) (Auto) % (45.0-75.0) Lymphocytes (%) (Auto) % (20.0-45.0) Monocytes (%) (Auto) % (1.0-10.0) Eosinophils (%) (Auto) % (0.0-3.0) Basophils (%) (Auto) % (0.0-2.0) Differential Total Cells Counted 100 Neutrophils % (Manual) 92 % (45-75) H Lymphocytes % (Manual) 7 % (20-45) L Monocytes % (Manual) 1 % (1-10) Eosinophils % (Manual) 0 % (0-3) Basophils % (Manual) 0 % (0-2) Band Neutrophils 0 % (0-8) Platelet Estimate Decreased L Platelet Morphology Normal Hypochromasia 1+ Anisocytosis 1+ Sodium Level 135 MMOL/L (136-145) L Potassium Level 4.5 MMOL/L (3.5-5.1) Chloride Level 100 MMOL/L (98-107) Carbon Dioxide Level 32 MMOL/L (21-32) Anion Gap 3 mmol/L (5-15) L Blood Urea Nitrogen 45 mg/dL (7-18) H Creatinine 1.4 MG/DL (0.55-1.30) H Estimat Glomerular Filtration Rate 46.2 mL/min (>60) Glucose Level 553 MG/DL (74-106) *H Calcium Level 9.6 MG/DL (8.5-10.1) Plan Problems: (1) Opiate dependence (2) Diabetes (3) Pneumonitis Assessment & Plan: Six 1-year-old female admitted for respiratory insufficiency plan for medications poor peripheral access given history of drug abuse. Patient was evaluated. Given her history and current condition patient is fairly stable will recommend PICC line placement over central venous access. PICC line placement can be done by radiology which has since been ordered. Hold on central venous access as peripheral inserted central access is strongly recommended inpatient her current condition specially potential need for long- term access as well. Continue with oral medications and tolerance in the meantime patient is stable in the event patient becomes unstable or deteriorates will consider in place central venous access in the meantime. Given current condition recommended for PICC. Thank you for letting participate patient's care will follow with recommendations (4) COPD exacerbation (5) Chest pain (6) Influenza (7) HTN (hypertension) (8) Smoker Rich Robbins Aug 29, 2020 18:55
--- NOTE | 2020-08-29 19:39 | NUR ---
NURSE HAND-OFF REPORT: Important Events on Shift:[Insulin sliding scale increased with levemire. ] Patient Status: [Full code] Diet: [CCHO] Pending Orders: [] Pending Results/Labs:[] Pending MD notification:[] Latest Vital Signs: Temperature 96.5 , Pulse 93 , B/P 153 /80 , Respiratory Rate 18 , O2 SAT 99 , Room Air, O2 Flow Rate . Vital Sign Comment: [] EKG Rhythm: Sinus Rhythm Rhythm change?: N MD Notified?: - MD Response: Latest Mcdonald Fall Score: 30 Fall Risk: Medium Risk Safety Measures: Call light Within Reach, Bed Alarm Zone 1, Side Rails Side Rails x2, Bed position Low and Locked. Fall Precautions: Yellow Socks Patient Fall Education Report given to [DANIEL Lr].
[2020-08-29 20:00] VITALS: BP 150/87
--- NOTE | 2020-08-29 20:00 | NUR ---
Assumed care of pt. Received report from caity SANCHEZ. Pt is from home and is here for SOB, COPD exacerbation, and PNA. Pt allergic to Sulfa, Full code, COVID (-) since 07/22. Fall precautions in place. Special observation is given to pt's BS. aware of her hyperglycemic episodes. Plan is to transfer to [place]. no bed available at this time. pt is in bed awake, AAOx4, in NAD. NSR and on RA. Left upper arm PICC intact, no s/sx of infiltration. one of the two lumens has a blood clot and does not function. All needs met and attended. bed locked in lowest position w/ call light w/in reach. side rails up x2. WCTM.
[2020-08-29] MEDS: Dyna-Hex 2% Top Sol 2oz TOPIC SCH (21:13)
[2020-08-30] VITALS: BP 155/88
[2020-08-30] MEDS: Albuterol/Ipratropium 3ml neb HHN SCH ×7 (00:47→23:02)
--- NOTE | 2020-08-30 01:13 | NUR ---
NURSE NOTES: pt is in bed awake, AAOx4, in NAD. NSR and on RA. she is asking for apple juice. she is aware that she has issues w/ her BS but insists on having her juice. All needs met and attended. bed locked in lowest position w/ call light w/in reach. side rails up x2. WCTM.
[2020-08-30 04:30] VITALS: BP 150/96
--- NOTE | 2020-08-30 04:45 | NUR ---
Pt is ambulating around the room w/ steady gait. she has non-slip socks on. She denies any dizziness, lightheadedness, or weakness. Pt's VSS and on RA. She is AAOx4, in NAD. All needs met and attended. WCTM.
--- NOTE | 2020-08-30 05:21 | NUR ---
Pt requested cranberry juice and crackers. Food was provided and pt verbalized understanding. All needs met and attended. FERMIN.
[2020-08-30] MEDS: Morphine Sulfate 2mg/ml Inj(IV/IM USE ONLY) IVP PRN ×3 (05:41→18:12)
[2020-08-30] MEDS: Solu-MEDROL 125mg Inj IVP SCH ×3 (05:42→21:27)
[2020-08-30] MEDS: NovoLOG Insulin Flexpen SUBQ SCH ×4 (06:20→21:40)
[2020-08-30 07:33] LABS: HEMATOCRIT 36.2 % (37.0-47.0); HEMOGLOBIN 10.3 G/DL (12.0-16.0); MEAN CORPUSCULAR VOLUME 98 FL (80-99); PLATELET COUNT 104 K/UL (150-450); RED BLOOD COUNT 3.69 M/UL (4.20-5.40); RED CELL DISTRIBUTION WIDTH 14.4 % (11.6-14.8); WHITE BLOOD COUNT 3.4 K/UL (4.8-10.8)
[2020-08-30 07:50] LABS: CALCIUM 9.1 MG/DL (8.5-10.1); CREATININE 1.2 MG/DL (0.55-1.30); POTASSIUM 4.7 MMOL/L (3.5-5.1)
[2020-08-30 08:00] VITALS: BP 143/94
[2020-08-30] MEDS: Aspirin Baby 81mg ORAL SCH (09:19)
[2020-08-30] MEDS: Docusate 100mg cap ORAL SCH ×2 (09:19→18:10)
[2020-08-30] MEDS: guaiFENesin ER 600mg tab ORAL SCH ×2 (09:23→21:27)
[2020-08-30] MEDS: Lisinopril 20mg tab ORAL SCH (09:23)
[2020-08-30] MEDS: Levemir Flexpen SUBQ SCH (09:26)
[2020-08-30] MEDS: Benzonatate 100mg Perles ORAL SCH ×3 (09:30→18:10)
--- NOTE | 2020-08-30 09:45 | General Progress Note ---
Subjective Allergies: Coded Allergies: SULFA (SULFONAMIDE ANTIBIOTICS) (Unverified Allergy, Unknown, 08/13/18) Subjective c/o pain picc line was placed blood sugar is high sob on exertion Objective Last 24 Hour Vital Signs Date Time Temp Pulse Resp B/P (MAP) Pulse Ox O2 Delivery O2 Flow Rate FiO2 08/30/20 09:23 143/94 08/30/20 09:22 72 143/94 08/30/20 08:00 96.3 72 18 143/94 (110) 95 08/30/20 05:02 150/96 08/30/20 04:30 97.3 66 15 150/96 (114) 95 08/30/20 00:25 80 08/30/20 00:00 97.4 71 20 155/88 (110) 95 08/29/20 21:12 73 150/87 08/29/20 21:00 Room Air 08/29/20 20:00 93 08/29/20 20:00 96.5 73 22 150/87 (108) 98 08/29/20 19:20 80 17 99 Room Air 21 78 18 98 08/29/20 16:00 93 08/29/20 16:00 96.5 71 18 153/80 (104) 99 08/29/20 15:10 74 18 99 Room Air 21 69 18 91 08/29/20 12:00 97.5 68 18 151/87 (108) 99 08/29/20 12:00 67 08/29/20 11:58 67 18 99 Room Air 21 66 18 90 08/29/20 11:36 97.5 Intake and Output 08/29/20 08/30/20 19:00 07:00 Intake Total 720 ml 240 ml Balance 720 ml 240 ml Intake Oral 720 ml 240 ml # Voids 3 Laboratory Tests 08/30/20 06:40: White Blood Count 3.4L, Red Blood Count 3.69L, Hemoglobin 10.3L, Hematocrit 36.2L, Mean Corpuscular Volume 98, Mean Corpuscular Hemoglobin 27.9, Mean Corpuscular Hemoglobin Concent 28.4L, Red Cell Distribution Width 14.4, Platelet Count 104L, Mean Platelet Volume 7.3, Neutrophils (%) (Auto) , Lymphocytes (%) (Auto) , Monocytes (%) (Auto) , Eosinophils (%) (Auto) , Basophils (%) (Auto) , Neutrophils % (Manual) [Pending], Lymphocytes % (Manual) [Pending], Platelet Estimate [Pending], Platelet Morphology [Pending], Sodium Level 137, Potassium Level 4.7, Chloride Level 101, Carbon Dioxide Level 30, Anion Gap 6, Blood Urea Nitrogen 39H, Creatinine 1.2, Estimat Glomerular Filtration Rate 55.1, Glucose Level 492H, Calcium Level 9.1 Height (Feet): 5 Height (Inches): 6.00 Weight (Pounds): 167 General Appearance: alert EENT: PERRL/EOMI Neck: supple Cardiovascular: normal rate Respiratory/Chest: crackles/rales Abdomen: non tender, soft Extremities: non-tender Assessment/Plan Assessment/Plan: ac copd on iv steroids and iv abx acs htn ch pain synd dm poorly controlled add levamier and high dose of ss hx iv drug abused decrease iv sterids and abx pain meds transfer to med surg Olegario Thomas MD Aug 30, 2020 09:45
[2020-08-30 12:00] VITALS: BP 160/92
--- NOTE | 2020-08-30 13:05 | Surgery Progress Note ---
Surgery Progress Note Subjective Additional Comments generalized pain also in abd exam benign labs noted Objective Last 24 Hour Vital Signs Date Time Temp Pulse Resp B/P (MAP) Pulse Ox O2 Delivery O2 Flow Rate FiO2 08/30/20 09:23 143/94 08/30/20 09:22 72 143/94 08/30/20 09:00 Room Air 08/30/20 08:00 96.3 72 18 143/94 (110) 95 08/30/20 05:02 150/96 08/30/20 04:30 97.3 66 15 150/96 (114) 95 08/30/20 00:25 80 08/30/20 00:00 97.4 71 20 155/88 (110) 95 08/29/20 21:12 73 150/87 08/29/20 21:00 Room Air 08/29/20 20:00 93 08/29/20 20:00 96.5 73 22 150/87 (108) 98 08/29/20 19:20 80 17 99 Room Air 21 78 18 98 08/29/20 16:00 93 08/29/20 16:00 96.5 71 18 153/80 (104) 99 08/29/20 15:10 74 18 99 Room Air 21 69 18 91 I&O Intake and Output 08/29/20 08/30/20 19:00 07:00 Intake Total 720 ml 240 ml Balance 720 ml 240 ml Intake Oral 720 ml 240 ml # Voids 3 Cardiovascular: RSR Respiratory: clear Abdomen: soft, non-tender, present bowel sounds Extremities: no edema, no tenderness, no cyanosis Laboratory Tests Test 08/30/20 06:40 White Blood Count 3.4 K/UL (4.8-10.8) L Red Blood Count 3.69 M/UL (4.20-5.40) L Hemoglobin 10.3 G/DL (12.0-16.0) L Hematocrit 36.2 % (37.0-47.0) L Mean Corpuscular Volume 98 FL (80-99) Mean Corpuscular Hemoglobin 27.9 PG (27.0-31.0) Mean Corpuscular Hemoglobin Concent 28.4 G/DL (32.0-36.0) L Red Cell Distribution Width 14.4 % (11.6-14.8) Platelet Count 104 K/UL (150-450) L Mean Platelet Volume 7.3 FL (6.5-10.1) Neutrophils (%) (Auto) % (45.0-75.0) Lymphocytes (%) (Auto) % (20.0-45.0) Monocytes (%) (Auto) % (1.0-10.0) Eosinophils (%) (Auto) % (0.0-3.0) Basophils (%) (Auto) % (0.0-2.0) Differential Total Cells Counted 100 Neutrophils % (Manual) 91 % (45-75) H Lymphocytes % (Manual) 7 % (20-45) L Monocytes % (Manual) 2 % (1-10) Eosinophils % (Manual) 0 % (0-3) Basophils % (Manual) 0 % (0-2) Band Neutrophils 0 % (0-8) Platelet Estimate Decreased L Platelet Morphology Normal Hypochromasia 1+ Macrocytosis 1+ Sodium Level 137 MMOL/L (136-145) Potassium Level 4.7 MMOL/L (3.5-5.1) Chloride Level 101 MMOL/L (98-107) Carbon Dioxide Level 30 MMOL/L (21-32) Anion Gap 6 mmol/L (5-15) Blood Urea Nitrogen 39 mg/dL (7-18) H Creatinine 1.2 MG/DL (0.55-1.30) Estimat Glomerular Filtration Rate 55.1 mL/min (>60) Glucose Level 492 MG/DL (74-106) H Calcium Level 9.1 MG/DL (8.5-10.1) Plan Problems: (1) Opiate dependence (2) Diabetes (3) Pneumonitis Assessment & Plan: Six 1-year-old female admitted for respiratory insufficiency plan for medications poor peripheral access given history of drug abuse. Patient was evaluated. Given her history and current condition patient is fairly stable will recommend PICC line placement over central venous access. PICC line placement can be done by radiology which has since been ordered. Hold on central venous access as peripheral inserted central access is strongly recommended inpatient her current condition specially potential need for long- term access as well. Continue with oral medications and tolerance in the meantime patient is stable in the event patient becomes unstable or deteriorates will consider in place central venous access in the meantime. Given current condition recommended for PICC. Thank you for letting participate patient's care will follow with recommendations (4) COPD exacerbation (5) Chest pain (6) Influenza (7) HTN (hypertension) (8) Smoker Rich Robbins Aug 30, 2020 13:05
--- NOTE | 2020-08-30 15:36 | NUR ---
CASE MANAGEMENT: REVIEW 08/30/2020 SI:COPD EXACERBATION. PNEUMONITIS OPIATE DEPENDENCE. DM VS: T 96.7 HR 73 RR 18 B/P 160/92 SATS 90% ON RA LABS: WBC 3.4 BUN 39 GLU 492 IS: SOLU MEDROL IV Q8H ASA PO QD METHADONE PO QD INSULIN ASPART SUBQ AC/HS LOPRESSOR PO Q12H CEFTRIAXONE IV Q24H : TO TELEMETRY UNIT DCP: FROM HOME
[2020-08-30 16:00] VITALS: BP 135/77
--- NOTE | 2020-08-30 16:20 | NUR ---
[employer]URANCE [employer]IC[employer]/REVIEW FAXED TO [employer] [facility] ph#[phone] fax# [phone]
[2020-08-30] MEDS: cefTRIAXone 1 GM in D5W 55 ML IVPB SCH (18:11)
--- NOTE | 2020-08-30 19:23 | NUR ---
NURSE HAND-OFF REPORT: Important Events on Shift:[] Patient Status: [MONITOR GLUCOSE AND MANAGE PAIN] Diet: [] Pending Orders: [] Pending Results/Labs:[] Pending MD notification:[] Latest Vital Signs: Temperature 97.9 , Pulse 60 , B/P 135 /77 , Respiratory Rate 18 , O2 SAT 94 , Room Air, O2 Flow Rate . Vital Sign Comment: [] EKG Rhythm: Sinus Rhythm Rhythm change?: N MD Notified?: - MD Response: Latest Mcdonald Fall Score: 30 Fall Risk: Medium Risk Safety Measures: Call light Within Reach, Bed Alarm Zone 1, Side Rails Side Rails x2, Bed position Low and Locked. Fall Precautions: Yellow Socks Report given to [JESSICA RANGEL].
--- NOTE | 2020-08-30 19:57 | NUR ---
NURSE NOTES: Patient in bed, awake and alert x4. On room air with no signs of distress or SOB. PICC line noted in the ROBERT patent and running abx. All needs met at this time. No C/O pain. Bed locked and in lowest position. Call light in reach. Will continue plan of care.
[2020-08-30 20:00] VITALS: BP 163/85
[2020-08-30] MEDS: Dyna-Hex 2% Top Sol 2oz TOPIC SCH (21:23)
--- NOTE | 2020-08-30 21:44 | NUR ---
NURSE NOTES: Patient's blood glucose 467. Patient has been non-compliant with diet tonight, eating fast food takeout and drinking soda. RN provided education. Notified Dr. Thomas. No new orders at this time.
[2020-08-31] VITALS: BP 140/76
[2020-08-31] MEDS: Morphine Sulfate 2mg/ml Inj(IV/IM USE ONLY) IVP PRN ×3 (00:10→12:40)
[2020-08-31] MEDS: Albuterol/Ipratropium 3ml neb HHN SCH (02:37)
[2020-08-31 03:59] VITALS: BP 147/84
[2020-08-31] MEDS: Solu-MEDROL 125mg Inj IVP SCH ×2 (06:08→12:41)
[2020-08-31] MEDS: NovoLOG Insulin Flexpen SUBQ SCH ×4 (06:15→21:00)
[2020-08-31 06:19] LABS: HEMATOCRIT 36.9 % (37.0-47.0); HEMOGLOBIN 10.4 G/DL (12.0-16.0); MEAN CORPUSCULAR VOLUME 98 FL (80-99); PLATELET COUNT 113 K/UL (150-450); RED BLOOD COUNT 3.76 M/UL (4.20-5.40); RED CELL DISTRIBUTION WIDTH 14.7 % (11.6-14.8); WHITE BLOOD COUNT 3.7 K/UL (4.8-10.8)
--- NOTE | 2020-08-31 06:23 | NUR ---
NURSE HAND-OFF REPORT: Important Events on Shift: Hyperglycemia - MD notified Patient Status: Stable Diet: Cardiac Pending Orders: Tx to med/surg - no beds available at this time Pending Results/Labs: CBC, BMP Pending MD notification: N/A Latest Vital Signs: Temperature 97.0 , Pulse 68 , B/P 147 /84 , Respiratory Rate 17 , O2 SAT 95 , Room Air, O2 Flow Rate . Vital Sign Comment: N/A EKG Rhythm: Sinus Rhythm Rhythm change?: N MD Notified?: - MD Response: Latest Mcdonald Fall Score: 30 Fall Risk: Medium Risk Safety Measures: Call light Within Reach, Bed Alarm Zone 1, Side Rails Side Rails x2, Bed position Low and Locked. Fall Precautions: Yellow Socks Addendum: 08/31/20 at 0728 by JESSICA RANGEL RN Report given to DANIEL Zamudio
[2020-08-31 06:52] LABS: CREATININE 1.3 MG/DL (0.55-1.30); POTASSIUM 4.7 MMOL/L (3.5-5.1)
[2020-08-31 07:52] VITALS: BP 179/97
[2020-08-31] MEDS: guaiFENesin ER 600mg tab ORAL SCH ×2 (09:12→22:36)
[2020-08-31] MEDS: Aspirin Baby 81mg ORAL SCH (09:13)
[2020-08-31] MEDS: Lisinopril 20mg tab ORAL SCH (09:13)
[2020-08-31] MEDS: Benzonatate 100mg Perles ORAL SCH ×3 (09:13→17:13)
[2020-08-31] MEDS: Docusate 100mg cap ORAL SCH ×2 (09:14→17:07)
[2020-08-31] MEDS: Levemir Flexpen SUBQ SCH (09:16)
[2020-08-31 12:00] VITALS: BP 154/94
--- NOTE | 2020-08-31 13:36 | NUR ---
[employer]URANCE [employer]IC[employer] FAXED TO [employer] [facility] #[phone] fax# [phone]
[2020-08-31 16:00] VITALS: BP 169/72
[2020-08-31] MEDS: cefTRIAXone 1 GM in D5W 55 ML IVPB SCH (17:08)
--- NOTE | 2020-08-31 17:45 | General Progress Note ---
Subjective Allergies: Coded Allergies: SULFA (SULFONAMIDE ANTIBIOTICS) (Unverified Allergy, Unknown, 08/13/18) Subjective c/o pain picc line was placed blood sugar is high increased levamier taper down steroids sob on exertion Objective Last 24 Hour Vital Signs Date Time Temp Pulse Resp B/P (MAP) Pulse Ox O2 Delivery O2 Flow Rate FiO2 08/31/20 16:00 96.8 68 17 169/72 (104) 96 08/31/20 12:00 98.5 74 16 154/94 (114) 96 08/31/20 09:13 179/97 08/31/20 09:12 69 179/97 08/31/20 09:00 Room Air 08/31/20 08:43 69 16 97 Room Air 21 08/31/20 07:52 97.3 67 18 179/97 (124) 100 08/31/20 03:59 97.0 68 17 147/84 (105) 95 08/31/20 00:00 97.7 69 17 140/76 (97) 95 08/30/20 23:03 84 17 100 Room Air 80 18 96 08/30/20 21:26 76 163/85 08/30/20 21:00 Room Air 08/30/20 20:00 97.6 76 20 163/85 (111) 94 Intake and Output 08/30/20 08/31/20 19:00 07:00 # Voids 4 2 Laboratory Tests 08/30/20 21:31: POC Whole Blood Glucose [Pending] 08/31/20 05:42: POC Whole Blood Glucose 359H 08/31/20 05:50: White Blood Count 3.7L, Red Blood Count 3.76L, Hemoglobin 10.4L, Hematocrit 36.9L, Mean Corpuscular Volume 98, Mean Corpuscular Hemoglobin 27.5, Mean Corpuscular Hemoglobin Concent 28.1L, Red Cell Distribution Width 14.7, Platelet Count 113L, Mean Platelet Volume 7.8, Neutrophils (%) (Auto) , Lymphocytes (%) (Auto) , Monocytes (%) (Auto) , Eosinophils (%) (Auto) , Basophils (%) (Auto) , Differential Total Cells Counted 100, Neutrophils % (Manual) 92H, Lymphocytes % (Manual) 5L, Monocytes % (Manual) 3, Eosinophils % (Manual) 0, Basophils % (Manual) 0, Band Neutrophils 0, Platelet Estimate DecreasedL, Platelet Morphology Normal, Hypochromasia 1+, Anisocytosis 1+, Macrocytosis 1+, Sodium Level 137, Potassium Level 4.7, Chloride Level 101, Carbon Dioxide Level 33H, Anion Gap 3L, Blood Urea Nitrogen 46H, Creatinine 1.3, Estimat Glomerular Filtration Rate 50.3, Glucose Level 476H, Calcium Level 10.0 08/31/20 11:10: POC Whole Blood Glucose 418H 08/31/20 16:54: POC Whole Blood Glucose 435H Height (Feet): 5 Height (Inches): 6.00 Weight (Pounds): 167 General Appearance: alert EENT: PERRL/EOMI Neck: supple Cardiovascular: regular rhythm Respiratory/Chest: crackles/rales Abdomen: non tender, soft Assessment/Plan Assessment/Plan: ac copd on decresed iv steroids and iv abx acs htn ch pain synd dm poorly controlled add levamier and high dose of ss hx iv drug abused decrease iv sterids and abx pain meds transfer to med surg Olegario Thomas MD Aug 31, 2020 17:45
--- NOTE | 2020-08-31 19:35 | NUR ---
NURSE NOTES: Important Events on Shift: Received report from Lizz SANCHEZ. Pt in bed, awake, AxO x 4, denies pain at this time. Will conitue close monitoring and plan of care. Patient Status: full code Diet: CCHO M Pending Orders: Transfer to [place] once bed is available. Pending Results/Labs: none Pending MD notification: none Latest Vital Signs: Temperature 97.3 , Pulse 64 , B/P 136 /81 , Respiratory Rate 17 , O2 SAT 96 , Room Air, O2 Flow Rate . Vital Sign Comment: EKG Rhythm: Sinus Rhythm Rhythm change?: N MD Notified?: - MD Response: Latest Mcdonald Fall Score: 50 Fall Risk: High Risk Safety Measures: Call light Within Reach, Bed Alarm Zone 1, Side Rails Side Rails x2, Bed position Low and Locked. Fall Precautions: Yellow Socks, Pt education, Yellow gown
[2020-08-31 20:00] VITALS: BP 142/84
[2020-08-31] MEDS: Dyna-Hex 2% Top Sol 2oz TOPIC SCH (20:00)
[2020-09-01] VITALS: BP 136/81
[2020-09-01] MEDS: Morphine Sulfate 2mg/ml Inj(IV/IM USE ONLY) IVP PRN ×3 (03:32→18:33)
[2020-09-01 04:00] VITALS: BP 142/87
[2020-09-01] MEDS: NovoLOG Insulin Flexpen SUBQ SCH ×4 (05:53→21:00)
--- NOTE | 2020-09-01 07:14 | NUR ---
NURSE HAND-OFF REPORT: Important Events on Shift: BG at 422, MD previously notified. Pt given morphine x 2, effective. Patient Status: full code Diet: CCHO M Pending Orders: transfer to [place] once bed is available Pending Results/Labs: none Pending MD notification: none Latest Vital Signs: Temperature 97.3 , Pulse 68 , B/P 142 /87 , Respiratory Rate 18 , O2 SAT 95 , Room Air, O2 Flow Rate . Vital Sign Comment: EKG Rhythm: Sinus Rhythm Rhythm change?: N MD Notified?: - MD Response: Latest Mcdonald Fall Score: 50 Fall Risk: High Risk Safety Measures: Call light Within Reach, Bed Alarm Zone 1, Side Rails Side Rails x2, Bed position Low and Locked. Fall Precautions: Yellow Socks, Yellow gown, pt education, door sign. Report given to Lizz Maria RN
[2020-09-01 08:07] VITALS: BP 141/85
[2020-09-01] MEDS ORDERED: Solu-MEDROL 40mg Inj IVP SCH (09:00)
[2020-09-01] MEDS: Docusate 100mg cap ORAL SCH ×2 (09:18→18:31)
[2020-09-01] MEDS: Aspirin Baby 81mg ORAL SCH (09:19)
[2020-09-01] MEDS: guaiFENesin ER 600mg tab ORAL SCH ×2 (09:19→21:55)
[2020-09-01] MEDS: Lisinopril 20mg tab ORAL SCH (09:19)
[2020-09-01] MEDS: Benzonatate 100mg Perles ORAL SCH ×3 (09:25→18:31)
[2020-09-01] MEDS: Levemir Flexpen SUBQ SCH (09:28)
[2020-09-01 11:16] LABS: BASOPHILS % (AUTO) 0.3 % (0.0-2.0); EOSINOPHILS % (AUTO) 0.2 % (0.0-3.0); HEMATOCRIT 41.2 % (37.0-47.0); HEMOGLOBIN 11.7 G/DL (12.0-16.0); LYMPHOCYTES % (AUTO) 9.2 % (20.0-45.0); MEAN CORPUSCULAR VOLUME 97 FL (80-99); MONOCYTES % (AUTO) 7.7 % (1.0-10.0); NEUTROPHILS % (AUTO) 82.6 % (45.0-75.0); PLATELET COUNT 137 K/UL (150-450); RED BLOOD COUNT 4.25 M/UL (4.20-5.40); WHITE BLOOD COUNT 8.4 K/UL (4.8-10.8)
[2020-09-01 11:25] LABS: ANION GAP 2 mmol/L (5-15); BLOOD UREA NITROGEN 40 mg/dL (7-18); CALCIUM 8.6 MG/DL (8.5-10.1); CARBON DIOXIDE 36 MMOL/L (21-32); CHLORIDE 105 MMOL/L (98-107); CREATININE 1.1 MG/DL (0.55-1.30); SODIUM 143 MMOL/L (136-145)
[2020-09-01 11:29] LABS: ALANINE AMINOTRANSFERASE 28 U/L (12-78); ALBUMIN 2.4 G/DL (3.4-5.0); ALBUMIN/GLOBULIN RATIO 0.5 (1.0-2.7); ALKALINE PHOSPHATASE 92 U/L (46-116); ASPARTATE AMINO TRANSFERASE 28 U/L (15-37); BILIRUBIN,TOTAL 0.6 MG/DL (0.2-1.0)
[2020-09-01 12:00] VITALS: BP 151/88
--- NOTE | 2020-09-01 12:32 | NUR ---
INSURANCE [employer]ICALS FAXED TO [employer] [facility] #[phone] fax# [phone]
--- NOTE | 2020-09-01 12:54 | NUR ---
RD ASSESSMENT & RECOMMENDATIONS SEE CARE ACTIVITY FOR COMPLETE ASSESSMENT DAILY ESTIMATED NEEDS: Needs based on DM/ 63kg abw 25-30 kcals/kg 5431-1090 total kcals 1-1.3 g protein/kg 63-82 g total protein 25-30 mL/kg 8084-4293 total fluid mLs NUTRITION DIAGNOSIS: Altered nutrition related lab values R/T h/o DM and steroidal med as evidenced by elev POC glu (300's and 400's), pt on Solumedrol. CURRENT DIET:CCHO MED, soft easy chew PO DIET RECOMMENDATIONS: CCHO LOW, texture as tolerated ADDITIONAL RECOMMENDATIONS: * Monitor BGs, need for further increase in insulin (Levemir increased from 10 -> 30units q 09/01) * Standing wt as able for accurate CBW
[2020-09-01 16:00] VITALS: BP 163/81
--- NOTE | 2020-09-01 16:41 | General Progress Note ---
Subjective Allergies: Coded Allergies: SULFA (SULFONAMIDE ANTIBIOTICS) (Unverified Allergy, Unknown, 08/13/18) Subjective sleping , comfortable c/o pain picc line was placed blood sugar is better increased levamier taper down steroids sob on exertion Objective Last 24 Hour Vital Signs Date Time Temp Pulse Resp B/P (MAP) Pulse Ox O2 Delivery O2 Flow Rate FiO2 09/01/20 12:00 97.3 62 18 151/88 (109) 99 09/01/20 09:25 69 141/85 09/01/20 09:19 141/85 09/01/20 09:00 Room Air 09/01/20 08:07 97.2 69 22 141/85 (103) 98 09/01/20 04:02 97.3 09/01/20 04:00 98.3 68 18 142/87 (105) 95 09/01/20 00:00 97.3 64 17 136/81 (99) 96 08/31/20 22:37 74 142/77 08/31/20 21:00 Room Air 08/31/20 20:00 98.0 64 20 142/84 (103) 96 08/31/20 19:35 72 20 96 Room Air 21 Intake and Output 08/31/20 09/01/20 19:00 07:00 Intake Total 2400 ml 1500 ml Balance 2400 ml 1500 ml Intake Oral 2400 ml 1500 ml # Voids 4 Laboratory Tests 08/31/20 16:54: POC Whole Blood Glucose 435H 08/31/20 22:25: POC Whole Blood Glucose 315H 09/01/20 05:50: POC Whole Blood Glucose 422H 09/01/20 10:55: White Blood Count 8.4#, Red Blood Count 4.25, Hemoglobin 11.7L, Hematocrit 41.2, Mean Corpuscular Volume 97, Mean Corpuscular Hemoglobin 27.5, Mean Corpuscular Hemoglobin Concent 28.4L, Red Cell Distribution Width 15.0H, Platelet Count 137L , Mean Platelet Volume 6.9, Neutrophils (%) (Auto) 82.6H, Lymphocytes (%) (Auto) 9.2L, Monocytes (%) (Auto) 7.7, Eosinophils (%) (Auto) 0.2, Basophils (%) (Auto) 0.3, Sodium Level 143, Potassium Level 4.0, Chloride Level 105, Carbon Dioxide Level 36H, Anion Gap 2L, Blood Urea Nitrogen 40H, Creatinine 1.1, Estimat Glomerular Filtration Rate > 60, Glucose Level 299#H, Calcium Level 8.6, Total Bilirubin 0.6, Aspartate Amino Transf (AST/SGOT) 28, Alanine Aminotransferase (ALT/SGPT) 28, Alkaline Phosphatase 92, Total Protein 7.0, Albumin 2.4L, Globulin 4.6, Albumin/Globulin Ratio 0.5L 09/01/20 12:25: POC Whole Blood Glucose 263H Height (Feet): 5 Height (Inches): 6.00 Weight (Pounds): 167 Cardiovascular: normal rate Respiratory/Chest: crackles/rales Abdomen: non tender, soft Assessment/Plan Assessment/Plan: ac copd better on decresed iv steroids and iv abx acs htn ch pain synd dm poorly controlled add levamier and high dose of ss hx iv drug abused decrease iv sterids and abx pain meds transfer to med surg Olegario Thomas MD Sep 01, 2020 16:41
[2020-09-01] MEDS: cefTRIAXone 1 GM in D5W 55 ML IVPB SCH (18:30)
[2020-09-01] MEDS: Solu-MEDROL 40mg Inj IVP SCH (18:31)
--- NOTE | 2020-09-01 19:15 | NUR ---
NURSE NOTES: Important Events on Shift: Received report from Lizz Maria RN. Pt in bed, awake, alert, and oriented x 4. Pt denies pain and distress at this time. Will continue close monitoring and plan of care. Patient Status: full code Diet: CCHO M Pending Orders: Transfer to [place] once bed is available. Pending Results/Labs: none Pending MD notification:CBC, CMP Latest Vital Signs: Temperature 98.4 , Pulse 69 , B/P 144 /91 , Respiratory Rate 20 , O2 SAT 97 , Room Air, O2 Flow Rate . Vital Sign Comment: EKG Rhythm: Sinus Rhythm Rhythm change?: N MD Notified?: - MD Response: Latest Mcdonald Fall Score: 50 Fall Risk: High Risk Safety Measures: Call light Within Reach, Bed Alarm Zone 1, Side Rails Side Rails x2, Bed position Low and Locked. Fall Precautions: Yellow Socks, pt education, yellow gown,
[2020-09-01 20:00] VITALS: BP 126/79
[2020-09-01] MEDS: Dyna-Hex 2% Top Sol 2oz TOPIC SCH (20:00)
[2020-09-01] MEDS: HYDROcodone/Acetamin 5/325 tab ORAL PRN (22:23)
[2020-09-02] VITALS: BP 144/91
[2020-09-02 04:00] VITALS: BP 132/73
[2020-09-02] MEDS: HYDROcodone/Acetamin 5/325 tab ORAL PRN (04:54)
[2020-09-02] MEDS: NovoLOG Insulin Flexpen SUBQ SCH ×4 (05:28→20:22)
--- NOTE | 2020-09-02 07:25 | NUR ---
NURSE HAND-OFF REPORT: Important Events on Shift: NONE Patient Status: FULL CODE Diet: CCHO M Pending Orders: transfer to [place] once bed is available. Pending Results/Labs: none Pending MD notification: none Latest Vital Signs: Temperature 98.4 , Pulse 66 , B/P 132 /73 , Respiratory Rate 24 , O2 SAT 95 , Room Air, O2 Flow Rate . Vital Sign Comment: stable throughout shift EKG Rhythm: Sinus Rhythm Rhythm change?: N MD Notified?: - MD Response: Latest Mcdonald Fall Score: 50 Fall Risk: High Risk Safety Measures: Call light Within Reach, Bed Alarm Zone 1, Side Rails Side Rails x2, Bed position Low and Locked. Fall Precautions: Yellow Socks, pt education, yellow gown, door sign Report given to Lizz Maria RN
[2020-09-02 08:00] VITALS: BP 138/75
[2020-09-02] MEDS: Lisinopril 20mg tab ORAL SCH (09:48)
[2020-09-02] MEDS: Aspirin Baby 81mg ORAL SCH (09:48)
[2020-09-02] MEDS: Benzonatate 100mg Perles ORAL SCH ×3 (09:48→18:09)
[2020-09-02] MEDS: Docusate 100mg cap ORAL SCH ×2 (09:49→18:10)
[2020-09-02] MEDS: guaiFENesin ER 600mg tab ORAL SCH ×2 (09:49→20:15)
[2020-09-02] MEDS: Solu-MEDROL 40mg Inj IVP SCH ×2 (09:50→18:10)
[2020-09-02] MEDS: Levemir Flexpen SUBQ SCH (09:53)
--- NOTE | 2020-09-02 09:55 | NUR ---
CASE MANAGEMENT:REVIEW 09/02/20 SI: COPD EXACERBATION. PNA OPIATE DEPENDENCE. DM POORLY CONTROLLED 98.3 69 18 138/75 94% ON RA IS: IV SOLUMEDROL 20MG BID IV ROCEPHIN Q24 METHADONE 80MG PO QD IV MORPHINE Q6HRS PRN LEVEMIR SQ QD LOPRESSOR PO Q12 NEURONTIN PO QID LISINOPRIL PO QD ASA PO QD : TELEMETRY STATUS DCP: FROM HOME PLAN: TAPER STEROIDS CONTINUE ANTIBIOTICS
[2020-09-02 10:07] LABS: BASOPHILS % (AUTO) 0.3 % (0.0-2.0); HEMATOCRIT 38.6 % (37.0-47.0); HEMOGLOBIN 11.1 G/DL (12.0-16.0); LYMPHOCYTES % (AUTO) 19.9 % (20.0-45.0); MEAN CORPUSCULAR VOLUME 97 FL (80-99); MONOCYTES % (AUTO) 8.3 % (1.0-10.0); NEUTROPHILS % (AUTO) 70.5 % (45.0-75.0); PLATELET COUNT 121 K/UL (150-450); RED BLOOD COUNT 3.99 M/UL (4.20-5.40); RED CELL DISTRIBUTION WIDTH 14.9 % (11.6-14.8); WHITE BLOOD COUNT 5.5 K/UL (4.8-10.8)
[2020-09-02 10:13] LABS: ALANINE AMINOTRANSFERASE 25 U/L (12-78); ALBUMIN 2.1 G/DL (3.4-5.0); ALBUMIN/GLOBULIN RATIO 0.5 (1.0-2.7); ALKALINE PHOSPHATASE 87 U/L (46-116); ANION GAP 0 mmol/L (5-15); ASPARTATE AMINO TRANSFERASE 26 U/L (15-37); BILIRUBIN,TOTAL 0.4 MG/DL (0.2-1.0); BLOOD UREA NITROGEN 36 mg/dL (7-18); CALCIUM 8.5 MG/DL (8.5-10.1); CARBON DIOXIDE 36 MMOL/L (21-32); CHLORIDE 103 MMOL/L (98-107); POTASSIUM 4.2 MMOL/L (3.5-5.1); SODIUM 139 MMOL/L (136-145)
[2020-09-02 12:00] VITALS: BP 136/81
[2020-09-02 16:00] VITALS: BP 140/83
[2020-09-02] MEDS: Morphine Sulfate 2mg/ml Inj(IV/IM USE ONLY) IVP PRN ×2 (16:28→22:41)
[2020-09-02] MEDS: cefTRIAXone 1 GM in D5W 55 ML IVPB SCH (18:09)
--- NOTE | 2020-09-02 19:21 | NUR ---
NURSE NOTES: The patient is alert and oriented x4, has anxiety and agitations and was yelling for no apparent reason. A calm environment was provided and she was able to cooperate with her care .She can ambulate to the bathroom without any difficulties. She is on 2 liters of oxygen via NC well tolerated.The patient has a left upper arm PICC line that has clean and intact dressing. The bed in lowest level, call light within easy reach. will continue to monitor as indicated.
--- NOTE | 2020-09-02 19:36 | General Progress Note ---
Subjective Allergies: Coded Allergies: SULFA (SULFONAMIDE ANTIBIOTICS) (Unverified Allergy, Unknown, 08/13/18) Subjective sleping , comfortable c/o pain picc line was placed blood sugar is better increased levamier taper down steroids sob on exertion Objective Last 24 Hour Vital Signs Date Time Temp Pulse Resp B/P (MAP) Pulse Ox O2 Delivery O2 Flow Rate FiO2 09/02/20 16:00 98.1 70 19 140/83 (102) 09/02/20 12:00 98.1 63 19 136/81 (99) 94 09/02/20 09:49 69 138/75 09/02/20 09:48 138/75 09/02/20 09:00 Room Air 09/02/20 08:00 98.3 69 18 138/75 (96) 94 09/02/20 07:00 69 20 94 Room Air 21 09/02/20 05:24 98.4 09/02/20 04:00 98.2 66 24 132/73 (92) 95 09/02/20 00:00 98.4 69 20 144/91 (108) 97 09/01/20 22:53 98.3 09/01/20 21:54 63 126/79 09/01/20 21:00 Room Air 09/01/20 20:51 98.3 09/01/20 20:00 98.3 63 18 126/79 (95) 95 Intake and Output 09/01/20 09/02/20 19:00 07:00 Intake Total 1900 ml 1500 ml Balance 1900 ml 1500 ml Intake Oral 1900 ml 1500 ml # Voids 3 Laboratory Tests 09/01/20 22:02: POC Whole Blood Glucose 292H 09/02/20 05:26: POC Whole Blood Glucose 291H 09/02/20 09:46: White Blood Count 5.5, Red Blood Count 3.99L, Hemoglobin 11.1L, Hematocrit 38.6, Mean Corpuscular Volume 97, Mean Corpuscular Hemoglobin 27.8, Mean Corpuscular Hemoglobin Concent 28.8L, Red Cell Distribution Width 14.9H, Platelet Count 121L , Mean Platelet Volume 7.9, Neutrophils (%) (Auto) 70.5, Lymphocytes (%) (Auto) 19.9L, Monocytes (%) (Auto) 8.3, Eosinophils (%) (Auto) 1.0, Basophils (%) (Auto) 0.3, Sodium Level 139, Potassium Level 4.2, Chloride Level 103, Carbon Dioxide Level 36H, Anion Gap 0L, Blood Urea Nitrogen 36H, Creatinine 1.0, Estimat Glomerular Filtration Rate > 60, Glucose Level 309H, Calcium Level 8.5, Total Bilirubin 0.4, Aspartate Amino Transf (AST/SGOT) 26, Alanine Aminotransferase (ALT/SGPT) 25, Alkaline Phosphatase 87, Total Protein 6.0L, Albumin 2.1L, Globulin 3.9, Albumin/Globulin Ratio 0.5L 09/02/20 11:32: POC Whole Blood Glucose 287H Height (Feet): 5 Height (Inches): 6.00 Weight (Pounds): 167 General Appearance: alert EENT: PERRL/EOMI Neck: supple Cardiovascular: normal rate Respiratory/Chest: crackles/rales Abdomen: non tender, soft Assessment/Plan Assessment/Plan: ac copd better on decresed iv steroids and iv abx acs htn ch pain synd dm poorly controlled add levamier and high dose of ss hx iv drug abused decrease iv sterids and abx pain meds transfer to med surg Olegario Thomas MD Sep 02, 2020 19:36
[2020-09-02 20:00] VITALS: BP 149/76
[2020-09-02] MEDS: Dyna-Hex 2% Top Sol 2oz TOPIC SCH (20:03)
[2020-09-03] VITALS: BP 139/79
[2020-09-03 04:00] VITALS: BP 133/85
[2020-09-03] MEDS: NovoLOG Insulin Flexpen SUBQ SCH ×4 (06:53→21:07)
--- NOTE | 2020-09-03 07:12 | NUR ---
NURSE HAND-OFF REPORT: Important Events on Shift:Agitatios and anxiety was noted. she slept about 6 hrs last night. Patient Status: Diet: Pending Orders: Pending Results/Labs: Pending MD notification: Latest Vital Signs: Temperature 97.8 , Pulse 79 , B/P 133 /85 , Respiratory Rate 18 , O2 SAT 97 , Room Air, O2 Flow Rate 2.0 . Vital Sign Comment: EKG Rhythm: Sinus Rhythm Rhythm change?: N MD Notified?: - MD Response: Latest Mcdonald Fall Score: 50 Fall Risk: High Risk Safety Measures: Call light Within Reach, Bed Alarm Zone 1, Side Rails Side Rails x2, Bed position Low and Locked. Fall Precautions: Yellow Socks Report given to .
--- NOTE | 2020-09-03 07:28 | NUR ---
NURSE NOTES: Received report from DANIEL Archer. Pt is sitting up right in bed eating breakfast independently and getting up to use bathroom independently, gait steady. Pt asking for waffles at this time. ordered for Pt. Pt is on 3LPM NC but removes on her own to ambulate to bathroom per DANIEL Archer. Pt has a ROBERT PICC line noted. pt bed low and locked, and call light in reach. Pt able to make needs known. no tele monitor on as pt is [place] Pt.
[2020-09-03 07:52] VITALS: BP 150/100
[2020-09-03] MEDS: Benzonatate 100mg Perles ORAL SCH ×3 (09:03→17:40)
[2020-09-03] MEDS: Lisinopril 20mg tab ORAL SCH (09:04)
[2020-09-03] MEDS: Aspirin Baby 81mg ORAL SCH (09:04)
[2020-09-03] MEDS: Docusate 100mg cap ORAL SCH ×2 (09:04→17:40)
[2020-09-03] MEDS: guaiFENesin ER 600mg tab ORAL SCH ×2 (09:04→21:04)
[2020-09-03] MEDS: Solu-MEDROL 40mg Inj IVP SCH ×2 (09:22→17:41)
[2020-09-03] MEDS: Levemir Flexpen SUBQ SCH (09:25)
[2020-09-03] MEDS: Morphine Sulfate 2mg/ml Inj(IV/IM USE ONLY) IVP PRN ×2 (10:09→22:02)
[2020-09-03 11:25] VITALS: BP 153/87
--- NOTE | 2020-09-03 11:35 | Hematology/Onc Progress Note ---
Assessment/Plan Assessment/Plan anemia likely chronic disease, downtrending ac copd better on decresed iv steroids and iv abx acs htn ch pain synd dm poorly controlled add levamier and high dose of ss hx iv drug abused decrease iv sterids and abx pain meds transfer to med surg Subjective HEENT: Denies: no symptoms, eye pain, blurred vision, tearing, double vision, ear pain, ear discharge, nose pain, nose congestion, throat pain, throat swelling, mouth pain, mouth swelling, other Cardiovascular: Denies: no symptoms, chest pain, edema, irregular heart rate, lightheadedness, palpitations, syncope, other Respiratory: Denies: no symptoms, cough, shortness of breath, SOB with excertion, SOB at rest, sputum, wheezing, other Gastrointestinal/Abdominal: Denies: no symptoms, abdomen distended, abdominal pain, black stools, tarry stools, blood in stool, constipated, diarrhea, difficulty swallowing, nausea, poor appetite, poor fluid intake, rectal bleeding, vomiting, other Endocrine: Denies: no symptoms, excessive sweating, flushing, intolerance to cold, intolerance to heat, increased hunger, increased thirst, increased urine, unexplained weight gain, unexplained weight loss, other Hematologic/Lymphatic: Denies: no symptoms, anemia, easy bleeding, easy bruising, adenopathy, other Allergies: Coded Allergies: SULFA (SULFONAMIDE ANTIBIOTICS) (Unverified Allergy, Unknown, 08/13/18) Subjective 09/03 covering Im, no bleeding, tapering down steriods Objective Objective Current Medications Medications (Trade) Dose Ordered Sig/Rogers Route PRN Reason Start Time Stop Time Status Last Admin Dose Admin Acetaminophen (Tylenol) 650 mg Q4H PRN ORAL Mild Pain (Pain Scale 1-3) 08/26/20 06:45 09/25/20 06:44 Acetaminophen (Tylenol) 650 mg Q4H PRN ORAL Temp >100.5 08/26/20 06:45 09/25/20 06:44 Albuterol Sulfate (Proventil MDI) 2 puff Q4H PRN INH Shortness of Breath 08/26/20 09:15 11/24/20 09:14 Aspirin (ASA) 81 mg DAILY ORAL 08/26/20 09:00 10/10/20 08:59 09/03/20 09:04 Benzonatate (Tessalon Perles) 200 mg THREE TIMES A DAY ORAL 08/26/20 09:00 09/25/20 08:59 09/03/20 09:03 Ceftriaxone Sodium 1 gm/ Dextrose 55 ml @ 110 mls/hr Q24H IVPB 08/28/20 18:00 09/04/20 17:59 09/02/20 18:09 Chlorhexidine Gluconate (Elinor-Hex 2%) 1 applic DAILY@2000 TOPIC 08/26/20 20:00 11/24/20 19:59 09/02/20 20:03 Clonidine HCl (Catapres Tab) 0.1 mg EVERY 6 HOURS PRN ORAL For High Blood Pressure 08/26/20 12:00 11/24/20 11:59 08/30/20 05:02 Dextrose (Dextrose 50%) 25 ml Q30M PRN IV Hypoglycemia 08/29/20 12:00 11/27/20 11:59 Dextrose (Dextrose 50%) 50 ml Q30M PRN IV Hypoglycemia 08/29/20 12:00 11/27/20 11:59 Diphenhydramine HCl (Benadryl) 25 mg Q6H PRN ORAL Itching 08/26/20 06:45 09/25/20 06:44 Docusate Sodium (Colace) 100 mg TWICE A DAY ORAL 08/26/20 09:00 09/25/20 08:59 09/03/20 09:04 Gabapentin (Neurontin) 200 mg FOUR TIMES A DAY ORAL 08/28/20 18:00 09/25/20 17:59 09/03/20 09:04 Gabapentin (Neurontin) 600 mg FOUR TIMES A DAY ORAL 09/01/20 21:00 10/01/20 20:59 09/03/20 09:03 Guaifenesin (Mucinex ER) 600 mg Q12HR ORAL 08/26/20 09:00 11/24/20 08:59 09/03/20 09:04 Guaifenesin/ Dextromethorphan (Robitussin DM Syrup) 10 ml Q4H PRN ORAL For Cough 08/26/20 06:45 11/24/20 06:44 08/27/20 04:53 Insulin Aspart (NovoLOG) BEFORE MEALS AND HS SUBQ 08/29/20 12:10 11/27/20 12:09 09/03/20 11:15 Insulin Detemir (Levemir) 30 units DAILY SUBQ 09/01/20 09:00 11/28/20 08:59 09/03/20 09:25 Lisinopril (PriniviL) 40 mg DAILY ORAL 08/26/20 09:00 09/25/20 08:59 09/03/20 09:04 Methadone HCl (Methadone HCl) 80 mg DAILY ORAL 09/02/20 09:00 09/09/20 08:59 09/03/20 09:05 Methylprednisolone Sodium Succinate (Solu-MEDROL) 20 mg BID IVP 09/01/20 18:00 11/26/20 21:59 09/03/20 09:22 Metoprolol Tartrate (Lopressor) 50 mg Q12HR ORAL 08/29/20 21:00 11/24/20 20:59 09/03/20 09:04 Morphine Sulfate (Morphine Sulfate) 0.5 mg Q6H PRN IVP For Pain 09/01/20 17:15 09/04/20 16:59 09/03/20 10:09 Nitroglycerin (Ntg) 0.4 mg Q5M PRN SL Prn Chest Pain 08/25/20 23:00 09/24/20 22:59 Ondansetron HCl (Zofran) 4 mg Q6H PRN IV Nausea & Vomiting 08/26/20 06:45 09/25/20 06:44 08/30/20 05:41 Polyethylene Glycol (Miralax) 17 gm DAILYPRN PRN ORAL Constipation 08/26/20 06:45 09/25/20 06:44 Last 24 Hour Vital Signs Date Time Temp Pulse Resp B/P (MAP) Pulse Ox O2 Delivery O2 Flow Rate FiO2 09/03/20 11:25 97.3 67 18 153/87 (109) 99 09/03/20 10:38 98.4 09/03/20 09:04 63 150/100 09/03/20 09:04 150/100 09/03/20 08:23 Room Air 09/03/20 07:52 98.4 63 17 150/100 (117) 100 09/03/20 04:00 97.8 79 18 133/85 (101) 97 09/03/20 00:00 97.4 75 19 139/79 (99) 97 09/02/20 21:00 Room Air 09/02/20 20:16 72 149/76 09/02/20 20:00 97.6 72 20 149/76 (100) 97 09/02/20 19:51 95 Nasal Cannula 2.0 28 09/02/20 19:49 70 18 95 Nasal Cannula 2.0 28 09/02/20 16:00 98.1 70 19 140/83 (102) 09/02/20 12:00 98.1 63 19 136/81 (99) 94 09/02/20 09:49 69 138/75 09/02/20 09:48 138/75 09/02/20 09:00 Room Air 09/02/20 08:00 98.3 69 18 138/75 (96) 94 09/02/20 07:00 69 20 94 Room Air 21 09/02/20 05:24 98.4 09/02/20 04:00 98.2 66 24 132/73 (92) 95 09/02/20 00:00 98.4 69 20 144/91 (108) 97 09/01/20 22:53 98.3 09/01/20 21:54 63 126/79 09/01/20 21:00 Room Air 09/01/20 20:51 98.3 09/01/20 20:00 98.3 63 18 126/79 (95) 95 09/01/20 16:00 98.5 67 19 163/81 (108) 94 09/01/20 12:00 97.3 62 18 151/88 (109) 99 Intake and Output 09/02/20 09/03/20 19:00 07:00 Intake Total 2400 ml 780 ml Balance 2400 ml 780 ml Intake Oral 2400 ml 780 ml # Voids 4 # Bowel Movements 1 Labs Test 08/31/20 16:54 08/31/20 22:25 09/01/20 05:50 09/01/20 10:55 POC Whole Blood Glucose 435 MG/DL (74-106) 315 MG/DL (74-106) 422 MG/DL (74-106) White Blood Count 8.4 K/UL (4.8-10.8) Red Blood Count 4.25 M/UL (4.20-5.40) Hemoglobin 11.7 G/DL (12.0-16.0) Hematocrit 41.2 % (37.0-47.0) Mean Corpuscular Volume 97 FL (80-99) Mean Corpuscular Hemoglobin 27.5 PG (27.0-31.0) Mean Corpuscular Hemoglobin Concent 28.4 G/DL (32.0-36.0) Red Cell Distribution Width 15.0 % (11.6-14.8) Platelet Count 137 K/UL (150-450) Mean Platelet Volume 6.9 FL (6.5-10.1) Neutrophils (%) (Auto) 82.6 % (45.0-75.0) Lymphocytes (%) (Auto) 9.2 % (20.0-45.0) Monocytes (%) (Auto) 7.7 % (1.0-10.0) Eosinophils (%) (Auto) 0.2 % (0.0-3.0) Basophils (%) (Auto) 0.3 % (0.0-2.0) Sodium Level 143 MMOL/L (136-145) Potassium Level 4.0 MMOL/L (3.5-5.1) Chloride Level 105 MMOL/L (98-107) Carbon Dioxide Level 36 MMOL/L (21-32) Anion Gap 2 mmol/L (5-15) Blood Urea Nitrogen 40 mg/dL (7-18) Creatinine 1.1 MG/DL (0.55-1.30) Estimat Glomerular Filtration Rate > 60 mL/min (>60) Glucose Level 299 MG/DL (74-106) Calcium Level 8.6 MG/DL (8.5-10.1) Total Bilirubin 0.6 MG/DL (0.2-1.0) Aspartate Amino Transf (AST/SGOT) 28 U/L (15-37) Alanine Aminotransferase (ALT/SGPT) 28 U/L (12-78) Alkaline Phosphatase 92 U/L (46-116) Total Protein 7.0 G/DL (6.4-8.2) Albumin 2.4 G/DL (3.4-5.0) Globulin 4.6 g/dL Albumin/Globulin Ratio 0.5 (1.0-2.7) Test 09/01/20 12:25 09/01/20 16:43 09/01/20 22:02 09/02/20 05:26 POC Whole Blood Glucose 263 MG/DL (74-106) 355 MG/DL (74-106) 292 MG/DL (74-106) 291 MG/DL (74-106) Test 09/02/20 09:46 09/02/20 11:32 09/02/20 16:16 09/03/20 06:50 White Blood Count 5.5 K/UL (4.8-10.8) Red Blood Count 3.99 M/UL (4.20-5.40) Hemoglobin 11.1 G/DL (12.0-16.0) Hematocrit 38.6 % (37.0-47.0) Mean Corpuscular Volume 97 FL (80-99) Mean Corpuscular Hemoglobin 27.8 PG (27.0-31.0) Mean Corpuscular Hemoglobin Concent 28.8 G/DL (32.0-36.0) Red Cell Distribution Width 14.9 % (11.6-14.8) Platelet Count 121 K/UL (150-450) Mean Platelet Volume 7.9 FL (6.5-10.1) Neutrophils (%) (Auto) 70.5 % (45.0-75.0) Lymphocytes (%) (Auto) 19.9 % (20.0-45.0) Monocytes (%) (Auto) 8.3 % (1.0-10.0) Eosinophils (%) (Auto) 1.0 % (0.0-3.0) Basophils (%) (Auto) 0.3 % (0.0-2.0) Sodium Level 139 MMOL/L (136-145) Potassium Level 4.2 MMOL/L (3.5-5.1) Chloride Level 103 MMOL/L (98-107) Carbon Dioxide Level 36 MMOL/L (21-32) Anion Gap 0 mmol/L (5-15) Blood Urea Nitrogen 36 mg/dL (7-18) Creatinine 1.0 MG/DL (0.55-1.30) Estimat Glomerular Filtration Rate > 60 mL/min (>60) Glucose Level 309 MG/DL (74-106) Calcium Level 8.5 MG/DL (8.5-10.1) Total Bilirubin 0.4 MG/DL (0.2-1.0) Aspartate Amino Transf (AST/SGOT) 26 U/L (15-37) Alanine Aminotransferase (ALT/SGPT) 25 U/L (12-78) Alkaline Phosphatase 87 U/L (46-116) Total Protein 6.0 G/DL (6.4-8.2) Albumin 2.1 G/DL (3.4-5.0) Globulin 3.9 g/dL Albumin/Globulin Ratio 0.5 (1.0-2.7) POC Whole Blood Glucose 287 MG/DL (74-106) 306 MG/DL (74-106) 289 MG/DL (74-106) Test 09/03/20 09:18 09/03/20 11:13 POC Whole Blood Glucose 225 MG/DL (74-106) 144 MG/DL (74-106) Height (Feet): 5 Height (Inches): 6.00 Weight (Pounds): 167 Objective Weight (Pounds): 167 General Appearance: alert EENT: PERRL/EOMI Neck: supple Cardiovascular: normal rate Respiratory/Chest: crackles/rales Abdomen: non tender, soft Saul Marcos MD Sep 03, 2020 11:35
--- NOTE | 2020-09-03 15:37 | NUR ---
NURSE NOTES: contacted dr boone regarding pt morphine order renewal, awaiting call back
[2020-09-03 16:00] VITALS: BP 128/78
--- NOTE | 2020-09-03 17:22 | NUR ---
NURSE HAND-OFF REPORT: Important Events on Shift: morphine order renewed per paolo Patient Status: fc, stable Diet: ccho med Pending Orders: Pending Results/Labs: Pending MD notification: Latest Vital Signs: Temperature 96.6 , Pulse 68 , B/P 128 /78 , Respiratory Rate 16 , O2 SAT 99 , Room Air, O2 Flow Rate 2.0 . Vital Sign Comment: EKG Rhythm: Sinus Rhythm Rhythm change?: N MD Notified?: - MD Response: Latest Mcdonald Fall Score: 50 Fall Risk: High Risk Safety Measures: Call light Within Reach, Bed Alarm Zone 1, Side Rails Side Rails x2, Bed position Low and Locked. Fall Precautions: Yellow Socks Report to be given. Addendum: 09/03/20 at 1914 by Perri Peres RN RN Plan of care endorsed to DANIEL Rolle. Pt is stable in bed resting.
[2020-09-03] MEDS: cefTRIAXone 1 GM in D5W 55 ML IVPB SCH (17:41)
--- NOTE | 2020-09-03 19:15 | NUR ---
NURSE NOTES: Receive a report from DANIEL Rayo. Round is made. Awake and alert. No acute distress noted. No SOB/wheezing noted. Pain is tolerating at this time and pt is aware of next due pain medication time. PICC is on ROBERT intact. Provide fall precautions. Call light within reach. Will continue to monitor.
[2020-09-03 20:00] VITALS: BP 151/85
--- NOTE | 2020-09-03 21:00 | NUR ---
NURSE NOTES: Noted wheezing while sitting on bed. No distress noted. Offer breathing treatment but refuses it. Spo2 94% in RA. Will continue to monitor.
[2020-09-03] MEDS: Dyna-Hex 2% Top Sol 2oz TOPIC SCH (21:04)
[2020-09-04] VITALS: BP 171/101
[2020-09-04] MEDS: Morphine Sulfate 2mg/ml Inj(IV/IM USE ONLY) IVP PRN ×3 (04:02→20:53)
[2020-09-04 04:23] VITALS: BP 154/83
[2020-09-04] MEDS: NovoLOG Insulin Flexpen SUBQ SCH ×4 (06:19→21:47)
--- NOTE | 2020-09-04 06:20 | NUR ---
NURSE NOTES: Checked blood sugar 443mg/dL. Awake and alert. But pt is upset and mentions AMA because she did not get juice earlier. Given Novolog sliding scale as ordered. made aware. Will continue to monitor.
--- NOTE | 2020-09-04 06:20 | Hematology/Onc Progress Note ---
Assessment/Plan Assessment/Plan thrombocytopenia is due to hepatitis C, chronic anemia likely chronic disease, downtrending ac copd better on decresed iv steroids and iv abx acs htn ch pain synd dm poorly controlled hepatitis c pancreatic tail cyst, outpatient f/u levamier and high dose of ss hx iv drug abused decrease iv sterids and abx pain meds imaging is noted from prior admission transfer to med surg Subjective HEENT: Denies: no symptoms, eye pain, blurred vision, tearing, double vision, ear pain, ear discharge, nose pain, nose congestion, throat pain, throat swelling, mouth pain, mouth swelling, other Gastrointestinal/Abdominal: Denies: no symptoms, abdomen distended, abdominal pain, black stools, tarry stools, blood in stool, constipated, diarrhea, difficulty swallowing, nausea, poor appetite, poor fluid intake, rectal bleeding, vomiting, other Genitourinary: Denies: no symptoms, burning, discharge, frequency, flank pain, hematuria, incontinence, pain, urgency, other Endocrine: Denies: no symptoms, excessive sweating, flushing, intolerance to cold, intolerance to heat, increased hunger, increased thirst, increased urine, unexplained weight gain, unexplained weight loss, other Hematologic/Lymphatic: Denies: no symptoms, anemia, easy bleeding, easy bruising, adenopathy, other Allergies: Coded Allergies: SULFA (SULFONAMIDE ANTIBIOTICS) (Unverified Allergy, Unknown, 08/13/18) Subjective 09/03 covering Im, no bleeding, tapering down steriods 09/04 awake, alert no bleeding, meds reviewed, labs ordered Objective Objective Current Medications Medications (Trade) Dose Ordered Sig/Rogers Route PRN Reason Start Time Stop Time Status Last Admin Dose Admin Acetaminophen (Tylenol) 650 mg Q4H PRN ORAL Mild Pain (Pain Scale 1-3) 08/26/20 06:45 09/25/20 06:44 Acetaminophen (Tylenol) 650 mg Q4H PRN ORAL Temp >100.5 08/26/20 06:45 09/25/20 06:44 Albuterol Sulfate (Proventil MDI) 2 puff Q4H PRN INH Shortness of Breath 08/26/20 09:15 11/24/20 09:14 Aspirin (ASA) 81 mg DAILY ORAL 08/26/20 09:00 10/10/20 08:59 09/03/20 09:04 Benzonatate (Tessalon Perles) 200 mg THREE TIMES A DAY ORAL 08/26/20 09:00 09/25/20 08:59 09/03/20 17:40 Ceftriaxone Sodium 1 gm/ Dextrose 55 ml @ 110 mls/hr Q24H IVPB 08/28/20 18:00 09/04/20 17:59 09/03/20 17:41 Chlorhexidine Gluconate (Elinor-Hex 2%) 1 applic DAILY@2000 TOPIC 08/26/20 20:00 11/24/20 19:59 09/03/20 21:04 Clonidine HCl (Catapres Tab) 0.1 mg EVERY 6 HOURS PRN ORAL For High Blood Pressure 08/26/20 12:00 11/24/20 11:59 09/04/20 00:09 Dextrose (Dextrose 50%) 25 ml Q30M PRN IV Hypoglycemia 08/29/20 12:00 11/27/20 11:59 Dextrose (Dextrose 50%) 50 ml Q30M PRN IV Hypoglycemia 08/29/20 12:00 11/27/20 11:59 Diphenhydramine HCl (Benadryl) 25 mg Q6H PRN ORAL Itching 08/26/20 06:45 09/25/20 06:44 Docusate Sodium (Colace) 100 mg TWICE A DAY ORAL 08/26/20 09:00 09/25/20 08:59 09/03/20 17:40 Gabapentin (Neurontin) 200 mg FOUR TIMES A DAY ORAL 08/28/20 18:00 09/25/20 17:59 09/03/20 21:04 Gabapentin (Neurontin) 600 mg FOUR TIMES A DAY ORAL 09/01/20 21:00 10/01/20 20:59 09/03/20 21:04 Guaifenesin (Mucinex ER) 600 mg Q12HR ORAL 08/26/20 09:00 11/24/20 08:59 09/03/20 21:04 Guaifenesin/ Dextromethorphan (Robitussin DM Syrup) 10 ml Q4H PRN ORAL For Cough 08/26/20 06:45 11/24/20 06:44 08/27/20 04:53 Insulin Aspart (NovoLOG) BEFORE MEALS AND HS SUBQ 08/29/20 12:10 11/27/20 12:09 09/03/20 21:07 Insulin Detemir (Levemir) 30 units DAILY SUBQ 09/01/20 09:00 11/28/20 08:59 09/03/20 09:25 Lisinopril (PriniviL) 40 mg DAILY ORAL 08/26/20 09:00 09/25/20 08:59 09/03/20 09:04 Methadone HCl (Methadone HCl) 80 mg DAILY ORAL 09/02/20 09:00 09/09/20 08:59 09/03/20 09:05 Methylprednisolone Sodium Succinate (Solu-MEDROL) 20 mg BID IVP 09/01/20 18:00 11/26/20 21:59 09/03/20 17:41 Metoprolol Tartrate (Lopressor) 50 mg Q12HR ORAL 08/29/20 21:00 11/24/20 20:59 09/03/20 21:05 Morphine Sulfate (Morphine Sulfate) 0.5 mg Q6H PRN IVP For Pain 09/03/20 16:09 09/06/20 16:08 09/04/20 04:02 Nitroglycerin (Ntg) 0.4 mg Q5M PRN SL Prn Chest Pain 08/25/20 23:00 09/24/20 22:59 Ondansetron HCl (Zofran) 4 mg Q6H PRN IV Nausea & Vomiting 08/26/20 06:45 09/25/20 06:44 08/30/20 05:41 Polyethylene Glycol (Miralax) 17 gm DAILYPRN PRN ORAL Constipation 08/26/20 06:45 09/25/20 06:44 Last 24 Hour Vital Signs Date Time Temp Pulse Resp B/P (MAP) Pulse Ox O2 Delivery O2 Flow Rate FiO2 09/04/20 04:23 97.3 66 20 154/83 (106) 94 09/04/20 00:09 171/101 09/04/20 00:00 97.9 68 16 171/101 (124) 94 09/03/20 21:05 68 151/85 09/03/20 21:00 Room Air 09/03/20 20:00 97.3 68 16 151/85 (107) 95 09/03/20 16:00 96.6 68 16 128/78 (95) 99 09/03/20 11:25 97.3 67 18 153/87 (109) 99 09/03/20 10:38 98.4 09/03/20 09:04 63 150/100 09/03/20 09:04 150/100 09/03/20 08:23 Room Air 09/03/20 07:52 98.4 63 17 150/100 (117) 100 09/03/20 04:00 97.8 79 18 133/85 (101) 97 09/03/20 00:00 97.4 75 19 139/79 (99) 97 09/02/20 21:00 Room Air 09/02/20 20:16 72 149/76 09/02/20 20:00 97.6 72 20 149/76 (100) 97 09/02/20 19:51 95 Nasal Cannula 2.0 09/02/20 19:49 70 18 95 Nasal Cannula 2.0 28 09/02/20 16:00 98.1 70 19 140/83 (102) 09/02/20 12:00 98.1 63 19 136/81 (99) 94 09/02/20 09:49 69 138/75 09/02/20 09:48 138/75 09/02/20 09:00 Room Air 09/02/20 08:00 98.3 69 18 138/75 (96) 94 09/02/20 07:00 69 20 94 Room Air 21 Intake and Output 09/03/20 09/04/20 19:00 07:00 Intake Total 1600 ml Balance 1600 ml Intake Oral 1600 ml # Voids 3 3 # Bowel Movements 1 Labs Test 09/01/20 10:55 09/01/20 12:25 09/01/20 16:43 09/01/20 22:02 White Blood Count 8.4 K/UL (4.8-10.8) Red Blood Count 4.25 M/UL (4.20-5.40) Hemoglobin 11.7 G/DL (12.0-16.0) Hematocrit 41.2 % (37.0-47.0) Mean Corpuscular Volume 97 FL (80-99) Mean Corpuscular Hemoglobin 27.5 PG (27.0-31.0) Mean Corpuscular Hemoglobin Concent 28.4 G/DL (32.0-36.0) Red Cell Distribution Width 15.0 % (11.6-14.8) Platelet Count 137 K/UL (150-450) Mean Platelet Volume 6.9 FL (6.5-10.1) Neutrophils (%) (Auto) 82.6 % (45.0-75.0) Lymphocytes (%) (Auto) 9.2 % (20.0-45.0) Monocytes (%) (Auto) 7.7 % (1.0-10.0) Eosinophils (%) (Auto) 0.2 % (0.0-3.0) Basophils (%) (Auto) 0.3 % (0.0-2.0) Sodium Level 143 MMOL/L (136-145) Potassium Level 4.0 MMOL/L (3.5-5.1) Chloride Level 105 MMOL/L (98-107) Carbon Dioxide Level 36 MMOL/L (21-32) Anion Gap 2 mmol/L (5-15) Blood Urea Nitrogen 40 mg/dL (7-18) Creatinine 1.1 MG/DL (0.55-1.30) Estimat Glomerular Filtration Rate > 60 mL/min (>60) Glucose Level 299 MG/DL (74-106) Calcium Level 8.6 MG/DL (8.5-10.1) Total Bilirubin 0.6 MG/DL (0.2-1.0) Aspartate Amino Transf (AST/SGOT) 28 U/L (15-37) Alanine Aminotransferase (ALT/SGPT) 28 U/L (12-78) Alkaline Phosphatase 92 U/L (46-116) Total Protein 7.0 G/DL (6.4-8.2) Albumin 2.4 G/DL (3.4-5.0) Globulin 4.6 g/dL Albumin/Globulin Ratio 0.5 (1.0-2.7) POC Whole Blood Glucose 263 MG/DL (74-106) 355 MG/DL (74-106) 292 MG/DL (74-106) Test 09/02/20 05:26 09/02/20 09:46 09/02/20 11:32 09/02/20 16:16 POC Whole Blood Glucose 291 MG/DL (74-106) 287 MG/DL (74-106) 306 MG/DL (74-106) White Blood Count 5.5 K/UL (4.8-10.8) Red Blood Count 3.99 M/UL (4.20-5.40) Hemoglobin 11.1 G/DL (12.0-16.0) Hematocrit 38.6 % (37.0-47.0) Mean Corpuscular Volume 97 FL (80-99) Mean Corpuscular Hemoglobin 27.8 PG (27.0-31.0) Mean Corpuscular Hemoglobin Concent 28.8 G/DL (32.0-36.0) Red Cell Distribution Width 14.9 % (11.6-14.8) Platelet Count 121 K/UL (150-450) Mean Platelet Volume 7.9 FL (6.5-10.1) Neutrophils (%) (Auto) 70.5 % (45.0-75.0) Lymphocytes (%) (Auto) 19.9 % (20.0-45.0) Monocytes (%) (Auto) 8.3 % (1.0-10.0) Eosinophils (%) (Auto) 1.0 % (0.0-3.0) Basophils (%) (Auto) 0.3 % (0.0-2.0) Sodium Level 139 MMOL/L (136-145) Potassium Level 4.2 MMOL/L (3.5-5.1) Chloride Level 103 MMOL/L (98-107) Carbon Dioxide Level 36 MMOL/L (21-32) Anion Gap 0 mmol/L (5-15) Blood Urea Nitrogen 36 mg/dL (7-18) Creatinine 1.0 MG/DL (0.55-1.30) Estimat Glomerular Filtration Rate > 60 mL/min (>60) Glucose Level 309 MG/DL (74-106) Calcium Level 8.5 MG/DL (8.5-10.1) Total Bilirubin 0.4 MG/DL (0.2-1.0) Aspartate Amino Transf (AST/SGOT) 26 U/L (15-37) Alanine Aminotransferase (ALT/SGPT) 25 U/L (12-78) Alkaline Phosphatase 87 U/L (46-116) Total Protein 6.0 G/DL (6.4-8.2) Albumin 2.1 G/DL (3.4-5.0) Globulin 3.9 g/dL Albumin/Globulin Ratio 0.5 (1.0-2.7) Test 09/03/20 06:50 09/03/20 09:18 09/03/20 11:13 09/03/20 16:07 POC Whole Blood Glucose 289 MG/DL (74-106) 225 MG/DL (74-106) 144 MG/DL (74-106) 369 MG/DL (74-106) Test 09/03/20 21:04 POC Whole Blood Glucose 348 MG/DL (74-106) Height (Feet): 5 Height (Inches): 6.00 Weight (Pounds): 167 Objective General Appearance: alert EENT: PERRL/EOMI Neck: supple Cardiovascular: normal rate Respiratory/Chest: crackles/rales Abdomen: non tender, soft Saul Marcos MD Sep 04, 2020 06:20
--- NOTE | 2020-09-04 07:03 | NUR ---
NURSE HAND-OFF REPORT: Important Events on Shift: High glucose/ wheezing/non-compliant of controlling BS Patient Status: [stable] Diet: [CCHO] Pending Orders: [] Pending Results/Labs:[] Pending MD notification:[] Latest Vital Signs: Temperature 97.3 , Pulse 66 , B/P 154 /83 , Respiratory Rate 20 , O2 SAT 94 , Room Air, O2 Flow Rate 2.0 . Vital Sign Comment: [] EKG Rhythm: Sinus Rhythm Rhythm change?: N MD Notified?: - MD Response: Latest Mcdonald Fall Score: 50 Fall Risk: High Risk Safety Measures: Call light Within Reach, Bed Alarm Zone 1, Side Rails Side Rails x2, Bed position Low and Locked. Fall Precautions: Yellow Socks
--- NOTE | 2020-09-04 07:15 | NUR ---
NURSE NOTES: Received report from DANIEL Saucedo. Patent is [id number]. No pain or discomfort noted at this time. Patient on RA, breathing is even and unlabored with no signs of respiratory distress. Patient with L upper arm Picc, patent and intact. Call light within reach.
--- NOTE | 2020-09-04 07:15 | NUR ---
NURSE NOTES: Given report to DANIEL Moralez.
[2020-09-04 08:00] VITALS: BP 145/90
[2020-09-04] MEDS: guaiFENesin ER 600mg tab ORAL SCH ×2 (09:00→20:52)
[2020-09-04] MEDS: Docusate 100mg cap ORAL SCH ×2 (09:07→17:30)
[2020-09-04] MEDS: Benzonatate 100mg Perles ORAL SCH ×3 (09:07→17:30)
[2020-09-04] MEDS: Aspirin Baby 81mg ORAL SCH (09:07)
[2020-09-04] MEDS: Solu-MEDROL 40mg Inj IVP SCH ×2 (09:08→17:29)
[2020-09-04] MEDS: Lisinopril 20mg tab ORAL SCH (09:08)
[2020-09-04] MEDS: Levemir Flexpen SUBQ SCH (09:16)
[2020-09-04 12:00] VITALS: BP 150/84
[2020-09-04 16:00] VITALS: BP 136/88
--- NOTE | 2020-09-04 16:35 | General Progress Note ---
Subjective Allergies: Coded Allergies: SULFA (SULFONAMIDE ANTIBIOTICS) (Unverified Allergy, Unknown, 08/13/18) Subjective comfortable c/o pain picc line was placed blood sugar is better increased levamier taper down steroids sob on exertion Objective Last 24 Hour Vital Signs Date Time Temp Pulse Resp B/P (MAP) Pulse Ox O2 Delivery O2 Flow Rate FiO2 09/04/20 16:00 98.0 86 18 136/88 (104) 97 09/04/20 12:00 98.4 78 20 150/84 (106) 94 09/04/20 09:08 145/90 09/04/20 09:00 Room Air 09/04/20 09:00 70 145/90 09/04/20 08:00 98.0 70 19 145/90 (108) 94 09/04/20 07:00 94 Room Air 09/04/20 07:00 70 18 94 Room Air 21 09/04/20 04:23 97.3 66 20 154/83 (106) 94 09/04/20 00:09 171/101 09/04/20 00:00 97.9 68 16 171/101 (124) 94 09/03/20 21:05 68 151/85 09/03/20 21:00 Room Air 09/03/20 20:00 97.3 68 16 151/85 (107) 95 Intake and Output 09/03/20 09/04/20 19:00 07:00 Intake Total 1600 ml Balance 1600 ml Intake Oral 1600 ml # Voids 3 3 # Bowel Movements 1 Laboratory Tests 09/03/20 21:04: POC Whole Blood Glucose 348H Height (Feet): 5 Height (Inches): 6.00 Weight (Pounds): 167 General Appearance: alert EENT: PERRL/EOMI Neck: supple Cardiovascular: normal rate Respiratory/Chest: crackles/rales Abdomen: non tender, soft Assessment/Plan Assessment/Plan: ac copd better on decresed iv steroids and iv abx acs htn ch pain synd dm poorly controlled add levamier and high dose of ss hx iv drug abused decrease iv sterids and abx pain meds transfer to med surg dc plan home tmorrow am dc picc line Olegario Thomas MD Sep 04, 2020 16:35
--- NOTE | 2020-09-04 17:00 | NUR ---
NURSE NOTES: Dr Thomas gave d/c order prescription, noted and placed in chart to give to patient for discharge tomorrow.
--- NOTE | 2020-09-04 19:15 | NUR ---
NURSE NOTES: Important Events on Shift: Received report from Sulma Sargent RN. Pt in stable condition, denies pain at this time. Will continue to monitor closely. Patient Status: full code Diet: CCHO M Pending Orders: Transfer to CT once bed is available. Pending Results/Labs: none Pending MD notification: none Latest Vital Signs: Temperature 98.0 , Pulse 71 , B/P 136 /57 , Respiratory Rate 20 , O2 SAT 95 , Room Air, O2 Flow Rate 2.0 . Vital Sign Comment: per report, stable throughout shift. EKG Rhythm: Sinus Rhythm Rhythm change?: N MD Notified?: - MD Response: Latest Mcdonald Fall Score: 50 Fall Risk: High Risk Safety Measures: Call light Within Reach, Bed Alarm Zone 1, Side Rails Side Rails x2, Bed position Low and Locked. Fall Precautions: Yellow Socks, pt education.
--- NOTE | 2020-09-04 19:44 | NUR ---
NURSE HAND-OFF REPORT: Important Events on Shift:Patient to DC tomorrow Patient Status: Stable Diet: CCHO(M) Pending Orders: NA Pending Results/Labs:NA Pending MD notification:NA Latest Vital Signs: Temperature 98.0 , Pulse 86 , B/P 136 /88 , Respiratory Rate 18 , O2 SAT 97 , Room Air, O2 Flow Rate 2.0 . Vital Sign Comment: Stable EKG Rhythm: Sinus Rhythm Rhythm change?: N MD Notified?: - MD Response: Latest Mcdonald Fall Score: 50 Fall Risk: High Risk Safety Measures: Call light Within Reach, Bed Alarm Zone 1, Side Rails Side Rails x2, Bed position Low and Locked. Fall Precautions: Yellow Socks Report given to DANIEL Verma.
[2020-09-04 20:00] VITALS: BP 146/84
[2020-09-04] MEDS: Dyna-Hex 2% Top Sol 2oz TOPIC SCH (20:52)
--- NOTE | 2020-09-04 21:15 | NUR ---
TRANSFER NOTES: Important Events on Shift: Pt transferred to [facility] 402-1. Pt notified of transfer and verbalized understanding. Inventory of belongings completed with pt, who confirmed all items were accounted for. Report given to Nic Bello RN. Pt is in stable condition. Patient Status: full code Diet: CCHO M Pending Orders: DC in AM Pending Results/Labs: none Pending MD notification: none Latest Vital Signs: Temperature 98.0 , Pulse 71 , B/P 136 /57 , Respiratory Rate 20 , O2 SAT 95 , Room Air, O2 Flow Rate 2.0 . Vital Sign Comment: stable through transfer EKG Rhythm: Sinus Rhythm Rhythm change?: N MD Notified?: - MD Response: - Latest Mcdonald Fall Score: 50 Fall Risk: High Risk Safety Measures: Call light Within Reach, Bed Alarm Zone 1, Side Rails Side Rails x2, Bed position Low and Locked. Fall Precautions: Yellow Socks, pt education Report given to Nic Bello RN
--- NOTE | 2020-09-04 21:25 | NUR ---
NURSE NOTES: Received report from DANIEL Jara. Pt arrived on unit A&Ox4, ambulatory with a steady gait. Pt has a PICC line that is set to be discontinued on discharge 09-05-20. Prescription orders on in chart for discharge. Pt oriented to room, belongings at bedside, side rails up x2, call light within reach, bed locked and in lowest position. Will continue to monitor.
[2020-09-05] VITALS: BP 136/57
[2020-09-05] MEDS: Morphine Sulfate 2mg/ml Inj(IV/IM USE ONLY) IVP PRN ×2 (03:22→12:01)
[2020-09-05 04:00] VITALS: BP 141/72
[2020-09-05 04:28] LABS: CALCIUM 8.7 MG/DL (8.5-10.1); CREATININE 1.2 MG/DL (0.55-1.30); POTASSIUM 4.1 MMOL/L (3.5-5.1)
[2020-09-05 04:54] LABS: BASOPHILS % (AUTO) 0.5 % (0.0-2.0); EOSINOPHILS % (AUTO) 0.7 % (0.0-3.0); HEMATOCRIT 39.1 % (37.0-47.0); HEMOGLOBIN 11.4 G/DL (12.0-16.0); LYMPHOCYTES % (AUTO) 19.9 % (20.0-45.0); MEAN CORPUSCULAR VOLUME 96 FL (80-99); MONOCYTES % (AUTO) 8.2 % (1.0-10.0); NEUTROPHILS % (AUTO) 70.7 % (45.0-75.0); PLATELET COUNT 113 K/UL (150-450); RED BLOOD COUNT 4.07 M/UL (4.20-5.40); RED CELL DISTRIBUTION WIDTH 14.6 % (11.6-14.8); WHITE BLOOD COUNT 7.9 K/UL (4.8-10.8)
[2020-09-05] MEDS: NovoLOG Insulin Flexpen SUBQ SCH ×3 (05:58→16:45)
--- NOTE | 2020-09-05 06:37 | Hematology/Onc Progress Note ---
Assessment/Plan Assessment/Plan thrombocytopenia is due to hepatitis C, chronic anemia likely chronic disease, downtrending ac copd better on decresed iv steroids and iv abx acs htn ch pain synd dm poorly controlled hepatitis c pancreatic tail cyst, outpatient f/u levamier and high dose of ss hx iv drug abused decrease iv sterids and abx pain meds imaging is noted from prior admission transfer to med surg Subjective HEENT: Denies: no symptoms, eye pain, blurred vision, tearing, double vision, ear pain, ear discharge, nose pain, nose congestion, throat pain, throat swelling, mouth pain, mouth swelling, other Cardiovascular: Denies: no symptoms, chest pain, edema, irregular heart rate, lightheadedness, palpitations, syncope, other Genitourinary: Denies: no symptoms, burning, discharge, frequency, flank pain, hematuria, incontinence, pain, urgency, other Neurologic/Psychiatric: Denies: no symptoms, anxiety, depressed, emotional problems, headache, numbness, paresthesia, pre-existing deficit, seizure, tingling, tremors, weakness, other Endocrine: Denies: no symptoms, excessive sweating, flushing, intolerance to cold, intolerance to heat, increased hunger, increased thirst, increased urine, unexplained weight gain, unexplained weight loss, other Allergies: Coded Allergies: SULFA (SULFONAMIDE ANTIBIOTICS) (Unverified Allergy, Unknown, 08/13/18) Subjective 09/03 covering Im, no bleeding, tapering down steriods 09/04 awake, alert no bleeding, meds reviewed, labs ordered 09/05 awake, potential for dc, scripts in chart, picc out Objective Objective Current Medications Medications (Trade) Dose Ordered Sig/Rogers Route PRN Reason Start Time Stop Time Status Last Admin Dose Admin Acetaminophen (Tylenol) 650 mg Q4H PRN ORAL Mild Pain (Pain Scale 1-3) 08/26/20 06:45 09/25/20 06:44 Acetaminophen (Tylenol) 650 mg Q4H PRN ORAL Temp >100.5 08/26/20 06:45 09/25/20 06:44 Albuterol Sulfate (Proventil MDI) 2 puff Q4H PRN INH Shortness of Breath 08/26/20 09:15 11/24/20 09:14 Aspirin (ASA) 81 mg DAILY ORAL 08/26/20 09:00 10/10/20 08:59 09/04/20 09:07 Benzonatate (Tessalon Perles) 200 mg THREE TIMES A DAY ORAL 08/26/20 09:00 09/25/20 08:59 09/04/20 17:30 Chlorhexidine Gluconate (Elinor-Hex 2%) 1 applic DAILY@2000 TOPIC 08/26/20 20:00 11/24/20 19:59 09/04/20 20:52 Clonidine HCl (Catapres Tab) 0.1 mg EVERY 6 HOURS PRN ORAL For High Blood Pressure 08/26/20 12:00 11/24/20 11:59 09/04/20 00:09 Dextrose (Dextrose 50%) 25 ml Q30M PRN IV Hypoglycemia 08/29/20 12:00 11/27/20 11:59 Dextrose (Dextrose 50%) 50 ml Q30M PRN IV Hypoglycemia 08/29/20 12:00 11/27/20 11:59 Diphenhydramine HCl (Benadryl) 25 mg Q6H PRN ORAL Itching 08/26/20 06:45 09/25/20 06:44 Docusate Sodium (Colace) 100 mg TWICE A DAY ORAL 08/26/20 09:00 09/25/20 08:59 09/04/20 17:30 Gabapentin (Neurontin) 200 mg FOUR TIMES A DAY ORAL 08/28/20 18:00 09/25/20 17:59 09/04/20 20:52 Gabapentin (Neurontin) 600 mg FOUR TIMES A DAY ORAL 09/01/20 21:00 10/01/20 20:59 09/04/20 20:52 Guaifenesin (Mucinex ER) 600 mg Q12HR ORAL 08/26/20 09:00 11/24/20 08:59 09/04/20 20:52 Guaifenesin/ Dextromethorphan (Robitussin DM Syrup) 10 ml Q4H PRN ORAL For Cough 08/26/20 06:45 11/24/20 06:44 08/27/20 04:53 Insulin Aspart (NovoLOG) BEFORE MEALS AND HS SUBQ 08/29/20 12:10 11/27/20 12:09 09/05/20 05:58 Insulin Detemir (Levemir) 30 units DAILY SUBQ 09/01/20 09:00 11/28/20 08:59 09/04/20 09:16 Lisinopril (PriniviL) 40 mg DAILY ORAL 08/26/20 09:00 09/25/20 08:59 09/04/20 09:08 Methadone HCl (Methadone HCl) 80 mg DAILY ORAL 09/02/20 09:00 09/09/20 08:59 09/04/20 09:06 Methylprednisolone Sodium Succinate (Solu-MEDROL) 20 mg BID IVP 09/01/20 18:00 11/26/20 21:59 09/04/20 17:29 Metoprolol Tartrate (Lopressor) 50 mg Q12HR ORAL 08/29/20 21:00 11/24/20 20:59 09/04/20 20:52 Morphine Sulfate (Morphine Sulfate) 0.5 mg Q6H PRN IVP For Pain 09/03/20 16:09 09/06/20 16:08 09/05/20 03:22 Nitroglycerin (Ntg) 0.4 mg Q5M PRN SL Prn Chest Pain 08/25/20 23:00 09/24/20 22:59 Ondansetron HCl (Zofran) 4 mg Q6H PRN IV Nausea & Vomiting 08/26/20 06:45 09/25/20 06:44 08/30/20 05:41 Polyethylene Glycol (Miralax) 17 gm DAILYPRN PRN ORAL Constipation 08/26/20 06:45 09/25/20 06:44 Last 24 Hour Vital Signs Date Time Temp Pulse Resp B/P (MAP) Pulse Ox O2 Delivery O2 Flow Rate FiO2 09/05/20 04:00 97.8 69 20 141/72 (95) 97 09/05/20 00:00 98.0 71 20 136/57 (83) 95 09/04/20 21:00 Room Air 09/04/20 20:52 71 146/84 09/04/20 20:00 97.9 71 20 146/84 (104) 100 09/04/20 16:00 98.0 86 18 136/88 (104) 97 09/04/20 12:00 98.4 78 20 150/84 (106) 94 09/04/20 09:08 145/90 09/04/20 09:00 Room Air 09/04/20 09:00 70 145/90 09/04/20 08:00 98.0 70 19 145/90 (108) 94 09/04/20 07:00 94 Room Air 09/04/20 07:00 70 18 94 Room Air 21 09/04/20 04:23 97.3 66 20 154/83 (106) 94 09/04/20 00:09 171/101 09/04/20 00:00 97.9 68 16 171/101 (124) 94 09/03/20 21:05 68 151/85 09/03/20 21:00 Room Air 09/03/20 20:00 97.3 68 16 151/85 (107) 95 09/03/20 16:00 96.6 68 16 128/78 (95) 99 09/03/20 11:25 97.3 67 18 153/87 (109) 99 09/03/20 10:38 98.4 09/03/20 09:04 63 150/100 09/03/20 09:04 150/100 09/03/20 08:23 Room Air 09/03/20 07:52 98.4 63 17 150/100 (117) 100 Intake and Output 09/04/20 09/05/20 19:00 07:00 Intake Total 600 ml 720 ml Balance 600 ml 720 ml Intake Oral 600 ml 720 ml # Voids 3 3 Labs Test 09/02/20 09:46 09/02/20 11:32 09/02/20 16:16 09/03/20 06:50 White Blood Count 5.5 K/UL (4.8-10.8) Red Blood Count 3.99 M/UL (4.20-5.40) Hemoglobin 11.1 G/DL (12.0-16.0) Hematocrit 38.6 % (37.0-47.0) Mean Corpuscular Volume 97 FL (80-99) Mean Corpuscular Hemoglobin 27.8 PG (27.0-31.0) Mean Corpuscular Hemoglobin Concent 28.8 G/DL (32.0-36.0) Red Cell Distribution Width 14.9 % (11.6-14.8) Platelet Count 121 K/UL (150-450) Mean Platelet Volume 7.9 FL (6.5-10.1) Neutrophils (%) (Auto) 70.5 % (45.0-75.0) Lymphocytes (%) (Auto) 19.9 % (20.0-45.0) Monocytes (%) (Auto) 8.3 % (1.0-10.0) Eosinophils (%) (Auto) 1.0 % (0.0-3.0) Basophils (%) (Auto) 0.3 % (0.0-2.0) Sodium Level 139 MMOL/L (136-145) Potassium Level 4.2 MMOL/L (3.5-5.1) Chloride Level 103 MMOL/L (98-107) Carbon Dioxide Level 36 MMOL/L (21-32) Anion Gap 0 mmol/L (5-15) Blood Urea Nitrogen 36 mg/dL (7-18) Creatinine 1.0 MG/DL (0.55-1.30) Estimat Glomerular Filtration Rate > 60 mL/min (>60) Glucose Level 309 MG/DL (74-106) Calcium Level 8.5 MG/DL (8.5-10.1) Total Bilirubin 0.4 MG/DL (0.2-1.0) Aspartate Amino Transf (AST/SGOT) 26 U/L (15-37) Alanine Aminotransferase (ALT/SGPT) 25 U/L (12-78) Alkaline Phosphatase 87 U/L (46-116) Total Protein 6.0 G/DL (6.4-8.2) Albumin 2.1 G/DL (3.4-5.0) Globulin 3.9 g/dL Albumin/Globulin Ratio 0.5 (1.0-2.7) POC Whole Blood Glucose 287 MG/DL (74-106) 306 MG/DL (74-106) 289 MG/DL (74-106) Test 09/03/20 09:18 09/03/20 11:13 09/03/20 16:07 09/03/20 21:04 POC Whole Blood Glucose 225 MG/DL (74-106) 144 MG/DL (74-106) 369 MG/DL (74-106) 348 MG/DL (74-106) Test 09/04/20 21:40 09/05/20 03:50 POC Whole Blood Glucose 326 MG/DL (74-106) White Blood Count 7.9 K/UL (4.8-10.8) Red Blood Count 4.07 M/UL (4.20-5.40) Hemoglobin 11.4 G/DL (12.0-16.0) Hematocrit 39.1 % (37.0-47.0) Mean Corpuscular Volume 96 FL (80-99) Mean Corpuscular Hemoglobin 27.9 PG (27.0-31.0) Mean Corpuscular Hemoglobin Concent 29.1 G/DL (32.0-36.0) Red Cell Distribution Width 14.6 % (11.6-14.8) Platelet Count 113 K/UL (150-450) Mean Platelet Volume 8.3 FL (6.5-10.1) Neutrophils (%) (Auto) 70.7 % (45.0-75.0) Lymphocytes (%) (Auto) 19.9 % (20.0-45.0) Monocytes (%) (Auto) 8.2 % (1.0-10.0) Eosinophils (%) (Auto) 0.7 % (0.0-3.0) Basophils (%) (Auto) 0.5 % (0.0-2.0) Sodium Level 139 MMOL/L (136-145) Potassium Level 4.1 MMOL/L (3.5-5.1) Chloride Level 102 MMOL/L (98-107) Carbon Dioxide Level 34 MMOL/L (21-32) Anion Gap 3 mmol/L (5-15) Blood Urea Nitrogen 39 mg/dL (7-18) Creatinine 1.2 MG/DL (0.55-1.30) Estimat Glomerular Filtration Rate 55.1 mL/min (>60) Glucose Level 238 MG/DL (74-106) Calcium Level 8.7 MG/DL (8.5-10.1) Height (Feet): 5 Height (Inches): 6.00 Weight (Pounds): 167 Objective General Appearance: alert EENT: PERRL/EOMI Neck: supple Cardiovascular: normal rate Respiratory/Chest: crackles/rales Abdomen: non tender, soft Saul Marcos MD Sep 05, 2020 06:37
--- NOTE | 2020-09-05 07:02 | NUR ---
NURSE HAND-OFF: Important Events on Shift:Pt transferred from [facility], stable and ambulatory, A&Ox4 Patient Status: eating breakfast Diet: ccho medium Pending Orders: Pending Results/Labs: Pending MD notification: Latest Vital Signs: Temperature 97.8 , Pulse 69 , B/P 141 /72 , Respiratory Rate 20 , O2 SAT 97 , Room Air, O2 Flow Rate 2.0 . Vital Sign Comment: VSS Latest Mcdonald Fall Score: 50 Fall Risk: High Risk Safety Measures: Call light Within Reach, Bed Alarm Zone 1, Side Rails Side Rails x2, Bed position Low and Locked. Fall Precautions: Yellow Socks Report given to DANIEL Zelaya.
--- NOTE | 2020-09-05 07:45 | NUR ---
NURSE NOTES: Received report from DANIEL Lucero. Pt awake, alert and oriented, ambulatory, no acute distress noted. no c/o pain at this time. PICC line on ROBERT intact and patent. Planned to discharge home today. Bed in low position, and locked. Call light within reach. Will continue to monitor.
[2020-09-05] MEDS: Levemir Flexpen SUBQ SCH (08:46)
[2020-09-05] MEDS: Solu-MEDROL 40mg Inj IVP SCH (08:46)
[2020-09-05] MEDS: Benzonatate 100mg Perles ORAL SCH ×2 (08:47→13:38)
[2020-09-05] MEDS: Lisinopril 20mg tab ORAL SCH (08:48)
[2020-09-05] MEDS: Aspirin Baby 81mg ORAL SCH (08:48)
[2020-09-05] MEDS: guaiFENesin ER 600mg tab ORAL SCH (08:48)
[2020-09-05] MEDS: Docusate 100mg cap ORAL SCH (08:48)
[2020-09-05 09:00] VITALS: BP 141/77
[2020-09-05 12:00] VITALS: BP 151/84
--- NOTE | 2020-09-05 13:41 | NUR ---
NURSE NOTES: Pt told the nurse that would come for scrap picker but did not know what time because had to get his prescription from Dr's office before he would come. Pt would let the nurse know when she know scrap picker time.
--- NOTE | 2020-09-05 14:47 | General Progress Note ---
Subjective Allergies: Coded Allergies: SULFA (SULFONAMIDE ANTIBIOTICS) (Unverified Allergy, Unknown, 08/13/18) Subjective comfortable c/o pain is better dc line was placed blood sugar is better increased levamier po steroids sob improved Objective Last 24 Hour Vital Signs Date Time Temp Pulse Resp B/P (MAP) Pulse Ox O2 Delivery O2 Flow Rate FiO2 09/05/20 12:31 98.2 09/05/20 12:00 97.8 65 20 151/84 (106) 94 09/05/20 09:00 98.2 68 20 141/77 (98) 94 09/05/20 09:00 Room Air 09/05/20 08:48 68 141/72 09/05/20 08:48 141/72 09/05/20 07:00 68 18 95 Room Air 09/05/20 07:00 95 Room Air 09/05/20 04:00 97.8 69 20 141/72 (95) 97 09/05/20 00:00 98.0 71 20 136/57 (83) 95 09/04/20 21:00 Room Air 09/04/20 20:52 71 146/84 09/04/20 20:00 97.9 71 20 146/84 (104) 100 09/04/20 16:00 98.0 86 18 136/88 (104) 97 Intake and Output 09/04/20 09/05/20 19:00 07:00 Intake Total 600 ml 720 ml Balance 600 ml 720 ml Intake Oral 600 ml 720 ml # Voids 3 3 Laboratory Tests 09/04/20 21:40: POC Whole Blood Glucose 326H 09/05/20 03:50: White Blood Count 7.9, Red Blood Count 4.07L, Hemoglobin 11.4L, Hematocrit 39.1, Mean Corpuscular Volume 96, Mean Corpuscular Hemoglobin 27.9, Mean Corpuscular Hemoglobin Concent 29.1L, Red Cell Distribution Width 14.6, Platelet Count 113L, Mean Platelet Volume 8.3, Neutrophils (%) (Auto) 70.7, Lymphocytes (%) (Auto) 19.9L, Monocytes (%) (Auto) 8.2, Eosinophils (%) (Auto) 0.7, Basophils (%) (Auto) 0.5, Sodium Level 139, Potassium Level 4.1, Chloride Level 102, Carbon Dioxide Level 34H, Anion Gap 3L, Blood Urea Nitrogen 39H, Creatinine 1.2, Estimat Glomerular Filtration Rate 55.1, Glucose Level 238H, Calcium Level 8.7 09/05/20 05:55: POC Whole Blood Glucose [Pending] Height (Feet): 5 Height (Inches): 6.00 Weight (Pounds): 167 General Appearance: alert EENT: PERRL/EOMI Neck: supple Cardiovascular: regular rhythm Respiratory/Chest: normal breath sounds Abdomen: non tender, soft Assessment/Plan Assessment/Plan: ac copd better dc iv steroids and iv abx htn dm poorly controlled add levamier and high dose of ss hx iv drug abused decrease iv sterids and abx pain meds dw charge nurse fu in office 1 wk dc plan home dc picc line Olegario Thomas MD Sep 05, 2020 14:47
[2020-09-05 16:00] VITALS: BP 145/88
--- NOTE | 2020-09-05 17:01 | NUR ---
NURSE NOTES: Pt in stable condition. PICC line was removed, no bleeding. Provide discharge instructions, Rx and follow up. Pt verbalized understanding. All belongings were accounted for. Pt was escorted by nurse to downstair and picked up by .
--- NOTE | 2020-09-06 10:58 | NUR ---
[employer] FAXED TO [facility] [phone]
--- NOTE | 2020-09-06 14:12 | Discharge Summary ---
Discharge Summary Discharge Summary _ Date of admission: 08/25/2020 Date of discharge: 09/05/[address] Thomas History of Present Illness and Brief Hospital Course Ms. Martinez is a 60-year-old female with past medical history of asthma, COPD, and diabetes mellitus, who presented to ED for evaluation of shortness of breath. Patient reported she normally uses home oxygen approximately 4 L. Patient was found to have elevated BNP. Chest x-ray showed cardiomegaly and right-sided infiltrate with possible small effusions bilaterally. Patient was given IV antibiotics as well as breathing treatment and steroids. Patient was admitted to the hospital for further management. Patient continue to receive antibiotics, steroids, and breathing treatment. Patient remained saturating well on low-flow oxygen. Patient's blood sugar was controlled with insulin. Patient was found to be medically stable and was discharged home on 09/05/2020. Consultants: Hematology oncology Dr. Marcos Surgery Dr. Robbins Discharge Condition Improved and stable Discharge Activity As tolerated Discharge Diet 18 kcal diabetic diet Final diagnoses Thrombocytopenia Chronic hepatitis C Anemia of chronic disease COPD exacerbation Hypertension Chest pain syndrome Pancreatic tail cyst Diabetes mellitus with hyperglycemia Nicotine dependence Pneumonitis Opiate dependence I have been assigned to dictate discharge summary for this account. I was not involved in the patient's management Asad Jaime Sep 06, 2020 14:12
== END 2020-09-05 17:00 | disposition home or self-care (01) | DRG 140 ==
LOC: EMR 19:46 → 2E 22:30 → EDBEDREQ 22:45 → 4E 09-04 21:01
PROC: 02HV33Z Insertion of Infusion Device into Superior Vena Cava, Percutaneous Approach (ICD-10-PCS; principal; 2020-08-28)
DX: J44.0 Chronic obstructive pulmonary disease with (acute) lower respiratory infection (principal); J44.1 Chronic obstructive pulmonary disease with (acute) exacerbation; J18.9 Pneumonia, unspecified organism; F11.20 Opioid dependence, uncomplicated; E11.9 Type 2 diabetes mellitus without complications; I24.9 Acute ischemic heart disease, unspecified; Z88.2 Allergy status to sulfonamides; Z79.82 Long term (current) use of aspirin; Z79.4 Long term (current) use of insulin; I10 Essential (primary) hypertension; D63.8 Anemia in other chronic diseases classified elsewhere; K86.2 Cyst of pancreas; B18.2 Chronic viral hepatitis C; E11.65 Type 2 diabetes mellitus with hyperglycemia; F17.200 Nicotine dependence, unspecified, uncomplicated; D69.59 Other secondary thrombocytopenia
CPT/HCPCS: 36415; 36573; 71045; 76937; 80048; 80053; 81003; 82550; 82553; 82728; 82962; 83605; 83615; 83690; 83880; 84484; 85007; 85025; 86140; 87040; 93005; 94640; 96365; 96372; 99285; J1815; J2405; J7620; S5561